=== PATIENT | male | born 1955 | race Caucasian/White ===

== ENCOUNTER 2017-07-26 03:33 | Observation (INO) ==
[2017-07-26] MEDS ORDERED: Aspirin 81 MG TAB.CHEW PO ONE (03:43)
--- NOTE | 2017-07-26 03:49 | Emergency Department Note ---
Disposition Clinical Impression: Chest pain Qualifiers: Chest pain type: unspecified Qualified Code(s): R07.9 - Chest pain, unspecified Disposition: Home, Self-Care Condition: Good Referrals: Nataliia Mathias CNP [Primary Care Provider] - Forms: ED Satisfaction Letter Time of Disposition: 06:53 Chest Pain HPI - General Chief Complaint: ED Chest Pain Stated Complaint: Chest Pain Time Seen by Provider: 07/26/17 03:43 Source: patient, EMS Limitations: no limitations Vital Signs Reviewed: Yes Nursing Notes Reviewed: Yes - History of Present Illness Pt complaint: chest pain Onset (ago): hour(s) (1) Onset: during rest Pain Location: substernal, right chest Severity scale (1-10): 7 Quality: sharp Pain Radiation: none Improves with: nothing Worsens with: supine Associated symptoms: Reports: nausea (has resolved). Denies: diaphoresis, dyspnea, sense of impending doom, palpitations, fever, cough Treatments prior to arrival chest pain: other (EMS) - Related Data Home Medications Medication Instructions Recorded Confirmed Aspirin 81 mg PO DAILY 05/16/17 07/26/17 Carvedilol [Carvedilol] 12.5 mg PO BID 05/16/17 07/26/17 Cyclobenzaprine [Flexeril] 10 mg PO TID PRN 05/16/17 07/26/17 Eplerenone [Inspra] 25 mg PO DAILY 05/16/17 07/26/17 Ezetimibe [Ezetimibe] 10 mg PO DAILY 05/16/17 07/26/17 Febuxostat [Uloric] 40 mg PO DAILY 05/16/17 07/26/17 Furosemide [Lasix] 40 mg PO DAILY 05/16/17 07/26/17 Gabapentin [Neurontin] 100 mg PO TID 05/16/17 07/26/17 Glimepiride [Amaryl] 2 mg PO DAILY 05/16/17 07/26/17 Insulin Glargine,Hum.rec.anlog 80 unit IJ QPM 05/16/17 07/26/17 [Lantus Solostar] Omeprazole [PriLOSEC] 20 mg PO DAILY 05/16/17 07/26/17 Simvastatin [Zocor] 40 mg PO DAILY 05/16/17 07/26/17 Warfarin [Coumadin] 5 mg PO DAILY 05/16/17 07/26/17 Meclizine [Antivert] 2 tab PO TID PRN 07/26/17 07/26/17 Pioglitazone [Actos] 45 mg PO DAILY 07/26/17 07/26/17 Spironolactone [Aldactone] 25 mg PO DAILY 07/26/17 07/26/17 Allergies Allergy/AdvReac Type Severity Reaction Status Date / Time acetaminophen [From Percocet] AdvReac Itching Verified 07/26/17 07:11 Amoxicillin [From Augmentin] AdvReac Diarrhea Verified 07/26/17 07:11 clavulanic acid AdvReac Diarrhea Verified 07/26/17 07:11 [From Augmentin] Oxycodone [From Percocet] AdvReac Itching Verified 07/26/17 07:11 All systems ED: reviewed and negative except as stated. Constitutional: Denies: fever, chills Eyes: Denies: vision change ENT ED: Denies: throat pain Cardiovascular: Denies: palpitations Respiratory: Denies: dyspnea Gastrointestinal: Denies: abdominal pain, nausea, vomiting Genitourinary: Denies: dysuria Musculoskeletal: Denies: back pain Integumentary: Denies: rash Neurological: Denies: headache, weakness, numbness Endocrine: Denies: fatigue Hematological/Lymphatic: Denies: easy bleeding Allergic/Immunologic: Denies: facial swelling Chest Pain PMH - Past Medical History Medical history: Reports: atrial fibrillation, CHF, diabetes, GERD, other Surgical history: Reports: pacemaker/AICD Psychiatric history: Reports: no psych history - Social History Smoking Status: Unknown if ever smoked Alcohol use: Reports: none Drug use: Reports: none Physical Exam - General Limitations: no limitations General appearance: alert, in no apparent distress - Head Head exam: normocephalic - Eye Eye exam: Present: EOMI. Absent: conjunctival injection - ENT ENT exam: normal oropharynx, mucous membranes moist - Chest Chest inspection: Present: normal inspection, symmetric chest wall rise - Respiratory Respiratory exam: Present: normal lung sounds bilaterally. Absent: respiratory distress - Cardiovascular Cardiovascular exam: Present: regular rate, normal rhythm - Abdominal Exam Abdominal exam: Present: soft, Non-Tender - Extremities Exam Extremities exam: Present: normal inspection, full ROM, normal capillary refill - Back Exam Back exam: Present: full ROM - Neurological Exam Neurological exam: Present: alert, oriented X3 - Psychiatric Psychiatric exam: Present: normal affect, normal mood - Skin Skin exam: Present: warm, dry, intact, normal color. Absent: rash Course Course Narrative: . He states he was sitting down watching TV when the chest pain started. He attempted to go to bed, however the pain worsened when he laid down flat. He describes it as sharp over substernal and right chest. He states the pain does not radiate to his neck back or extremities. He states his pain did not worsen when he walked to the bedroom. He had an episode of nausea which has since resolved, otherwise denies any shortness of breath, diaphoresis. Does mention a history of pacemaker and defibrillator, atrial fibrillation, diabetes. He does take Coumadin and daily aspirin. He does mention he sees a snuff drier, but denies any recent stress test. At this time patient denies anything for his pain. On exam, alert and oriented. He appears in no acute distress. Does not look toxic. No cyanosis, no diaphoresis. Heart regular rate and rhythm. Lungs clear to auscultation. No abdominal tenderness. Patient able to ambulate without difficulty. Workup initiated. - Reevaluation(s) Reevaluation #1: Patient was discussed with attending Dr. Milligan who agreed for likely admit for cardiac rule out. He had also advised for CTA, CT chest due to patient's recent EGD, and radiating chest pain. Patient did have improvement with nitroglycerin. We will plan for admission for ACS rule out. Time: 04:45 Reevaluation #2: At this time is the end of my shift. Dr. Milligan Will discuss patient with hospitalist, and I anticipate patient will be accepted for cardiac rule out. Please see his further documentation for details. Patient resting comfortably and denies chest pain. Time: 06:53 Vital Signs Temperature 97.6 F 07/26/17 03:33 Pulse Rate 80 07/26/17 03:33 Respiratory Rate 18 07/26/17 03:33 Blood Pressure 106/76 07/26/17 03:33 O2 Sat by Pulse Oximetry 98 07/26/17 03:33 Temperature 97.6 F 07/26/17 03:33 Pulse Rate 84 07/26/17 07:19 Respiratory Rate 18 07/26/17 07:19 Blood Pressure 114/84 07/26/17 07:19 O2 Sat by Pulse Oximetry 99 07/26/17 07:19 Oxygen Delivery Oxygen Delivery Nasal Cannula Chest Pain - MDM Narrative Medical decision making narrative: Abdomen/Pelvis CTA 07/26/17 04:14 IMPRESSION: 1. No aortic aneurysm or dissection. 2. Coronary artery disease. 3. Diverticulosis without scan evidence for diverticulitis. D/ / Ambrocio Coats MD / Ambrocio Coats MD Interpreting Provider: Ambrocio Coats MD Chest CTA 07/26/17 04:14 IMPRESSION: 1. No aortic aneurysm or dissection. 2. Coronary artery disease. 3. Diverticulosis without scan evidence for diverticulitis. D/ / Ambrocio Coats MD / Ambrocio Coats MD Interpreting Provider: Ambrocio Coats MD Laboratory Tests 07/26/17 07/26/17 07/26/17 03:59 03:59 03:59 WBC 6.8 RBC 4.79 Hgb 14.2 Hct 44.6 MCV 93.1 MCH 29.6 MCHC 31.8 RDW 14.9 H Plt Count 138 L MPV 10.6 Immature Gran % 0.6 Seg Neutrophils % 65.8 Lymphocytes % 19.7 Monocytes % 8.1 Eosinophils % 5.4 Basophils % 0.4 Neutrophils # 4.5 Lymphocytes # 1.3 Monocytes # 0.6 Eosinophils # 0.4 Basophils # 0.0 PT 25.0 H INR 2.3 APTT 37.4 H Sodium 139 Potassium 4.0 Chloride 106 Carbon Dioxide 29 BUN 20 Creatinine 1.36 H Est GFR ( Amer) > 60 Est GFR (Non-Af Amer) 53 L BUN/Creatinine Ratio 15 Glucose 219 H Calculated Osmolality 297 Calcium 8.8 Total Bilirubin 0.6 Direct Bilirubin 0.1 Indirect Bilirubin 0.5 AST 21 ALT 23 Alkaline Phosphatase 83 Troponin I Serum Total Protein 6.9 Albumin 3.7 Globulin 3.2 Albumin/Globulin Ratio 1.2 Lipase 39 07/26/17 03:59 WBC RBC Hgb Hct MCV MCH MCHC RDW Plt Count MPV Immature Gran % Seg Neutrophils % Lymphocytes % Monocytes % Eosinophils % Basophils % Neutrophils # Lymphocytes # Monocytes # Eosinophils # Basophils # PT INR APTT Sodium Potassium Chloride Carbon Dioxide BUN Creatinine Est GFR ( Amer) Est GFR (Non-Af Amer) BUN/Creatinine Ratio Glucose Calculated Osmolality Calcium Total Bilirubin Direct Bilirubin Indirect Bilirubin AST ALT Alkaline Phosphatase Troponin I 0.05 H* Serum Total Protein Albumin Globulin Albumin/Globulin Ratio Lipase - Lab Data Lab results reviewed: Yes I reviewed the patient's lab results. Result diagrams: 07/26/17 03:59 07/26/17 03:59 Lab Results 07/26/17 07/26/17 07/26/17 Range/Units 03:59 03:59 03:59 WBC 6.8 (4.3-11.1) K/mcL RBC 4.79 (4.19-5.50) M/mcL Hgb 14.2 (12.9-16.9) g/dL Hct 44.6 (37.5-50.1) % MCV 93.1 (83.0-100.0) fL MCH 29.6 (28.0-33.3) pg MCHC 31.8 (31.6-35.5) g/dL RDW 14.9 H (11.5-14.5) % Plt Count 138 L (140-400) K/mcL MPV 10.6 (9.4-12.4) fL Immature Gran % 0.6 (0-4) % Seg Neutrophils % 65.8 % Lymphocytes % 19.7 % Monocytes % 8.1 % Eosinophils % 5.4 % Basophils % 0.4 % Neutrophils # 4.5 (1.6-8.9) K/mcL Lymphocytes # 1.3 (0.6-4.6) K/mcL Monocytes # 0.6 (0.0-1.3) K/mcL Eosinophils # 0.4 (0.0-0.6) K/mcL Basophils # 0.0 (0.0-0.2) K/mcL PT 25.0 H (9.4-12.1) Seconds INR 2.3 APTT 37.4 H (26.0-36.0) Seconds Sodium 139 (136-145) mEq/L Potassium 4.0 (3.5-5.1) mEq/L Chloride 106 (98-107) mEq/L Carbon Dioxide 29 (23-29) mEq/L BUN 20 (8-23) mg/dL Creatinine 1.36 H (0.70-1.30) mg/dL Est GFR ( Amer) > 60 (> 60) Est GFR (Non-Af Amer) 53 L (> 60) BUN/Creatinine Ratio 15 (6-26) Glucose 219 H (70-105) mg/dL Calculated Osmolality 297 (280-300) Calcium 8.8 (8.6-10.3) mg/dL Total Bilirubin 0.6 (0.3-1.0) mg/dL Direct Bilirubin 0.1 (0.0-0.2) mg/dL Indirect Bilirubin 0.5 (0.0-1.2) mg/dL AST 21 (13-39) Units/L ALT 23 (7-52) Units/L Alkaline Phosphatase 83 (34-104) Units/L Troponin I (< 0.04) ng/mL Serum Total Protein 6.9 (6.4-8.9) g/dL Albumin 3.7 (3.5-5.7) g/dL Globulin 3.2 (2.4-3.5) g/dL Albumin/Globulin Ratio 1.2 (1.1-2.2) Lipase 39 (11-82) Units/L 07/26/17 Range/Units 03:59 WBC (4.3-11.1) K/mcL RBC (4.19-5.50) M/mcL Hgb (12.9-16.9) g/dL Hct (37.5-50.1) % MCV (83.0-100.0) fL MCH (28.0-33.3) pg MCHC (31.6-35.5) g/dL RDW (11.5-14.5) % Plt Count (140-400) K/mcL MPV (9.4-12.4) fL Immature Gran % (0-4) % Seg Neutrophils % % Lymphocytes % % Monocytes % % Eosinophils % % Basophils % % Neutrophils # (1.6-8.9) K/mcL Lymphocytes # (0.6-4.6) K/mcL Monocytes # (0.0-1.3) K/mcL Eosinophils # (0.0-0.6) K/mcL Basophils # (0.0-0.2) K/mcL PT (9.4-12.1) Seconds INR APTT (26.0-36.0) Seconds Sodium (136-145) mEq/L Potassium (3.5-5.1) mEq/L Chloride (98-107) mEq/L Carbon Dioxide (23-29) mEq/L BUN (8-23) mg/dL Creatinine (0.70-1.30) mg/dL Est GFR ( Amer) (> 60) Est GFR (Non-Af Amer) (> 60) BUN/Creatinine Ratio (6-26) Glucose (70-105) mg/dL Calculated Osmolality (280-300) Calcium (8.6-10.3) mg/dL Total Bilirubin (0.3-1.0) mg/dL Direct Bilirubin (0.0-0.2) mg/dL Indirect Bilirubin (0.0-1.2) mg/dL AST (13-39) Units/L ALT (7-52) Units/L Alkaline Phosphatase (34-104) Units/L Troponin I 0.05 H* (< 0.04) ng/mL Serum Total Protein (6.4-8.9) g/dL Albumin (3.5-5.7) g/dL Globulin (2.4-3.5) g/dL Albumin/Globulin Ratio (1.1-2.2) Lipase (11-82) Units/L - Radiology Data Radiology results reviewed: Yes I reviewed the patient's radiology results. - EKG Data EKG attestation: Yes I reviewed and interpreted this EKG. EKG results narrative: Ventricular rate 81, ventricular paced, QRS duration 190, QT/QTc 470/508 EKG shows normal: sinus rhythm Heart Score - Score History: Moderately Suspicious EKG: Normal Age: 45-65 Risk Factors: Equal/Greater than 3 risk factor or history of atherosclerotic disease Troponin: 1-3x normal limit HEART Score Total: 5 Attestation Statement - Attestation Attestation: Gabriel Gottlieb DO have provided [id number] time during the care of this patient. Detailed review the presentation, symptoms, medical history were discussed and reviewed with the mid-level provider Chidi Batista PA-C/BALER OPERATOR. Medical intervention labs and imaging studies were reviewed in detail. See full documentation of physical exam and course of care in the mid-level provider 's note. I agree with the determined course of care, medical intervention and disposition put forth by the mid-level provider. See below documentation for changes or alterations in documentation. 61-year-old male presents to emergency room with midepigastric chest discomfort that radiates up into his anterior chest wall. Patient has history of hyperlipidemia hyperglycemia. Denies any hypertension. He is morbidly obese. His risk factor for cardiac disease is elevated at this time. Patient does have substernal chest pain that came on acutely without any exacerbating issue. Patient denies any change in the symptoms with exertion or movement. Lungs are clear heart is regular patient has had a pacemaker in place with no other complication noted. Patient will be evaluated with EKG chest x-ray CT angios chest abdomen ruling out aneurysm and dissection Nitroglycerin trial provided here as well as aspirin and begin. Symptoms will be controlled otherwise. Expect patient will need admission for further evaluation treatment course. Patient did have recent EGD. Patient will have the CT imaging to address any signs of perforation or inflammation of the distal esophagus as well. Patient understands a productive treatment course. He is in no acute distress resting in the bed at this time feeling like the symptoms are getting better. Will discuss admission process or cardiac evaluation and ACS rule out once the workup imaging modalities are resulted. See detailed documentation of the physical exam, medical intervention, medical decision-making and disposition and the mid-level provider's note. No critical care applied to the patient's treatment course of this time 0600 Patient has had almost complete resolution the chest pressure. CT angiography reviewed in detail. No other concerning findings noted this time. Admission process will be completed for anginal control and with chest pain discomfort. Patient understands this is covered with the plan. Aspirin given here. Nitroglycerin will be added onto the patient's symptoms return. Patient is therapeutic with an INR of 2.3. No anticoagulation needed at this time. Patient will be admitted for an STEMI and ACS rule out with his ventricularly paced rhythm. 0715 Patient has had complete resolution of the chest pain at this time. CT angiography is negative. Admission process completed with detailed conversation with the hospitalist Dr. rodriguez. No other concerns or issues this time. Patient will be admitted for cardiac evaluation out of the emergency room at this point.
[2017-07-26] MEDS ORDERED: Nitroglycerin 0.4 MG TAB.SUBL SL PRN (04:13)
[2017-07-26 04:17] LABS: Basophils % 0.4 %; Eosinophils # 0.4 K/mcL (0.0-0.6); Eosinophils % 5.4 %; Hematocrit 44.6 % (37.5-50.1); Hemoglobin 14.2 g/dL (12.9-16.9); INR 2.3; Immature Granulocytes % 0.6 % (0-4); Lymphocytes # 1.3 K/mcL (0.6-4.6); Lymphocytes % 19.7 %; Mean Corpuscular HGB Conc 31.8 g/dL (31.6-35.5); Mean Corpuscular Hemoglobin 29.6 pg (28.0-33.3); Mean Corpuscular Volume 93.1 fL (83.0-100.0); Mean Platelet Volume 10.6 fL (9.4-12.4); Monocytes # 0.6 K/mcL (0.0-1.3); Monocytes % 8.1 %; Neutrophils # 4.5 K/mcL (1.6-8.9); Platelet Count 138 K/mcL (140-400); Red Blood Count 4.79 M/mcL (4.19-5.50); Red Cell Distribution Width 14.9 % (11.5-14.5); Segmented Neutrophils % 65.8 %
[2017-07-26 04:20] LABS: Activated Partial Thrombo Time 37.4 Seconds (26.0-36.0)
[2017-07-26 04:29] LABS: BUN/Creatinine Ratio 15 (6-26); Blood Urea Nitrogen 20 mg/dL (8-23); Calcium 8.8 mg/dL (8.6-10.3); Carbon Dioxide 29 mEq/L (23-29); Chloride 106 mEq/L (98-107); Glucose 219 mg/dL (70-105); Osmolality,Calculated 297 (280-300); Sodium 139 mEq/L (136-145); eGFR For African Americans > 60 (> 60); eGFR For Non-African Americans 53 (> 60)
[2017-07-26 04:50] LABS: Alanine Aminotransferase 23 Units/L (7-52); Albumin 3.7 g/dL (3.5-5.7); Albumin/Globulin Ratio 1.2 (1.1-2.2); Alkaline Phosphatase 83 Units/L (34-104); Aspartate Amino Transferase 21 Units/L (13-39); Bilirubin,Direct 0.1 mg/dL (0.0-0.2); Bilirubin,Indirect 0.5 mg/dL (0.0-1.2); Bilirubin,Total 0.6 mg/dL (0.3-1.0); Globulin 3.2 g/dL (2.4-3.5); Lipase 39 Units/L (11-82); Total Protein 6.9 g/dL (6.4-8.9)
[2017-07-26] MEDS ORDERED: Naloxone 0.4 MG/ML INJ IVP PRN (09:21)
[2017-07-26] MEDS ORDERED: Ondansetron ODT 4 MG TAB.RAPDIS SL PRN (09:21)
[2017-07-26] MEDS ORDERED: *HR* Morphine 2 MG/ML SYRINGE IVP PRN (09:21)
[2017-07-26] MEDS ORDERED: *HR* Dextrose 50 % in Water (Syg) 50 ML SYRINGE IVP PRN (09:31)
[2017-07-26] MEDS ORDERED: Dextrose Gel 15 GM/37.5 ML TUBE PO PRN ×2 (09:31)
[2017-07-26] MEDS ORDERED: D5% in Water 1,000 ML IVC PRN (09:31)
--- NOTE | 2017-07-26 09:37 | Internal Med History&Physical ---
Date of Encounter: 07/26/17 Time of Encounter: 09:31 Assessment and Plan (1) Chest pain Current visit: Yes Status: Acute 61/male Multiple comorbid issues. Admitted with worsening chest pain. History of previous cardiac catheterization. Plan: Admit as observation. Aspirin/Coreg/simvastatin Resume home medication. Psychological troponin. Diet for now but nothing by mouth from midnight. Echocardiogram. If the troponins are normal/echocardiogram normal: Please Schedule for stress test. If stress test abnormal then consider cardiology evaluation. If the troponin/echocardiogram abnormal then please call cardiology. Qualifiers: Chest pain type: unspecified Qualified Code(s): R07.9 - Chest pain, unspecified (2) Diabetes mellitus Current visit: Yes Status: Acute We will follow the information and recommendations from the subcutaneous insulin order set. Qualifiers: Diabetes mellitus type: type 2 Diabetes mellitus complication status: with unspecified complications Diabetes mellitus group home insulin use: with group home use Qualified Code(s): E11.8 - Type 2 diabetes mellitus with unspecified complications; Z79.4 - half-way (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 of insulin; Z79.4 - half-way ( 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 of insulin; Z79.4 - intermediate teacher (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 of insulin; Z79.4 - intermediate teacher (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 of insulin (3) Hypertension Current visit: Yes Status: Acute We will continue home medications. Qualifiers: Hypertension type: essential hypertension Qualified Code(s): I10 - Essential (primary) hypertension (4) Dyslipidemia Current visit: Yes Status: Acute Continue simvastatin Lipid panel tomorrow morning (5) Morbid obesity Current visit: Yes Status: Acute Patient will get benefit from outpatient evaluation from the bariatric surgery. (6) DVT prophylaxis Current visit: Yes Status: Acute scd Medical decision making: This patient is a moderate to severe risk of worsening in spite of being on appropriate medication due to the underlying chronic comorbid conditions. Internal Medicine - H&P: HPI Chief complaint: chest pain Admitted From: Emergency Dept Plans for Post Hospital Care: Home History of present illness: PCP: Ms Nataliia Mathias. Brief PMH: DM, HTN, CAD, Morbid Obesity, Dyslipidemia. Previous Cardiac catheterization once in 2000 and second time patient does not remember. HPI: Patient was complaining of ongoing dull aching chest discomfort for more than 2 weeks. Since last night 1:30 AM, patient is complaining of severe retrosternal chest pain which is nonradiating, localized, associated with the movement and relieved by rest. Patient complains that he had a similar type of pain previously and the consequences of back pain he was in the hospital and underwent cardiac catheterization. Patient and his that are very scared of this new onset of pain and that was reason they called squad. Patient denies shortness of breath, nausea, vomiting, dizziness and diarrhea. Workup in the emergency room: Patient was evaluated in the emergency room. Basic labs were drawn. The chest pain subsided with the nitroglycerin. Reason for admission: THIERNO score 3. Chest pain to rule out acute coronary syndrome. Family history: Noncontributory Past Med Surg Social Fam HX - Past Medical History Medical history: atrial fibrillation, CHF, diabetes, GERD, other Psychiatric history: no psych history - Past Surgical History Surgical History: pacemaker/AICD - Social History Smoking Status: Unknown if ever smoked Smokeless Tobacco Status: No Alcohol use: none Drug use: none Internal Medicine - H&P: Meds Aspirin 81 mg PO DAILY 05/16/17 [History] Carvedilol [Carvedilol] 12.5 mg PO BID 05/16/17 [History] Cyclobenzaprine [Flexeril] 10 mg PO TID PRN 05/16/17 [History] Eplerenone [Inspra] 25 mg PO DAILY 05/16/17 [History] Ezetimibe [Ezetimibe] 10 mg PO DAILY 05/16/17 [History] Febuxostat [Uloric] 40 mg PO DAILY 05/16/17 [History] Furosemide [Lasix] 40 mg PO DAILY 05/16/17 [History] Gabapentin [Neurontin] 100 mg PO TID 05/16/17 [History] Glimepiride [Amaryl] 2 mg PO DAILY 05/16/17 [History] Insulin Glargine,Hum.rec.anlog [Lantus Solostar] 80 unit IJ QPM 05/16/17 [ History] Omeprazole [PriLOSEC] 20 mg PO DAILY 05/16/17 [History] Simvastatin [Zocor] 40 mg PO DAILY 05/16/17 [History] Warfarin [Coumadin] 5 mg PO DAILY 05/16/17 [History] Meclizine [Antivert] 2 tab PO TID PRN 07/26/17 [History] Pioglitazone [Actos] 45 mg PO DAILY 07/26/17 [History] Spironolactone [Aldactone] 25 mg PO DAILY 07/26/17 [History] 3 Allergy/AdvReac Type Severity Reaction Status Date / Time acetaminophen [From Percocet] AdvReac Itching Verified 07/26/17 07:11 Amoxicillin [From Augmentin] AdvReac Diarrhea Verified 07/26/17 07:11 clavulanic acid AdvReac Diarrhea Verified 07/26/17 07:11 [From Augmentin] Oxycodone [From Percocet] AdvReac Itching Verified 07/26/17 07:11 All Systems PM: A 10-system review of systems was performed and is negative for pertinent findings except as documented above in the HPI. - Constitutional Constitutional: no chills, no fever(s), no night sweats - EENT Eyes: no change in vision, no discharge, no pain, no photophobia Ears: no ear discharge, no ear pain, no tinnitus Nose, mouth and throat: no dysphagia, no nasal discharge, no neck pain, no sore throat - Cardiovascular Cardiovascular ROS IM: as per HPI, chest pain, diaphoresis, lightheadedness, no dyspnea, no palpitations, no syncope - Respiratory Respiratory: no cough, no dyspnea, no wheezing, no excessive phlegm production - Gastrointestinal Gastrointestinal: no abdominal pain, no diarrhea, no hematemesis, no hematochezia, no melena, no nausea, no vomiting - Musculoskeletal Musculoskeletal ROS IM: no numbness, no tingling - Integumentary Integumentary IM: no rash, no unusual bruising - Neurological Neurological ROS: no confusion, no convulsions, no focal weakness, no numbness, no tingling, no tremor(s) - Hematologic/Lymphatic Hematologic/Lymphatic: no easy bruising - Constitutional Vitals: Temp Pulse Resp BP Pulse Ox 97.6 F 84 18 114/84 99 07/26/17 03:33 07/26/17 07:19 07/26/17 07:19 07/26/17 07:19 07/26/17 07:19 General appearance: Present: A&O X 3, pleasant, no acute distress, answers questions appropriately - Head Head exam: Present: atraumatic, normocephalic - Eye Eye exam: Present: PERRL, conjuntiva pink, sclera anicteric Pupils: Present: PERRL - Neck Neck exam general surgery: Present: supple, trachea midline. Absent: lymphadenopathy - Respiratory Respiratory exam: Present: CTAB. Absent: accessory muscle use, rales, rhonchi, wheezes - Cardiovascular Cardiovascular exam: Present: RRR, +S1, +S2. Absent: diastolic murmur, gallop, rubs, systolic murmur - GI/Abdominal GI/Abdominal exam: Present: normal bowel sounds, soft, no peritoneal signs. Absent: distended, tenderness - Extremities Exam Extremities exam: Present: warm, radial pulses palpable and symmetrical. Absent : calf tenderness, cyanotic, pedal edema - Neurological Exam Neurological exam: Present: CN II-XII intact, oriented X3, no focal deficits. Absent: pronater drift, facial droop, speech deficit - Skin Skin exam: Present: dry, intact Internal Med - H&P Results - Labs CBC & Chem 7: 07/26/17 03:59 07/26/17 03:59
--- NOTE | 2017-07-26 12:19 | Electrocardiograph Report ---
[place] [id number] Test Date: 2017-07-26 Pat Name: Alejandro Pace Department: 102 Room: [facility] Gender: M Hat Mender: Miguel Angel : 1955 Requested By: Cruz Klein Order Number: [id number] Reading MD: Scottie Amaral DO Measurements Intervals [place] Rate: 81 P: [place]: 0 QRS: 176 QRSD: 190 T: 3 QT: 470 QTc: 508 Interpretive Statements ELECTRONIC VENTRICULAR PACEMAKER PVC Electronically Signed On 07-26-2017 12:18:14 EST by Scottie Amaral DO
[2017-07-26] MEDS ORDERED: Perflutren Lipid Microsphere 1.3 ML in 0.9 % Sodium Chloride 8.7 ML IVP ONE (12:37)
[2017-07-26] MEDS: Insulin LISPRO 300 UNITS/3 ML VIAL SQ SCH ×2 (13:39→18:26)
[2017-07-26] MEDS ORDERED: *HR* Warfarin 2.5 MG TABLET PO SCH (18:00)
[2017-07-26] MEDS ORDERED: Insulin DETEMIR 100 UNIT/ML X5UNITS SQ SCH (18:00)
[2017-07-26] MEDS: Gabapentin 100 MG CAPSULE PO SCH ×2 (18:19→19:37)
[2017-07-27 04:16] LABS: Basophils # 0.1 K/mcL (0.0-0.2); Basophils % 0.7 %; Eosinophils # 0.4 K/mcL (0.0-0.6); Eosinophils % 5.1 %; Hematocrit 42.7 % (37.5-50.1); Hemoglobin 13.8 g/dL (12.9-16.9); Immature Granulocytes % 0.3 % (0-4); Lymphocytes # 1.5 K/mcL (0.6-4.6); Lymphocytes % 21.3 %; Mean Corpuscular HGB Conc 32.3 g/dL (31.6-35.5); Mean Corpuscular Hemoglobin 30.1 pg (28.0-33.3); Mean Corpuscular Volume 93.2 fL (83.0-100.0); Monocytes # 0.6 K/mcL (0.0-1.3); Monocytes % 8.5 %; Neutrophils # 4.4 K/mcL (1.6-8.9); Platelet Count 129 K/mcL (140-400); Red Blood Count 4.58 M/mcL (4.19-5.50); Red Cell Distribution Width 15.2 % (11.5-14.5); Segmented Neutrophils % 64.1 %
[2017-07-27 04:20] LABS: INR 2.2; Prothrombin Time 23.7 Seconds (9.4-12.1)
[2017-07-27 04:23] LABS: Activated Partial Thrombo Time 35.1 Seconds (26.0-36.0)
[2017-07-27 04:33] LABS: Alanine Aminotransferase 20 Units/L (7-52); Albumin 3.5 g/dL (3.5-5.7); Albumin/Globulin Ratio 1.3 (1.1-2.2); Alkaline Phosphatase 73 Units/L (34-104); Aspartate Amino Transferase 18 Units/L (13-39); BUN/Creatinine Ratio 16 (6-26); Bilirubin,Total 0.6 mg/dL (0.3-1.0); Blood Urea Nitrogen 18 mg/dL (8-23); Calcium 8.9 mg/dL (8.6-10.3); Carbon Dioxide 28 mEq/L (23-29); Chloride 110 mEq/L (98-107); Chol/HDL Ratio 4.5 (0-4.9); Cholesterol 126 mg/dL (< 200); Globulin 2.8 g/dL (2.4-3.5); Glucose 90 mg/dL (70-105); HDL Cholesterol 28 mg/dL (40-59); LDL Cholesterol,Calculated 71 mg/dL (0-99); Magnesium 2.1 mg/dL (1.6-2.6); Osmolality,Calculated 295 (280-300); Phosphorous 3.2 mg/dL (2.7-4.5); Potassium 3.9 mEq/L (3.5-5.1); Sodium 142 mEq/L (136-145); Total Protein 6.3 g/dL (6.4-8.9); Triglycerides 136 mg/dL (< 150); eGFR For African Americans > 60 (> 60); eGFR For Non-African Americans > 60 (> 60)
[2017-07-27] MEDS: Gabapentin 100 MG CAPSULE PO SCH (08:57)
[2017-07-27] MEDS: Insulin LISPRO 300 UNITS/3 ML VIAL SQ SCH ×2 (08:57→11:57)
[2017-07-27] MEDS ORDERED: *HR* Glimepiride 2 MG TABLET PO SCH (09:00)
[2017-07-27] MEDS ORDERED: (Ezetimibe [Ezetimibe] 10 MG) PO SCH (09:00)
[2017-07-27] MEDS ORDERED: (Eplerenone [Inspra] 25 MG) PO SCH (09:00)
[2017-07-27] MEDS ORDERED: *HR* Warfarin 5 MG TABLET PO SCH ×2 (09:00→18:00)
[2017-07-27] MEDS ORDERED: Spironolactone 25 MG TABLET PO SCH (09:00)
[2017-07-27] MEDS ORDERED: Furosemide 40 MG TABLET PO SCH (09:00)
[2017-07-27] MEDS ORDERED: (Febuxostat [Uloric] 40 MG) PO SCH (09:00)
[2017-07-27] MEDS ORDERED: Aspirin 81 MG TAB.CHEW PO SCH (09:00)
--- NOTE | 2017-07-27 10:04 | Cardiology Consult Note ---
<Bashir Wong - Last Filed: 07/27/17 12:16> Date of Encounter: 07/27/17 Time of Encounter: 10:00 Assessment and Plan (1) Elevated troponin Status: Acute Per Cardiology: Mild trops 0.05 x 4, flat and adynamic. Atypical CP-- epigastric pain. Has hx of GERD and had recent GI eval. No cardiac rehab c/s warranted. I had lengthy discussion with patient and regarding potential further ischemic evaluation of stress test or left heart catheterization, however patient prefers to monitor and observe and follow-up with his primary enlisted advisor Dr. Cueto. Discussed and reviewed with Dr. Sevilla. Cardiology will sign off, reconsult as needed, follow-up already arranged. (2) Cardiomyopathy Status: Chronic Per Cardiology: Known history of nonischemic cardiopathy and has by the ICD. Denies any ICD shocks. Euvolemic on exam. BNP 72. Chest x-ray stable. On Lasix and beta shirley. Qualifiers: Cardiomyopathy type: unspecified Qualified Code(s): I42.9 - Cardiomyopathy , unspecified (3) Chronic a-fib Status: Chronic Per Cardiology: Known chronic atrial fibrillation. Rate controlled. On beta shirley. On long-term anticoagulation of Coumadin, current INR 2.2. Discussion w patient/family: The assessment and plan as outlined above was discussed with the patient and/or family members who expressed understanding and agreement. All questions were answered. Thank you for involving us in the care of your patient. Please call with any questions. History of Present Illness Consult date: 07/27/17 Requesting physician: Teresa Pop Consult reason: Elevated Trop Chief complaint: Epigastric Pain History of present illness: Mr. Pace is a 61 year old male DM2, HTN, GERD, Obesity, HLD, chronic afib, NICMP with BiVICD. Cardiology C/S for mild troponins. Patient seen with at bedside. Reports yesterday evening he laid down after dinner and developed around 130am mid epigastric burning/pain. He reports episodes intermittently over past few weeks. Reports recent GI eval with biopsies pending. On PPI at home. He denies any CP and reports symptoms last night were epigastric. Denies any increase in fatigue, palps, LUONG. Denies any edema or ICD shocks. Past Med Surg Social Fam HX - Past Medical History Attestation: Yes The following information was validated with the patient. Source: patient, old records reviewed, obtained from family Medical history: atrial fibrillation, CHF, diabetes, GERD, other Psychiatric history: no psych history - Past Surgical History Surgical History: pacemaker/AICD - Social History Smoking Status: Unknown if ever smoked Smokeless Tobacco Status: No Alcohol use: none Drug use: none Medications and Allergies Aspirin 81 mg PO DAILY 05/16/17 [History] Carvedilol 12.5 mg PO BID 05/16/17 [History] Cyclobenzaprine [Flexeril] 10 mg PO TID PRN 05/16/17 [History] Eplerenone [Inspra] 25 mg PO DAILY 05/16/17 [History] Ezetimibe 10 mg PO DAILY 05/16/17 [History] Febuxostat [Uloric] 40 mg PO DAILY 05/16/17 [History] Furosemide [Lasix] 40 mg PO DAILY 05/16/17 [History] Gabapentin [Neurontin] 100 mg PO TID 05/16/17 [History] Glimepiride [Amaryl] 2 mg PO DAILY 05/16/17 [History] Insulin Glargine,Hum.rec.anlog [Lantus Solostar] 94 unit SQ QPM 05/16/17 [ History] Omeprazole [PriLOSEC] 20 mg PO DAILY 05/16/17 [History] Simvastatin [Zocor] 40 mg PO DAILY 05/16/17 [History] Warfarin [Coumadin] 5 mg PO TUTHSA 05/16/17 [History] Meclizine [Antivert] 2 tab PO TID PRN 07/26/17 [History] Pioglitazone [Actos] 45 mg PO DAILY 07/26/17 [History] Warfarin [Coumadin] 2.5 mg PO QMWFSU 07/26/17 [History] 3 Allergy/AdvReac Type Severity Reaction Status Date / Time acetaminophen [From Percocet] AdvReac Itching Verified 07/26/17 07:11 Amoxicillin [From Augmentin] AdvReac Diarrhea Verified 07/26/17 07:11 clavulanic acid AdvReac Diarrhea Verified 07/26/17 07:11 [From Augmentin] Oxycodone [From Percocet] AdvReac Itching Verified 07/26/17 07:11 All Systems Review: A 10-system review of systems was performed and is negative for pertinent findings except as documented above in the HPI. - Cardiovascular Cardiovascular: as per HPI - Gastrointestinal Gastrointestinal: abdominal pain Physical Examination Vital Signs, Last 4 Hours Temp Pulse Resp BP Pulse Ox 07/27/17 06:40 97.7 F 80 16 101/69 93 General: Conversant, No Apparent Distress HEENT: Atraumatic, Normocephaly, Mucus Membranes Moist Neck: No JVD, Normal carotid pulses Cardiac: Normal S1 and S2, No Murmur, Other (irregularly irregular) Lungs: Normal Breath Sounds, No Wheeze, Rales, Rhonchi Neuro: Alert and responsive, No focal deficits noted Abdomen: Soft, Non-Tender, Other (obese) Skin: No rashes noted on visualized skin Musculoskeletal: No Chest Wall Tenderness Extremities: No Clubbing, No Cyanosis, No Edema, Normal Pulses Results 07/27/17 02:59 07/27/17 02:59 Lab Results Laboratory Tests 06/24/17 07/26/17 07/27/17 08:34 03:59 02:59 INR 2.2 Creatinine 1.42 H 1.36 H AST ALT 07/27/17 02:59 INR Creatinine 1.15 AST 18 ALT 20 ITS Impressions Abdomen/Pelvis CTA 07/26/17 04:14 IMPRESSION: 1. No aortic aneurysm or dissection. 2. Coronary artery disease. 3. Diverticulosis without scan evidence for diverticulitis. D/ / Ambrocio Coats MD / Ambrocio Coats MD Interpreting Provider: Ambrocio Coats MD Chest CTA 07/26/17 04:14 IMPRESSION: 1. No aortic aneurysm or dissection. 2. Coronary artery disease. 3. Diverticulosis without scan evidence for diverticulitis. D/ / Ambrocio Coats MD / Ambrocio Coats MD Interpreting Provider: Ambrocio Coats MD Echocardiogram 07/26/17 09:28 Impressions: Technically sub-optimal due to body habitus. LVEF 30%. Mildly dilated left ventricle. Mild concentric left ventricular hypertrophy. Severe global left ventricular systolic dysfunction. Indeterminate diastolic function. Atypical septal motion consistent with paced rhythm. Right ventricle was not well visualized. Grossly, it demonstrates reduced function. No evidence of pulmonary hypertension identified. RVSP not well obtained due to poor TR jet. A device lead was visualized in the right atrium and right ventricle. No obvious significant valvular dysfunction. Left Ventricular Wall Motion: Rest Echo Findings The apex, apical inferior, mid inferior, basal inferior, apical anterior, mid anterior, basal anterior, apical septal, mid inferior septal, basal inferior septal, apical lateral, mid anterior lateral, basal anterior lateral, mid anterior septal, mid inferior lateral, basal anterior septal and basal inferior lateral shaikh were hypokinetic. Findings: Study Quality * Technically sub-optimal due to body habitus. ECG Findings * Paced rhythm. Left Ventricle * LVEF 30%. * Mildly dilated left ventricle. * Mild concentric left ventricular hypertrophy. * Severe global left ventricular systolic dysfunction. * Indeterminate diastolic function. * Atypical septal motion consistent with paced rhythm. Right Ventricle * Right ventricle was not well visualized. Grossly, it demonstrates reduced function. Left Atrium * Moderately dilated left atrium. Right Atrium * Moderately dilated right atrium. Interatrial Septum * Interatrial septum not well evaluated. Aortic Valve * Aortic valve not well visualized. * No aortic regurgitation. * No aortic stenosis. Mitral Valve * Normal mitral valve structure and function. * No mitral stenosis. * Trace mitral regurgitation. Tricuspid Valve * Normal tricuspid valve structure and function. * Trace tricuspid regurgitation. * No evidence of pulmonary hypertension identified. RVSP not well obtained due to poor TR jet. Pulmonic Valve * Pulmonic valve not well visualized. * No pulmonic regurgitation. Aorta * Normally sized aortic root. Pericardium * The pericardium appears normal. IVC * The IVC is not well evaluated. Device lead * A device lead was visualized in the right atrium and right ventricle. Pulmonary Artery * Pulmonary artery not well visualized. Active Medications Aspirin (Aspirin) 81 mg PO DAILY [facility] Stop: 01/26/18 09:01 Last Admin: 07/27/17 08:57 Dose: 81 mg Carvedilol (Coreg) 12.5 mg PO BIDWM [facility] Stop: 01/25/18 21:01 Last Admin: 07/27/17 08:58 Dose: 12.5 mg Dextrose/Water (Dextrose 50% (Syg)) 25 ml IVP AD PRN PRN Reason: Hypoglycemia Stop: 01/25/18 09:32 Docusate Sodium (Colace) 100 mg PO BID PRN PRN Reason: Constipation Stop: 01/25/18 09:22 Furosemide (Lasix) 40 mg PO DAILY [facility] Stop: 01/26/18 09:01 Last Admin: 07/27/17 08:57 Dose: 40 mg Gabapentin (Neurontin) 100 mg PO TID [facility] Stop: 01/25/18 15:01 Last Admin: 07/27/17 08:57 Dose: 100 mg Glimepiride (Amaryl) 2 mg PO DAILY [facility] Stop: 01/26/18 09:01 Last Admin: 07/27/17 08:57 Dose: 2 mg Glucagon (Glucagen) 1 mg IM ONCE PRN PRN Reason: Hypoglycemia Stop: 01/25/18 09:32 Glucose (Gluctose) 15 gm PO ONCE PRN PRN Reason: Hypoglycemia Stop: 01/25/18 09:32 Glucose (Gluctose) 30 gm PO ONCE PRN PRN Reason: Hypoglycemia Stop: 01/25/18 09:32 Dextrose (Dextrose 5%) 1,000 mls @ 100 mls/hr IVC .Q10H PRN PRN Reason: HYPOGLYCEMIA Stop: 01/25/18 09:32 Insulin Detemir (Levemir) 80 unit SQ QPM [facility] Stop: 01/25/18 18:01 Last Admin: 07/26/17 18:29 Dose: 80 unit Insulin Human Lispro (Humalog) 0 units SQ TIDAC [facility] PRN Reason: Protocol Stop: 01/25/18 11:31 Last Admin: 07/27/17 08:57 Dose: Not Given Meclizine HCl (Antivert) 25 mg PO TID PRN PRN Reason: DIZZINESS Stop: 01/25/18 09:25 Morphine Sulfate (Morphine Sulfate) 2 mg IVP Q4HR PRN PRN Reason: Severe Pain (7-10) Stop: 01/25/18 09:22 Naloxone HCl (Narcan) 0.4 mg IVP Q2MIN PRN PRN Reason: Opioid Reversal Stop: 01/25/18 09:22 Nitroglycerin (Nitroglycerin) 0.4 mg SL Q5MIN PRN PRN Reason: Chest Pain Stop: 01/25/18 04:14 Last Admin: 07/26/17 04:51 Dose: 0.4 mg Omeprazole (Prilosec) 20 mg PO DAILY [facility] PRN Reason: Protocol Stop: 01/26/18 09:01 Last Admin: 07/27/17 08:57 Dose: 20 mg Ondansetron HCl (Zofran Odt) 4 mg SL Q8HR PRN PRN Reason: Nausea And Vomiting Stop: 01/25/18 09:22 Pharmacy Profile Note (Patient Taking Own Medication) 0 each PO DAILY [facility] Stop: 01/26/18 09:01 Last Admin: 07/27/17 08:58 Dose: Not Given Pharmacy Profile Note (Patient Taking Own Medication) 0 each PO DAILY [facility] Stop: 01/26/18 09:01 Last Admin: 07/27/17 08:58 Dose: Not Given Pharmacy Profile Note (Patient Taking Own Medication) 0 each PO DAILY [facility] Stop: 01/26/18 09:01 Last Admin: 07/27/17 08:58 Dose: Not Given Simvastatin (Zocor) 40 mg PO DAILY [facility] PRN Reason: Protocol Stop: 01/26/18 09:01 Last Admin: 07/27/17 08:57 Dose: 40 mg Warfarin Sodium (Coumadin) 2.5 mg PO SUMOWEFR@1800 [facility] Stop: 01/25/18 18:01 Last Admin: 07/26/17 18:29 Dose: 2.5 mg Warfarin Sodium (Coumadin) 5 mg PO TUTHSA@1800 [facility] Stop: 01/26/18 18:01 Warfarin Sodium (Coumadin Perpt) 1 each PO DAILY@1800 PRN PRN Reason: SEE COMMENTS Stop: 01/26/18 18:01 - Imaging and Cardiology Echo: report reviewed - EKG Interpretation EKG results cardiology: personally reviewed, ventricular paced rhythm Consult Discharge Plan - Plan Instructions: Angina (DC), Coronary Artery Disease (DC), Chest Pain (DC) Referrals: Nataliia Mathias CNP [Primary Care Provider] - 08/07/17 9:30 am <Cara Sevilla - Last Filed: 07/27/17 13:45> Date of Encounter: 07/27/17 - Attending Attestation I have personally performed a face to face evaluation on this patient. I have reviewed and agree with the care plan. History and Exam by me shows: 61 YOM presents with epigastric pain NICM s/p ICD Afib on coumadin and rate controlled Last heart cath 10 years ago Atypical chest pain Adynamic troponins with paced EKG Plan Patient refuses any ischemic work up Will follow with Dr. Cueto as an OP Assessment and Plan Discussion w patient/family: The assessment and plan as outlined above was discussed with the patient and/or family members who expressed understanding and agreement. All questions were answered. Thank you for involving us in the care of your patient. Please call with any questions. History of Present Illness History of present illness: Mr. Pace is a 61 year old male All Systems Review: A 10-system review of systems was performed and is negative for pertinent findings except as documented above in the HPI. Physical Examination Vital Signs, Last 4 Hours Temp Pulse Resp BP Pulse Ox 07/27/17 10:51 97.5 F L 80 18 108/74 97 Results 07/27/17 02:59 07/27/17 02:59 Lab Results 07/26/17 07/26/17 07/27/17 15:52 21:19 02:59 WBC 6.8 Hgb 13.8 Hct 42.7 Plt Count 129 L INR APTT Sodium Potassium Chloride Carbon Dioxide BUN Creatinine Glucose Calcium Magnesium Total Bilirubin AST ALT Alkaline Phosphatase Troponin I 0.05 H* 0.05 H* B-Natriuretic Peptide 07/27/17 07/27/17 07/27/17 02:59 02:59 02:59 WBC Hgb Hct Plt Count INR 2.2 APTT 35.1 Sodium 142 Potassium 3.9 Chloride 110 H Carbon Dioxide 28 BUN 18 Creatinine 1.15 Glucose 90 Calcium 8.9 Magnesium 2.1 Total Bilirubin 0.6 AST 18 ALT 20 Alkaline Phosphatase 73 Troponin I B-Natriuretic Peptide 72
[2017-07-27 10:52] VITALS: BP 108/74
--- NOTE | 2017-07-27 12:43 | Discharge Summary ---
Date of Encounter: 07/27/17 Time of Encounter: 08:00 - Discharge Diagnosis (1) Elevated troponin Priority: Primary Status: Resolved Comments: presented with isolated episode of chest pain that resolved with ASA prior to arrival. Serial troponin 0.05. Evaluated by Cardiology felt elevated troponins were flat and adynamic; suspected atypical CP. Sx's appear consistent with GERD as pain described as epigastric pain. Has hx of GERD and had recent GI eval. Cardiology offered further ischemic evaluation with stress test or left heart catheterization, however patient declined and opted to follow-up with his primary plastic technician Dr. Cueto. Cont ASA, couamdin, statin, BB (2) Cardiomyopathy Priority: Secondary Status: Chronic Comments: Known history of nonischemic cardiopathy and has BiV ICD. Appears eulvolemic. BNP 72. Chest x-ray stable. Cont home Lasix and beta shirley. Qualifiers: Cardiomyopathy type: unspecified Qualified Code(s): I42.9 - Cardiomyopathy , unspecified (3) Chronic a-fib Priority: Secondary Status: Chronic Comments: per hx. Rate controlled. Con home BB, coumadin. Resume INR checks per anticoagulation clinic. (4) Diabetes mellitus Priority: Secondary Status: Chronic Comments: per hx. 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 of insulin; Z79.4 - intermediate ( 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 of insulin; Z79.4 - intermediate (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 of insulin; Z79.4 - intermediate (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 of insulin (5) Hypertension Priority: Secondary Status: Chronic Qualifiers: Hypertension type: essential hypertension Qualified Code(s): I10 - Essential (primary) hypertension - Discharge Medications Home Medications: Aspirin 81 mg PO DAILY 05/16/17 [History] Carvedilol 12.5 mg PO BID 05/16/17 [History] Cyclobenzaprine [Flexeril] 10 mg PO TID PRN 05/16/17 [History] Eplerenone [Inspra] 25 mg PO DAILY 05/16/17 [History] Ezetimibe 10 mg PO DAILY 05/16/17 [History] Febuxostat [Uloric] 40 mg PO DAILY 05/16/17 [History] Furosemide [Lasix] 40 mg PO DAILY 05/16/17 [History] Gabapentin [Neurontin] 100 mg PO TID 05/16/17 [History] Glimepiride [Amaryl] 2 mg PO DAILY 05/16/17 [History] Insulin Glargine,Hum.rec.anlog [Lantus Solostar] 94 unit SQ QPM 05/16/17 [ History] Omeprazole [PriLOSEC] 20 mg PO DAILY 05/16/17 [History] Simvastatin [Zocor] 40 mg PO DAILY 05/16/17 [History] Warfarin [Coumadin] 5 mg PO TUTHSA 05/16/17 [History] Meclizine [Antivert] 2 tab PO TID PRN 07/26/17 [History] Pioglitazone [Actos] 45 mg PO DAILY 07/26/17 [History] Warfarin [Coumadin] 2.5 mg PO QMWFSU 07/26/17 [History] Allergies/Adverse Reactions: 3 Allergy/AdvReac Type Severity Reaction Status Date / Time acetaminophen [From Percocet] AdvReac Itching Verified 07/26/17 07:11 Amoxicillin [From Augmentin] AdvReac Diarrhea Verified 07/26/17 07:11 clavulanic acid AdvReac Diarrhea Verified 07/26/17 07:11 [From Augmentin] Oxycodone [From Percocet] AdvReac Itching Verified 07/26/17 07:11 Procedures/tests Complete & Pending: Procedures Performed prior 72 hours Category Date Time Status ECG 12 lead ECG [ECG] Routine Y 07/26/17 03:40 Completed EV echocardiogram w enhance Routine Y 07/26/17 09:28 Completed Date of admission: 07/26/17 09:27 Primary care physician: Nataliia Mathias, Consults: 07/27/17 09:15 Consult to Cardiology [CONS] Routine Comment: Consulting Provider: Cardiology Ragini Reason for Consult: Chest pain, elevated troponin Call Completed: Yes Discharging clinician: Teresa Pop Anticipated date of discharge: 07/27/17 - Patient Status Disposition: Home, Self-Care Condition: Good Functional capacity at discharge: independent ambulation Overall status at discharge: patient is back to baseline - Discharge Instructions Instructions: Coronary Artery Disease (DC), Chest Pain (DC), Angina (DC) Follow Up With: Nataliia Mathias, CONTROLLER REPAIRER AND [employer]STER [Primary Care Provider] - - Diet and Activity Activity: increase activity as tolerated Diet: diabetic diet, low fat, low cholesterol Interval History: Seen and examined at bedside, patient is new to me. Information obtained from chart review and patient report. Patient says he feels back to baseline, denies chest pain. No shortness of breath. He actually describes epigastric pain that radiated towards chest. Symptoms resolved prior to arrival. He follows with Dr. Cueto outpatient and is declining further workup/treatment at this time. He prefers to follow up with Dr. Cueto and will have stress test/left heart catheter if Dr. Adan recommends. Chest pain or shortness of breath and having discharge. Hospital course: See assessment and plan for hospital course - Time Spent with Patient Total time spent providing and/or coordinating discharge services: - Constitutional Vitals: Temp Pulse Resp BP Pulse Ox 97.5 F L 80 18 108/74 97 07/27/17 10:51 07/27/17 10:51 07/27/17 10:51 07/27/17 10:51 07/27/17 10:51 General appearance: Present: A&O X 3, pleasant, no acute distress, answers questions appropriately - Head Head exam: Present: atraumatic, normocephalic - Eye Eye exam: Present: PERRL, conjuntiva pink, sclera anicteric Pupils: Present: PERRL - Neck Neck exam general surgery: Present: supple, trachea midline. Absent: lymphadenopathy - Respiratory Respiratory exam: Present: CTAB. Absent: accessory muscle use, rales, rhonchi, wheezes - Cardiovascular Cardiovascular exam: Present: RRR, +S1, +S2. Absent: diastolic murmur, gallop, rubs, systolic murmur - GI/Abdominal GI/Abdominal exam: Present: normal bowel sounds, soft, no peritoneal signs. Absent: distended, tenderness - Extremities Exam Extremities exam: Present: warm, radial pulses palpable and symmetrical. Absent : calf tenderness, cyanotic, pedal edema - Neurological Exam Neurological exam: Present: CN II-XII intact, oriented X3, no focal deficits. Absent: pronater drift, facial droop, speech deficit - Skin Skin exam: Present: dry, intact
[2017-07-27] MEDS ORDERED: Warfarin perPT PO PRN (18:00)
[2017-07-28 06:50] LABS: Hemoglobin A1C 7.8 %
== END 2017-07-27 13:27 | disposition home or self-care (01) ==
LOC: 3BNU 03:33 → EMEROO 03:33 → 3BNU 10:01
PROVIDERS: ADMIT Internal Medicine; ATTEND Internal Medicine

== ENCOUNTER 2018-02-10 18:28 | Observation (INO) ==
[2018-02-10] MEDS ORDERED: Furosemide 40 MG/4 ML VIAL IVP ONE (19:01)
--- NOTE | 2018-02-10 19:24 | Emergency Department Note ---
Disposition Clinical Impression: CHF (congestive heart failure) Qualifiers: Heart failure type: unspecified Heart failure chronicity: chronic Qualified Code(s): I50.9 - Heart failure, unspecified Anemia Qualifiers: Anemia type: unspecified type Qualified Code(s): D64.9 - Anemia, unspecified Noops-yw-obquefj kidney injury Qualifiers: Acute renal failure type: unspecified Chronic kidney disease stage: unspecified stage Qualified Code(s): N17.9 - Acute kidney failure, unspecified Disposition: Admitted As Inpatient Condition: Good Time of Disposition: 20:30 SOB HPI - General Chief Complaint: ED Shortness of Breath/Dyspnea Stated Complaint: SOB/BLE Swelling Time Seen by Provider: 02/10/18 18:36 Source: patient, family () Mode of arrival: ambulatory Limitations: no limitations Nursing Notes Reviewed: Yes Vital Signs Reviewed: Yes - History of Present Illness 62-year-old male history of congestive heart failure with the ejection fraction of roughly 30% with the pacemaker presents emergency department with increased bilateral leg swelling and shortness of breath. The symptoms have been ongoing for the past 3 days, worse today. Patient has a history of noncompliance as he reports orthopnea and not elevating his legs. Last night's dinner comprised of meatloaf, mashed potatoes and gravy. He has gained 10 pounds in the last month. He reports taking Lasix at home. He is denying any chest pain or shortness of breath at this time. However earlier in triage she was short of breath. Denies any fever. Denies history of COPD, tobacco cessation 1990s. History of atrial fibrillation on Coumadin. Denies history of blood clots. Pt Subjective Complaint: shortness of breath - Related Data Home Medications Medication Instructions Recorded Confirmed Aspirin 81 mg PO DAILY 05/16/17 12/31/17 Carvedilol 12.5 mg PO BID 05/16/17 12/31/17 Cyclobenzaprine [Flexeril] 10 mg PO TID PRN 05/16/17 12/31/17 Eplerenone [Inspra] 25 mg PO DAILY 05/16/17 12/31/17 Ezetimibe 10 mg PO DAILY 05/16/17 12/31/17 Febuxostat [Uloric] 40 mg PO DAILY 05/16/17 12/31/17 Furosemide [Lasix] 40 mg PO DAILY 05/16/17 12/31/17 Gabapentin [Neurontin] 100 mg PO TID 05/16/17 12/31/17 Glimepiride [Amaryl] 2 mg PO DAILY 05/16/17 12/31/17 Insulin Glargine,Hum.rec.anlog 114 unit SQ QPM 05/16/17 12/31/17 [Lantus Solostar] Omeprazole [PriLOSEC] 20 mg PO DAILY 05/16/17 12/31/17 Warfarin [Coumadin] 5 mg PO TUTHSA 05/16/17 12/31/17 Meclizine [Antivert] 2 tab PO TID PRN 07/26/17 12/31/17 Warfarin [Coumadin] 2.5 mg PO QMWFSU 07/26/17 12/31/17 Albuterol Sulfate [Proair Hfa] 2 puff IH Q6HR PRN 12/31/17 12/31/17 Previous Rx's Medication Instructions Recorded Benzonatate [Tessalon] 200 mg PO TID #20 capsule 12/31/17 Allergies Allergy/AdvReac Type Severity Reaction Status Date / Time acetaminophen [From Percocet] AdvReac Itching Verified 07/26/17 07:11 Amoxicillin [From Augmentin] AdvReac Diarrhea Verified 07/26/17 07:11 clavulanic acid AdvReac Diarrhea Verified 07/26/17 07:11 [From Augmentin] Oxycodone [From Percocet] AdvReac Itching Verified 07/26/17 07:11 All systems ED: reviewed and negative except as stated. Review of Systems: As Per HPI Constitutional: Denies: fever, chills ENT ED: Denies: congestion Cardiovascular: Denies: chest pain Respiratory: Reports: dyspnea. Denies: cough Gastrointestinal: Denies: abdominal pain, nausea, vomiting Genitourinary: Denies: urgency, dysuria, hematuria Musculoskeletal: Denies: back pain Integumentary: Denies: rash, abrasion Neurological: Denies: headache Past Medical History - Past Medical History Attestation: Yes The following information was validated with the patient. Source: patient Medical history: Reports: atrial fibrillation, CHF, diabetes, GERD, other Surgical history: Reports: pacemaker/AICD Psychiatric history: Reports: no psych history - Social History Smoking Status: Never smoker Smokeless Tobacco Status: No Alcohol use: Reports: none Drug use: Reports: none Physical Exam - General Limitations: no limitations General appearance: alert, in no apparent distress, obese - Head Head exam: atraumatic, normocephalic, normal inspection - Eye Eye exam: Present: normal appearance, PERRL, EOMI - ENT ENT exam: normal exam, normal oropharynx, mucous membranes moist - Neck Neck exam: Present: normal inspection, full ROM, trachea midline - Chest Chest inspection: Present: normal inspection, symmetric chest wall rise, other ( pacemaker in left chest wall) - Respiratory Respiratory exam: Present: normal lung sounds bilaterally. Absent: respiratory distress, wheezes - Cardiovascular Cardiovascular exam: Present: regular rate, normal rhythm, normal heart sounds - Abdominal Exam Abdominal exam: Present: soft (Obese), Non-Tender, normal bowel sounds. Absent : tenderness, distention, guarding, rebound, rigidity - Extremities Exam Extremities exam: Present: normal inspection, full ROM, normal capillary refill , pedal edema (+3 symmetrical bilateral up to knee). Absent: tenderness, calf tenderness - Back Exam Back exam: Present: normal inspection, full ROM. Absent: tenderness - Neurological Exam Neurological exam: Present: alert, oriented X3 - Psychiatric Psychiatric exam: Present: normal affect, normal mood - Skin Skin exam: Present: warm, dry, intact, normal color. Absent: rash, erythema Course Course Narrative: Patient resents with history of congestive heart failure. Recently seen by his anesthesiologists' assistant Dr. Cueto and told ultrasound EF 30%. He was admitted at [facility] for congestive heart failure exacerbation. States this feels similar to it. He has been noncompliant with his diet. He was short of breath worse with laying down and exertion. No chest pain. Patient is not tachycardic. Lungs are clear to auscultation bilaterally. He has severe pedal edema bilaterally up to the knees. At this time concerning for exacerbation of his heart failure. Will check basic labs chest x-ray EKG as well as an INR for his Coumadin level. At this time I do not suspect VTE as his legs are bilateral swelling without any calf tenderness or tenderness along his leg. Patient is anticoagulated. - Reevaluation(s) Reevaluation #1: Troponin is elevated 0.06 is appears to be at his baseline from prior. His BNP is slightly elevated to 20 from prior. He continues to be lightly short of breath. His renal function is worse than prior this is the highest it has been 1.82. INR therapeutic 2.5. Patient was offered admission and would like to stay for additional diuresis. His oxygen saturations have remained above 96% on room air here. Patient has given a total of 40 IV Lasix and has been diuresis and well. His anemia that appear stable. - Consultations Consultation #1: Spoke with on-call hospitalist bishnu Arnold to admit for CHF exacerbation and LINO. No further orders at this time Time: 20:39 Vital Signs Temperature 98.2 F 02/10/18 18:29 Pulse Rate 67 02/10/18 18:29 Respiratory Rate 24 02/10/18 18:29 Blood Pressure 114/78 02/10/18 18:29 O2 Sat by Pulse Oximetry 93 02/10/18 18:29 Temperature 98.2 F 02/10/18 18:29 Pulse Rate 73 02/10/18 21:02 Respiratory Rate 16 02/10/18 21:02 Blood Pressure 119/80 02/10/18 21:02 O2 Sat by Pulse Oximetry 95 02/10/18 21:02 Oxygen Delivery Oxygen Delivery Room Air Shortness of Breath/Dyspnea - MDM Narrative Medical decision making narrative: Patient was discussed with my attending physician who agrees with ED management and final disposition. They independently evaluated the patient. Please refer to their attestation to this encounter for additional information. This note was generated by [employer] voice recognition software and as a result grammatical or spelling errors may occur using this program. - Medical Records Medical records reviewed: Yes I reviewed the patient's medical records. - Lab Data Lab results reviewed: Yes I reviewed the patient's lab results. Result diagrams: 02/10/18 19:02/10/18 19:08 Lab Results 02/10/18 02/10/18 02/10/18 Range/Units 19:08 19:08 19:08 WBC 6.5 (4.3-11.1) K/mcL RBC 4.22 (4.19-5.50) M/mcL Hgb 12.1 L (12.9-16.9) g/dL Hct 38.4 (37.5-50.1) % MCV 91.0 (83.0-100.0) fL MCH 28.7 (28.0-33.3) pg MCHC 31.5 L (31.6-35.5) g/dL RDW 15.8 H (11.5-14.5) % Plt Count 154 (140-400) K/mcL MPV 10.9 (9.4-12.4) fL Immature Gran % 0.3 (0-4) % Seg Neutrophils % 68.3 % Lymphocytes % 18.5 % Monocytes % 10.3 % Eosinophils % 2.1 % Basophils % 0.5 % Neutrophils # 4.5 (1.6-8.9) K/mcL Lymphocytes # 1.2 (0.6-4.6) K/mcL Monocytes # 0.7 (0.0-1.3) K/mcL Eosinophils # 0.1 (0.0-0.6) K/mcL Basophils # 0.0 (0.0-0.2) K/mcL PT (9.4-12.1) Seconds INR Sodium 138 (136-145) mEq/L Potassium 3.8 (3.5-5.1) mEq/L Chloride 104 (98-107) mEq/L Carbon Dioxide 27 (23-29) mEq/L BUN 24 H (8-23) mg/dL Creatinine 1.82 H (0.70-1.30) mg/dL Est GFR ( Amer) 46 L (> 60) Est GFR (Non-Af Amer) 38 L (> 60) BUN/Creatinine Ratio 13 (6-26) Glucose 80 (70-105) mg/dL Calculated Osmolality 289 (280-300) Calcium 9.0 (8.6-10.3) mg/dL Troponin I 0.06 H* (< 0.04) ng/mL B-Natriuretic Peptide 220 H (Less than 100) pg/mL 02/10/18 Range/Units 20:26 WBC (4.3-11.1) K/mcL RBC (4.19-5.50) M/mcL Hgb (12.9-16.9) g/dL Hct (37.5-50.1) % MCV (83.0-100.0) fL MCH (28.0-33.3) pg MCHC (31.6-35.5) g/dL RDW (11.5-14.5) % Plt Count (140-400) K/mcL MPV (9.4-12.4) fL Immature Gran % (0-4) % Seg Neutrophils % % Lymphocytes % % Monocytes % % Eosinophils % % Basophils % % Neutrophils # (1.6-8.9) K/mcL Lymphocytes # (0.6-4.6) K/mcL Monocytes # (0.0-1.3) K/mcL Eosinophils # (0.0-0.6) K/mcL Basophils # (0.0-0.2) K/mcL PT 27.7 H (9.4-12.1) Seconds INR 2.5 Sodium (136-145) mEq/L Potassium (3.5-5.1) mEq/L Chloride (98-107) mEq/L Carbon Dioxide (23-29) mEq/L BUN (8-23) mg/dL Creatinine (0.70-1.30) mg/dL Est GFR ( Amer) (> 60) Est GFR (Non-Af Amer) (> 60) BUN/Creatinine Ratio (6-26) Glucose (70-105) mg/dL Calculated Osmolality (280-300) Calcium (8.6-10.3) mg/dL Troponin I (< 0.04) ng/mL B-Natriuretic Peptide (Less than 100) pg/mL - Radiology Data Radiology results reviewed: Yes I reviewed the patient's radiology results. I personally review of his chest x-ray which shows cardiomegaly but otherwise unchanged from prior chest x-ray 12/31/2017. He has a pacemaker with ICD wires that appear unchanged. - EKG Data EKG attestation: Yes I reviewed and interpreted this EKG. EKG results narrative: EKG performed 1845 electronic ventricular paced rhythm 65 beats per minute no significant changes from prior EKG performed 12/31/2017. No acute ischemic changes.
[2018-02-10 19:31] LABS: Basophils % 0.5 %; Eosinophils # 0.1 K/mcL (0.0-0.6); Eosinophils % 2.1 %; Hematocrit 38.4 % (37.5-50.1); Hemoglobin 12.1 g/dL (12.9-16.9); Immature Granulocytes % 0.3 % (0-4); Lymphocytes # 1.2 K/mcL (0.6-4.6); Lymphocytes % 18.5 %; Mean Corpuscular HGB Conc 31.5 g/dL (31.6-35.5); Mean Corpuscular Hemoglobin 28.7 pg (28.0-33.3); Mean Platelet Volume 10.9 fL (9.4-12.4); Monocytes # 0.7 K/mcL (0.0-1.3); Monocytes % 10.3 %; Neutrophils # 4.5 K/mcL (1.6-8.9); Platelet Count 154 K/mcL (140-400); Red Blood Count 4.22 M/mcL (4.19-5.50); Red Cell Distribution Width 15.8 % (11.5-14.5); Segmented Neutrophils % 68.3 %
[2018-02-10 19:59] LABS: Potassium 3.8 mEq/L (3.5-5.1)
[2018-02-10 20:06] LABS: Troponin I 0.06 ng/mL (< 0.04)
--- NOTE | 2018-02-10 20:20 | Emergency Department Note ---
Disposition Clinical Impression: CHF (congestive heart failure) Qualifiers: Heart failure type: unspecified Heart failure chronicity: chronic Qualified Code(s): I50.9 - Heart failure, unspecified Disposition: Admitted As Inpatient Referrals: Khoi Hinkle [Primary Care Provider] - Forms: ED Satisfaction Letter General Adult HPI - General Chief complaint: ED Shortness of Breath/Dyspnea Stated complaint: SOB/BLE Swelling Time Seen by Provider: 02/10/18 18:36 Source: patient, family () Mode of arrival: ambulatory Limitations: no limitations - History of Present Illness Pain Scale: 0 - Related Data Home Medications Medication Instructions Recorded Confirmed Aspirin 81 mg PO DAILY 05/16/17 12/31/17 Carvedilol 12.5 mg PO BID 05/16/17 12/31/17 Cyclobenzaprine [Flexeril] 10 mg PO TID PRN 05/16/17 12/31/17 Eplerenone [Inspra] 25 mg PO DAILY 05/16/17 12/31/17 Ezetimibe 10 mg PO DAILY 05/16/17 12/31/17 Febuxostat [Uloric] 40 mg PO DAILY 05/16/17 12/31/17 Furosemide [Lasix] 40 mg PO DAILY 05/16/17 12/31/17 Gabapentin [Neurontin] 100 mg PO TID 05/16/17 12/31/17 Glimepiride [Amaryl] 2 mg PO DAILY 05/16/17 12/31/17 Insulin Glargine,Hum.rec.anlog 114 unit SQ QPM 05/16/17 12/31/17 [Lantus Solostar] Omeprazole [PriLOSEC] 20 mg PO DAILY 05/16/17 12/31/17 Warfarin [Coumadin] 5 mg PO TUTHSA 05/16/17 12/31/17 Meclizine [Antivert] 2 tab PO TID PRN 07/26/17 12/31/17 Warfarin [Coumadin] 2.5 mg PO QMWFSU 07/26/17 12/31/17 Albuterol Sulfate [Proair Hfa] 2 puff IH Q6HR PRN 12/31/17 12/31/17 hydrALAZINE [HydrALAZINE] 10 mg PO BID 06/17/18 06/17/18 Previous Rx's Medication Instructions Recorded Benzonatate [Tessalon] 200 mg PO TID #20 capsule 12/31/17 Allergies Allergy/AdvReac Type Severity Reaction Status Date / Time acetaminophen [From Percocet] AdvReac Itching Verified 07/26/17 07:11 Amoxicillin [From Augmentin] AdvReac Diarrhea Verified 07/26/17 07:11 clavulanic acid AdvReac Diarrhea Verified 07/26/17 07:11 [From Augmentin] Oxycodone [From Percocet] AdvReac Itching Verified 07/26/17 07:11 Constitutional: Denies: fever, chills ENT ED: Denies: congestion Cardiovascular: Denies: chest pain Respiratory: Reports: dyspnea. Denies: cough Gastrointestinal: Denies: abdominal pain, nausea, vomiting Genitourinary: Denies: urgency, dysuria, hematuria Musculoskeletal: Denies: back pain Integumentary: Denies: rash, abrasion Neurological: Denies: headache Past Medical History - Past Medical History Medical history: Reports: atrial fibrillation, CHF, diabetes, GERD, other Surgical history: Reports: pacemaker/AICD Psychiatric history: Reports: no psych history - Social History Smoking Status: Never smoker Smokeless Tobacco Status: No Alcohol use: Reports: none Drug use: Reports: none Physical Exam - General Limitations: no limitations General appearance: alert, in no apparent distress Course Vital Signs Temperature 98.2 F 02/10/18 18:29 Pulse Rate 67 02/10/18 18:29 Respiratory Rate 24 02/10/18 18:29 Blood Pressure 114/78 02/10/18 18:29 O2 Sat by Pulse Oximetry 93 02/10/18 18:29 Temperature 98.2 F 02/10/18 18:29 Pulse Rate 65 02/10/18 19:24 Respiratory Rate 16 02/10/18 19:24 Blood Pressure 126/80 02/10/18 19:24 O2 Sat by Pulse Oximetry 98 02/10/18 19:24 Oxygen Delivery Oxygen Delivery Room Air Medical Decision Making - Lab Data Result diagrams: 02/10/18 19:08 02/10/18 19:08 Lab Results 02/10/18 02/10/18 02/10/18 Range/Units 19:08 19:08 19:08 WBC 6.5 (4.3-11.1) K/mcL RBC 4.22 (4.19-5.50) M/mcL Hgb 12.1 L (12.9-16.9) g/dL Hct 38.4 (37.5-50.1) % MCV 91.0 (83.0-100.0) fL MCH 28.7 (28.0-33.3) pg MCHC 31.5 L (31.6-35.5) g/dL RDW 15.8 H (11.5-14.5) % Plt Count 154 (140-400) K/mcL MPV 10.9 (9.4-12.4) fL Immature Gran % 0.3 (0-4) % Seg Neutrophils % 68.3 % Lymphocytes % 18.5 % Monocytes % 10.3 % Eosinophils % 2.1 % Basophils % 0.5 % Neutrophils # 4.5 (1.6-8.9) K/mcL Lymphocytes # 1.2 (0.6-4.6) K/mcL Monocytes # 0.7 (0.0-1.3) K/mcL Eosinophils # 0.1 (0.0-0.6) K/mcL Basophils # 0.0 (0.0-0.2) K/mcL Sodium 138 (136-145) mEq/L Potassium 3.8 (3.5-5.1) mEq/L Chloride 104 (98-107) mEq/L Carbon Dioxide 27 (23-29) mEq/L BUN 24 H (8-23) mg/dL Creatinine 1.82 H (0.70-1.30) mg/dL Est GFR ( Amer) 46 L (> 60) Est GFR (Non-Af Amer) 38 L (> 60) BUN/Creatinine Ratio 13 (6-26) Glucose 80 (70-105) mg/dL Calculated Osmolality 289 (280-300) Calcium 9.0 (8.6-10.3) mg/dL Troponin I 0.06 H* (< 0.04) ng/mL B-Natriuretic Peptide 220 H (Less than 100) pg/mL Attestation Statement - Attestation Attestation: I examined this patient and my medical decision-making was reviewed with the Resident Physician. I agree with the documented findings, disposition and treatment plan as described except to the extent set forth below. 62 year old male presents to the ED with complaints of SOB and BLE swelling. He has a history of CHF wiht eF of 35% and states that he was driving back from [place] with mulitple stops to walk around and has not been compliant with his diet and had quite a bit of salt intake and feels like his legs are swellling. BNP is 220. although his crn and gfr are worse and troponing is at baseline. He is not exprenicng chest pain at this time. PAtinet is not hypoxic. We have low suspicion for PE at this time. We will dicuss esutls with jayson and offer admission
[2018-02-10 21:01] LABS: INR 2.5; Prothrombin Time 27.7 Seconds (9.4-12.1)
[2018-02-10] MEDS ORDERED: Dextrose Gel 15 GM/37.5 ML TUBE PO PRN ×2 (23:36)
[2018-02-10] MEDS ORDERED: D5% in Water 1,000 ML IVC PRN (23:36)
[2018-02-10] MEDS ORDERED: Albuterol 2.5 MG/3 ML NEBULIZER IH PRN (23:36)
[2018-02-10] MEDS ORDERED: *HR* Dextrose 50 % in Water (Syg) 50 ML SYRINGE IVP PRN (23:36)
[2018-02-10] MEDS ORDERED: Naloxone 0.4 MG/ML INJ IVP PRN (23:41)
[2018-02-11] MEDS: Furosemide 40 MG/4 ML VIAL IVP SCH ×3 (02:24→16:59)
--- NOTE | 2018-02-11 04:09 | Internal Med History&Physical ---
Date of Encounter: 02/10/18 Time of Encounter: 23:17 Internal Medicine - H&P: HPI Chief complaint: "Worsened leg swelling" Admitted From: Emergency Dept Plans for Post Hospital Care: Home History of present illness: Mr. Pace is a 62 year old male with PMH of systolic CHF and CKD who presented to ED today with increased BLE edema. He had some brief SOB earlier in the day, but none upon arrival to ED. He was recently on vacation and attest to poor diet during this time. ECHO in 07/2017 showed EF = 30% with severe systolic dysfunction. In the ED, pBNP was 220, increased from his last hospitalization at [facility] earlier in the month. Creatinine was elevated to 1.82, up from his baseline of 1.4-1.5. Troponin was elevated at 0.06, but this is a chronic issue for him. EKG showed paced rhythm with ST depression unchanged from previous. He denies chest pain. At the time of my examination, he denies fever, chills, chest pain, SOB, nausea, vomiting, abdominal pain, changes in bladder, or changes in bowels. He looks to be in no distress at this time. He has no other complaints at this time. Past Med Surg Social Fam HX - Past Medical History Attestation: Yes The following information was validated with the patient. Source: patient Medical history: atrial fibrillation, CHF, diabetes, GERD, hyperlipidemia, hypertension, other Additional medical history: heart problem Psychiatric history: no psych history - Past Surgical History Surgical History: pacemaker/AICD Additional surgical history: AICD placement 2000 and 2015, right ankle surgery - Social History Smoking Status: Never smoker Smokeless Tobacco Status: No Alcohol use: none Drug use: none - Additional Family History Additional family history: No significant family history per patient. Internal Medicine - H&P: Meds Aspirin 81 mg PO DAILY 05/16/17 [History] Carvedilol 12.5 mg PO BID 05/16/17 [History] Cyclobenzaprine [Flexeril] 10 mg PO TID PRN 05/16/17 [History] Eplerenone [Inspra] 25 mg PO DAILY 05/16/17 [History] Ezetimibe 10 mg PO DAILY 05/16/17 [History] Febuxostat [Uloric] 40 mg PO DAILY 05/16/17 [History] Furosemide [Lasix] 40 mg PO DAILY 05/16/17 [History] Gabapentin [Neurontin] 100 mg PO TID 05/16/17 [History] Glimepiride [Amaryl] 2 mg PO DAILY 05/16/17 [History] Insulin Glargine,Hum.rec.anlog [Lantus Solostar] 94 unit SQ QPM 05/16/17 [ History] Omeprazole [PriLOSEC] 20 mg PO DAILY 05/16/17 [History] Warfarin [Coumadin] 5 mg PO TUTHSA 05/16/17 [History] Meclizine [Antivert] 2 tab PO TID PRN 07/26/17 [History] Warfarin [Coumadin] 2.5 mg PO QMWFSU 07/26/17 [History] Albuterol Sulfate [Proair Hfa] 2 puff IH Q6HR PRN 12/31/17 [History] Carvedilol 12.5 mg PO 02/11/18 [History] Cyclobenzaprine [Flexeril] 02/11/18 [History] Ezetimibe [Zetia] 10 mg PO 02/11/18 [History] Febuxostat [Uloric] 40 mg PO 02/11/18 [History] Lipitor 02/11/18 [History] Simvastatin [Zocor] 40 mg PO HS 02/11/18 [History] 3 Allergy/AdvReac Type Severity Reaction Status Date / Time acetaminophen [From Percocet] AdvReac Itching Verified 07/26/17 07:11 Amoxicillin [From Augmentin] AdvReac Diarrhea Verified 07/26/17 07:11 clavulanic acid AdvReac Diarrhea Verified 07/26/17 07:11 [From Augmentin] Oxycodone [From Percocet] AdvReac Itching Verified 07/26/17 07:11 All Systems PM: A 10-system review of systems was performed and is negative for pertinent findings except as documented above in the HPI. - Constitutional Vitals: Temp Pulse Resp BP Pulse Ox 97.8 F 73 17 103/65 92 02/11/18 03:31 02/11/18 03:31 02/11/18 03:31 02/11/18 03:31 02/11/18 03:31 General appearance: Present: cooperative, A&O X 3, morbidly obese, pleasant, no acute distress, answers questions appropriately - Head Head exam: Present: atraumatic, normocephalic - Eye Eye exam: Present: EOMI, PERRL. Absent: conjunctival injection, nystagmus, scleral icterus - ENT ENT exam: Present: mucous membranes moist, normal external ear exam, normal oropharynx - Neck Neck exam general surgery: Present: supple, trachea midline. Absent: lymphadenopathy, tenderness, thyromegaly - Respiratory Respiratory exam: Present: CTAB. Absent: accessory muscle use, rales, rhonchi, wheezes Additional comments: Normal WOB - Cardiovascular Cardiovascular exam: Present: RRR, +S1, +S2. Absent: diastolic murmur, gallop, rubs, systolic murmur Additional comments: 2+ pitting BLE edema - GI/Abdominal GI/Abdominal exam: Present: normal bowel sounds, soft. Absent: distended, hepatomegaly, mass, splenomegaly, tenderness - Neurological Exam Neurological exam: Present: alert, CN II-XII intact, oriented X3, no focal deficits, strengths equal and symetr throughout. Absent: motor sensory deficit , facial droop, speech deficit - Psychiatric Psychiatric exam: Present: normal affect, normal mood. Absent: agitated, anxious, depressed - Skin Skin exam: Present: dry, intact, warm. Absent: cyanosis, rash Internal Med - H&P Results - Labs CBC & Chem 7: 02/10/18 19:08 02/10/18 19:08 - Assessment and plan (1) Acute on chronic systolic (congestive) heart failure Current Visit: Yes Status: Acute Assessment and plan: Admit inpatient with telemetry. Continue lasix IV 40 mg BID. Strict I&Os and daily weights. Start cardiac/diabetic/renal diet with 2 gram/day sodium restriction and 2L/day fluid restriction. No respiratory distress at this time. Start albuterol nebs PRN. Obtain repeat ECHO in AM. Continue home medications after verification. (2) Imzym-ix-swutdgt kidney injury Current Visit: Yes Status: Acute Assessment and plan: Will monitor creatinine closely while diuresing. At this time, may have to allow some worsening renal function to stabilize from CHF perspective. Repeat BMP in AM. Qualifiers: Acute renal failure type: unspecified Chronic kidney disease stage: unspecified stage Qualified Code(s): N17.9 - Acute kidney failure, unspecified ; N18.9 - Chronic kidney disease, unspecified (3) Elevated troponin Current Visit: Yes Status: Chronic Assessment and plan: This is a chronic elevation. No chest pain. EKG showed paced rhythm with ST depression unchanged from previous. No further workup indicated at this time. (4) HLD (hyperlipidemia) Current Visit: Yes Status: Chronic Assessment and plan: Continue home medications after verification. Qualifiers: Hyperlipidemia type: mixed hyperlipidemia Qualified Code(s): E78.2 - Mixed hyperlipidemia (5) GERD (gastroesophageal reflux disease) Current Visit: Yes Status: Chronic Assessment and plan: Continue home mediations after verification. Qualifiers: Esophagitis presence: without esophagitis Qualified Code(s): K21.9 - Gastro -esophageal reflux disease without esophagitis (6) Morbid obesity Current Visit: Yes Status: Chronic Assessment and plan: Counselled on lifestyle modifications. (7) Diabetes mellitus Current Visit: Yes Status: Chronic Assessment and plan: Start accuchecks and moderate dose SSI QID AC/HS. Start home long-acting insulin after verification. Qualifiers: Diabetes mellitus type: type 2 Diabetes mellitus residential insulin use: with watermaster use Diabetes mellitus complication status: with kidney complications Diabetes mellitus complication detail: with chronic kidney disease Chronic kidney disease stage: unspecified stage Qualified Code(s): E11.22 - Type 2 diabetes mellitus with diabetic chronic kidney disease; Z79.4 - longterm (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 of insulin (8) Hypertension Current Visit: Yes Status: Chronic Assessment and plan: Continue home mediations after verification. Qualifiers: Hypertension type: essential hypertension Qualified Code(s): I10 - Essential (primary) hypertension (9) DVT prophylaxis Current Visit: Yes Status: Acute Assessment and plan: Start TEDs and SCDs, and continue home warfarin as managed by pharmacy. - Time Spent With Patient Total time spent is greater than 50% in coordination of care (as documented) at patient's floor/unit and/or counseling patient: less than 15 minutes
[2018-02-11] MEDS: Insulin LISPRO 300 UNITS/3 ML VIAL SQ SCH ×4 (04:21→16:17)
[2018-02-11 06:38] LABS: Basophils % 0.7 %; Eosinophils # 0.2 K/mcL (0.0-0.6); Eosinophils % 2.7 %; Hematocrit 37.3 % (37.5-50.1); Hemoglobin 11.7 g/dL (12.9-16.9); Immature Granulocytes % 0.2 % (0-4); Lymphocytes # 1.1 K/mcL (0.6-4.6); Mean Corpuscular HGB Conc 31.4 g/dL (31.6-35.5); Mean Corpuscular Hemoglobin 28.4 pg (28.0-33.3); Mean Corpuscular Volume 90.5 fL (83.0-100.0); Mean Platelet Volume 10.3 fL (9.4-12.4); Monocytes # 0.6 K/mcL (0.0-1.3); Monocytes % 10.8 %; Platelet Count 139 K/mcL (140-400); Red Blood Count 4.12 M/mcL (4.19-5.50); Red Cell Distribution Width 15.8 % (11.5-14.5); Segmented Neutrophils % 67.6 %
[2018-02-11 06:45] LABS: INR 2.4; Prothrombin Time 27.5 Seconds (9.4-12.1)
[2018-02-11] MEDS: Gabapentin 100 MG CAPSULE PO SCH ×4 (06:50→20:47)
[2018-02-11 07:00] LABS: Calcium 8.9 mg/dL (8.6-10.3); Magnesium 2.1 mg/dL (1.6-2.6); Potassium 3.5 mEq/L (3.5-5.1)
[2018-02-11] MEDS ORDERED: (Febuxostat [Uloric] 40 MG) PO SCH (09:00)
[2018-02-11 11:13] LABS: Estimated Average Glucose 177 mg/dl; Hemoglobin A1C 7.8 %
[2018-02-11] MEDS ORDERED: Perflutren Lipid Microsphere 1.3 ML in 0.9 % Sodium Chloride 8.7 ML IVP ONE (13:23)
[2018-02-11] MEDS ORDERED: Perflutren Lipid Microsphere 2 ML VIAL ONE (13:27)
--- NOTE | 2018-02-11 14:29 | Internal Med Progress Note ---
Date of Encounter: 02/11/18 Time of Encounter: 08:10 - Assessment and plan (1) Acute on chronic systolic (congestive) heart failure Current Visit: Yes Status: Acute Assessment and plan: Clinically improving but continues to have bilateral lower extremity swelling. Will continue Lasix for another day intravenously. Monitor urine output. Daily weights. Echocardiogram done earlier this year showed EF of 30% with indeterminate diastolic function. (2) Paiah-xg-ulvtfkg kidney injury Current Visit: Yes Status: Acute Assessment and plan: Improved and renal function is back to baseline. Qualifiers: Acute renal failure type: unspecified Chronic kidney disease stage: stage 3 (moderate) Qualified Code(s): N17.9 - Acute kidney failure, unspecified; N18.3 - Chronic kidney disease, stage 3 (moderate) (3) Diabetes mellitus Current Visit: Yes Status: Chronic Assessment and plan: Controlled. Continue monitoring blood sugars. Sliding scale insulin. Qualifiers: Diabetes mellitus type: type 2 Diabetes mellitus watermaster insulin use: with watermaster use Diabetes mellitus complication status: with kidney complications Diabetes mellitus complication detail: with chronic kidney disease Chronic kidney disease stage: unspecified stage Qualified Code(s): E11.22 - Type 2 diabetes mellitus with diabetic chronic kidney disease; Z79.4 - care home (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 of insulin (4) Hypertension Current Visit: Yes Status: Chronic Assessment and plan: Blood pressure is well controlled. Continue home medications Qualifiers: Hypertension type: essential hypertension Qualified Code(s): I10 - Essential (primary) hypertension (5) Morbid obesity Current Visit: Yes Status: Chronic (6) DVT prophylaxis Current Visit: Yes Status: Acute Assessment and plan: Coumadin. INR is therapeutic (7) Elevated troponin Current Visit: Yes Status: Chronic Assessment and plan: Mild troponin elevation which appears to be chronic for patient. (8) HLD (hyperlipidemia) Current Visit: Yes Status: Chronic Assessment and plan: Continue Zocor Qualifiers: Hyperlipidemia type: mixed hyperlipidemia Qualified Code(s): E78.2 - Mixed hyperlipidemia (9) GERD (gastroesophageal reflux disease) Current Visit: Yes Status: Chronic Assessment and plan: Continue Prilosec Qualifiers: Esophagitis presence: without esophagitis Qualified Code(s): K21.9 - Gastro -esophageal reflux disease without esophagitis - Time Spent With Patient Total time spent is greater than 50% in coordination of care (as documented) at patient's floor/unit and/or counseling patient: - Subjective Interval history: Patient is sitting up in chair. No new complaints at this time. Does continue to have lower extremity swelling with breathing is better. Denies any chest pain or palpitations. - Constitutional Vitals: Temp Pulse Resp BP Pulse Ox 97.8 F 65 17 107/71 97 02/11/18 11:16 02/11/18 11:16 02/11/18 11:16 02/11/18 11:16 02/11/18 11:16 General appearance: Present: cooperative, A&O X 3, morbidly obese, pleasant, no acute distress, answers questions appropriately - Respiratory Respiratory exam: Present: CTAB. Absent: accessory muscle use, rales, rhonchi, wheezes - Cardiovascular Cardiovascular exam: Present: RRR, +S1, +S2. Absent: diastolic murmur, gallop, rubs, systolic murmur - GI/Abdominal GI/Abdominal exam: Present: normal bowel sounds, soft, no peritoneal signs. Absent: distended, tenderness - Extremities Exam Extremities exam: Present: pedal edema (Bilateral pitting pedal edema), warm, radial pulses palpable and symmetrical. Absent: calf tenderness, cyanotic - Neurological Exam Neurological exam: Present: alert, CN II-XII intact, oriented X3, no focal deficits. Absent: facial droop, speech deficit - Skin Skin exam: Present: dry, intact Internal Medicine: Result - Labs CBC & Chem 7: 02/11/18 06:17 02/11/18 06:17 Labs: Short CBC 02/11/18 Range/Units 06:17 WBC 6.0 (4.3-11.1) K/mcL Hgb 11.7 L (12.9-16.9) g/dL Hct 37.3 L (37.5-50.1) % Plt Count 139 L (140-400) K/mcL Neutrophils # 4.0 (1.6-8.9) K/mcL BMP 02/11/18 06:17 Sodium 139 Potassium 3.5 Chloride 104 Carbon Dioxide 31 H BUN 25 H Creatinine 1.57 H Glucose 117 H Calcium 8.9 - ABG Interpretation ABG results: PT/INR, D-dimer PT 27.5 Seconds (9.4-12.1) H 02/11/18 06:17 Consult Discharge Plan - Plan Referrals: Khoi Hinkle [Primary Care Provider] -
[2018-02-11] MEDS ORDERED: Insulin DETEMIR 100 UNIT/ML X5UNITS SQ SCH (18:00)
[2018-02-11] MEDS ORDERED: *HR* Warfarin 2.5 MG TABLET PO SCH (18:00)
[2018-02-11] MEDS ORDERED: Warfarin perPT PO PRN (18:00)
[2018-02-11] MEDS: Budesonide/Formoterol 160/4.5 MDI IH SCH (20:17)
[2018-02-11] MEDS: hydrALAZINE 10 MG TABLET PO SCH (20:47)
[2018-02-11] MEDS: rOPINIRole 0.25 MG TABLET PO SCH (20:47)
[2018-02-12 05:06] LABS: Basophils % 0.5 %; Eosinophils # 0.1 K/mcL (0.0-0.6); Eosinophils % 2.5 %; Hematocrit 38.7 % (37.5-50.1); Immature Granulocytes % 0.2 % (0-4); Lymphocytes % 17.5 %; Mean Corpuscular Hemoglobin 28.5 pg (28.0-33.3); Mean Corpuscular Volume 91.9 fL (83.0-100.0); Monocytes # 0.6 K/mcL (0.0-1.3); Monocytes % 9.8 %; Neutrophils # 3.9 K/mcL (1.6-8.9); Platelet Count 151 K/mcL (140-400); Red Blood Count 4.21 M/mcL (4.19-5.50); Red Cell Distribution Width 15.9 % (11.5-14.5); Segmented Neutrophils % 69.5 %
[2018-02-12 05:14] LABS: INR 2.2; Prothrombin Time 25.2 Seconds (9.4-12.1)
[2018-02-12 05:26] LABS: BUN/Creatinine Ratio 17 (6-26); Blood Urea Nitrogen 25 mg/dL (8-23); Calcium 9.1 mg/dL (8.6-10.3); Carbon Dioxide 30 mEq/L (23-29); Chloride 104 mEq/L (98-107); Glucose 91 mg/dL (70-105); Osmolality,Calculated 296 (280-300); Potassium 3.7 mEq/L (3.5-5.1); Sodium 141 mEq/L (136-145); eGFR For Non-African Americans 50 (> 60)
[2018-02-12] MEDS: Insulin LISPRO 300 UNITS/3 ML VIAL SQ SCH ×5 (06:28→21:05)
[2018-02-12] MEDS: Budesonide/Formoterol 160/4.5 MDI IH SCH ×2 (07:28→19:25)
[2018-02-12] MEDS: hydrALAZINE 10 MG TABLET PO SCH ×2 (07:50→21:13)
[2018-02-12] MEDS: Furosemide 40 MG/4 ML VIAL IVP SCH ×2 (07:55→16:29)
[2018-02-12] MEDS: Aspirin 81 MG TAB.CHEW PO SCH (07:55)
[2018-02-12] MEDS: Gabapentin 100 MG CAPSULE PO SCH ×3 (07:55→21:13)
[2018-02-12] MEDS ORDERED: (Ezetimibe [Ezetimibe] 10 MG) PO SCH (09:00)
--- NOTE | 2018-02-12 12:46 | Internal Med Progress Note ---
Hospitalist Progress Note - Encounter Date of Encounter: 02/12/18 Time of Encounter: 12:44 - Subjective Interval History: Mr. Pace is a 62 year old male with PMH of systolic CHF and CKD-3, who presented to ED with increased BLE edema. He had some brief SOB earlier in the day, but none upon arrival to ED. He was recently on vacation and attest to poor diet during this time. ECHO in 07/2017 showed EF - 30% with severe systolic dysfunction. In the ED, pBNP was 220, increased from his last hospitalization at [facility] earlier in the month. Creatinine was elevated to 1.82, up from his baseline of 1.4-1.5. Troponin was elevated at 0.06, but this is a chronic issue for him. Pt was admitted in the hospital and started him IV Lasix. Pt states he is feeling better today. Still has 2+ Pitting edema. - Exam Vitals: Temp Pulse Resp BP Pulse Ox 97.3 F L 70 17 107/68 95 02/12/18 11:14 02/12/18 11:14 02/12/18 11:14 02/12/18 11:14 02/12/18 11:14 Exam: Gen: A, A, O x 3 Chest: Diminished BS b/l, No wheezing, No rales Heart: S1S2+ RRR NO murmurs Abd: Soft, distended, NT, BS+ Ext: 2+ Pitting edema, No calf tenderness Neuro : A, A, O x 3 - Assessment and Plan (1) Acute on chronic systolic (congestive) heart failure Current Visit: Yes Status: Acute Assessment and Plan: Still has 2+ pitting edema had -1885 net balance y/d cont Lasix 40 IV BID resumed other home meds (2) Mamir-ci-ftwgbha kidney injury Current Visit: Yes Status: Acute Assessment and Plan: Improved and renal function is back to baseline. He does have CKD-3 (3) Elevated troponin Current Visit: Yes Status: Chronic Assessment and Plan: Mild troponin elevation which appears to be chronic for patient No work up needed (4) Diabetes mellitus Current Visit: Yes Status: Chronic Assessment and Plan: ADA + ISS (5) Hypertension Current Visit: Yes Status: Chronic Assessment and Plan: Stable and well controlled with home meds (6) Morbid obesity Current Visit: Yes Status: Chronic Assessment and Plan: Counselled on lifestyle modifications. (7) DVT prophylaxis Current Visit: Yes Status: Acute Assessment and Plan: Coumadin. INR is therapeutic (8) HLD (hyperlipidemia) Current Visit: Yes Status: Chronic Assessment and Plan: Continue Zocor (9) GERD (gastroesophageal reflux disease) Current Visit: Yes Status: Chronic Assessment and Plan: Continue Prilosec - Time Spent with Patient Total time spent is greater than 50% in coordination of care (as documented) at patient's floor/unit and/or counseling patient: Internal Medicine: Result - Labs CBC & Chem 7: 02/12/18 03:52 02/12/18 03:52 Labs: Short CBC 02/12/18 Range/Units 03:52 WBC 5.6 (4.3-11.1) K/mcL Hgb 12.0 L (12.9-16.9) g/dL Hct 38.7 (37.5-50.1) % Plt Count 151 (140-400) K/mcL Neutrophils # 3.9 (1.6-8.9) K/mcL BMP 02/12/18 03:52 Sodium 141 Potassium 3.7 Chloride 104 Carbon Dioxide 30 H BUN 25 H Creatinine 1.44 H Glucose 91 Calcium 9.1 Cardiac Enzymes 02/11/18 Range/Units 14:47 Troponin I 0.04 H* (< 0.04) ng/mL - ABG Interpretation ABG results: PT/INR, D-dimer PT 25.2 Seconds (9.4-12.1) H 02/12/18 03:52 - Impressions Impressions Echocardiogram 02/10/18 23:40 Impressions: Technically challenging due to body habitus. LVEF 30%. Mildly dilated left ventricle. Indeterminate diastolic function. RV is suboptimally evaluated. Mild mitral regurgitation. Moderate tricuspid regurgitation. Mild pulmonic regurgitation. Probably moderate pulmonary hypertension by TR gradient. IVC is not well visualized to estimate RVSP. Left Ventricular Wall Motion: Rest Echo Findings The apex, apical inferior, mid inferior, basal inferior, apical anterior, mid anterior, basal anterior, apical septal, mid inferior septal, basal inferior septal, apical lateral, mid anterior lateral, basal anterior lateral, mid anterior septal, mid inferior lateral, basal anterior septal and basal inferior lateral shaikh were hypokinetic. Findings: Study Quality * Technically challenging due to body habitus. ECG Findings * Paced rhythm. Left Ventricle * LVEF 30%. * Definity contrast was used. No obvious evidence for thrombus. * Mildly dilated left ventricle. * Indeterminate diastolic function. Right Ventricle * RV is suboptimally evaluated. Left Atrium * Moderately dilated left atrium. Right Atrium * Right atrium is not well visualized. Mitral Valve * No mitral stenosis. * Mitral valve not optimally visualized. * Mild mitral regurgitation. Aortic Valve * No aortic regurgitation. * Aortic valve not well visualized. * No aortic stenosis. Tricuspid Valve * Tricuspid valve not well visualized. * Moderate tricuspid regurgitation. Pulmonic Valve * Pulmonic valve is not well visualized. * No pulmonic stenosis. * Mild pulmonic regurgitation. Pulmonary Artery * Pulmonary artery not well visualized. Aorta * Normally sized aortic root. Pericardium * There is no pericardial effusion present. Interatrial Septum * Interatrial septum not well evaluated. IVC * The IVC is not well evaluated. Consult Discharge Plan - Plan Referrals: Khoi Hinkle [Primary Care Provider] - (2) Lvyro-wq-jyllpro kidney injury Qualifiers: Acute renal failure type: unspecified Chronic kidney disease stage: stage 3 ( moderate) Qualified Code(s): N17.9 - Acute kidney failure, unspecified; N18.3 - Chronic kidney disease, stage 3 (moderate) (4) Diabetes mellitus Qualifiers: Diabetes mellitus type: type 2 Diabetes mellitus keno terminal operator insulin use: with fci use Diabetes mellitus complication status: with kidney complications Diabetes mellitus complication detail: with chronic kidney disease Chronic kidney disease stage: unspecified stage Qualified Code(s): E11.22 - Type 2 diabetes mellitus with diabetic chronic kidney disease; Z79.4 - superintendent container terminal ( 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 of insulin (5) Hypertension Qualifiers: Hypertension type: essential hypertension Qualified Code(s): I10 - Essential (primary) hypertension (8) HLD (hyperlipidemia) Qualifiers: Hyperlipidemia type: mixed hyperlipidemia Qualified Code(s): E78.2 - Mixed hyperlipidemia (9) GERD (gastroesophageal reflux disease) Qualifiers: Esophagitis presence: without esophagitis Qualified Code(s): K21.9 - Gastro- esophageal reflux disease without esophagitis
--- NOTE | 2018-02-12 17:38 | Electrocardiograph Report ---
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
[2018-02-12] MEDS ORDERED: Insulin DETEMIR 100 UNIT/ML X5UNITS SQ ONE (17:41)
[2018-02-12] MEDS ORDERED: *HR* Warfarin 5 MG TABLET PO ONE (18:00)
[2018-02-12] MEDS ORDERED: FEBUXOSTAT 40 MG PO SCH (21:00)
[2018-02-12] MEDS: rOPINIRole 0.25 MG TABLET PO SCH (21:14)
[2018-02-13 05:42] LABS: INR 2.3; Prothrombin Time 25.4 Seconds (9.4-12.1)
[2018-02-13] MEDS: Insulin LISPRO 300 UNITS/3 ML VIAL SQ SCH ×2 (07:25→12:09)
[2018-02-13] MEDS: hydrALAZINE 10 MG TABLET PO SCH (07:25)
[2018-02-13] MEDS: Budesonide/Formoterol 160/4.5 MDI IH SCH (07:35)
[2018-02-13] MEDS: Gabapentin 100 MG CAPSULE PO SCH (07:44)
[2018-02-13] MEDS: Aspirin 81 MG TAB.CHEW PO SCH (07:44)
[2018-02-13] MEDS: Furosemide 40 MG/4 ML VIAL IVP SCH (07:44)
[2018-02-13 11:16] VITALS: BP 107/71
--- NOTE | 2018-02-13 11:20 | Discharge Summary ---
- NOTES TO OUTPATIENT PROVIDER Notes to Outpatient Provider: With PCP, recommend to check Chem with next visit Orders not resulted at time of discharge: Pending orders 02/14/18 04:00 PT/INR [Prothrombin Time INR] [COAG] AM 0400 02/15/18 04:00 PT/INR [Prothrombin Time INR] [COAG] AM 0400 02/16/18 04:00 PT/INR [Prothrombin Time INR] [COAG] AM 0400 02/17/18 04:00 PT/INR [Prothrombin Time INR] [COAG] AM 0400 Date of Encounter: 02/13/18 Time of Encounter: 11:19 - Discharge Diagnosis (1) Diabetes mellitus Priority: Secondary Status: Chronic Qualifiers: Diabetes mellitus type: type 2 Diabetes mellitus risk management intern insulin use: with risk management intern use Diabetes mellitus complication status: with kidney complications Diabetes mellitus complication detail: with chronic kidney disease Chronic kidney disease stage: unspecified stage Qualified Code(s): E11.22 - Type 2 diabetes mellitus with diabetic chronic kidney disease; Z79.4 - nursing home (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 of insulin (2) Hypertension Priority: Secondary Status: Chronic Qualifiers: Hypertension type: essential hypertension Qualified Code(s): I10 - Essential (primary) hypertension (3) Morbid obesity Priority: Secondary Status: Chronic (4) DVT prophylaxis Priority: Primary Status: Acute (5) Elevated troponin Priority: Primary Status: Chronic (6) Aqciw-om-fbjmqpx kidney injury Priority: Primary Status: Acute Qualifiers: Acute renal failure type: unspecified Chronic kidney disease stage: stage 3 (moderate) Qualified Code(s): N17.9 - Acute kidney failure, unspecified; N18.3 - Chronic kidney disease, stage 3 (moderate) (7) Acute on chronic systolic (congestive) heart failure Priority: Primary Status: Acute (8) HLD (hyperlipidemia) Priority: Secondary Status: Chronic Qualifiers: Hyperlipidemia type: mixed hyperlipidemia Qualified Code(s): E78.2 - Mixed hyperlipidemia (9) GERD (gastroesophageal reflux disease) Priority: Secondary Status: Chronic Qualifiers: Esophagitis presence: without esophagitis Qualified Code(s): K21.9 - Gastro -esophageal reflux disease without esophagitis (10) Chronic respiratory failure Priority: Secondary Status: Chronic Qualifiers: Respiratory failure complication: hypoxia Qualified Code(s): J96.11 - Chronic respiratory failure with hypoxia Hospital course: Mr. Pace is a 62 year old male with hx of CHFrEF, EF 30%, CKD III, with AICD , On anticoagulation, DM, HLD, HTN, Morbid Obesity He was admitted for CHFE and LINO on CKD due to non-compliance with diet and medications during a vacation. On presentation, pBNP was 220, increased from his last hospitalization at [facility] earlier in the month. Creatinine was elevated to 1.82, up from his baseline of 1.4-1.5. Troponin was elevated at 0.06, but this is a chronic issue for him. EKG showed paced rhythm with ST depression unchanged from previous. He denied chest pain. He was managed with IV lasix BID, strict I/O and fluid restriction His repeat ECHO showed EF 30% with indeterminate diastolic dysfunction as well as multiple wall motion hypokinesis. Troponins remained adynamic at 0.04. His I/O was total -3.5L and he has documented weight loss while inpatient also His renal function has improved, LINO was likely cardio-renal due to his CHFE and fluid overload status He is seen and examined at the bedside this mrn, and is clinically and hemodynamically stable to be discharged home on current dose of lasix. He is educated on compliance with his meds and diet, and to check his weights daily, and adjust lasix prn Follow up with PCP , repeat Chem at time of follow up recommended Other chronic medical conditions remained stable, INR was therapeutic throughout hosp stay Plan of care discussed, verbalized understanding Discharge discussed with: patient, nurse, case management - Time Spent with Patient Total time spent providing and/or coordinating discharge services: Greater than 30 minutes - Discharge Medications Prescriptions: Furosemide [Lasix] 40 mg PO BID #60 tablet Home Medications: Aspirin 81 mg PO DAILY 05/16/17 [History] Carvedilol 12.5 mg PO BID 05/16/17 [History] Cyclobenzaprine [Flexeril] 10 mg PO TID PRN 05/16/17 [History] Eplerenone [Inspra] 25 mg PO DAILY 05/16/17 [History] Ezetimibe 10 mg PO DAILY 05/16/17 [History] Febuxostat [Uloric] 40 mg PO DAILY 05/16/17 [History] Gabapentin [Neurontin] 100 mg PO TID 05/16/17 [History] Glimepiride [Amaryl] 2 mg PO DAILY 05/16/17 [History] Insulin Glargine,Hum.rec.anlog [Lantus Solostar] 94 unit SQ QPM 05/16/17 [ History] Omeprazole [PriLOSEC] 20 mg PO DAILY 05/16/17 [History] Warfarin [Coumadin] 5 mg PO SUTUTHSA 05/16/17 [History] Warfarin [Coumadin] 2.5 mg PO MOWEFR 07/26/17 [History] Albuterol Sulfate [Proair Hfa] 2 puff IH Q6HR PRN 12/31/17 [History] Budesonide/Formoterol 160/4.5 [Symbicort 160/4.5] 2 puff IH BIDR 02/11/18 [ History] Gabapentin [Neurontin] 300 mg PO TID 02/11/18 [History] Simvastatin [Zocor] 40 mg PO HS 02/11/18 [History] hydrALAZINE [HydrALAZINE] 10 mg PO BID 02/11/18 [History] rOPINIRole [Requip] 0.25 mg PO HS 02/11/18 [History] Furosemide [Lasix] 40 mg PO BID #60 tablet 02/13/18 [Rx] Allergies/Adverse Reactions: 3 Allergy/AdvReac Type Severity Reaction Status Date / Time acetaminophen [From Percocet] AdvReac Itching Verified 07/26/17 07:11 Amoxicillin [From Augmentin] AdvReac Diarrhea Verified 07/26/17 07:11 clavulanic acid AdvReac Diarrhea Verified 07/26/17 07:11 [From Augmentin] Oxycodone [From Percocet] AdvReac Itching Verified 07/26/17 07:11 Date of admission: 02/10/18 20:51 Primary care physician: Khoi Hinkle Consults: 02/10/18 23:37 Consult for Pharmacy Education [CONS] Stat Reason for Consult: Please verify home medications. Notify MD when this is complete. Also, please manage coumadin. Thanks. Call Completed: No 02/10/18 23:43 Consult to Biometrician [CONS] Routine Reason for SW Consult: Discharge Planning, Cardiac Rehab Discharging clinician: Lc Tamayo Anticipated date of discharge: 02/13/18 - Constitutional Vitals: Temp Pulse Resp BP Pulse Ox 97.4 F L 75 18 107/71 96 02/13/18 11:00 02/13/18 11:00 02/13/18 11:00 02/13/18 11:00 02/13/18 11:00 General appearance: Present: cooperative, A&O X 3, morbidly obese, pleasant, no acute distress, answers questions appropriately - Head Head exam: Present: atraumatic, normocephalic - Eye Eye exam: Present: PERRL, conjuntiva pink, sclera anicteric Pupils: Present: PERRL - Neck Neck exam general surgery: Present: supple, trachea midline. Absent: lymphadenopathy - Respiratory Respiratory exam: Present: CTAB. Absent: accessory muscle use, rales, rhonchi, wheezes - Cardiovascular Cardiovascular exam: Present: RRR, +S1, +S2. Absent: diastolic murmur, gallop, rubs, systolic murmur - GI/Abdominal GI/Abdominal exam: Present: normal bowel sounds, soft, no peritoneal signs. Absent: distended, tenderness - Extremities Exam Extremities exam: Present: pedal edema, warm, radial pulses palpable and symmetrical. Absent: calf tenderness, cyanotic - Neurological Exam Neurological exam: Present: CN II-XII intact, oriented X3, no focal deficits. Absent: pronater drift, facial droop, speech deficit - Skin Skin exam: Present: dry, intact - Patient Status Disposition: Home, Self-Care Condition: Good Functional capacity at discharge: independent ambulation Overall status at discharge: patient is back to baseline - Discharge Instructions Instructions: Furosemide (By mouth), Heart Failure (DC) Follow Up With: Khoi Hinkle [Primary Care Provider] - 02/23/18 10:00 am (Please follow up as schedule...) - Diet and Activity Activity: resume usual activities as tolerated, wear oxygen at night Diet: diabetic diet, low fat, low cholesterol, low salt diet
[2018-02-13] MEDS ORDERED: FEBUXOSTAT 40 MG PO SCH (18:00)
[2018-02-13] MEDS ORDERED: *HR* Warfarin 5 MG TABLET PO SCH (18:00)
[2018-02-13] MEDS ORDERED: *HR* Warfarin 5 MG TABLET PO ONE (18:00)
== END 2018-02-13 12:57 | disposition home or self-care (01) ==
LOC: 2ANU 18:28 → EMEROO 18:28 → SUATTDRO 20:51 → 2ANU 20:58 → SUATTDRO 23:41
PROVIDERS: ADMIT Family Medicine; ATTEND Internal Medicine

== ENCOUNTER 2018-04-05 10:52 | Observation (INO) ==
--- NOTE | 2018-04-05 11:09 | Emergency Department Note ---
Disposition Clinical Impression: Acute decompensated heart failure CHF (congestive heart failure) Qualifiers: Heart failure type: unspecified Heart failure chronicity: acute on chronic Qualified Code(s): I50.9 - Heart failure, unspecified Disposition: Admitted As Inpatient Condition: Good Time of Disposition: 13:18 General Adult HPI - General Chief complaint: ED Shortness of Breath/Dyspnea Stated complaint: SOB/Fluid build up Time Seen by Provider: 04/05/18 11:03 Nursing Notes Reviewed: Yes Vital Signs Reviewed: Yes - History of Present Illness HPI Narrative: Patient is a 62 year old male with CHF, pacemaker, DM, atrial fibrillation, and HTN presents to the ED via POV for evaluation of his increasing difficulty in breathing and increasing fluid in his abdomen for 2 days. Patient states he uses 2.5L of O2 at night and normally sleeps propped up with 3 pillows. Patient states he has not been able to sleep at all the last few nights. Patient saw his PCP earlier for regular check up but did not feel well enough to return home. Patients states that he takes 40mg Lasix bid and has been compliant with his medication regimen. Patient denies chest pain, abdominal pain, swelling of his extremities, fever, chills or CARY. Pain Scale: 0 - Related Data Home Medications Medication Instructions Recorded Confirmed Aspirin 81 mg PO DAILY 05/16/17 02/11/18 Carvedilol 12.5 mg PO BID 05/16/17 02/11/18 Cyclobenzaprine [Flexeril] 10 mg PO TID PRN 05/16/17 02/11/18 Eplerenone [Inspra] 25 mg PO DAILY 05/16/17 02/11/18 Ezetimibe 10 mg PO DAILY 05/16/17 02/11/18 Febuxostat [Uloric] 40 mg PO DAILY 05/16/17 02/11/18 Gabapentin [Neurontin] 100 mg PO TID 05/16/17 02/11/18 Glimepiride [Amaryl] 2 mg PO DAILY 05/16/17 02/11/18 Insulin Glargine,Hum.rec.anlog 94 unit SQ QPM 05/16/17 02/11/18 [Lantus Solostar] Omeprazole [PriLOSEC] 20 mg PO DAILY 05/16/17 02/11/18 Warfarin [Coumadin] 5 mg PO MOWEFR@1800 10/31/17 09/20/18 Warfarin [Coumadin] 2.5 mg PO SUTUTHSA@1800 07/26/17 04/05/18 Albuterol Sulfate [Proair Hfa] 2 puff IH Q6HR PRN 12/31/17 02/11/18 Budesonide/Formoterol 160/4.5 2 puff IH BIDR 02/11/18 02/11/18 [Symbicort 160/4.5] Gabapentin [Neurontin] 300 mg PO TID 02/11/18 02/11/18 Simvastatin [Zocor] 40 mg PO HS 02/11/18 02/11/18 hydrALAZINE [HydrALAZINE] 10 mg PO BID 02/11/18 02/11/18 rOPINIRole [Requip] 0.25 mg PO HS 02/11/18 02/11/18 Previous Rx's Medication Instructions Recorded Furosemide [Lasix] 40 mg PO BID #60 tablet 02/13/18 Allergies Allergy/AdvReac Type Severity Reaction Status Date / Time Amoxicillin [From Augmentin] AdvReac Diarrhea Verified 07/26/17 07:11 clavulanic acid AdvReac Diarrhea Verified 07/26/17 07:11 [From Augmentin] Oxycodone [From Percocet] AdvReac Itching Verified 07/26/17 07:11 All systems ED: reviewed and negative except as stated. Review of Systems: As Per HPI Constitutional: Denies: fever, chills, weakness Eyes: Reports: as per HPI ENT ED: Reports: as per HPI Cardiovascular: Reports: orthopnea. Denies: chest pain, palpitations Respiratory: Reports: dyspnea. Denies: cough, hemoptysis Gastrointestinal: Denies: abdominal pain, nausea, vomiting, diarrhea Genitourinary: Reports: frequency. Denies: dysuria, hematuria Musculoskeletal: Denies: neck pain, myalgia Integumentary: Denies: rash Neurological: Denies: headache, weakness, numbness Psychiatric: Denies: anxiety, suicidal thoughts, homicidal thoughts Endocrine: Reports: polyuria Past Medical History - Past Medical History Attestation: Yes The following information was validated with the patient. Source: patient Medical history: Reports: atrial fibrillation, CHF, diabetes, GERD, hyperlipidemia, hypertension, other Surgical history: Reports: pacemaker/AICD Psychiatric history: Reports: no psych history - Social History Smoking Status: Never smoker Smokeless Tobacco Status: No Alcohol use: Reports: none Drug use: Reports: none Physical Exam - General Limitations: no limitations General appearance: alert, in no apparent distress, obese - Head Head exam: normocephalic - Eye Eye exam: Present: normal appearance - Neck Neck exam: Present: normal inspection, full ROM. Absent: tenderness, lymphadenopathy - Chest Chest inspection: Present: normal inspection, symmetric chest wall rise. Absent : tenderness - Respiratory Respiratory exam: Present: other (crackles mild in the bases bilaterally) - Cardiovascular Cardiovascular exam: Present: regular rate, normal rhythm, normal heart sounds. Absent: JVD - Abdominal Exam Abdominal exam: Present: soft, Non-Tender, distention, normal bowel sounds. Absent: Amaro's sign, Rovsing's sign - Extremities Exam Extremities exam: Absent: tenderness, pedal edema - Neurological Exam Neurological exam: Present: alert, oriented X3 - Psychiatric Psychiatric exam: Present: normal affect, normal mood - Skin Skin exam: Present: warm, normal color Course Course Narrative: No patient with a history of CHF and ejection fraction of 38% presenting to emergency department with pitting edema to proximal is 3 cm above his umbilicus. States she is currently on Lasix 40 mg twice a day. This was present last time he was admitted as well. He denies any chest pain. He does appear tired on exam. States that he is supposed to be getting a CPAP at home for nighttime use tomorrow. Patient will be admitted to the hospital for CHF exacerbation. He is agreeable to this at this time. Patient does not appear grossly dyspneic while he is resting however he states if he gets up he gets very short of breath. Does use 2 L of oxygen at nighttime. Vital Signs Temperature 97.5 F L 04/05/18 10:56 Pulse Rate 81 04/05/18 10:56 Respiratory Rate 16 04/05/18 10:56 Blood Pressure 116/79 04/05/18 10:56 O2 Sat by Pulse Oximetry 97 04/05/18 10:56 Temperature 97.5 F L 04/05/18 11:16 Pulse Rate 70 04/05/18 13:30 Respiratory Rate 18 04/05/18 13:30 Blood Pressure 117/90 04/05/18 13:30 O2 Sat by Pulse Oximetry 95 04/05/18 13:30 Oxygen Delivery Oxygen Delivery Room Air Medical Decision Making - Medical Records Medical records reviewed: Yes I reviewed the patient's medical records. Chest X-Ray 04/05/18 11:04 IMPRESSION: 1. No acute abnormality. D/ / Major Edwards MD / Major Edwards MD Interpreting Provider: Major Edwards MD - Lab Data Lab results reviewed: Yes I reviewed the patient's lab results. Result diagrams: 04/05/18 11:12 04/05/18 11:12 Lab Results 04/05/18 04/05/18 04/05/18 Range/Units 11:12 11:12 11:12 WBC 6.7 (4.3-11.1) K/mcL RBC 4.59 (4.19-5.50) M/mcL Hgb 12.4 L (12.9-16.9) g/dL Hct 40.3 (37.5-50.1) % MCV 87.8 (83.0-100.0) fL MCH 27.0 L (28.0-33.3) pg MCHC 30.8 L (31.6-35.5) g/dL RDW 17.0 H (11.5-14.5) % Plt Count 173 (140-400) K/mcL MPV 10.8 (9.4-12.4) fL Immature Gran % 0.1 (0-4) % Seg Neutrophils % 72.4 % Lymphocytes % 14.6 % Monocytes % 9.3 % Eosinophils % 3.0 % Basophils % 0.6 % Neutrophils # 4.9 (1.6-8.9) K/mcL Lymphocytes # 1.0 (0.6-4.6) K/mcL Monocytes # 0.6 (0.0-1.3) K/mcL Eosinophils # 0.2 (0.0-0.6) K/mcL Basophils # 0.0 (0.0-0.2) K/mcL Nucleated RBCs/100 WBC 0.3 H (0) /100 WBC PT (9.4-12.1) Seconds INR APTT (26.0-36.0) Seconds Sodium 140 (136-145) mEq/L Potassium 4.1 (3.5-5.1) mEq/L Chloride 104 (98-107) mEq/L Carbon Dioxide 30 H (23-29) mEq/L BUN 28 H (8-23) mg/dL Creatinine 1.51 H (0.70-1.30) mg/dL Est GFR ( Amer) 57 L (> 60) Est GFR (Non-Af Amer) 47 L (> 60) BUN/Creatinine Ratio 19 (6-26) Glucose 133 H (70-105) mg/dL Calculated Osmolality 297 (280-300) Lactic Acid (0.5-2.2) mmol/L Calcium 9.0 (8.6-10.3) mg/dL Total Bilirubin 2.0 H (0.3-1.0) mg/dL Direct Bilirubin 1.0 H (0.0-0.2) mg/dL Indirect Bilirubin 1.0 (0.0-1.2) mg/dL AST 43 H (13-39) Units/L ALT 37 (7-52) Units/L Alkaline Phosphatase 147 H (34-104) Units/L Troponin I 0.04 H* (< 0.04) ng/mL B-Natriuretic Peptide 276 H (Less than 100) pg/mL Serum Total Protein 6.8 (6.4-8.9) g/dL Albumin 3.7 (3.5-5.7) g/dL Globulin 3.1 (2.4-3.5) g/dL Albumin/Globulin Ratio 1.2 (1.1-2.2) 04/05/18 04/05/18 Range/Units 11:12 11:12 WBC (4.3-11.1) K/mcL RBC (4.19-5.50) M/mcL Hgb (12.9-16.9) g/dL Hct (37.5-50.1) % MCV (83.0-100.0) fL MCH (28.0-33.3) pg MCHC (31.6-35.5) g/dL RDW (11.5-14.5) % Plt Count (140-400) K/mcL MPV (9.4-12.4) fL Immature Gran % (0-4) % Seg Neutrophils % % Lymphocytes % % Monocytes % % Eosinophils % % Basophils % % Neutrophils # (1.6-8.9) K/mcL Lymphocytes # (0.6-4.6) K/mcL Monocytes # (0.0-1.3) K/mcL Eosinophils # (0.0-0.6) K/mcL Basophils # (0.0-0.2) K/mcL Nucleated RBCs/100 WBC (0) /100 WBC PT 33.0 H (9.4-12.1) Seconds INR 2.9 APTT 44.4 H (26.0-36.0) Seconds Sodium (136-145) mEq/L Potassium (3.5-5.1) mEq/L Chloride (98-107) mEq/L Carbon Dioxide (23-29) mEq/L BUN (8-23) mg/dL Creatinine (0.70-1.30) mg/dL Est GFR ( Amer) (> 60) Est GFR (Non-Af Amer) (> 60) BUN/Creatinine Ratio (6-26) Glucose (70-105) mg/dL Calculated Osmolality (280-300) Lactic Acid 0.8 (0.5-2.2) mmol/L Calcium (8.6-10.3) mg/dL Total Bilirubin (0.3-1.0) mg/dL Direct Bilirubin (0.0-0.2) mg/dL Indirect Bilirubin (0.0-1.2) mg/dL AST (13-39) Units/L ALT (7-52) Units/L Alkaline Phosphatase (34-104) Units/L Troponin I (< 0.04) ng/mL B-Natriuretic Peptide (Less than 100) pg/mL Serum Total Protein (6.4-8.9) g/dL Albumin (3.5-5.7) g/dL Globulin (2.4-3.5) g/dL Albumin/Globulin Ratio (1.1-2.2) - Radiology Data Radiology results reviewed: Yes I reviewed the patient's radiology results. Chest X-Ray 04/05/18 11:04 IMPRESSION: 1. No acute abnormality. D/ / Major Edwards MD / Major Edwards MD Interpreting Provider: Major Edwards MD - EKG Data EKG #1 EKG attestation: Yes I reviewed and interpreted this EKG. EKG results narrative: Ventricularly paced rhythm at a rate of 70. MT interval is 42. QRS duration is 155. QT is 43. QTC is 522. No signs of acute ischemia. No significant change from previous EKG dated 02/10/2018.
[2018-04-05 11:25] LABS: Basophils % 0.6 %; Eosinophils # 0.2 K/mcL (0.0-0.6); Hematocrit 40.3 % (37.5-50.1); Hemoglobin 12.4 g/dL (12.9-16.9); Immature Granulocytes % 0.1 % (0-4); Lymphocytes % 14.6 %; Mean Corpuscular HGB Conc 30.8 g/dL (31.6-35.5); Mean Corpuscular Volume 87.8 fL (83.0-100.0); Mean Platelet Volume 10.8 fL (9.4-12.4); Monocytes # 0.6 K/mcL (0.0-1.3); Monocytes % 9.3 %; Neutrophils # 4.9 K/mcL (1.6-8.9); Nucleated Red Blood Cells 0.3 /100 WBC (0); Platelet Count 173 K/mcL (140-400); Red Blood Count 4.59 M/mcL (4.19-5.50); Segmented Neutrophils % 72.4 %
[2018-04-05 11:34] LABS: INR 2.9
[2018-04-05 11:36] LABS: Activated Partial Thrombo Time 44.4 Seconds (26.0-36.0)
[2018-04-05 11:47] LABS: Albumin 3.7 g/dL (3.5-5.7); Albumin/Globulin Ratio 1.2 (1.1-2.2); Globulin 3.1 g/dL (2.4-3.5); Potassium 4.1 mEq/L (3.5-5.1); Total Protein 6.8 g/dL (6.4-8.9)
[2018-04-05 11:57] LABS: Troponin I 0.04 ng/mL (< 0.04)
[2018-04-05] MEDS ORDERED: Furosemide 40 MG/4 ML VIAL IVP ONE (12:00)
[2018-04-05] MEDS ORDERED: Aspirin 325 MG TABLET PO ONE (12:57)
--- NOTE | 2018-04-05 12:58 | Emergency Department Note ---
Disposition Clinical Impression: Acute decompensated heart failure CHF (congestive heart failure) Qualifiers: Heart failure type: unspecified Heart failure chronicity: acute on chronic Qualified Code(s): I50.9 - Heart failure, unspecified Disposition: Admitted As Inpatient Referrals: Khoi Hinkle [Primary Care Provider] - Forms: ED Satisfaction Letter Time of Disposition: 12:58 General Adult HPI - General Chief complaint: ED Shortness of Breath/Dyspnea Stated complaint: SOB/Fluid build up Time Seen by Provider: 04/05/18 11:03 Source: patient, family Limitations: no limitations - History of Present Illness Pain Scale: 0 - Related Data Home Medications Medication Instructions Recorded Confirmed Aspirin 81 mg PO DAILY 05/16/17 02/11/18 Carvedilol 12.5 mg PO BID 05/16/17 02/11/18 Cyclobenzaprine [Flexeril] 10 mg PO TID PRN 05/16/17 02/11/18 Eplerenone [Inspra] 25 mg PO DAILY 05/16/17 02/11/18 Ezetimibe 10 mg PO DAILY 05/16/17 02/11/18 Febuxostat [Uloric] 40 mg PO DAILY 05/16/17 02/11/18 Gabapentin [Neurontin] 100 mg PO TID 05/16/17 02/11/18 Glimepiride [Amaryl] 2 mg PO DAILY 05/16/17 02/11/18 Insulin Glargine,Hum.rec.anlog 94 unit SQ QPM 05/16/17 02/11/18 [Lantus Solostar] Omeprazole [PriLOSEC] 20 mg PO DAILY 05/16/17 02/11/18 Warfarin [Coumadin] 5 mg PO SUTUTHSA 05/16/17 02/11/18 Warfarin [Coumadin] 2.5 mg PO MOWEFR 07/26/17 02/11/18 Albuterol Sulfate [Proair Hfa] 2 puff IH Q6HR PRN 12/31/17 02/11/18 Budesonide/Formoterol 160/4.5 2 puff IH BIDR 02/11/18 02/11/18 [Symbicort 160/4.5] Gabapentin [Neurontin] 300 mg PO TID 02/11/18 02/11/18 Simvastatin [Zocor] 40 mg PO HS 02/11/18 02/11/18 hydrALAZINE [HydrALAZINE] 10 mg PO BID 02/11/18 02/11/18 rOPINIRole [Requip] 0.25 mg PO HS 02/11/18 02/11/18 Previous Rx's Medication Instructions Recorded Furosemide [Lasix] 40 mg PO BID #60 tablet 02/13/18 Allergies Allergy/AdvReac Type Severity Reaction Status Date / Time acetaminophen [From Percocet] AdvReac Itching Verified 07/26/17 07:11 Amoxicillin [From Augmentin] AdvReac Diarrhea Verified 07/26/17 07:11 clavulanic acid AdvReac Diarrhea Verified 07/26/17 07:11 [From Augmentin] Oxycodone [From Percocet] AdvReac Itching Verified 07/26/17 07:11 Constitutional: Denies: fever, chills, weakness Eyes: Reports: as per HPI ENT ED: Reports: as per HPI Cardiovascular: Reports: orthopnea. Denies: chest pain, palpitations Respiratory: Reports: dyspnea. Denies: cough, hemoptysis Gastrointestinal: Denies: abdominal pain, nausea, vomiting, diarrhea Genitourinary: Reports: frequency. Denies: dysuria, hematuria Musculoskeletal: Denies: neck pain, myalgia Integumentary: Denies: rash Neurological: Denies: headache, weakness, numbness Psychiatric: Denies: anxiety, suicidal thoughts, homicidal thoughts Endocrine: Reports: polyuria Past Medical History - Past Medical History Medical history: Reports: atrial fibrillation, CHF, diabetes, GERD, hyperlipidemia, hypertension, other Surgical history: Reports: pacemaker/AICD Psychiatric history: Reports: no psych history - Social History Smoking Status: Never smoker Smokeless Tobacco Status: No Alcohol use: Reports: none Drug use: Reports: none Physical Exam - General Limitations: no limitations General appearance: alert, in no apparent distress, obese Course Vital Signs Temperature 97.5 F L 04/05/18 10:56 Pulse Rate 81 04/05/18 10:56 Respiratory Rate 16 04/05/18 10:56 Blood Pressure 116/79 04/05/18 10:56 O2 Sat by Pulse Oximetry 97 04/05/18 10:56 Temperature 97.5 F L 04/05/18 11:16 Pulse Rate 70 04/05/18 12:48 Respiratory Rate 16 04/05/18 12:48 Blood Pressure 106/84 04/05/18 12:48 O2 Sat by Pulse Oximetry 100 04/05/18 12:48 Oxygen Delivery Oxygen Delivery Room Air Medical Decision Making - Lab Data Result diagrams: 04/05/18 11:12 04/05/18 11:12 Lab Results 04/05/18 04/05/18 04/05/18 Range/Units 11:12 11:12 11:12 WBC 6.7 (4.3-11.1) K/mcL RBC 4.59 (4.19-5.50) M/mcL Hgb 12.4 L (12.9-16.9) g/dL Hct 40.3 (37.5-50.1) % MCV 87.8 (83.0-100.0) fL MCH 27.0 L (28.0-33.3) pg MCHC 30.8 L (31.6-35.5) g/dL RDW 17.0 H (11.5-14.5) % Plt Count 173 (140-400) K/mcL MPV 10.8 (9.4-12.4) fL Immature Gran % 0.1 (0-4) % Seg Neutrophils % 72.4 % Lymphocytes % 14.6 % Monocytes % 9.3 % Eosinophils % 3.0 % Basophils % 0.6 % Neutrophils # 4.9 (1.6-8.9) K/mcL Lymphocytes # 1.0 (0.6-4.6) K/mcL Monocytes # 0.6 (0.0-1.3) K/mcL Eosinophils # 0.2 (0.0-0.6) K/mcL Basophils # 0.0 (0.0-0.2) K/mcL Nucleated RBCs/100 WBC 0.3 H (0) /100 WBC PT (9.4-12.1) Seconds INR APTT (26.0-36.0) Seconds Sodium 140 (136-145) mEq/L Potassium 4.1 (3.5-5.1) mEq/L Chloride 104 (98-107) mEq/L Carbon Dioxide 30 H (23-29) mEq/L BUN 28 H (8-23) mg/dL Creatinine 1.51 H (0.70-1.30) mg/dL Est GFR ( Amer) 57 L (> 60) Est GFR (Non-Af Amer) 47 L (> 60) BUN/Creatinine Ratio 19 (6-26) Glucose 133 H (70-105) mg/dL Calculated Osmolality 297 (280-300) Lactic Acid (0.5-2.2) mmol/L Calcium 9.0 (8.6-10.3) mg/dL Total Bilirubin 2.0 H (0.3-1.0) mg/dL Direct Bilirubin 1.0 H (0.0-0.2) mg/dL Indirect Bilirubin 1.0 (0.0-1.2) mg/dL AST 43 H (13-39) Units/L ALT 37 (7-52) Units/L Alkaline Phosphatase 147 H (34-104) Units/L Troponin I 0.04 H* (< 0.04) ng/mL B-Natriuretic Peptide 276 H (Less than 100) pg/mL Serum Total Protein 6.8 (6.4-8.9) g/dL Albumin 3.7 (3.5-5.7) g/dL Globulin 3.1 (2.4-3.5) g/dL Albumin/Globulin Ratio 1.2 (1.1-2.2) 04/05/18 04/05/18 Range/Units 11:12 11:12 WBC (4.3-11.1) K/mcL RBC (4.19-5.50) M/mcL Hgb (12.9-16.9) g/dL Hct (37.5-50.1) % MCV (83.0-100.0) fL MCH (28.0-33.3) pg MCHC (31.6-35.5) g/dL RDW (11.5-14.5) % Plt Count (140-400) K/mcL MPV (9.4-12.4) fL Immature Gran % (0-4) % Seg Neutrophils % % Lymphocytes % % Monocytes % % Eosinophils % % Basophils % % Neutrophils # (1.6-8.9) K/mcL Lymphocytes # (0.6-4.6) K/mcL Monocytes # (0.0-1.3) K/mcL Eosinophils # (0.0-0.6) K/mcL Basophils # (0.0-0.2) K/mcL Nucleated RBCs/100 WBC (0) /100 WBC PT 33.0 H (9.4-12.1) Seconds INR 2.9 APTT 44.4 H (26.0-36.0) Seconds Sodium (136-145) mEq/L Potassium (3.5-5.1) mEq/L Chloride (98-107) mEq/L Carbon Dioxide (23-29) mEq/L BUN (8-23) mg/dL Creatinine (0.70-1.30) mg/dL Est GFR ( Amer) (> 60) Est GFR (Non-Af Amer) (> 60) BUN/Creatinine Ratio (6-26) Glucose (70-105) mg/dL Calculated Osmolality (280-300) Lactic Acid 0.8 (0.5-2.2) mmol/L Calcium (8.6-10.3) mg/dL Total Bilirubin (0.3-1.0) mg/dL Direct Bilirubin (0.0-0.2) mg/dL Indirect Bilirubin (0.0-1.2) mg/dL AST (13-39) Units/L ALT (7-52) Units/L Alkaline Phosphatase (34-104) Units/L Troponin I (< 0.04) ng/mL B-Natriuretic Peptide (Less than 100) pg/mL Serum Total Protein (6.4-8.9) g/dL Albumin (3.5-5.7) g/dL Globulin (2.4-3.5) g/dL Albumin/Globulin Ratio (1.1-2.2) Critical Care Time Critical Care Time: Yes Total Critical Care Time: 35 Attestation: Critical care performed: Time is exclusive of separately billable procedures. Time includes: direct patient care, patient reassessment, coordination of patient care, interpretation of data (laboratory data, radiology data, and respiratory data), review of patient's medical records, medical consultation and documentation of patient care. Procedures included in critical care time: Procedures excluded from critical care time: Attestation Statement - Attestation Attestation: I examined this patient and my medical decision-making was reviewed with the Resident Physician. I agree with the documented findings, disposition and treatment plan as described except to the extent set forth below. Patient to the ED complaining of edema. Increasing edema over the past 2 days. Now up into his abdomen. Patient has history of CHF and states is the first evidence of a going into his abdomen. Dyspnea on exertion. On examination he has pitting edema to his umbilicus. Lung sounds clear. Plan. Cardiac workup. Diuresis and admission. Site elevation in troponin which is baseline for him. CK ED unchanged. IV Lasix. Admit to medicine.
[2018-04-05] MEDS ORDERED: Naloxone 0.4 MG/ML INJ IVP PRN (13:31)
--- NOTE | 2018-04-05 13:38 | Internal Med History&Physical ---
Date of Encounter: 04/05/18 Time of Encounter: 13:35 Internal Medicine - H&P: HPI Chief complaint: Shortness of breath Admitted From: Emergency Dept Plans for Post Hospital Care: Home History of present illness: Mr. Pace is a 62 year old male with a past medical history of heart failure with reduced ejection fraction with last echo showing 38% EF who presents with shortness of breath. The patient has a past medical history of COPD, sleep apnea and is scheduled to start CPAP tomorrow, noncompliance with diet and fluid intake as well as diabetes who presents with progressive shortness of breath going on for the last 2-3 days. The patient states he usually sleeps with 3 pillows and propped upright but his shortness of breath has continued to get worse. He clearly cannot maintain a regular diet 3 adherence and either overdoes his fluid intake or his salt intake consistently. He denies any nausea or vomiting nor fever nor chills. No sick contacts. In the ER the patient was given 1 dose of IV Lasix 40 mg 1 time. He does take 40 mg of Lasix twice a day which was recently increased by his outpatient doctor Past Med Surg Social Fam HX - Past Medical History Medical history: atrial fibrillation, CHF, diabetes, GERD, hyperlipidemia, hypertension, other Additional medical history: Type II Diabetic Psychiatric history: no psych history - Past Surgical History Surgical History: pacemaker/AICD Additional surgical history: PACEMAKER/AICD placement 2000 and 2015. Right ankle surgery - Social History Smoking Status: Never smoker Smokeless Tobacco Status: No Alcohol use: none Drug use: none - Additional Family History Additional family history: Significant family history positive for type 2 diabetes in father Internal Medicine - H&P: Meds Aspirin 81 mg PO DAILY 05/16/17 [History] Carvedilol 12.5 mg PO BID 05/16/17 [History] Cyclobenzaprine [Flexeril] 10 mg PO TID PRN 05/16/17 [History] Eplerenone [Inspra] 25 mg PO DAILY 05/16/17 [History] Ezetimibe 10 mg PO DAILY 05/16/17 [History] Febuxostat [Uloric] 40 mg PO DAILY 05/16/17 [History] Gabapentin [Neurontin] 100 mg PO TID 05/16/17 [History] Glimepiride [Amaryl] 2 mg PO DAILY 05/16/17 [History] Insulin Glargine,Hum.rec.anlog [Lantus Solostar] 94 unit SQ QPM 05/16/17 [ History] Omeprazole [PriLOSEC] 20 mg PO DAILY 05/16/17 [History] Warfarin [Coumadin] 5 mg PO SUTUTHSA 05/16/17 [History] Warfarin [Coumadin] 2.5 mg PO MOWEFR 07/26/17 [History] Albuterol Sulfate [Proair Hfa] 2 puff IH Q6HR PRN 12/31/17 [History] Budesonide/Formoterol 160/4.5 [Symbicort 160/4.5] 2 puff IH BIDR 02/11/18 [ History] Gabapentin [Neurontin] 300 mg PO TID 02/11/18 [History] Simvastatin [Zocor] 40 mg PO HS 02/11/18 [History] hydrALAZINE [HydrALAZINE] 10 mg PO BID 02/11/18 [History] rOPINIRole [Requip] 0.25 mg PO HS 02/11/18 [History] Furosemide [Lasix] 40 mg PO BID #60 tablet 02/13/18 [Rx] 3 Allergy/AdvReac Type Severity Reaction Status Date / Time acetaminophen [From Percocet] AdvReac Itching Verified 07/26/17 07:11 Amoxicillin [From Augmentin] AdvReac Diarrhea Verified 07/26/17 07:11 clavulanic acid AdvReac Diarrhea Verified 07/26/17 07:11 [From Augmentin] Oxycodone [From Percocet] AdvReac Itching Verified 07/26/17 07:11 All Systems PM: A 10-system review of systems was performed and is negative for pertinent findings except as documented above in the HPI. - Constitutional Vitals: Temp Pulse Resp BP Pulse Ox 97.5 F L 70 16 106/84 100 04/05/18 11:16 04/05/18 12:48 04/05/18 12:48 04/05/18 12:48 04/05/18 12:48 Exam: GENERAL: Alert, moderate distress, cooperative EYES: PERRLA, EOMI EARS: External ears normal, canals clear OROPHARYNX: Lips, mucosa, and tongue normal. Teeth and gums normal. Oropharynx normal. NECK: No jugulovenous distention, No carotid bruits, Carotid pulse normal contour, Supple LUNGS: Faint scattered crackles at both lung bases. CARDIAC: Normal S1 and S2; no rubs, murmurs, or gallops ABDOMEN: Abdomen soft, non-tender, BS normal, No masses or organomegaly EXTREMITIES: TRICIA hose in place, could not clearly distinguish edema. NEURO: Gait normal. Reflexes normal and symmetric. Sensation grossly intact, Cranial nerves II-XII intact PULSES: 2+ radial, 2+ carotid Rest of the exam is non contributory Internal Med - H&P Results - Labs CBC & Chem 7: 04/05/18 11:12 04/05/18 11:12 - Diagnostic Studies Chest x-ray Status: image reviewed by me (No focal pneumonia or consolidation) - Assessment and plan (1) Acute on chronic systolic (congestive) heart failure Current Visit: No Status: Acute Assessment and plan: Patient is presenting with acute on chronic systolic congestive heart failure. He will be given an extra dose of Lasix in the ER. I will decide on further additional IV diuresis while he is on the floor. Check daily weights. Patient would benefit from dietary guidance. I will check if nutrition could do this in house otherwise I would defer to the primary care narrative writer to reflect on this as an outpatient. Also the patient presents a very classic history of obstructive sleep apnea and recently got diagnosed. Has upper plate in all the patient's symptoms including heart failure, CHF, atrial fibrillation, hypertension, diabetes. I have counseled him strongly on targeting his sleep apnea. (2) Dyslipidemia Current Visit: No Status: Acute Assessment and plan: Continue statins (3) Diabetes mellitus Current Visit: No Status: Chronic Assessment and plan: Continue sliding scale insulin and Lantus as per home dose Qualifiers: Diabetes mellitus type: type 2 Diabetes mellitus investor relations associate insulin use: with senior living use Diabetes mellitus complication status: with kidney complications Diabetes mellitus complication detail: with chronic kidney disease Chronic kidney disease stage: unspecified stage Qualified Code(s): E11.22 - Type 2 diabetes mellitus with diabetic chronic kidney disease; Z79.4 - developmental therapist (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 of insulin (4) GERD (gastroesophageal reflux disease) Current Visit: No Status: Chronic Assessment and plan: Continue PPI Qualifiers: Esophagitis presence: without esophagitis Qualified Code(s): K21.9 - Gastro -esophageal reflux disease without esophagitis (5) Morbid obesity Current Visit: No Status: Chronic Assessment and plan: Education provided regarding decreasing caloric intake. Patient will benefit from outpatient dietitian or management internship evaluation - Time Spent With Patient Total time spent is greater than 50% in coordination of care (as documented) at patient's floor/unit and/or counseling patient: Greater than 35 minutes - VTE Reasons for not Prescribing Prophylaxis: Not indicated-Anticoagulated or INR therapeutic
[2018-04-05] MEDS ORDERED: D5% in Water 1,000 ML IVC PRN (13:43)
[2018-04-05] MEDS ORDERED: Dextrose Gel 15 GM/37.5 ML TUBE PO PRN ×2 (13:43)
[2018-04-05] MEDS ORDERED: *HR* Dextrose 50 % in Water (Syg) 50 ML SYRINGE IVP PRN (13:43)
[2018-04-05] MEDS: Insulin LISPRO 300 UNITS/3 ML VIAL SQ SCH (16:46)
[2018-04-05] MEDS ORDERED: *HR* Warfarin 2.5 MG TABLET PO ONE (18:00)
[2018-04-05] MEDS ORDERED: Insulin DETEMIR 100 UNIT/ML X5UNITS SQ SCH ×2 (18:00→18:29)
[2018-04-05] MEDS ORDERED: Warfarin perPT PO PRN (18:00)
[2018-04-05] MEDS ORDERED: NON-FORMULARY MEDICATION 1 EACH EACH (Carvedilol [Carvedilol] 12.5 MG) PO SCH (21:00)
[2018-04-05] MEDS: Insulin DETEMIR 100 UNIT/ML X5UNITS SQ SCH (21:20)
[2018-04-06 05:50] LABS: INR 2.9; Prothrombin Time 33.2 Seconds (9.4-12.1)
[2018-04-06] MEDS: Insulin LISPRO 300 UNITS/3 ML VIAL SQ SCH ×3 (07:45→17:04)
[2018-04-06] MEDS: Spironolactone 25 MG TABLET PO SCH (07:45)
[2018-04-06] MEDS ORDERED: Budesonide/Formoterol 160/4.5 1 PUFF INH IH SCH (09:00)
[2018-04-06] MEDS ORDERED: (Eplerenone [Inspra] 25 MG) PO SCH (09:00)
[2018-04-06] MEDS ORDERED: NON-FORMULARY MEDICATION 1 EACH EACH (Febuxostat [Uloric] 40 MG) PO SCH (09:00)
[2018-04-06] MEDS ORDERED: EZETIMIBE 10 MG PO SCH (09:00)
[2018-04-06] MEDS: Multivit/Ca/Min/Fe/FA 1 TAB TABLET PO SCH (10:35)
[2018-04-06] MEDS: Furosemide 40 MG/4 ML VIAL IVP SCH (10:35)
[2018-04-06] MEDS: Gabapentin 300 MG CAPSULE PO SCH ×2 (10:35→22:09)
[2018-04-06] MEDS: hydrALAZINE 10 MG TABLET PO SCH ×2 (10:35→22:08)
[2018-04-06] MEDS: Budesonide/Formoterol 160/4.5 1 PUFF INH IH SCH ×2 (10:44→19:57)
[2018-04-06] MEDS ORDERED: *HR* Warfarin 2.5 MG TABLET PO SCH (13:33)
--- NOTE | 2018-04-06 15:51 | Internal Med Progress Note ---
Hospitalist Progress Note - Encounter Date of Encounter: 04/06/18 Time of Encounter: 10:15 - Subjective Interval History: Patient is feeling better today. Lower extremity swelling has improved but still present. Denies any significant shortness of breath at this time. No palpitations. No chest pain at this time. He did have good response to intravenous Lasix. - Exam Vitals: Temp Pulse Resp BP Pulse Ox 97.8 F 64 19 104/69 92 04/06/18 11:14 04/06/18 11:14 04/06/18 11:14 04/06/18 11:14 04/06/18 11:14 Exam: General: Patient is alert, no acute distress, oriented x 3 Respiratory: Good respiratory effort. Normal breath sounds. No wheezing or crackles. Cardiovascular: Regular rate and rhythm. s1 and s2 normal No clicks, rubs, gallops, or murmurs. Bilateral pitting pedal edema present Abdomen: Abdomen is soft, nontender. Bowel sounds are present Musculoskeletal: Spontaneously moving all extremities Skin: warm, dry, intact. Neuro: Alert oriented x 3 normal cranial nerves, no focal deficits - Assessment and Plan (1) Acute on chronic systolic (congestive) heart failure Current Visit: Yes Status: Acute Assessment and Plan: Patient with acute congestive heart failure and lower extremity edema. Clinically improving. He does continue to have bilateral lower extremity edema. We will continue intravenous diuresis for another day. Transition to oral diuretics tomorrow. Continue to monitor renal function closely. Monitor input and output and daily weights. (2) Diabetes mellitus Current Visit: Yes Status: Chronic Assessment and Plan: Well-controlled. Continue current monitoring and insulin regimen. (3) Dyslipidemia Current Visit: Yes Status: Chronic Assessment and Plan: Continue Zocor (4) Morbid obesity Current Visit: No Status: Chronic (5) GERD (gastroesophageal reflux disease) Current Visit: Yes Status: Chronic Assessment and Plan: Continue prilosec - Time Spent with Patient Total time spent is greater than 50% in coordination of care (as documented) at patient's floor/unit and/or counseling patient: Internal Medicine: Result - Labs CBC & Chem 7: 04/05/18 11:12 04/05/18 11:12 - ABG Interpretation ABG results: PT/INR, D-dimer PT 33.2 Seconds (9.4-12.1) H 04/06/18 05:31 - VTE Reasons for not Prescribing Prophylaxis: Not indicated-Anticoagulated or INR therapeutic Consult Discharge Plan - Plan Referrals: Khoi Hinkle [Primary Care Provider] - (2) Diabetes mellitus Qualifiers: Diabetes mellitus type: type 2 Diabetes mellitus termination clerk insulin use: with termination clerk use Diabetes mellitus complication status: with kidney complications Diabetes mellitus complication detail: with chronic kidney disease Chronic kidney disease stage: unspecified stage Qualified Code(s): E11.22 - Type 2 diabetes mellitus with diabetic chronic kidney disease; Z79.4 - technician terminal and repeater ( 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 of insulin (5) GERD (gastroesophageal reflux disease) Qualifiers: Esophagitis presence: without esophagitis Qualified Code(s): K21.9 - Gastro- esophageal reflux disease without esophagitis
[2018-04-06] MEDS ORDERED: *HR* Warfarin 2.5 MG TABLET PO ONE (18:00)
[2018-04-06] MEDS ORDERED: rOPINIRole 0.25 MG TABLET PO SCH (21:00)
[2018-04-06] MEDS: Insulin DETEMIR 100 UNIT/ML X5UNITS SQ SCH (22:08)
[2018-04-07 04:44] LABS: INR 2.5; Prothrombin Time 28.3 Seconds (9.4-12.1)
[2018-04-07 04:52] LABS: BUN/Creatinine Ratio 24 (6-26); Blood Urea Nitrogen 32 mg/dL (8-23); Calcium 9.3 mg/dL (8.6-10.3); Carbon Dioxide 29 mEq/L (23-29); Chloride 104 mEq/L (98-107); Glucose 142 mg/dL (70-105); Osmolality,Calculated 295 (280-300); Potassium 3.9 mEq/L (3.5-5.1); Sodium 138 mEq/L (136-145); eGFR For Non-African Americans 54 (> 60)
[2018-04-07] MEDS: Insulin LISPRO 300 UNITS/3 ML VIAL SQ SCH (07:16)
[2018-04-07] MEDS: Budesonide/Formoterol 160/4.5 1 PUFF INH IH SCH (09:18)
[2018-04-07] MEDS: Multivit/Ca/Min/Fe/FA 1 TAB TABLET PO SCH (09:19)
[2018-04-07] MEDS: Spironolactone 25 MG TABLET PO SCH (09:19)
[2018-04-07] MEDS: Furosemide 40 MG/4 ML VIAL IVP SCH (09:19)
[2018-04-07] MEDS: hydrALAZINE 10 MG TABLET PO SCH (09:19)
[2018-04-07] MEDS: Gabapentin 300 MG CAPSULE PO SCH (09:20)
--- NOTE | 2018-04-07 10:45 | Discharge Summary ---
- NOTES TO OUTPATIENT PROVIDER Notes to Outpatient Provider: 62-year-old male patient was admitted here for acute congestive heart failure. He has been having trouble following his fluid restriction regimen. He was treated with intravenous Lasix and has had good response to it. He discharged home today. He is strongly advised to stick to his 1.5 L fluid restriction and to follow up with his primary care provider and benefits director for further management of his congestive heart failure. His Lasix dose was also increased. We will check his BMP in 1 week. Date of Encounter: 04/07/18 Time of Encounter: 10:30 - Discharge Diagnosis (1) Acute on chronic systolic (congestive) heart failure Priority: Primary Status: Acute (2) Diabetes mellitus Priority: Secondary Status: Chronic Qualifiers: Diabetes mellitus type: type 2 Diabetes mellitus intermediate school teacher insulin use: with alf use Diabetes mellitus complication status: with kidney complications Diabetes mellitus complication detail: with chronic kidney disease Chronic kidney disease stage: unspecified stage Qualified Code(s): E11.22 - Type 2 diabetes mellitus with diabetic chronic kidney disease; Z79.4 - tank terminal gauger (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 of insulin (3) Dyslipidemia Priority: Secondary Status: Chronic (4) Morbid obesity Priority: Secondary Status: Chronic (5) GERD (gastroesophageal reflux disease) Priority: Secondary Status: Chronic Qualifiers: Esophagitis presence: without esophagitis Qualified Code(s): K21.9 - Gastro -esophageal reflux disease without esophagitis Hospital course: Mr. Pace is a 62 year old male patient with history of diabetes, congestive heart failure admitted here for acute congestive heart failure. He has been having trouble following his fluid restriction regimen. He was treated with intravenous Lasix and has had good response to it. He discharged home today. He is strongly advised to stick to his 1.5 L fluid restriction and to follow up with his primary care provider and benefits director for further management of his congestive heart failure. His Lasix dose was also increased. We will check his BMP in 1 week. Discharge discussed with: patient - Time Spent with Patient Total time spent providing and/or coordinating discharge services: Less than 30 minutes (25 min) - Discharge Medications Prescriptions: Furosemide [Lasix] 40 mg PO TID #90 tablet Home Medications: Aspirin 81 mg PO DAILY 05/16/17 [History] Carvedilol 12.5 mg PO BID 05/16/17 [History] Cyclobenzaprine [Flexeril] 10 mg PO TID PRN 05/16/17 [History] Eplerenone [Inspra] 25 mg PO DAILY 05/16/17 [History] Ezetimibe 10 mg PO DAILY 05/16/17 [History] Febuxostat [Uloric] 40 mg PO DAILY 05/16/17 [History] Gabapentin [Neurontin] 300 mg PO BID 05/16/17 [History] Insulin Glargine,Hum.rec.anlog [Lantus Solostar] 80 unit SQ QPM 05/16/17 [ History] Omeprazole [PriLOSEC] 20 mg PO DAILY 05/16/17 [History] Warfarin [Coumadin] 5 mg PO SUTUTHSA 05/16/17 [History] Warfarin [Coumadin] 2.5 mg PO SUTUTHSA 07/26/17 [History] Albuterol Sulfate [Proair Hfa] 2 puff IH Q6HR PRN 12/31/17 [History] Budesonide/Formoterol 160/4.5 [Symbicort 160/4.5] 2 puff IH BID 02/11/18 [ History] Simvastatin [Zocor] 40 mg PO HS 02/11/18 [History] hydrALAZINE [HydrALAZINE] 10 mg PO BID 02/11/18 [History] rOPINIRole [Requip] 0.5 mg PO HS 02/11/18 [History] Multivitamin [Multivitamins] 2 tab PO DAILY 04/05/18 [History] Potassium Chloride [K-Tab ER] 10 meq PO DAILY 04/05/18 [History] Psyllium Husk [Fiber] 1 tab PO DAILY 04/05/18 [History] Furosemide [Lasix] 40 mg PO TID #90 tablet 04/07/18 [Rx] Allergies/Adverse Reactions: 3 Allergy/AdvReac Type Severity Reaction Status Date / Time Amoxicillin [From Augmentin] AdvReac Diarrhea Verified 04/05/18 15:03 clavulanic acid AdvReac Diarrhea Verified 04/05/18 15:03 [From Augmentin] Oxycodone [From Percocet] AdvReac Itching Verified 04/05/18 15:03 Date of admission: 04/05/18 13:32 Primary care physician: Khoi Hinkle Discharging clinician: Ina Baca Anticipated date of discharge: 04/07/18 - Constitutional Vitals: Temp Pulse Resp BP Pulse Ox 98.1 F 69 19 108/77 96 04/07/18 07:16 04/07/18 07:16 04/07/18 09:19 04/07/18 07:16 04/07/18 09:30 Exam: General: Patient is alert, no acute distress, oriented x 3 Respiratory: Good respiratory effort. Normal breath sounds. No wheezing or crackles. Cardiovascular: Regular rate and rhythm. s1 and s2 normal No clicks, rubs, gallops, or murmurs. Bilateral pedal edema. Improved. Abdomen: Abdomen is soft, nontender. Bowel sounds are present Musculoskeletal: Spontaneously moving all extremities Skin: warm, dry, intact. Neuro: Alert oriented x 3 normal cranial nerves, no focal deficits - Patient Status Disposition: Home, Self-Care Condition: Good Functional capacity at discharge: independent ambulation Overall status at discharge: patient is progressing back to baseline - Discharge Instructions Instructions: Heart Failure (DC), Heart Failure (GEN), Heart Healthy Diet (DC) , Heart Healthy Diet (GEN), Diabetes Mellitus Type 2 in Adults (DC), DASH Eating Plan (DC), DASH Eating Plan (GEN), Heart Healthy Diet, Apartment Coordinator ( GEN) Follow Up With: Khoi Hinkle [Primary Care Provider] - (In 1-2 weeks) Carlton Cueto MD [Partnered Physician] - (in 1 week) Additional Instructions: Follow-up with the benefits director in 1 week - Diet and Activity Activity: increase activity as tolerated Diet: diabetic diet, low fat, low cholesterol, low salt diet, other ( Restriction to 1.5 L per day) - VTE Reasons for not Prescribing Prophylaxis: Not indicated-Anticoagulated or INR therapeutic
[2018-04-07 10:58] VITALS: BP 122/70
[2018-04-07] MEDS ORDERED: *HR* Warfarin 5 MG TABLET PO ONE (18:00)
--- NOTE | 2018-04-08 14:51 | Electrocardiograph Report ---
[place] [facility] Test Date: 2018-04-05 Pat Name: Alejandro Pace Department: EXAM4 Room: 44 Gender: M French Comber: : 1955 Requested By: Elizabeth Terry Order Number: [id number] Reading MD: Loco Harrison Measurements Intervals [place] Rate: 70 P: 0 TN: 42 QRS: 221 QRSD: 155 T: 25 QT: 483 QTc: 522 Interpretive Statements Ventricular-paced rhythm No further analysis attempted due to paced rhythm Electronically Signed On 04-08-2018 14:49:29 EDT by Loco Harrison
== END 2018-04-07 11:58 | disposition home or self-care (01) ==
LOC: EMEROOARM 10:52 → 2ANU 10:52 → SUATTDRO 13:32 → 2ANU 14:10
PROVIDERS: ADMIT Internal Medicine; ATTEND Internal Medicine

== ENCOUNTER 2018-04-24 17:37 | Inpatient (IN) ==
[2018-04-24 18:47] LABS: Basophils % 0.3 %; Eosinophils # 0.1 K/mcL (0.0-0.6); Eosinophils % 1.7 %; Hematocrit 38.1 % (37.5-50.1); Hemoglobin 11.5 g/dL (12.9-16.9); Immature Granulocytes % 0.1 % (0-4); Lymphocytes # 1.1 K/mcL (0.6-4.6); Lymphocytes % 13.6 %; Mean Corpuscular HGB Conc 30.2 g/dL (31.6-35.5); Mean Corpuscular Hemoglobin 25.2 pg (28.0-33.3); Mean Corpuscular Volume 83.6 fL (83.0-100.0); Mean Platelet Volume 10.3 fL (9.4-12.4); Monocytes # 0.9 K/mcL (0.0-1.3); Neutrophils # 5.8 K/mcL (1.6-8.9); Platelet Count 244 K/mcL (140-400); Red Blood Count 4.56 M/mcL (4.19-5.50); Red Cell Distribution Width 17.8 % (11.5-14.5); Segmented Neutrophils % 73.3 %
[2018-04-24 18:53] LABS: INR 3.6; Prothrombin Time 40.4 Seconds (9.4-12.1)
[2018-04-24 19:10] LABS: Calcium 9.4 mg/dL (8.6-10.3); Potassium 4.7 mEq/L (3.5-5.1)
[2018-04-24 19:23] LABS: Troponin I 0.05 ng/mL (< 0.04)
--- NOTE | 2018-04-24 20:14 | Emergency Department Note ---
Disposition Clinical Impression: LINO (acute kidney injury), Elevated troponin I level CHF exacerbation Qualifiers: Heart failure type: unspecified Qualified Code(s): I50.9 - Heart failure, unspecified Disposition: Admitted As Inpatient Condition: Good Referrals: Khoi Hinkle [Primary Care Provider] - Forms: ED Satisfaction Letter SOB HPI - General Chief Complaint: ED Shortness of Breath/Dyspnea Stated Complaint: SOB Time Seen by Provider: 04/24/18 18:09 Source: patient Mode of arrival: ambulatory Limitations: no limitations Nursing Notes Reviewed: Yes Vital Signs Reviewed: Yes - History of Present Illness Patient presents emergency department today for increased swelling legs and associated shortness of breath. Shortness breath is worse with exertion as well as with lying flat. Patient states that he was recently admitted to the hospital for fluid retention. Patient states that he had his Lasix increased to 3 times a day. The patient has been judicious about wearing his compression stockings. He is not good about taking his medications all the time. He did take his medications over the last couple of days. He states that the swelling and shortness of breaths continued to worsen to the point that he is having swelling to the abdomen. Patient does have +2 pitting edema up through the legs into the lower abdomen. He does not have any significant abdominal pain or tenderness at this time. Patient shortness of breath is likely secondary to his CHF and low ejection fraction. Patient denies any previous history of MO. - Related Data Home Medications Medication Instructions Recorded Confirmed Aspirin 81 mg PO DAILY 05/16/17 04/24/18 Carvedilol 12.5 mg PO BID 05/16/17 04/24/18 Cyclobenzaprine [Flexeril] 10 mg PO TID PRN 05/16/17 04/24/18 Eplerenone [Inspra] 25 mg PO DAILY 05/16/17 04/24/18 Ezetimibe 10 mg PO DAILY 05/16/17 04/24/18 Febuxostat [Uloric] 40 mg PO DAILY 05/16/17 04/24/18 Gabapentin [Neurontin] 300 mg PO BID 05/16/17 04/24/18 Insulin Glargine,Hum.rec.anlog 80 unit SQ QPM 05/16/17 04/24/18 [Lantus Solostar] Omeprazole [PriLOSEC] 20 mg PO DAILY 05/16/17 04/24/18 Warfarin [Coumadin] 5 mg PO MOWE 05/16/17 04/24/18 Warfarin [Coumadin] 2.5 mg PO SUTUTHFRSA 07/26/17 04/24/18 Albuterol Sulfate [Proair Hfa] 2 puff IH Q6HR PRN 12/31/17 04/24/18 Budesonide/Formoterol 160/4.5 2 puff IH BID 02/11/18 04/24/18 [Symbicort 160/4.5] Simvastatin [Zocor] 40 mg PO HS 02/11/18 04/24/18 hydrALAZINE [HydrALAZINE] 10 mg PO BID 02/11/18 04/24/18 rOPINIRole [Requip] 0.5 mg PO HS 02/11/18 04/24/18 Multivitamin [Multivitamins] 2 tab PO DAILY 04/05/18 04/24/18 Potassium Chloride [K-Tab ER] 10 meq PO DAILY 04/05/18 04/24/18 Psyllium Husk [Fiber] 1 tab PO DAILY 04/05/18 04/24/18 Previous Rx's Medication Instructions Recorded Furosemide [Lasix] 40 mg PO TID #90 tablet 04/07/18 Allergies Allergy/AdvReac Type Severity Reaction Status Date / Time Amoxicillin [From Augmentin] AdvReac Diarrhea Verified 04/05/18 15:03 clavulanic acid AdvReac Diarrhea Verified 04/05/18 15:03 [From Augmentin] Oxycodone [From Percocet] AdvReac Itching Verified 04/05/18 15:03 Review of Systems: CONSTITUTIONAL: No weight loss, fever, chills, weakness or fatigue. HEENT: Eyes: No visual changes. Ears, Nose, Throat: No hearing loss, difficulty talking or unable to swallow. SKIN: No rash or itching. CARDIOVASCULAR: Swelling of the lower extremities. No chest pain, chest pressure or chest discomfort. RESPIRATORY: Shortness of breath with exertion and associated orthopnea GASTROINTESTINAL: No anorexia, nausea, vomiting or diarrhea. No abdominal pain or blood. GENITOURINARY: No burning on urination or hematuria. NEUROLOGICAL: No headache, dizziness, syncope, paralysis, ataxia, numbness or tingling in the extremities. No change in bowel or bladder control. MUSCULOSKELETAL: No muscle pain, back pain, joint pain or stiffness. Review of Systems: As Per HPI Past Medical History - Past Medical History Medical history: Reports: atrial fibrillation, CHF, diabetes, GERD, hyperlipidemia, hypertension, other Surgical history: Reports: pacemaker/AICD Psychiatric history: Reports: no psych history - Social History Smoking Status: Never smoker Smokeless Tobacco Status: No Alcohol use: Reports: none Drug use: Reports: none Physical Exam General: Well appearing, nontoxic, no acute distress Head: Normocephalic Atraumatic Eyes: PERRL, EOMI ENT: Airway patent, no stridor Neck: supple Chest: Rales bilaterally Cardiac: Irregular rate and rhythm Abdomen: soft, nontender, nondistended; no guarding, rebound, or tenderness to percussion Musculoskeletal: The patient has +2 pitting edema throughout the lower extremities into the lower abdomen. Skin: No rash, normal skin tone Neuro: Alert and Oriented to person, place, and time; No focal deficit - General General appearance: alert, in no apparent distress Course - Reevaluation(s) Reevaluation #1: Patient notified of abnormal test results. Patient be admitted for further management of CHF and acute kidney injury. Elevated troponin. Aspirin given. Patient denies chest pain. Patient was given 40 mg of Lasix in the emergency department. - Consultations Consultation #1: Discussed with hospitalist. Patient accepted for admission. Vital Signs Temperature 97.5 F L 04/24/18 18:11 Pulse Rate 68 04/24/18 18:11 Respiratory Rate 24 04/24/18 18:11 Blood Pressure 114/76 04/24/18 18:11 O2 Sat by Pulse Oximetry 96 04/24/18 18:11 Temperature 97.5 F L 04/24/18 19:49 Pulse Rate 70 04/24/18 19:49 Respiratory Rate 20 04/24/18 19:49 Blood Pressure 105/75 04/24/18 19:49 O2 Sat by Pulse Oximetry 98 04/24/18 19:49 Oxygen Delivery Oxygen Delivery Room Air Shortness of Breath/Dyspnea - Medical Records Medical records reviewed: Yes I reviewed the patient's medical records. - Lab Data Lab results reviewed: Yes I reviewed the patient's lab results. Result diagrams: 04/24/18 18:35 04/24/18 18:35 Lab Results 1004/24/18 04/24/18 Range/Units 18:35 18:35 18:35 WBC 7.9 (4.3-11.1) K/mcL RBC 4.56 (4.19-5.50) M/mcL Hgb 11.5 L (12.9-16.9) g/dL Hct 38.1 (37.5-50.1) % MCV 83.6 (83.0-100.0) fL MCH 25.2 L (28.0-33.3) pg MCHC 30.2 L (31.6-35.5) g/dL RDW 17.8 H (11.5-14.5) % Plt Count 244 (140-400) K/mcL MPV 10.3 (9.4-12.4) fL Immature Gran % 0.1 (0-4) % Seg Neutrophils % 73.3 % Lymphocytes % 13.6 % Monocytes % 11.0 % Eosinophils % 1.7 % Basophils % 0.3 % Neutrophils # 5.8 (1.6-8.9) K/mcL Lymphocytes # 1.1 (0.6-4.6) K/mcL Monocytes # 0.9 (0.0-1.3) K/mcL Eosinophils # 0.1 (0.0-0.6) K/mcL Basophils # 0.0 (0.0-0.2) K/mcL PT 40.4 H (9.4-12.1) Seconds INR 3.6 Sodium (136-145) mEq/L Potassium (3.5-5.1) mEq/L Chloride (98-107) mEq/L Carbon Dioxide (23-29) mEq/L BUN (8-23) mg/dL Creatinine (0.70-1.30) mg/dL Est GFR ( Amer) (> 60) Est GFR (Non-Af Amer) (> 60) BUN/Creatinine Ratio (6-26) Glucose (70-105) mg/dL Calculated Osmolality (280-300) Calcium (8.6-10.3) mg/dL Troponin I (< 0.04) ng/mL B-Natriuretic Peptide 318 H (Less than 100) pg/mL 04/24/18 Range/Units 18:35 WBC (4.3-11.1) K/mcL RBC (4.19-5.50) M/mcL Hgb (12.9-16.9) g/dL Hct (37.5-50.1) % MCV (83.0-100.0) fL MCH (28.0-33.3) pg MCHC (31.6-35.5) g/dL RDW (11.5-14.5) % Plt Count (140-400) K/mcL MPV (9.4-12.4) fL Immature Gran % (0-4) % Seg Neutrophils % % Lymphocytes % % Monocytes % % Eosinophils % % Basophils % % Neutrophils # (1.6-8.9) K/mcL Lymphocytes # (0.6-4.6) K/mcL Monocytes # (0.0-1.3) K/mcL Eosinophils # (0.0-0.6) K/mcL Basophils # (0.0-0.2) K/mcL PT (9.4-12.1) Seconds INR Sodium 137 (136-145) mEq/L Potassium 4.7 (3.5-5.1) mEq/L Chloride 103 (98-107) mEq/L Carbon Dioxide 27 (23-29) mEq/L BUN 40 H (8-23) mg/dL Creatinine 1.96 H (0.70-1.30) mg/dL Est GFR ( Amer) 42 L (> 60) Est GFR (Non-Af Amer) 35 L (> 60) BUN/Creatinine Ratio 20 (6-26) Glucose 104 (70-105) mg/dL Calculated Osmolality 294 (280-300) Calcium 9.4 (8.6-10.3) mg/dL Troponin I 0.05 H* (< 0.04) ng/mL B-Natriuretic Peptide (Less than 100) pg/mL - Radiology Data Radiology results reviewed: Yes I reviewed the patient's radiology results. - EKG Data EKG attestation: Yes I reviewed and interpreted this EKG. EKG results narrative: EKG shows paced rhythm with a heart rate is 78. QRS 156. QTC 622 with no significant elevations or depressions. EKG unchanged from previous of 04/07/18.
[2018-04-24] MEDS ORDERED: Furosemide 40 MG/4 ML VIAL IVP STA (20:17)
[2018-04-24] MEDS ORDERED: Aspirin 325 MG TABLET PO STA (20:17)
[2018-04-24] MEDS ORDERED: Naloxone 0.4 MG/ML INJ IVP PRN (21:04)
[2018-04-24] MEDS ORDERED: D5% in Water 1,000 ML IVC PRN (21:10)
[2018-04-24] MEDS ORDERED: Dextrose Gel 15 GM/37.5 ML TUBE PO PRN ×2 (21:10)
[2018-04-24] MEDS ORDERED: *HR* Dextrose 50 % in Water (Syg) 50 ML SYRINGE IVP PRN (21:10)
[2018-04-24] MEDS: Insulin LISPRO 300 UNITS/3 ML VIAL SQ SCH (22:37)
[2018-04-24] MEDS: Furosemide 40 MG/4 ML VIAL IVP SCH (23:03)
--- NOTE | 2018-04-24 23:22 | Internal Med History&Physical ---
Date of Encounter: 04/24/18 Time of Encounter: 23:22 Internal Medicine - H&P: HPI History of present illness: Mr. Pace is a 62 year old male Past Med Surg Social Fam HX - Past Medical History Medical history: atrial fibrillation, CHF, diabetes, GERD, hyperlipidemia, hypertension, other Additional medical history: Type II Diabetic Psychiatric history: no psych history - Past Surgical History Surgical History: pacemaker/AICD Additional surgical history: PACEMAKER/AICD placement 2000 and 2015. Right ankle surgery - Social History Smoking Status: Former smoker Smokeless Tobacco Status: No Alcohol use: none Drug use: none - Family History Mother Living Status: Age at : 84 Cause of : CHF, spesis Father Name: 85 Living Status: Still Living Hx Family Cardiac Disorders: Yes Sister Age: 66 Hx Family Cardiac Disorders: Yes (breast) Internal Medicine - H&P: Meds Aspirin 81 mg PO DAILY 05/16/17 [History] Carvedilol 12.5 mg PO BID 05/16/17 [History] Cyclobenzaprine [Flexeril] 10 mg PO TID PRN 05/16/17 [History] Eplerenone [Inspra] 25 mg PO DAILY 05/16/17 [History] Ezetimibe 10 mg PO DAILY 05/16/17 [History] Febuxostat [Uloric] 40 mg PO DAILY 05/16/17 [History] Gabapentin [Neurontin] 300 mg PO BID 05/16/17 [History] Insulin Glargine,Hum.rec.anlog [Lantus Solostar] 80 unit SQ QPM 05/16/17 [ History] Omeprazole [PriLOSEC] 20 mg PO DAILY 05/16/17 [History] Warfarin [Coumadin] 5 mg PO MOWE 05/16/17 [History] Warfarin [Coumadin] 2.5 mg PO SUTUTHFRSA 07/26/17 [History] Albuterol Sulfate [Proair Hfa] 2 puff IH Q6HR PRN 12/31/17 [History] Budesonide/Formoterol 160/4.5 [Symbicort 160/4.5] 2 puff IH BID 02/11/18 [ History] Simvastatin [Zocor] 40 mg PO HS 02/11/18 [History] hydrALAZINE [HydrALAZINE] 10 mg PO BID 02/11/18 [History] rOPINIRole [Requip] 0.5 mg PO HS 02/11/18 [History] Multivitamin [Multivitamins] 2 tab PO DAILY 04/05/18 [History] Potassium Chloride [K-Tab ER] 10 meq PO DAILY 04/05/18 [History] Psyllium Husk [Fiber] 1 tab PO DAILY 04/05/18 [History] Furosemide [Lasix] 40 mg PO TID #90 tablet 04/07/18 [Rx] 3 Allergy/AdvReac Type Severity Reaction Status Date / Time Amoxicillin [From Augmentin] AdvReac Diarrhea Verified 04/05/18 15:03 clavulanic acid AdvReac Diarrhea Verified 04/05/18 15:03 [From Augmentin] Oxycodone [From Percocet] AdvReac Itching Verified 04/05/18 15:03 All Systems PM: A 10-system review of systems was performed and is negative for pertinent findings except as documented above in the HPI. - Constitutional Vitals: Temp Pulse Resp BP Pulse Ox 97.5 F L 65 17 112/76 98 04/24/18 22:24 04/24/18 22:24 04/24/18 22:24 04/24/18 22:24 04/24/18 22:38 Internal Med - H&P Results - Labs CBC & Chem 7: 04/24/18 18:35 04/24/18 18:35 - Time Spent With Patient Total time spent is greater than 50% in coordination of care (as documented) at patient's floor/unit and/or counseling patient:
[2018-04-25 01:12] LABS: Basophils % 0.3 %; Eosinophils % 1.9 %; Hematocrit 39.5 % (37.5-50.1); Hemoglobin 11.9 g/dL (12.9-16.9); Immature Granulocytes % 0.4 % (0-4); Lymphocytes % 13.6 %; Mean Corpuscular HGB Conc 30.1 g/dL (31.6-35.5); Mean Corpuscular Hemoglobin 25.4 pg (28.0-33.3); Mean Corpuscular Volume 84.4 fL (83.0-100.0); Mean Platelet Volume 10.1 fL (9.4-12.4); Monocytes % 10.5 %; Platelet Count 255 K/mcL (140-400); Red Blood Count 4.68 M/mcL (4.19-5.50); Red Cell Distribution Width 17.4 % (11.5-14.5); Segmented Neutrophils % 73.3 %
[2018-04-25 01:13] LABS: Eosinophils # 0.2 K/mcL (0.0-0.6); Lymphocytes # 1.1 K/mcL (0.6-4.6); Monocytes # 0.8 K/mcL (0.0-1.3); Neutrophils # 5.8 K/mcL (1.6-8.9); Nucleated Red Blood Cells 0.4 /100 WBC (0)
[2018-04-25 01:37] LABS: Albumin 3.7 g/dL (3.5-5.7); Albumin/Globulin Ratio 1.2 (1.1-2.2); Bilirubin,Total 1.3 mg/dL (0.3-1.0); Calcium 9.4 mg/dL (8.6-10.3); Globulin 3.1 g/dL (2.4-3.5); Potassium 4.2 mEq/L (3.5-5.1); Total Protein 6.8 g/dL (6.4-8.9)
--- NOTE | 2018-04-25 02:20 | Internal Med History&Physical ---
<Jumana Cline - Last Filed: 04/25/18 06:10> Date of Encounter: 04/25/18 Time of Encounter: 02:20 Internal Medicine - H&P: HPI Chief complaint: lower extremity and abdominal swelling Admitted From: Home Plans for Post Hospital Care: Home History of present illness: Mr. Pace is a 62 year old male with PMH of CHF, Afib, DM, HTN, HLD, and pacemaker/AICD who presented to the emergency department with complaints of increased lower extremity swelling 1 day and abdominal swelling 3 days, reports shortness of breath is at his baseline. He was recently admitted for acute congestive heart failure that responded well to IV furosemide; on discharge his PO furosemide dose was increased. Patient reports feeling well on the day he was discharged and for about 1 week afterwards, but then his symptoms began to "catch up" to him over the last few weeks. He admits to difficulty following his medication regimen including the new TID furosemide dosing and has difficulty adhering to his 1.5 L fluid restriction--he has been taking his furosemide at least twice a day and estimates his fluid intake is about 2 L. He admits to orthopnea, chills, and nonproductive cough. Patient denies fever, chest pain, heart palpitations, wheezing, abdominal pain, nausea, vomiting, diarrhea, constipation. In the emergency department, patient was afebrile, hemodynamically stable, and saturating well on room air. Initially tachypnea resolved. CXR showed blunting of right costophrenic angle. Troponins elevated (0.05) and serum Cr 1.96. EKG showed paced rhythm, no acute ischemic changes. He received 40 mg furosemide IV and 325 mg ASA in the emergency department. He was admitted to the hospitalist service for continued care and evaluation of his CHF exacerbation and LINO. Past Med Surg Social Fam HX - Past Medical History Medical history: atrial fibrillation, CHF, diabetes, GERD, hyperlipidemia, hypertension, other Additional medical history: Type II Diabetic Psychiatric history: no psych history - Past Surgical History Surgical History: pacemaker/AICD Additional surgical history: PACEMAKER/AICD placement 2000 and 2015. Right ankle surgery - Social History Smoking Status: Former smoker Smokeless Tobacco Status: No Alcohol use: none Drug use: none - Family History Mother Living Status: Age at : 84 Cause of : CHF, spesis Father Name: 85 Living Status: Still Living Hx Family Cardiac Disorders: Yes Sister Age: 66 Hx Family Cardiac Disorders: Yes (breast) Internal Medicine - H&P: Meds Aspirin 81 mg PO DAILY 05/16/17 [History] Carvedilol 12.5 mg PO BID 05/16/17 [History] Cyclobenzaprine [Flexeril] 10 mg PO TID PRN 05/16/17 [History] Eplerenone [Inspra] 25 mg PO DAILY 05/16/17 [History] Ezetimibe 10 mg PO DAILY 05/16/17 [History] Febuxostat [Uloric] 40 mg PO DAILY 05/16/17 [History] Gabapentin [Neurontin] 300 mg PO BID 05/16/17 [History] Insulin Glargine,Hum.rec.anlog [Lantus Solostar] 80 unit SQ QPM 05/16/17 [ History] Omeprazole [PriLOSEC] 20 mg PO DAILY 05/16/17 [History] Warfarin [Coumadin] 5 mg PO MOWE 05/16/17 [History] Warfarin [Coumadin] 2.5 mg PO SUTUTHFRSA 07/26/17 [History] Albuterol Sulfate [Proair Hfa] 2 puff IH Q6HR PRN 12/31/17 [History] Budesonide/Formoterol 160/4.5 [Symbicort 160/4.5] 2 puff IH BID 02/11/18 [ History] Simvastatin [Zocor] 40 mg PO HS 02/11/18 [History] hydrALAZINE [HydrALAZINE] 10 mg PO BID 02/11/18 [History] rOPINIRole [Requip] 0.5 mg PO HS 02/11/18 [History] Multivitamin [Multivitamins] 2 tab PO DAILY 04/05/18 [History] Potassium Chloride [K-Tab ER] 10 meq PO DAILY 04/05/18 [History] Psyllium Husk [Fiber] 1 tab PO DAILY 04/05/18 [History] Furosemide [Lasix] 40 mg PO TID #90 tablet 04/07/18 [Rx] 3 Allergy/AdvReac Type Severity Reaction Status Date / Time Amoxicillin [From Augmentin] AdvReac Diarrhea Verified 04/05/18 15:03 clavulanic acid AdvReac Diarrhea Verified 04/05/18 15:03 [From Augmentin] Oxycodone [From Percocet] AdvReac Itching Verified 04/05/18 15:03 All Systems PM: A 10-system review of systems was performed and is negative for pertinent findings except as documented above in the HPI. - Constitutional Constitutional: as per HPI, chills, weight gain, no fever(s) - Cardiovascular Cardiovascular ROS IM: as per HPI, orthopnea, no chest pain, no diaphoresis - Respiratory Respiratory: as per HPI, no excessive phlegm production - Gastrointestinal Gastrointestinal: as per HPI, no constipation, no cramping, no diarrhea, no nausea, no vomiting - Constitutional Vitals: Temp Pulse Resp BP Pulse Ox 97.5 F L 65 17 112/76 98 04/24/18 22:24 04/24/18 22:24 04/24/18 22:24 04/24/18 22:24 04/24/18 22:38 General appearance: Present: A&O X 3, no acute distress, answers questions appropriately Exam: . - Head Head exam: Present: atraumatic, normocephalic - Eye Eye exam: Present: EOMI, PERRL, sclera anicteric Pupils: Present: PERRL - Neck Neck exam general surgery: Present: normal inspection, supple - Respiratory Respiratory exam: Present: decreased breath sounds, rales (right base). Absent : respiratory distress, rhonchi, wheezes - Cardiovascular Cardiovascular exam: Present: distant heart sounds, RRR, +S1, +S2 - GI/Abdominal GI/Abdominal exam: Present: normal bowel sounds, soft. Absent: guarding, rebound, rigid, tenderness - Extremities Exam Extremities exam: Present: pedal edema (bilateral 2+ pitting), radial pulses palpable and symmetrical. Absent: cyanotic, tenderness - Neurological Exam Neurological exam: Present: alert, CN II-XII intact, oriented X3, no focal deficits - Psychiatric Psychiatric exam: Present: normal affect, normal mood - Skin Skin exam: Present: dry, intact, normal color, warm. Absent: diaphoretic Internal Med - H&P Results - Labs CBC & Chem 7: 04/25/18 01:03 04/25/18 01:03 Labs: Short CBC 04/25/18 Range/Units 01:03 WBC 7.9 (4.3-11.1) K/mcL Hgb 11.9 L (12.9-16.9) g/dL Hct 39.5 (37.5-50.1) % Plt Count 255 (140-400) K/mcL Neutrophils # 5.8 (1.6-8.9) K/mcL BMP 04/25/18 01:03 Sodium 137 Potassium 4.2 Chloride 101 Carbon Dioxide 29 BUN 40 H Creatinine 1.85 H Glucose 108 H Calcium 9.4 Cardiac Enzymes 04/25/18 Range/Units 01:03 Troponin I 0.05 H* (< 0.04) ng/mL Liver Function 04/25/18 Range/Units 01:03 Total Bilirubin 1.3 H (0.3-1.0) mg/dL AST 24 (13-39) Units/L ALT 17 (7-52) Units/L Alkaline Phosphatase 100 (34-104) Units/L Albumin 3.7 (3.5-5.7) g/dL - Assessment and plan (1) Acute on chronic systolic (congestive) heart failure Current Visit: Yes Status: Acute Assessment and plan: Acute exacerbation of chronic systolic heart failure d/t fluid overload in setting of non-adherence to medication regiment and fluid restriction Echo not necessary as this appears to be due to compliance issues Likely causing increased heart strain leading to troponin leak Right basilar crackles and BLE 2+ pitting edema on exam CXR shows blunted right costophrenic angle, suggestive of pleural effusion - Strict I/O's - Daily weight - Fluid restriction 1.5 liters - Continue furosemide 40mg TID [place]ON (2) Elevated troponin I level Current Visit: Yes Status: Acute Assessment and plan: Elevation most likely d/t heart strain in setting of acute CHF exacerbation Troponin 0.05 --> 0.05 EKG unchanged from previous, paced rhythm, no acute ischemic changes and patient has no complaints of chest pain--ischemic cause is less likely - Trend troponin 1 - Continuous cardiac monitoring (3) LINO (acute kidney injury) Current Visit: Yes Status: Acute Assessment and plan: Acute kidney injury d/t poor renal perfusion in setting of acute systolic CHF exacerbation Improved with lasix given in ED, SCr 1.96 --> 1.85 CKD stage III, baseline SCr 1.5 - Continue home dose lasix - No IV fluids at this time - Continue to monitor kidney function on metabolic panel (4) Chronic a-fib Current Visit: Yes Status: Chronic Assessment and plan: Rate and rhythm control with Pacemaker/AICD Anticoagulation with coumadin, currently supratherapeutic INR 3.6 - Recheck PT/INR - Hold Monday evening dose (5) Diabetes mellitus Current Visit: Yes Status: Chronic Assessment and plan: Low-dose sliding scale insulin Cardiac diet with ADA modifications Accu-Cheks AC HS Qualifiers: Diabetes mellitus type: type 2 Diabetes mellitus prison insulin use: with buttermaker continuous churn use Diabetes mellitus complication status: with kidney complications Diabetes mellitus complication detail: with chronic kidney disease Chronic kidney disease stage: unspecified stage Qualified Code(s): E11.22 - Type 2 diabetes mellitus with diabetic chronic kidney disease; Z79.4 - alf (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 of insulin (6) HLD (hyperlipidemia) Current Visit: Yes Status: Chronic Assessment and plan: Continue simvastatin 40mg PO Qualifiers: Hyperlipidemia type: mixed hyperlipidemia Qualified Code(s): E78.2 - Mixed hyperlipidemia (7) DVT prophylaxis Current Visit: Yes Status: Acute Assessment and plan: Anticoagulated on warfarin for Afib (8) CKD (chronic kidney disease) stage 3, GFR 30-59 ml/min Current Visit: Yes Status: Acute Assessment and plan: SCr 1.5 at baseline - Time Spent With Patient Total time spent is greater than 50% in coordination of care (as documented) at patient's floor/unit and/or counseling patient: <Halima Reinoso - Last Filed: 04/25/18 08:07> Date of Encounter: 04/25/18 Internal Medicine - H&P: HPI History of present illness: Mr. Pace is a 62 year old male All Systems PM: A 10-system review of systems was performed and is negative for pertinent findings except as documented above in the HPI. - Constitutional Vitals: Temp Pulse Resp BP Pulse Ox 97.7 F 70 16 110/74 97 04/25/18 03:11 04/25/18 03:11 04/25/18 04:05 04/25/18 03:11 04/25/18 04:05 Internal Med - H&P Results - Labs CBC & Chem 7: 04/25/18 01:03 04/25/18 01:03 Labs: Short CBC 04/25/18 Range/Units 01:03 WBC 7.9 (4.3-11.1) K/mcL Hgb 11.9 L (12.9-16.9) g/dL Hct 39.5 (37.5-50.1) % Plt Count 255 (140-400) K/mcL Neutrophils # 5.8 (1.6-8.9) K/mcL BMP 04/25/18 01:03 Sodium 137 Potassium 4.2 Chloride 101 Carbon Dioxide 29 BUN 40 H Creatinine 1.85 H Glucose 108 H Calcium 9.4 Cardiac Enzymes 04/25/18 Range/Units 01:03 Troponin I 0.05 H* (< 0.04) ng/mL Liver Function 04/25/18 Range/Units 01:03 Total Bilirubin 1.3 H (0.3-1.0) mg/dL AST 24 (13-39) Units/L ALT 17 (7-52) Units/L Alkaline Phosphatase 100 (34-104) Units/L Albumin 3.7 (3.5-5.7) g/dL - Assessment and plan (1) Diabetes mellitus Current Visit: Yes Status: Chronic Qualifiers: Diabetes mellitus type: type 2 Diabetes mellitus prison insulin use: with prison use Diabetes mellitus complication status: with kidney complications Diabetes mellitus complication detail: with chronic kidney disease Chronic kidney disease stage: unspecified stage Qualified Code(s): E11.22 - Type 2 diabetes mellitus with diabetic chronic kidney disease; Z79.4 - alf (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 of insulin (2) DVT prophylaxis Current Visit: Yes Status: Acute (3) Chronic a-fib Current Visit: Yes Status: Chronic (4) Acute on chronic systolic (congestive) heart failure Current Visit: Yes Status: Acute (5) HLD (hyperlipidemia) Current Visit: Yes Status: Chronic Qualifiers: Hyperlipidemia type: mixed hyperlipidemia Qualified Code(s): E78.2 - Mixed hyperlipidemia (6) LINO (acute kidney injury) Current Visit: Yes Status: Acute (7) Elevated troponin I level Current Visit: Yes Status: Acute (8) CKD (chronic kidney disease) stage 3, GFR 30-59 ml/min Current Visit: Yes Status: Acute - Time Spent With Patient Total time spent is greater than 50% in coordination of care (as documented) at patient's floor/unit and/or counseling patient: - Attending Attestation Patient seen and examined. Chart reviewed including labs. Case discussed with resident. Agree with assessment and plan. We will treat patient for acute CHF exacerbation the setting of heart failure with reduced ejection fraction. Exacerbation likely due to patient reported medication and dietary noncompliance. For this reason we will hold off on obtaining an echocardiogram. We will continue with aggressive diuresis. Strict I's and O's and daily weights.
[2018-04-25] MEDS: Insulin LISPRO 300 UNITS/3 ML VIAL SQ SCH ×3 (08:27→17:26)
--- NOTE | 2018-04-25 09:30 | Internal Med Progress Note ---
Hospitalist Progress Note - Encounter Date of Encounter: 04/25/18 Time of Encounter: 09:28 - Subjective Interval History: Patient seen and evaluated at bedside, reports feeling better that when he presented to the ED. His abdominal distention and lower extremities tightness have are slightly improved. Denies chest pain, nausea or vomiting. Improved shortness of breath. - Exam Vitals: Temp Pulse Resp BP Pulse Ox 97.8 F 60 14 108/68 99 04/25/18 08:10 04/25/18 08:10 04/25/18 08:10 04/25/18 08:10 04/25/18 08:10 Exam: General: Alert and oriented x4. No distress. Skin: Normal color, no rash, no lesions. HEENT: EOM, pupils equal, round and reactive. Cardiovascular: Irregularly irregular, Normal S1 & S2, no rubs, murmurs or gallops. Unable to assess JVD due to short neck. Lungs: Clear to auscultation bilaterally, no wheezes or crackles. Abdomen: Obese, Soft, non-tender, no rigidity. NABS in all 4 quadrants. Extremities: 2+ pitting edema bilaterally in the lower extremity. Neurological: Normal cognition and motor skills. Rest of the physical exam is non contributory - Assessment and Plan (1) Acute on chronic systolic (congestive) heart failure Current Visit: Yes Status: Acute Assessment and Plan: abdominal fullness sensation has improved. 2+ lower extremities edema. Clear lungs. Patient reports that about 1 month ago he was told to increase lasix 40mg /PO TID but he kept taking 40mg/PO daily and skipped some dosage due to his work schedule. Plan Patient needs to remain in the hospital to continue receiving IV diuretics. Total negative balance 500 ml. To continue gentle IV diruresis with furosemide 40mg/IV TID strict intake and output water restriction to 1.5 litters a day. daily weight 2 gram sodium diet No on ACEs due to LINO/CKD Continue low dose beta-shirley (2) Chronic a-fib Current Visit: Yes Status: Chronic Assessment and Plan: Rate controlled. s/p AICD/pacemaker On warfarin due to High CHADSVASC score, to continue as per pharmacy protocol On Cavedilol 12.5mg/PO BID Hold today's dosage of warfarin as INR 3.5 (3) Elevated troponin I level Current Visit: Yes Status: Acute Assessment and Plan: No chest pain on presentation. Possible demand ischemia in the setting of decompensated CHF. No EKG changes when compared with EKG on 04/08/18. Patient had a Cardiac stress test done on 09/11/17 negative for ischemia. Plan Cardiology has been consulted. Will follow recommendations. (4) HLD (hyperlipidemia) Current Visit: Yes Status: Chronic Assessment and Plan: Continue simvastatin 40 mg by mouth at bedtime. (5) CKD (chronic kidney disease) stage 3, GFR 30-59 ml/min Current Visit: Yes Status: Chronic Assessment and Plan: Kidney function slightly improved with diuresis. Continue IV diuresis. IV nephrotoxic medications. Recommended to continue to f/u with nephrology as outpatient. (6) Diabetes mellitus Current Visit: Yes Status: Chronic Assessment and Plan: Blood sugar well controlled. Continue Lispro AC sliding scale. Carb controlled diet. (7) Hypertension Current Visit: No Status: Chronic Assessment and Plan: BP well controlled. Continue Furosemide, carvedilol and Hydralazine. WIll continue to monitor for adjustment if needed. DVT Prophylaxis: anticoagulated on Warfarin due to A.fib. - Summary of Assessment and Plan Summary of Assessment and Plan: Patient to remain in the hospital to receive IV furosemide, total negative balance of 500 ml in the past 24 hours. Patient not compliant with oral medications. Elevated trops. Cardiology consulted. - Time Spent with Patient Total time spent is greater than 50% in coordination of care (as documented) at patient's floor/unit and/or counseling patient: 25 - 35 minutes Plan of Care Discussed with: patient (the nurse.) Internal Medicine: Result - Labs CBC & Chem 7: 04/25/18 01:03 04/25/18 01:03 Labs: Short CBC 04/25/18 Range/Units 01:03 WBC 7.9 (4.3-11.1) K/mcL Hgb 11.9 L (12.9-16.9) g/dL Hct 39.5 (37.5-50.1) % Plt Count 255 (140-400) K/mcL Neutrophils # 5.8 (1.6-8.9) K/mcL BMP 04/25/18 01:03 Sodium 137 Potassium 4.2 Chloride 101 Carbon Dioxide 29 BUN 40 H Creatinine 1.85 H Glucose 108 H Calcium 9.4 Cardiac Enzymes 04/25/18 04/25/18 Range/Units 01:03 07:09 Troponin I 0.05 H* 0.04 H* (< 0.04) ng/mL Liver Function 04/25/18 Range/Units 01:03 Total Bilirubin 1.3 H (0.3-1.0) mg/dL AST 24 (13-39) Units/L ALT 17 (7-52) Units/L Alkaline Phosphatase 100 (34-104) Units/L Albumin 3.7 (3.5-5.7) g/dL - ABG Interpretation ABG results: PT/INR, D-dimer PT 40.4 Seconds (9.4-12.1) H 04/24/18 18:35 Consult Discharge Plan - Plan Referrals: Khoi Hinkle [Primary Care Provider] - (4) HLD (hyperlipidemia) Qualifiers: Hyperlipidemia type: mixed hyperlipidemia Qualified Code(s): E78.2 - Mixed hyperlipidemia (6) Diabetes mellitus Qualifiers: Diabetes mellitus type: type 2 Diabetes mellitus technician terminal and repeater insulin use: with technician terminal and repeater use Diabetes mellitus complication status: with kidney complications Diabetes mellitus complication detail: with chronic kidney disease Chronic kidney disease stage: unspecified stage Qualified Code(s): E11.22 - Type 2 diabetes mellitus with diabetic chronic kidney disease; Z79.4 - intermediate card tender ( 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 of insulin (7) Hypertension Qualifiers: Hypertension type: essential hypertension Qualified Code(s): I10 - Essential (primary) hypertension
--- NOTE | 2018-04-25 09:42 | Electrocardiograph Report ---
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
--- NOTE | 2018-04-25 09:56 | Electrocardiograph Report ---
[place] [id number] Test Date: 2018-04-25 Pat Name: Alejandro Pace Department: 113 Room: 3B44 Gender: M Abstract Maker: : 1955 Requested By: Jax Perez Order Number: [id number] Reading MD: Scottie Amaral Measurements Intervals [place] Rate: 68 P: -17 ME: 62 QRS: 212 QRSD: 143 T: -3 QT: 468 QTc: 485 Interpretive Statements ELECTRONIC VENTRICULAR PACEMAKER ABNORMAL RHYTHM ECG Electronically Signed On 04-25-2018 9:55:05 EDT by Scottie Amaral
[2018-04-25] MEDS: Aspirin 81 MG TAB.CHEW PO SCH (10:24)
[2018-04-25] MEDS: Ezetimibe [Ezetimibe] 10 MG PO SCH (10:24)
[2018-04-25] MEDS: Eplerenone [Inspra] 25 MG PO SCH (10:24)
[2018-04-25] MEDS: Gabapentin 300 MG CAPSULE PO SCH ×2 (10:24→20:35)
[2018-04-25] MEDS: Furosemide 40 MG/4 ML VIAL IVP SCH ×3 (10:24→20:35)
[2018-04-25] MEDS: hydrALAZINE 10 MG TABLET PO SCH ×2 (10:24→20:35)
[2018-04-25] MEDS: Febuxostat [Uloric] 40 MG PO SCH (10:25)
--- NOTE | 2018-04-25 11:50 | Cardiology Consult Note ---
<Tr Cowart Tiffanie - Last Filed: 04/25/18 11:58> Date of Encounter: 04/25/18 Time of Encounter: 11:49 Assessment and Plan (1) Acute on chronic systolic (congestive) heart failure Current Visit: Yes Status: Acute Presents with worsening LE edema and abdominal distention, orthopnea and 10 lb weight gain in the past week. Known EF of 30% with ICD in place. Negative stress test 08/2017. Suspect CHF exacerbation is secondary to medication and dietary noncompliance. Reports not taking Lasix as frequently as instructed and admits to excess fluid intake. CXR mild CHF, BNP 318. Agree with IV diuresis--currently on IV Lasix 40mg TID. Monitor renal function closely given CKD. Recommend strict I/Os, Na and fluid restriction, daily weights. Continue to follow. (2) A-fib Current Visit: Yes Status: Chronic Known A-Fib, currently paced. Continue BB. Anticoagulated on Coumadin, INR supratherapeutic 3.6. Denies active bleeding. Qualifiers: Atrial fibrillation type: unspecified Qualified Code(s): I48.91 - Unspecified atrial fibrillation (3) Elevated troponin Current Visit: Yes Status: Acute Troponins borderline/flat--0.05, 0.05, 0.04 in setting of CKD and acute on chronic CHF exacerbation. Demand ischemia, nondiagnostic for ACS. Pt denies CP. (4) Cardiomyopathy Current Visit: Yes Status: Acute C in remote past with CMP was diagnosed--NICMP. EF 30%, ICD in place. Continue BB. No ACEi/ARB due to CKD. Qualifiers: Cardiomyopathy type: unspecified Qualified Code(s): I42.9 - Cardiomyopathy , unspecified Discussion w patient/family: The assessment and plan as outlined above was discussed with the patient and/or family members who expressed understanding and agreement. All questions were answered. Thank you for involving us in the care of your patient. Please call with any questions. I will discuss all the above with Dr. Ernandez and make changes as necessary. History of Present Illness Consult date: 04/25/18 Requesting physician: Jumana Cline Consult reason: CHF Chief complaint: LE edema, abdominal CP History of present illness: Mr. Pace is a 62 year old male with PMH of systolic CHF EF 30%, Afib on Coumadin, DM, HTN, HLD, NICMP s/p AICD who presented to the ED with complaints of increased lower extremity swelling 1 day and abdominal swelling 3 days, reports shortness of breath is at his baseline. He was recently admitted for acute congestive heart failure that responded well to IV furosemide; on discharge his PO furosemide dose was increased. Patient reports feeling well on the day he was discharged and for about 1 week afterwards, but then his symptoms began to worsen over the last few weeks. He admits to difficulty following his medication regimen including the new TID furosemide dosing and has difficulty adhering to his 1.5 L fluid restriction--he has been taking his furosemide at least twice a day and estimates his fluid intake is about 2 L. He admits to orthopnea, chills, and nonproductive cough. He denies chest pain. Reports 10 lb weight gain in the past week. Cardiology consulted for further recs. CXR mild CHF, BNP 318, troponins 0.05, 0.05, 0.04. Prior CV testing: TTE 02/10/18: LVEF 30%, midly dilated LV, mild MR, moderate TR, mild AR, mod phtn. Nuclear stress test 09/11/17: Gated EF 38%. Small sized, severe intensity fixed basal to mid inferior perfusion defect possibly due to prior infarct. Perfusion imaging negative for ischemia. Past Med Surg Social Fam HX - Past Medical History Medical history: atrial fibrillation, cardiomyopathy, CHF, diabetes, GERD, hyperlipidemia, hypertension, other Additional medical history: Type II Diabetic Psychiatric history: no psych history - Past Surgical History Surgical History: pacemaker/AICD Additional surgical history: PACEMAKER/AICD placement 2000 and 2015. Right ankle surgery - Social History Smoking Status: Former smoker Smokeless Tobacco Status: No Alcohol use: none Drug use: none - Family History Mother Living Status: Age at : 84 Cause of : CHF, spesis Father Name: 85 Living Status: Still Living Hx Family Cardiac Disorders: Yes Sister Age: 66 Hx Family Cardiac Disorders: Yes (breast) Medications and Allergies Aspirin 81 mg PO DAILY 05/16/17 [History] Carvedilol 12.5 mg PO BID 05/16/17 [History] Cyclobenzaprine [Flexeril] 10 mg PO TID PRN 05/16/17 [History] Eplerenone [Inspra] 25 mg PO DAILY 05/16/17 [History] Ezetimibe 10 mg PO DAILY 05/16/17 [History] Febuxostat [Uloric] 40 mg PO DAILY 05/16/17 [History] Gabapentin [Neurontin] 300 mg PO BID 05/16/17 [History] Insulin Glargine,Hum.rec.anlog [Lantus Solostar] 80 unit SQ QPM 05/16/17 [ History] Omeprazole [PriLOSEC] 20 mg PO DAILY 05/16/17 [History] Warfarin [Coumadin] 5 mg PO MOWE 05/16/17 [History] Warfarin [Coumadin] 2.5 mg PO SUTUTHFRSA 07/26/17 [History] Albuterol Sulfate [Proair Hfa] 2 puff IH Q6HR PRN 12/31/17 [History] Budesonide/Formoterol 160/4.5 [Symbicort 160/4.5] 2 puff IH BID 02/11/18 [ History] Simvastatin [Zocor] 40 mg PO HS 02/11/18 [History] hydrALAZINE [HydrALAZINE] 10 mg PO BID 02/11/18 [History] rOPINIRole [Requip] 0.5 mg PO HS 02/11/18 [History] Multivitamin [Multivitamins] 2 tab PO DAILY 04/05/18 [History] Potassium Chloride [K-Tab ER] 10 meq PO DAILY 04/05/18 [History] Psyllium Husk [Fiber] 1 tab PO DAILY 04/05/18 [History] Furosemide [Lasix] 40 mg PO TID #90 tablet 04/07/18 [Rx] 3 Allergy/AdvReac Type Severity Reaction Status Date / Time Amoxicillin [From Augmentin] AdvReac Diarrhea Verified 04/05/18 15:03 clavulanic acid AdvReac Diarrhea Verified 04/05/18 15:03 [From Augmentin] Oxycodone [From Percocet] AdvReac Itching Verified 04/05/18 15:03 All Systems Review: The remainder of the systems were reviewed and are negative - Constitutional Constitutional: weight gain - Cardiovascular Cardiovascular: as per HPI, dyspnea on exertion, leg edema, orthopnea Physical Examination Vital Signs, Last 4 Hours Temp Pulse Resp BP Pulse Ox 04/25/18 11:15 14 99 04/25/18 08:10 97.8 F 60 14 108/68 99 Vital Signs Temp Pulse Resp BP Pulse Ox 04/25/18 11:49 97.5 F L 70 18 110/68 98 04/25/18 11:15 14 99 04/25/18 08:10 97.8 F 60 14 108/68 99 04/25/18 04:05 16 97 04/25/18 03:11 97.7 F 70 16 110/74 95 04/24/18 22:38 98 04/24/18 22:24 97.5 F L 65 17 112/76 97 04/24/18 20:52 69 20 109/86 99 04/24/18 19:49 97.5 F L 70 20 105/75 98 04/24/18 19:48 70 20 105/75 98 04/24/18 18:11 97.5 F L 68 24 114/76 96 Intake and Output 04/24/18 04/25/18 04/25/18 23:59 07:59 15:59 Output Total 500 / 500 Balance -500 / -500 Output: Urine 500 / 500 Other: Weight 150.7 kg 149.8 kg Blood Glucose* 93 119 212 Patient Weight 04/25/18 23:59 Weight 149.8 kg General: Conversant, No Apparent Distress HEENT: Atraumatic, Normocephaly, Mucus Membranes Moist Neck: Normal carotid pulses Cardiac: Reg Rate and Rhythm, Normal S1 and S2, No Murmur Lungs: Other (diminished) Neuro: Alert and responsive, No focal deficits noted Abdomen: Non-Tender, Other (distended) Skin: No rashes noted on visualized skin Musculoskeletal: No Chest Wall Tenderness Extremities: Other (2+ BLE edema) Results 04/25/18 01:03 04/25/18 01:03 Lab Results 04/25/18 04/25/18 04/25/18 01:03 01:03 01:03 WBC 7.9 Hgb 11.9 L Hct 39.5 Plt Count 255 Sodium 137 Potassium 4.2 Chloride 101 Carbon Dioxide 29 BUN 40 H Creatinine 1.85 H Glucose 108 H Calcium 9.4 Total Bilirubin 1.3 H AST 24 ALT 17 Alkaline Phosphatase 100 Troponin I 0.05 H* 04/25/18 07:09 WBC Hgb Hct Plt Count Sodium Potassium Chloride Carbon Dioxide BUN Creatinine Glucose Calcium Total Bilirubin AST ALT Alkaline Phosphatase Troponin I 0.04 H* Short CBC 04/25/18 04/24/18 Range/Units 01:03 18:35 WBC 7.9 7.9 (4.3-11.1) K/mcL Hgb 11.9 L 11.5 L (12.9-16.9) g/dL Hct 39.5 38.1 (37.5-50.1) % Plt Count 255 244 (140-400) K/mcL Neutrophils # 5.8 5.8 (1.6-8.9) K/mcL BMP 04/25/18 04/24/18 Range/Units 01:03 18:35 Sodium 137 137 (136-145) mEq/L Potassium 4.2 4.7 (3.5-5.1) mEq/L Chloride 101 103 (98-107) mEq/L Carbon Dioxide 29 27 (23-29) mEq/L BUN 40 H 40 H (8-23) mg/dL Creatinine 1.85 H 1.96 H (0.70-1.30) mg/dL Glucose 108 H 104 (70-105) mg/dL Calcium 9.4 9.4 (8.6-10.3) mg/dL Cardiac Enzymes 04/25/18 04/25/18 04/24/18 Range/Units 07:09 01:03 18:35 Troponin I 0.04 H* 0.05 H* 0.05 H* (< 0.04) ng/mL Liver Function 04/25/18 Range/Units 01:03 Total Bilirubin 1.3 H (0.3-1.0) mg/dL AST 24 (13-39) Units/L ALT 17 (7-52) Units/L Alkaline Phosphatase 100 (34-104) Units/L Albumin 3.7 (3.5-5.7) g/dL Impressions Chest X-Ray 04/24/18 18:11 IMPRESSION: 1. Findings typical of mild congestive heart failure; correlate with presentation and history. 2. Calcific atherosclerosis aorta. 3. Cardiomegaly. D/ / Adeel Allen / Adeel Allen Interpreting Provider: Adeel Allen Active Medications Albuterol Sulfate (Albuterol Inhaler) 2 puff IH [id number] [place] Stop: 10/24/18 21:08 Last Admin: 04/25/18 11:14 Dose: 2 puff Aspirin (Aspirin) 81 mg PO DAILY [place] Stop: 10/25/18 09:01 Last Admin: 04/25/18 10:24 Dose: 81 mg Budesonide/Formoterol Fumarate (Symbicort) 2 puff IH BIDRESP [place] PRN Reason: Protocol Stop: 10/25/18 22:01 Carvedilol (Coreg) 12.5 mg PO BID [place] Stop: 10/25/18 09:01 Last Admin: 04/25/18 10:24 Dose: 12.5 mg Dextrose/Water (Dextrose 50% (Syg)) 25 ml IVP AD PRN PRN Reason: Hypoglycemia Stop: 10/24/18 21:11 Furosemide (Lasix) 40 mg IVP TID [facility] Stop: 10/24/18 23:01 Last Admin: 04/25/18 10:24 Dose: 40 mg Gabapentin (Neurontin) 300 mg PO BID [facility] Stop: 10/25/18 09:01 Last Admin: 04/25/18 10:24 Dose: 300 mg Glucagon (Glucagen) 1 mg IM ONCE PRN PRN Reason: Hypoglycemia Stop: 10/24/18 21:11 Glucose (Gluctose) 15 gm PO ONCE PRN PRN Reason: Hypoglycemia Stop: 10/24/18 21:11 Glucose (Gluctose) 30 gm PO ONCE PRN PRN Reason: Hypoglycemia Stop: 10/24/18 21:11 Hydralazine HCl (Hydralazine) 10 mg PO BID [facility] Stop: 10/25/18 09:01 Dextrose (Dextrose 5%) 1,000 mls @ 100 mls/hr IVC .Q10H PRN PRN Reason: HYPOGLYCEMIA Stop: 10/24/18 21:11 Insulin Human Lispro (Humalog) 0 units SQ TIDAC [facility] PRN Reason: Protocol Stop: 10/24/18 21:16 Last Admin: 04/25/18 08:27 Dose: Not Given Naloxone HCl (Narcan) 0.4 mg IVP Q2MIN PRN PRN Reason: SEE COMMENTS Stop: 10/24/18 21:05 Pharmacy Profile Note (Patient Taking Own Medication) 1 each PO DAILY [facility] Stop: 10/25/18 09:01 Last Admin: 04/25/18 10:24 Dose: Not Given Pharmacy Profile Note (Patient Taking Own Medication) 10 each PO DAILY [facility] Stop: 10/25/18 09:01 Last Admin: 04/25/18 10:24 Dose: Not Given Pharmacy Profile Note (Patient Taking Own Medication) 1 each PO DAILY [facility] Stop: 10/25/18 09:01 Last Admin: 04/25/18 10:25 Dose: Not Given Potassium Chloride (Potassium Chloride) 10 meq PO DAILY [facility] Stop: 10/25/18 09:01 Last Admin: 04/25/18 10:24 Dose: 10 meq Ropinirole HCl (Requip) 0.5 mg PO HS [facility] Stop: 10/25/18 21:01 Simvastatin (Zocor) 40 mg PO [facility] PRN Reason: Protocol Stop: 10/25/18 21:01 Warfarin Sodium (Coumadin) 2.5 mg PO [id number] [facility] Stop: 10/26/18 18:01 - Imaging and Cardiology Stress Test: report reviewed Echo: report reviewed - EKG Interpretation EKG results cardiology: personally reviewed Consult Discharge Plan - Plan Referrals: Khoi Hinkle [Primary Care Provider] - <Jaren Ernandez - Last Filed: 04/25/18 20:27> Date of Encounter: 04/25/18 Time of Encounter: 18:00 - Attending Attestation I have personally performed a face to face evaluation on this patient. I have reviewed and agree with the care plan. History and Exam by me shows: CC: Shortness of breath, lower extremity edema HPI: PZT presents with increasing shortness of breath and lower extremity swelling over the last week, most pronounced in last three days. He was most recently hospitalized for exacerbation of CHF, responded well to IV diuresis, and was discharged on increased lasix dose. He has been noncompliant with dosing schedule and fluid restriction. He denies chest pain, pressure or shortness of breath. He admits to ten pound weight gain over last two weeks. PMH: reviewed ROS; reviewed PE; pt seen and examined, agree with findings as documented. IMP/Plan: 1. Acute on chronic systolic heart failure due to volume overload due to non- compliance with diuretic tx and fluid restriction. Responding well to IV diuresis, shortness of breath and lower extremity edema continue to improve. 2. Non ischemic cardiomyopathy with most recent EF 30 % with indwelling AICD 3. Chronic A fib with controlled ventricular response, is sytemically anticoagulated with warfarin for primary stroke risk reduction, INR super therapuetic at 3.6, warfain on hold. 4. Elevated troponin: most consistent with demand ischemia, trivial CAD on previous C. Assessment and Plan Discussion w patient/family: The assessment and plan as outlined above was discussed with the patient and/or family members who expressed understanding and agreement. All questions were answered. Thank you for involving us in the care of your patient. Please call with any questions. History of Present Illness History of present illness: Mr. Pace is a 62 year old male All Systems Review: The remainder of the systems were reviewed and are negative Physical Examination Vital Signs, Last 4 Hours Temp Pulse Resp BP Pulse Ox 04/25/18 19:01 97.6 F 65 16 115/75 96 04/25/18 16:30 18 96 04/25/18 16:26 96.6 F L 70 18 113/77 98 Results 04/25/18 01:03 04/25/18 01:03 Lab Results 04/25/18 04/25/18 04/25/18 01:03 01:03 01:03 WBC 7.9 Hgb 11.9 L Hct 39.5 Plt Count 255 Sodium 137 Potassium 4.2 Chloride 101 Carbon Dioxide 29 BUN 40 H Creatinine 1.85 H Glucose 108 H Calcium 9.4 Total Bilirubin 1.3 H AST 24 ALT 17 Alkaline Phosphatase 100 Troponin I 0.05 H* 04/25/18 07:09 WBC Hgb Hct Plt Count Sodium Potassium Chloride Carbon Dioxide BUN Creatinine Glucose Calcium Total Bilirubin AST ALT Alkaline Phosphatase Troponin I 0.04 H*
[2018-04-25] MEDS ORDERED: Warfarin perPT PO PRN (18:00)
[2018-04-25] MEDS ORDERED: *HR* Warfarin 5 MG TABLET PO SCH (18:00)
[2018-04-25] MEDS: rOPINIRole 0.25 MG TABLET PO SCH (20:35)
[2018-04-25] MEDS: Budesonide/Formoterol 160/4.5 1 PUFF INH IH SCH (21:44)
[2018-04-26 01:38] LABS: Basophils % 0.3 %; Eosinophils # 0.2 K/mcL (0.0-0.6); Eosinophils % 3.3 %; Hematocrit 38.1 % (37.5-50.1); Hemoglobin 11.7 g/dL (12.9-16.9); Immature Granulocytes % 0.3 % (0-4); Lymphocytes % 14.2 %; Mean Corpuscular HGB Conc 30.7 g/dL (31.6-35.5); Mean Corpuscular Hemoglobin 25.4 pg (28.0-33.3); Mean Corpuscular Volume 82.6 fL (83.0-100.0); Mean Platelet Volume 9.8 fL (9.4-12.4); Monocytes # 0.8 K/mcL (0.0-1.3); Monocytes % 11.2 %; Neutrophils # 5.1 K/mcL (1.6-8.9); Platelet Count 208 K/mcL (140-400); Red Blood Count 4.61 M/mcL (4.19-5.50); Red Cell Distribution Width 17.7 % (11.5-14.5); Segmented Neutrophils % 70.7 %
[2018-04-26 01:46] LABS: INR 3.1; Prothrombin Time 35.2 Seconds (9.4-12.1)
[2018-04-26 01:57] LABS: Magnesium 2.4 mg/dL (1.6-2.6)
[2018-04-26] MEDS: Insulin LISPRO 300 UNITS/3 ML VIAL SQ SCH ×3 (08:12→17:22)
[2018-04-26] MEDS: Gabapentin 300 MG CAPSULE PO SCH ×2 (08:13→22:15)
[2018-04-26] MEDS: Eplerenone [Inspra] 25 MG PO SCH (08:13)
[2018-04-26] MEDS: Aspirin 81 MG TAB.CHEW PO SCH (08:13)
[2018-04-26] MEDS: hydrALAZINE 10 MG TABLET PO SCH ×2 (08:13→22:16)
[2018-04-26] MEDS: Furosemide 40 MG/4 ML VIAL IVP SCH ×3 (08:14→22:15)
[2018-04-26] MEDS: Febuxostat [Uloric] 40 MG PO SCH (08:32)
[2018-04-26] MEDS: Ezetimibe [Ezetimibe] 10 MG PO SCH (08:32)
[2018-04-26] MEDS: Budesonide/Formoterol 160/4.5 1 PUFF INH IH SCH ×2 (10:46→21:39)
--- NOTE | 2018-04-26 12:44 | Internal Med Progress Note ---
Hospitalist Progress Note - Encounter Date of Encounter: 04/26/18 Time of Encounter: 12:44 - Subjective Interval History: Ptient seen and examined at bedside- States that he feels better and lower extremity swelling improving - Exam Vitals: Temp Pulse Resp BP Pulse Ox 97.9 F 76 17 106/72 96 04/26/18 11:26 04/26/18 11:26 04/26/18 11:26 04/26/18 11:26 04/26/18 11:26 Exam: General: Alert and oriented x4. No distress. Skin: Normal color, no rash, no lesions. HEENT: EOM, pupils equal, round and reactive. Cardiovascular: Irregularly irregular, Normal S1 & S2, no rubs, murmurs or gallops. Unable to assess JVD due to short neck. Lungs: Clear to auscultation bilaterally, no wheezes or crackles. Abdomen: Obese, Soft, non-tender, no rigidity. NABS in all 4 quadrants. Extremities: 2+ pitting edema bilaterally in the lower extremity. Neurological: Normal cognition and motor skills. Rest of the physical exam is non contributory - Assessment and Plan (1) Diabetes mellitus Current Visit: Yes Status: Chronic Assessment and Plan: Blood sugar well controlled. Continue Lispro AC sliding scale. Carb controlled diet. (2) DVT prophylaxis Current Visit: Yes Status: Acute Assessment and Plan: Anticoagulated on warfarin for Afib (3) Chronic a-fib Current Visit: Yes Status: Chronic Assessment and Plan: Rate controlled. s/p AICD/pacemaker On warfarin due to High CHADSVASC score, to continue as per pharmacy protocol On Cavedilol 12.5mg/PO BID (4) Acute on chronic systolic (congestive) heart failure Current Visit: Yes Status: Acute Assessment and Plan: abdominal fullness sensation has improved. 2+ lower extremities edema. Clear lungs. Patient reports that about 1 month ago he was told to increase lasix 40mg /PO TID but he kept taking 40mg/PO daily and skipped some dosage due to his work schedule. Plan Patient needs to remain in the hospital to continue receiving IV diuretics. Total negative balance 500 ml. To continue gentle IV diruresis with furosemide 40mg/IV TID strict intake and output water restriction to 1.5 litters a day. daily weight 2 gram sodium diet No on ACEs due to LINO/CKD Continue low dose beta-shirley 10/11 Cont with diuretics IV until tomorrow- swelling improved weight down- cardiology recommending increasing lasix to 60 mg BID upon discharge cont low Na diet cont as above (5) HLD (hyperlipidemia) Current Visit: Yes Status: Chronic Assessment and Plan: Continue simvastatin 40 mg by mouth at bedtime. (6) LINO (acute kidney injury) Current Visit: Yes Status: Acute Assessment and Plan: Acute kidney injury d/t poor renal perfusion in setting of acute systolic CHF exacerbation Improved with lasix given in ED, SCr 1.96 --> 1.85 CKD stage III, baseline SCr 1.5 - Continue home dose lasix - No IV fluids at this time - Continue to monitor kidney function on metabolic panel 04/26 Cont lasix - creatinine improving cont monitor creatinine (7) Elevated troponin I level Current Visit: Yes Status: Acute Assessment and Plan: No chest pain on presentation. Possible demand ischemia in the setting of decompensated CHF. No EKG changes when compared with EKG on 04/08/18. Patient had a Cardiac stress test done on 09/11/17 negative for ischemia. Plan Cardiology has been consulted. Will follow recommendations. 04/26 Cardiology suspect demand ischemia (8) CKD (chronic kidney disease) stage 3, GFR 30-59 ml/min Current Visit: Yes Status: Chronic Assessment and Plan: Kidney function slightly improved with diuresis. Continue IV diuresis. IV nephrotoxic medications. Recommended to continue to f/u with nephrology as outpatient. 04/26 Improving will cont to monitor closely cont with diuresis DVT Prophylaxis: anticoagulated on Warfarin due to A.fib. - Time Spent with Patient Total time spent is greater than 50% in coordination of care (as documented) at patient's floor/unit and/or counseling patient: Internal Medicine: Result - Labs CBC & Chem 7: 04/26/18 01:15 04/26/18 12:54 Labs: Short CBC 04/26/18 Range/Units 01:15 WBC 7.2 (4.3-11.1) K/mcL Hgb 11.7 L (12.9-16.9) g/dL Hct 38.1 (37.5-50.1) % Plt Count 208 (140-400) K/mcL Neutrophils # 5.1 (1.6-8.9) K/mcL - ABG Interpretation ABG results: PT/INR, D-dimer PT 35.2 Seconds (9.4-12.1) H 04/26/18 01:15 Consult Discharge Plan - Plan Referrals: Khoi Hinkle [Primary Care Provider] - 05/01/18 10:00 am (1) Diabetes mellitus Qualifiers: Diabetes mellitus type: type 2 Diabetes mellitus exterminator helper insulin use: with assisted use Diabetes mellitus complication status: with kidney complications Diabetes mellitus complication detail: with chronic kidney disease Chronic kidney disease stage: unspecified stage Qualified Code(s): E11.22 - Type 2 diabetes mellitus with diabetic chronic kidney disease; Z79.4 - senior living ( 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 of insulin (5) HLD (hyperlipidemia) Qualifiers: Hyperlipidemia type: mixed hyperlipidemia Qualified Code(s): E78.2 - Mixed hyperlipidemia
[2018-04-26 14:36] LABS: BUN/Creatinine Ratio 28 (6-26); Blood Urea Nitrogen 37 mg/dL (8-23); Calcium 9.1 mg/dL (8.6-10.3); Carbon Dioxide 29 mEq/L (23-29); Chloride 102 mEq/L (98-107); Glucose 132 mg/dL (70-105); Osmolality,Calculated 303 (280-300); Potassium 3.5 mEq/L (3.5-5.1); Sodium 141 mEq/L (136-145); eGFR For Non-African Americans 56 (> 60)
--- NOTE | 2018-04-26 14:45 | Cardiology Progress Note ---
Date of Encounter: 04/26/18 Time of Encounter: 14:42 Assessment and Plan (1) CHF exacerbation Current Visit: Yes Status: Acute Presented with worsening LE edema and abdominal distention, orthopnea and 10 lb weight gain in the past week. Known EF of 30% with ICD in place. H/o NICMP. Negative stress test 08/2017. Suspect CHF exacerbation is secondary to medication and dietary noncompliance. Reports not taking Lasix as frequently as instructed and admits to excess fluid intake. Reports difficulty taking lasix three times a day. CXR mild CHF, BNP 318. Net negative 1380 ml. Agree with IV diuresis--currently on IV Lasix 40mg TID. Monitor renal function closely given CKD. Scr improving. Recommend Increased BID dosing at discharge. Recommend strict I/Os, Na and fluid restriction, daily weights. Qualifiers: Heart failure type: systolic Qualified Code(s): I50.23 - Acute on chronic systolic (congestive) heart failure (2) Elevated troponin I level Current Visit: Yes Status: Acute Troponins borderline/flat--0.05, 0.05, 0.04 in setting of CKD and acute on chronic CHF exacerbation. Demand ischemia, nondiagnostic for ACS. Pt denies CP. (3) A-fib Current Visit: Yes Status: Chronic Known A-Fib, currently paced. Continue BB. Anticoagulated on Coumadin, INR supratherapeutic 3.1. Denies active bleeding. Qualifiers: Atrial fibrillation type: unspecified Qualified Code(s): I48.91 - Unspecified atrial fibrillation Discussion w patient/family: The assessment and plan as outlined above was discussed with the patient and/or family members who expressed understanding and agreement. All questions were answered. Thank you for involving us in the care of your patient. Please call with any questions. Subjective Principal diagnosis: CHFrEF Interval history: Mr. Pace has no new complaints. Continues to have BLE edema but improved. Objective Vital Signs, Last 4 Hours Temp Pulse Resp BP Pulse Ox 04/26/18 11:26 97.9 F 76 17 106/72 96 04/26/18 10:46 18 95 General: Conversant, No Apparent Distress HEENT: Atraumatic, Normocephaly, Mucus Membranes Moist Neck: No JVD, Normal carotid pulses Cardiac: Reg Rate and Rhythm, Normal S1 and S2, No Murmur Lungs: Normal Breath Sounds, No Wheeze, Rales, Rhonchi Neuro: Alert and responsive, No focal deficits noted Abdomen: Soft, Non-Tender Skin: No rashes noted on visualized skin Musculoskeletal: No Chest Wall Tenderness Extremities: No Clubbing, No Cyanosis, Normal Pulses, Other (2+ edema BLE up to knees. ) Results 04/26/18 01:15 04/26/18 12:54 Lab Results 04/26/18 04/26/18 04/26/18 01:15 01:15 01:15 WBC 7.2 Hgb 11.7 L Hct 38.1 Plt Count 208 INR 3.1 Sodium Potassium Chloride Carbon Dioxide BUN Creatinine Glucose Calcium Magnesium 2.4 04/26/18 12:54 WBC Hgb Hct Plt Count INR Sodium 141 Potassium 3.5 Chloride 102 Carbon Dioxide 29 BUN 37 H Creatinine 1.31 H Glucose 132 H Calcium 9.1 Magnesium - Imaging and Cardiology Echo: report reviewed - EKG Interpretation EKG results cardiology: personally reviewed Consult Discharge Plan - Plan Referrals: Khoi Hinkle [Primary Care Provider] -
[2018-04-26] MEDS ORDERED: *HR* Warfarin 2.5 MG TABLET PO SCH (18:00)
[2018-04-26] MEDS ORDERED: *HR* Warfarin 2.5 MG TABLET PO ONE (18:00)
[2018-04-26] MEDS: rOPINIRole 0.25 MG TABLET PO SCH (22:15)
[2018-04-27 06:00] LABS: Basophils % 0.4 %; Eosinophils # 0.2 K/mcL (0.0-0.6); Eosinophils % 2.5 %; Hematocrit 37.5 % (37.5-50.1); Hemoglobin 11.4 g/dL (12.9-16.9); INR 2.2; Immature Granulocytes % 0.3 % (0-4); Lymphocytes % 14.1 %; Mean Corpuscular HGB Conc 30.4 g/dL (31.6-35.5); Mean Corpuscular Hemoglobin 25.3 pg (28.0-33.3); Mean Corpuscular Volume 83.1 fL (83.0-100.0); Mean Platelet Volume 10.7 fL (9.4-12.4); Monocytes # 0.7 K/mcL (0.0-1.3); Monocytes % 10.5 %; Neutrophils # 4.9 K/mcL (1.6-8.9); Platelet Count 209 K/mcL (140-400); Prothrombin Time 24.3 Seconds (9.4-12.1); Red Blood Count 4.51 M/mcL (4.19-5.50); Red Cell Distribution Width 17.4 % (11.5-14.5); Segmented Neutrophils % 72.2 %
[2018-04-27 06:08] LABS: BUN/Creatinine Ratio 26 (6-26); Blood Urea Nitrogen 33 mg/dL (8-23); Carbon Dioxide 29 mEq/L (23-29); Chloride 103 mEq/L (98-107); Glucose 165 mg/dL (70-105); Osmolality,Calculated 301 (280-300); Potassium 3.6 mEq/L (3.5-5.1); Sodium 140 mEq/L (136-145); eGFR For Non-African Americans 58 (> 60)
[2018-04-27] MEDS: Insulin LISPRO 300 UNITS/3 ML VIAL SQ SCH ×2 (08:23→12:46)
[2018-04-27] MEDS: Aspirin 81 MG TAB.CHEW PO SCH (08:26)
[2018-04-27] MEDS: Gabapentin 300 MG CAPSULE PO SCH (08:29)
[2018-04-27] MEDS: Eplerenone [Inspra] 25 MG PO SCH (08:29)
[2018-04-27] MEDS: Furosemide 40 MG/4 ML VIAL IVP SCH (08:30)
[2018-04-27] MEDS: hydrALAZINE 10 MG TABLET PO SCH (08:39)
[2018-04-27] MEDS: Ezetimibe [Ezetimibe] 10 MG PO SCH (09:21)
[2018-04-27] MEDS: Febuxostat [Uloric] 40 MG PO SCH (09:21)
[2018-04-27] MEDS: Budesonide/Formoterol 160/4.5 1 PUFF INH IH SCH (10:37)
[2018-04-27 12:47] VITALS: BP 104/68
--- NOTE | 2018-04-27 14:54 | Discharge Summary ---
- NOTES TO OUTPATIENT PROVIDER Notes to Outpatient Provider: Seen by cardiology recommending decreasing Lasix to 60 mg twice a day monitor serum creatinine Date of Encounter: 04/27/18 Time of Encounter: 14:52 - Discharge Diagnosis (1) Diabetes mellitus Priority: Secondary Status: Chronic Qualifiers: Diabetes mellitus type: type 2 Diabetes mellitus assistant terminal manager insulin use: with care home use Diabetes mellitus complication status: with kidney complications Diabetes mellitus complication detail: with chronic kidney disease Chronic kidney disease stage: unspecified stage Qualified Code(s): E11.22 - Type 2 diabetes mellitus with diabetic chronic kidney disease; Z79.4 - senior living (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 of insulin (2) Chronic a-fib Priority: Secondary Status: Chronic (3) Acute on chronic systolic (congestive) heart failure Priority: Primary Status: Acute (4) HLD (hyperlipidemia) Priority: Secondary Status: Chronic Qualifiers: Hyperlipidemia type: mixed hyperlipidemia Qualified Code(s): E78.2 - Mixed hyperlipidemia (5) LINO (acute kidney injury) Priority: Secondary Status: Acute (6) Elevated troponin I level Priority: Secondary Status: Acute (7) CKD (chronic kidney disease) stage 3, GFR 30-59 ml/min Priority: Secondary Status: Chronic Hospital course: Mr. Pace is a 62 year old male past medical history of systolic heart failure EF of 30% A. fib on Coumadin diabetes hypertension hyperlipidemia NICMP status post AICD presented to the emergency department with complaints of increased lower extremity swelling 1 day as well as abdominal swelling 3 days shortness of breath. He was recently admitted on 04/05/18 for acute congestive heart failure as responded well to IV Lasix on discharge his oral Lasix was increased. He was doing well for approximately one week after discharge however patient does admit that he was noncompliant with his medication regime he found it very difficult to follow as while he was having difficulty adhering to his 1.5 L fluid restriction he is noncompliant with low sodium diet as well. He has been experiencing orthopnea as well as a 10 pound weight gain the past week. Chest x-ray did show mild CHF his BNP was 318 his troponin is 0.05 with LINO on presentation. He had a negative stress test 08/2017 he did have a candidate Cardiology was consulted recommending IV diuresis with Lasix. Troponin related to demand ischemia creatinine had improved and was better than his baseline. His breathing had improved patient began ambulating and the room and hallway without difficulty or shortness of breathand swelling greatly improved as well as his abdomen weight is down. Tolerating meals. Patient is requesting to go home if it does feel better. Long discussion concerning compliance with fluid restriction as well as low-sodium diet. Advised patient to monitor fluid intake and daily weights patient's increase his Lasix at home patient verbalized understanding. Advised patient to follow-up with music teacher as well as primary care since these providers know him best and can adjust medications accordingly. Verbalized understanding - Time Spent with Patient Total time spent providing and/or coordinating discharge services: - Discharge Medications Prescriptions: Furosemide [Lasix] 20 mg PO BID #60 tablet Furosemide [Lasix] 40 mg PO BID #60 tablet Home Medications: Aspirin 81 mg PO DAILY 05/16/17 [History] Carvedilol 12.5 mg PO BID 05/16/17 [History] Cyclobenzaprine [Flexeril] 10 mg PO TID PRN 05/16/17 [History] Eplerenone [Inspra] 25 mg PO DAILY 05/16/17 [History] Ezetimibe 10 mg PO DAILY 05/16/17 [History] Febuxostat [Uloric] 40 mg PO DAILY 05/16/17 [History] Gabapentin [Neurontin] 300 mg PO BID 05/16/17 [History] Insulin Glargine,Hum.rec.anlog [Lantus Solostar] 80 unit SQ QPM 05/16/17 [ History] Omeprazole [PriLOSEC] 20 mg PO DAILY 05/16/17 [History] Warfarin [Coumadin] 5 mg PO MOWE 05/16/17 [History] Warfarin [Coumadin] 2.5 mg PO SUTUTHFRSA 07/26/17 [History] Albuterol Sulfate [Proair Hfa] 2 puff IH Q6HR PRN 12/31/17 [History] Budesonide/Formoterol 160/4.5 [Symbicort 160/4.5] 2 puff IH BID 02/11/18 [ History] Simvastatin [Zocor] 40 mg PO HS 02/11/18 [History] hydrALAZINE [HydrALAZINE] 10 mg PO BID 02/11/18 [History] rOPINIRole [Requip] 0.5 mg PO HS 02/11/18 [History] Multivitamin [Multivitamins] 2 tab PO DAILY 04/05/18 [History] Potassium Chloride [K-Tab ER] 10 meq PO DAILY 04/05/18 [History] Psyllium Husk [Fiber] 1 tab PO DAILY 04/05/18 [History] Furosemide [Lasix] 20 mg PO BID #60 tablet 04/27/18 [Rx] Furosemide [Lasix] 40 mg PO BID #60 tablet 04/27/18 [Rx] Allergies/Adverse Reactions: 3 Allergy/AdvReac Type Severity Reaction Status Date / Time Amoxicillin [From Augmentin] AdvReac Diarrhea Verified 04/05/18 15:03 clavulanic acid AdvReac Diarrhea Verified 04/05/18 15:03 [From Augmentin] Oxycodone [From Percocet] AdvReac Itching Verified 04/05/18 15:03 Date of admission: 04/26/18 15:14 Primary care physician: Khoi Hinkle Discharging clinician: Danielle Ware Anticipated date of discharge: 04/27/18 - Constitutional Vitals: Temp Pulse Resp BP Pulse Ox 97.6 F 69 16 104/68 96 04/27/18 12:46 04/27/18 12:46 04/27/18 12:46 04/27/18 12:46 04/27/18 12:46 General appearance: Present: A&O X 3, no acute distress, answers questions appropriately Exam: General: Alert and oriented x4. No distress. Skin: Normal color, no rash, no lesions. HEENT: EOM, pupils equal, round and reactive. Cardiovascular: Irregularly irregular, Normal S1 & S2, no rubs, murmurs or gallops. Unable to assess JVD due to short neck. Lungs: Clear to auscultation bilaterally, no wheezes or crackles. Abdomen: Obese, Soft, non-tender, no rigidity. NABS in all 4 quadrants. Extremities: 2+ pitting edema bilaterally in the lower extremity. Neurological: Normal cognition and motor skills. Rest of the physical exam is non contributory - Head Head exam: Present: atraumatic, normocephalic - Neck Neck exam general surgery: Present: supple, trachea midline. Absent: lymphadenopathy - Respiratory Respiratory exam: Present: CTAB. Absent: accessory muscle use, rales, rhonchi, wheezes - Cardiovascular Cardiovascular exam: Present: RRR, +S1, +S2. Absent: diastolic murmur, gallop, rubs, systolic murmur - GI/Abdominal GI/Abdominal exam: Present: normal bowel sounds, soft, no peritoneal signs. Absent: distended, tenderness - Extremities Exam Extremities exam: Present: warm, radial pulses palpable and symmetrical. Absent : calf tenderness, cyanotic, pedal edema - Neurological Exam Neurological exam: Present: CN II-XII intact, oriented X3, no focal deficits. Absent: pronater drift, facial droop, speech deficit - Skin Skin exam: Present: dry, intact - Patient Status Disposition: Home, Self-Care Condition: Good Functional capacity at discharge: independent ambulation Overall status at discharge: patient is back to baseline - Discharge Instructions Instructions: Heart Failure (DC), Heart Failure (GEN), Low Sodium Diet (DC), Low Sodium Diet (GEN), Fluid Restriction (DC), Fluid Restriction (GEN), Fluid Restriction, Solutions Development Analyst (GEN) Follow Up With: [facility] [Provider Group] (Office will call you with a follow up appointment ) Khoi Hinkle [Primary Care Provider] - 05/01/18 10:00 am - Diet and Activity Activity: increase activity as tolerated Diet: low fat, low cholesterol, low salt diet
[2018-04-27] MEDS ORDERED: *HR* Warfarin 5 MG TABLET PO ONE (18:00)
== END 2018-04-27 15:31 | disposition home or self-care (01) | DRG 291 ==
LOC: EMEROOARM 17:37 → 2ANU 17:37 → SUATTDRO 20:21 → 3BNU 21:18
PROVIDERS: ADMIT Internal Medicine; ATTEND Internal Medicine

== ENCOUNTER 2018-09-17 13:56 | Inpatient (IN) ==
--- NOTE | 2018-09-17 16:58 | Emergency Department Note ---
Disposition Clinical Impression: Elevated troponin Acute congestive heart failure Qualifiers: Heart failure type: unspecified Qualified Code(s): I50.9 - Heart failure, unspecified Disposition: Admitted As Inpatient Condition: Fair Referrals: Khoi Hinkle [Primary Care Provider] - Forms: ED Satisfaction Letter, Work/School Release SOB HPI - General Chief Complaint: ED General Medical Stated Complaint: hypotension,Fluid retentioH Time Seen by Provider: 09/17/18 16:37 Source: patient Mode of arrival: private vehicle Limitations: no limitations Nursing Notes Reviewed: Yes Vital Signs Reviewed: Yes - History of Present Illness 62-year-old male history of congestive heart failure, liver disease, chronic kidney disease who presents to the ER with a complaint of shortness of breath and swelling. Reports he has had swelling for several days. He discussed this with his physician on Monday who increased his torsemide to 60 mg. He believes his gained 10 pounds since then with 5 pounds overnight. He was at cardiac rehabilitation today where his blood pressure Around 80/60. He reports shortness of breath worse with exertion. He has baseline orthopnea at home. Denies any chest pain. No nausea vomiting or diarrhea with the exception of when he takes his lactulose. No history of DVT, PE or CAD. No other complaints. Pt Subjective Complaint: shortness of breath Onset (ago): day(s) Improves with: rest Worsens with: exertion Known history of: congestive heart failure Associated symptoms: Reports: cough. Denies: chest pain, fever, sputum production Treatment prior to arrival: diuretics Cough present: Yes Cough Description: Involuntary Cough Frequency: Intermittent Sputum production: No Sputum Amount: None - Related Data Home oxygen amount: none Home Medications Medication Instructions Recorded Confirmed Aspirin 81 mg PO DAILY 05/16/17 09/11/18 Cyclobenzaprine [Flexeril] 10 mg PO TID PRN 05/16/17 09/11/18 Eplerenone [Inspra] 50 mg PO DAILY 05/16/17 09/11/18 Ezetimibe 10 mg PO DAILY 05/16/17 09/11/18 Febuxostat [Uloric] 40 mg PO DAILY 05/16/17 07/06/18 Gabapentin [Neurontin] 300 mg PO BID 05/16/17 09/11/18 Insulin Glargine,Hum.rec.anlog 80 unit SQ QPM PRN 05/16/17 07/06/18 [Lantus Solostar] Warfarin [Coumadin] 5 mg PO WD 05/16/17 09/11/18 Albuterol Sulfate [Proair Hfa] 2 puff IH Q6HR PRN 12/31/17 07/06/18 Budesonide/Formoterol 160/4.5 2 puff IH BID PRN 02/11/18 07/06/18 [Symbicort 160/4.5] Simvastatin [Zocor] 40 mg PO HS 02/11/18 09/11/18 Multivitamin [Multivitamins] 2 tab PO DAILY 04/05/18 07/06/18 Psyllium Husk [Fiber] 1 tab PO DAILY 04/05/18 07/06/18 Ascorbic Acid [Vitamin C] 500 mg PO DAILY 07/06/18 07/06/18 Carvedilol 3.125 mg PO BID 07/06/18 07/06/18 Docusate Sodium [Dok] 100 mg PO TID 07/06/18 07/06/18 Ferrous Sulfate [Iron] 325 mg PO TID 07/06/18 09/11/18 Lactulose 30 ml PO TID 07/06/18 09/11/18 Meclizine [Antivert] 12.5 mg PO TID PRN 07/06/18 09/11/18 Melatonin 10 mg PO HS 07/06/18 09/11/18 Omeprazole [PriLOSEC] 40 mg PO DAILY 07/06/18 07/06/18 Potassium Chloride [K-Tab ER] 20 meq PO BID 07/06/18 09/11/18 Torsemide [Demadex] 20 mg PO BID 07/06/18 09/11/18 Warfarin [Coumadin] 2.5 mg PO SUMOWETHFRSA 07/06/18 09/11/18 Allopurinol 100 mg PO DAILY 09/11/18 09/11/18 Fish Oil 1 tab PO DAILY 09/11/18 09/11/18 Lantus 80 units SQ HS PRN 09/11/18 09/11/18 Levocetirizine Dihydrochloride 5 mg PO HS 09/11/18 09/11/18 Metoprolol 25 mg PO DAILY 09/11/18 09/11/18 Allergies Allergy/AdvReac Type Severity Reaction Status Date / Time Amoxicillin [From Augmentin] AdvReac Diarrhea Verified 06/30/18 18:08 clavulanic acid AdvReac Diarrhea Verified 06/30/18 18:08 [From Augmentin] oxycodone [From Percocet] AdvReac Itching Verified 06/30/18 18:08 All systems ED: reviewed and negative except as stated. Constitutional: Denies: fever Cardiovascular: Reports: dyspnea on exertion. Denies: chest pain Respiratory: Reports: cough, dyspnea. Denies: sputum production Gastrointestinal: Reports: diarrhea. Denies: abdominal pain, nausea, vomiting Past Medical History - Past Medical History Attestation: Yes The following information was validated with the patient. Source: patient Medical history: Reports: arthritis, atrial fibrillation, cardiomyopathy, cirrhosis, CHF, diabetes, GERD, hyperlipidemia, kidney stones, liver disease, renal disease Surgical history: Reports: pacemaker/AICD Psychiatric history: Reports: no psych history - Social History Smoking Status: Former smoker Smokeless Tobacco Status: No Alcohol use: Reports: none Drug use: Reports: none Physical Exam - General Limitations: no limitations General appearance: alert, in no apparent distress - Head Head exam: atraumatic, normocephalic, normal inspection - Eye Eye exam: Present: normal appearance - ENT ENT exam: normal exam - Neck Neck exam: Present: normal inspection - Chest Chest inspection: Present: normal inspection, symmetric chest wall rise - Respiratory Respiratory exam: Present: other (Crackles bilaterally) - Cardiovascular Cardiovascular exam: Present: regular rate, normal rhythm, normal heart sounds - Abdominal Exam Abdominal exam: Present: soft, Non-Tender. Absent: tenderness, distention, gu arding, rigidity - Extremities Exam Extremities exam: Present: normal inspection, full ROM - Expanded Upper Extremity Exam Shoulder exam: Present: normal inspection, full ROM Arm exam: Present: normal inspection, full ROM Elbow exam: Present: normal inspection, full ROM Forearm/Wrist exam: Present: normal inspection, full ROM Hand exam: Present: normal inspection, full ROM - Expanded Lower Extremity Exam Hip/Pelvis exam: Present: normal inspection, full ROM Upper leg exam: Present: normal inspection, full ROM Knee exam: Present: normal inspection, full ROM Lower leg exam: Present: normal inspection, full ROM, swelling (3+ bilateral lower extremity pitting edema) Ankle exam: Present: normal inspection, full ROM Foot/toe exam: Present: normal inspection, full ROM - Skin Skin exam: Present: warm, dry Course Course Narrative: Patient seen and examined. Vital signs reviewed. He does have a significant amount of peripheral edema. Plan for an EKG, chest x-ray, labs including troponin and BNP. - Reevaluation(s) Reevaluation #1: Imaging and labs reviewed. Plan to begin diuresis. Discussed with the patient. Elevated troponin 0.05. Chest pain-free. Admit to the hospitalist. Vital Signs Temperature 97.8 F 09/17/18 14:16 Pulse Rate 98 09/17/18 14:16 Respiratory Rate 18 09/17/18 14:16 Blood Pressure 103/69 09/17/18 14:16 O2 Sat by Pulse Oximetry 97 09/17/18 14:16 Temperature 97.8 F 09/17/18 17:02 Pulse Rate 70 09/17/18 17:04 Respiratory Rate 18 09/17/18 17:04 Blood Pressure 113/71 09/17/18 17:04 O2 Sat by Pulse Oximetry 96 09/17/18 17:04 Oxygen Delivery Oxygen Delivery Room Air Shortness of Breath/Dyspnea - MDM Narrative Medical decision making narrative: 62-year-old male presenting with worsening dyspnea on exertion as well as volume overload. His chest x-ray demonstrates volume overload with congestive heart failure. He has significant peripheral edema as well. Labs reviewed. EKG is paced. Troponin 0.05 in the setting of chronic kidney disease. Patient given aspirin. Patient started with IV diuresis. Admitted to the hospitalist service. - Lab Data Lab results reviewed: Yes I reviewed the patient's lab results. Result diagrams: 09/17/18 17:02 09/17/18 17:02 Lab Results 09/17/18 09/17/18 09/17/18 Range/Units 17:02 17:02 17:02 WBC 5.8 (4.3-11.1) K/mcL RBC 4.32 (4.19-5.50) M/mcL Hgb 12.7 L (12.9-16.9) g/dL Hct 40.8 (37.5-50.1) % MCV 94.4 (83.0-100.0) fL MCH 29.4 (28.0-33.3) pg MCHC 31.1 L (31.6-35.5) g/dL RDW 18.7 H (11.5-14.5) % Plt Count 163 (140-400) K/mcL MPV 10.1 (9.4-12.4) fL Immature Gran % 0.3 (0-4) % Seg Neutrophils % 68.6 % Lymphocytes % 14.9 % Monocytes % 11.7 % Eosinophils % 3.6 % Basophils % 0.9 % Neutrophils # 4.0 (1.6-8.9) K/mcL Lymphocytes # 0.9 (0.6-4.6) K/mcL Monocytes # 0.7 (0.0-1.3) K/mcL Eosinophils # 0.2 (0.0-0.6) K/mcL Basophils # 0.1 (0.0-0.2) K/mcL PT 26.2 H (9.4-12.1) Seconds INR 2.3 Sodium 136 (136-145) mEq/L Potassium 4.1 (3.5-5.1) mEq/L Chloride 104 (98-107) mEq/L Carbon Dioxide 31 H (23-29) mEq/L BUN 25 H (8-23) mg/dL Creatinine 1.58 H (0.70-1.30) mg/dL Est GFR ( Amer) 54 L (> 60) Est GFR (Non-Af Amer) 45 L (> 60) BUN/Creatinine Ratio 16 (6-26) Glucose 134 H (70-105) mg/dL Calculated Osmolality 288 (280-300) Calcium 8.8 (8.6-10.3) mg/dL Troponin I 0.05 H* (< 0.04) ng/mL B-Natriuretic Peptide (Less than 100) pg/mL 09/17/18 Range/Units 17:02 WBC (4.3-11.1) K/mcL RBC (4.19-5.50) M/mcL Hgb (12.9-16.9) g/dL Hct (37.5-50.1) % MCV (83.0-100.0) fL MCH (28.0-33.3) pg MCHC (31.6-35.5) g/dL RDW (11.5-14.5) % Plt Count (140-400) K/mcL MPV (9.4-12.4) fL Immature Gran % (0-4) % Seg Neutrophils % % Lymphocytes % % Monocytes % % Eosinophils % % Basophils % % Neutrophils # (1.6-8.9) K/mcL Lymphocytes # (0.6-4.6) K/mcL Monocytes # (0.0-1.3) K/mcL Eosinophils # (0.0-0.6) K/mcL Basophils # (0.0-0.2) K/mcL PT (9.4-12.1) Seconds INR Sodium (136-145) mEq/L Potassium (3.5-5.1) mEq/L Chloride (98-107) mEq/L Carbon Dioxide (23-29) mEq/L BUN (8-23) mg/dL Creatinine (0.70-1.30) mg/dL Est GFR ( Amer) (> 60) Est GFR (Non-Af Amer) (> 60) BUN/Creatinine Ratio (6-26) Glucose (70-105) mg/dL Calculated Osmolality (280-300) Calcium (8.6-10.3) mg/dL Troponin I (< 0.04) ng/mL B-Natriuretic Peptide 281 H (Less than 100) pg/mL - Radiology Data Radiology results reviewed: Yes I reviewed the patient's radiology results. Chest X-Ray 09/17/18 16:38 IMPRESSION: Congestive heart failure D/ / Ed Orellana MD / Ed Orellana MD Interpreting Provider: Ed Orellana MD - EKG Data EKG attestation: Yes I reviewed and interpreted this EKG. EKG results narrative: EKG demonstrates a ventricularly paced rhythm with rate of 71 beats or minute. No gross ST elevations or depressions. S.B.A.R. - S.B.A.R. Situation: Demographics, MOA Background: Presenting Complaint, Relevant PMH, Meds, & Allergies Assessment: Vital Signs, Course and respsone to treatment, Exam Concerns, Patient/Family Expectation, Pertinant Lab Results Recommendation: Barrier(s) to disposition, Recommendation based on pending studies, treatments, or consults S.B.A.RClemencia Report Given to: Dr. Ena Hernández Repor Time: 18:18 Attestation Statement - Attestation Attestation: Resident Attestation: I examined this patient and my medical decision making was reviewed with the Resident Physician. I agree with the documented findings, disposition and treatment plan as described except to the extent set forth below. We independently had [id number] contact with the patient. Patient with history of congestive heart failure presenting to the emergency department for increased swelling of his lower extremities progressing up into his abdomen. Patient states his abdomen feels "tight". Patient states that he is been increasing his at-home diuretic without any significant relief. Overall the patient admits to worsening shortness of breath but denies chest pain. Patient's chest x-ray concerning for congestive heart failure. Patient with overall mild Rales at the bases. Patient is not in acute respiratory distress. He is resting comfortably in the bed. Undergoing further evaluation for congestive heart failure. Failed outpatient management.
[2018-09-17 17:48] LABS: Basophils # 0.1 K/mcL (0.0-0.2); Basophils % 0.9 %; Eosinophils # 0.2 K/mcL (0.0-0.6); Eosinophils % 3.6 %; Hematocrit 40.8 % (37.5-50.1); Hemoglobin 12.7 g/dL (12.9-16.9); Immature Granulocytes % 0.3 % (0-4); Lymphocytes # 0.9 K/mcL (0.6-4.6); Lymphocytes % 14.9 %; Mean Corpuscular HGB Conc 31.1 g/dL (31.6-35.5); Mean Corpuscular Hemoglobin 29.4 pg (28.0-33.3); Mean Corpuscular Volume 94.4 fL (83.0-100.0); Mean Platelet Volume 10.1 fL (9.4-12.4); Monocytes # 0.7 K/mcL (0.0-1.3); Monocytes % 11.7 %; Platelet Count 163 K/mcL (140-400); Red Blood Count 4.32 M/mcL (4.19-5.50); Red Cell Distribution Width 18.7 % (11.5-14.5); Segmented Neutrophils % 68.6 %
[2018-09-17 17:50] LABS: INR 2.3; Prothrombin Time 26.2 Seconds (9.4-12.1)
[2018-09-17 18:01] LABS: Calcium 8.8 mg/dL (8.6-10.3); Potassium 4.1 mEq/L (3.5-5.1)
[2018-09-17] MEDS ORDERED: Furosemide 40 MG/4 ML VIAL IVP ONE (18:02)
[2018-09-17 18:05] LABS: Troponin I 0.05 ng/mL (< 0.04)
[2018-09-17] MEDS ORDERED: Aspirin 325 MG TABLET PO ONE (18:05)
[2018-09-17] MEDS ORDERED: Naloxone 0.4 MG/ML INJ IVP PRN (22:55)
[2018-09-17] MEDS ORDERED: Ondansetron ODT 4 MG TAB.RAPDIS SL PRN (22:55)
[2018-09-17] MEDS ORDERED: Dextrose Gel 15 GM/37.5 ML TUBE PO PRN ×2 (23:00)
[2018-09-17] MEDS ORDERED: *HR* Dextrose 50 % in Water (Syg) 50 ML SYRINGE IVP PRN (23:00)
[2018-09-17] MEDS ORDERED: Dextrose 4 GM Chewable Tablets PO PRN (23:00)
--- NOTE | 2018-09-17 23:02 | Internal Med History&Physical ---
<PumaTete N - Last Filed: 09/18/18 03:46> Date of Encounter: 09/18/18 Time of Encounter: 22:00 Internal Medicine - H&P: HPI Chief complaint: Low blood pressure, shortness of breath, increased swelling History of present illness: Mr. Pace is a 62 year old male with a past medical history of congestive heart failure, liver disease, and chronic kidney disease who presented to the emergency department for a chief complaint of shortness of breath and increased lower extremity swelling. States that his symptoms began last week and progressively worsened. Last Monday patient called his doctor's office describing his worsening shortness of breath and increasing lower extremity edema and his torsemide dose was increased to 60 mg. Patient states that this did not work and he gained approximately 10 pounds over the weekend. He was at cardiac rehabilitation earlier today where a blood pressure was obtained and found to be low at 80/60. This prompted the patient to be evaluated in the emergency department for further care. Patient denies any chest pain, but does report a mild cough. He states that he has had similar episodes in the past for which he required hospitalization and IV diuretics. In the emergency department patient's lab workup was remarkable for a troponin of 0.05 which is at patient's baseline. Patient denies any chest pain at this time. Lab work also revealed chronic kidney disease with a creatinine of 1.58, patient had normal creatinine readings in June 2018 after he was treated for his congestive heart failure at that time. BNP is only mildly elevated at 281. Patient's EKG was unchanged from previous, chest x-ray did reveal evidence for congestive heart failure. Patient received loading dose aspirin and one 40 mg IV push dose of Lasix in the emergency department. His pressures improved after receiving IV Lasix. Patient was admitted for further diuretic therapy. Past Med Surg Social Fam HX - Past Medical History Medical history: arthritis, atrial fibrillation, cardiomyopathy, cirrhosis, CHF, diabetes, GERD, hyperlipidemia, kidney stones, liver disease, renal disease Additional medical history: Type II Diabetic Psychiatric history: no psych history - Past Surgical History Surgical History: pacemaker/AICD Additional surgical history: PACEMAKER/AICD placement 2000 and 2015. Right ankle surgery - Social History Smoking Status: Former smoker Smokeless Tobacco Status: No Alcohol use: none Drug use: none - Family History Father Living Status: Hx Family Cardiac Disorders: Yes Hx Family Respiratory Disorders: No Hx Family Cancer: No Hx Family GI Disorders: No Hx Family Endocrine Disorder: No Hx Family Neuromuscular Disorders: No Hx Family Neurologic Disorders: No Hx Family HEENT Disorders: No Hx Family Autoimmune Disorders: No Mother Living Status: Still Living Hx Family Cardiac Disorders: Yes (Pacemaker) Hx Family Respiratory Disorders: No Hx Family Cancer: Yes (sister-breast cancer) Hx Family GI Disorders: Yes (mother colonresection with colostomy bag) Hx Family Endocrine Disorder: Yes (Brother DM-diet controlled) Hx Family Neuromuscular Disorders: No Hx Family Neurologic Disorders: No Hx Family HEENT Disorders: No Hx Family Autoimmune Disorders: No Sister Hx Family Cardiac Disorders: Yes (breast) Internal Medicine - H&P: Meds RX: Aspirin 81 mg PO DAILY 05/16/17 [History] RX: Cyclobenzaprine [Flexeril] 10 mg PO TID PRN 05/16/17 [History] RX: Eplerenone [Inspra] 50 mg PO DAILY 05/16/17 [History] RX: Ezetimibe 10 mg PO DAILY 05/16/17 [History] RX: Gabapentin [Neurontin] 300 mg PO BID 05/16/17 [History] RX: Insulin Glargine,Hum.rec.anlog [Lantus Solostar] 80 unit SQ QPM PRN 05/16/17 [History] RX: Warfarin [Coumadin] 5 mg PO TUTHSA 05/16/17 [History] RX: Simvastatin [Zocor] 40 mg PO HS 02/11/18 [History] RX: Ferrous Sulfate [Iron] 325 mg PO TID 07/06/18 [History] RX: Lactulose 30 ml PO TID 07/06/18 [History] RX: Meclizine [Antivert] 12.5 mg PO TID PRN 07/06/18 [History] RX: Melatonin 10 mg PO HS 07/06/18 [History] RX: Potassium Chloride [K-Tab ER] 20 meq PO BID 07/06/18 [History] RX: Torsemide [Demadex] 40 mg PO TID 07/06/18 [History] RX: Warfarin [Coumadin] 2.5 mg PO SUMOWEFR 07/06/18 [History] Allopurinol 100 mg PO DAILY 09/11/18 [History] Levocetirizine Dihydrochloride 5 mg PO HS 09/11/18 [History] Metoprolol Succinate [Toprol Xl] 25 mg PO DAILY 09/17/18 [History] Allergy/AdvReac Type Severity Reaction Status Date / Time Amoxicillin [From Augmentin] AdvReac Diarrhea Verified 06/30/18 18:08 clavulanic acid AdvReac Diarrhea Verified 06/30/18 18:08 [From Augmentin] oxycodone [From Percocet] AdvReac Itching Verified 06/30/18 18:08 All Systems PM: A 10-system review of systems was performed and is negative for pertinent findings except as documented above in the HPI. - Constitutional Constitutional: chills, fever(s) - EENT Eyes: no change in vision Ears: no decreased hearing - Cardiovascular Cardiovascular ROS IM: dyspnea, edema, orthopnea, no chest pain - Respiratory Respiratory: cough, dyspnea, no wheezing - Gastrointestinal Gastrointestinal: no abdominal pain, no constipation, no diarrhea, no nausea - Genitourinary Genitourinary ROS male: no dysuria, no hematuria - Integumentary Integumentary IM: no rash - Neurological Neurological ROS: no confusion - Hematologic/Lymphatic Hematologic/Lymphatic: easy bruising - Constitutional Vitals: Temp Pulse Resp BP Pulse Ox 97.8 F 71 16 101/69 97 09/17/18 17:02 09/17/18 21:00 09/17/18 21:00 09/17/18 21:00 09/17/18 21:00 Exam: Constitutional: Alert and oriented, no acute distress, sitting upright in bed HEENT: Pupils are equal and round, extraoccular muscles intact, oropharynx is moist, external ears and nares patent. Neck: Unable to assess for JVD secondary to obesity, trachea midline Chest: Symmetrical chest wall rise, no tenderness to palpation, no accessory muscle use Cardiovascular: Regular rate and rhythm, no obvious murmurs Respiratory: Decreased airflow bilaterally, however no crackles noted on exam Abdomen: Obese, soft, nontender. There is pitting edema present in the lower abdomen. Extremity's: 3+ pitting edema extending proximally to the groin and lower abdomen. Neurological: Alert and oriented 3, no obvious focal neurological deficit Psych: Appropriate mood and affect. Internal Med - H&P Results - Labs CBC & Chem 7: 09/17/18 17:02 09/17/18 17:02 Labs: Short CBC 09/17/18 Range/Units 17:02 WBC 5.8 (4.3-11.1) K/mcL Hgb 12.7 L (12.9-16.9) g/dL Hct 40.8 (37.5-50.1) % Plt Count 163 (140-400) K/mcL Neutrophils # 4.0 (1.6-8.9) K/mcL BMP 09/17/18 17:02 Sodium 136 Potassium 4.1 Chloride 104 Carbon Dioxide 31 H BUN 25 H Creatinine 1.58 H Glucose 134 H Calcium 8.8 Cardiac Enzymes 09/17/18 Range/Units 17:02 Troponin I 0.05 H* (< 0.04) ng/mL - Impressions ITS Impressions Chest X-Ray 09/17/18 16:38 IMPRESSION: Congestive heart failure D/ / Ed Orellana MD / Ed Orellana MD Interpreting Provider: Ed Orellana MD - Assessment and Plan (1) Acute on chronic systolic (congestive) heart failure Current Visit: Yes Status: Chronic Assessment and plan: 1 week history of increasing lower external swelling associated with worsening orthopnea and exertional dyspnea Patient is on torsemide and eplerenone at home Recently admitted in June 2018 for CHF exacerbation Echo from January 2018 reveals LVEF 30% with indeterminate diastolic function. Suspect patient's symptoms are secondary to acute on chronic congestive heart failure exacerbation Will obtain repeat echo We will start patient on 40 mg Lasix twice a day Daily weights and strict I&O's Fluid resection 2 L daily Cardiac monitoring (2) Elevated troponin Current Visit: Yes Status: Chronic Assessment and plan: Chronic elevation troponin, patient's baseline is 0.05 EKG numerous parent denies any acute ST-T wave changes Patient has pacemaker in place with AICD We will trend troponin (3) [id number] kidney injury Current Visit: Yes Status: Chronic Assessment and plan: History of chronic kidney disease, however creatinine was normal after CHF drew atment in June We will diurese and continue to monitor Qualifiers: Acute renal failure type: unspecified Chronic kidney disease stage: stage 3 (moderate) Qualified Code(s): N17.9 - Acute kidney failure, unspecified; N18.3 - Chronic kidney disease, stage 3 (moderate) (4) A-fib Current Visit: No Status: Chronic Assessment and plan: On Coumadin and metoprolol, INR therapeutic not tachycardic Qualifiers: Atrial fibrillation type: unspecified Qualified Code(s): I48.91 - Unspecified atrial fibrillation (5) Liver disease Current Visit: Yes Status: Chronic Assessment and plan: History of liver disease, patient does not know the cause Follows [facility], on lactulose We will continue lactulose (6) Diabetes mellitus Current Visit: Yes Status: Chronic Assessment and plan: Low-dose sliding scale insulin Qualifiers: Diabetes mellitus type: type 2 Diabetes mellitus mcc insulin use: with terminal supervisor use Diabetes mellitus complication status: with kidney complications Diabetes mellitus complication detail: with chronic kidney disease Chronic kidney disease stage: unspecified stage Qualified Code(s): E11.22 - Type 2 diabetes mellitus with diabetic chronic kidney disease; Z79.4 - long-term (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 of insulin (7) Hypertension Current Visit: No Status: Chronic Assessment and plan: Patient presented to the hospital with hypotension, now is normotensive after receiving IV Lasix We will continue to monitor and hold home antihypertensives if hypotensive Qualifiers: Hypertension type: essential hypertension Qualified Code(s): I10 - Essential (primary) hypertension (8) HLD (hyperlipidemia) Current Visit: No Status: Chronic Assessment and plan: LFTs within range in May 2018 Continue home statin Qualifiers: Hyperlipidemia type: mixed hyperlipidemia Qualified Code(s): E78.2 - Mixed hyperlipidemia (9) DVT prophylaxis Current Visit: No Status: Chronic Assessment and plan: Continue Coumadin, INR therapeutic pharmacy to dose - Time Spent With Patient Total time spent is greater than 50% in coordination of care (as documented) at patient's floor/unit and/or counseling patient: <Madyson Rodriguez - Last Filed: 09/18/18 03:48> Date of Encounter: 09/17/18 Internal Medicine - H&P: HPI History of present illness: Mr. Pace is a 62 year old male All Systems PM: A 10-system review of systems was performed and is negative for pertinent findings except as documented above in the HPI. - Constitutional Vitals: Temp Pulse Resp BP Pulse Ox 98.2 F 70 16 97/62 94 09/18/18 03:09 09/18/18 03:09 09/18/18 03:09 09/18/18 03:09 09/18/18 03:09 Internal Med - H&P Results - Labs CBC & Chem 7: 09/17/18 17:02 09/17/18 17:02 Labs: Short CBC 09/17/18 Range/Units 17:02 WBC 5.8 (4.3-11.1) K/mcL Hgb 12.7 L (12.9-16.9) g/dL Hct 40.8 (37.5-50.1) % Plt Count 163 (140-400) K/mcL Neutrophils # 4.0 (1.6-8.9) K/mcL BMP 09/17/18 17:02 Sodium 136 Potassium 4.1 Chloride 104 Carbon Dioxide 31 H BUN 25 H Creatinine 1.58 H Glucose 134 H Calcium 8.8 Cardiac Enzymes 09/17/18 09/17/18 Range/Units 17:02 23:01 Troponin I 0.05 H* 0.05 H* (< 0.04) ng/mL - Impressions ITS Impressions Chest X-Ray 09/17/18 16:38 IMPRESSION: Congestive heart failure D/ / Ed Orellana MD / Ed Orellana MD Interpreting Provider: Ed Orellana MD - Time Spent With Patient Total time spent is greater than 50% in coordination of care (as documented) at patient's floor/unit and/or counseling patient: - Attending Attestation I performed a history and physical exam of the patient on 09/17/18and discussed management with the resident. I reviewed the resident's note and agree with the documented findings and plan of care. Alejandro Pace is a 62 year old man with heart failure with reduced ejection fraction status post AICD, atrial fibrillation on warfarin, diabetes, chronic kidney disease, hypertension and hyperlipidemia who was admitted here about 3 months ago for CHF exacerbation presenting with complaints of increasing shortness of breath and generalized swelling over the past few days. This has not responded to the increase in his oral diuretics done by his primary care physician 4 days ago. He started cardiac rehabilitation today where he was notably hypotensive at 80/60 with shortness of breath. He was given fluids before he went home. He continued to feel unwell and decided to come in. Physical exam remarkable for an obese male sitting up in bed in no acute distress. 2+ pitting edema in his lower legs and also abdominal wall. X-ray is reviewed by me shows bilateral pleural effusions and significant pulmonary vascular congestion. Lab work reveals a BNP of 281 and troponin of 0.05 which is at steady state. We will admit for acute on chronic systolic heart failure decompensation; start intravenous diuretics while monitoring blood pressure. Strict Is and Os. Monitor electrolytes and creatinine. Warfarin adjustments per pharmacy. SANCHEZ BATRES.
[2018-09-18] MEDS ORDERED: D5% in Water 1,000 ML IVC PRN (01:56)
[2018-09-18] MEDS ORDERED: Dextrose 4 GM Chewable Tablets PO PRN (01:57)
[2018-09-18] MEDS: Insulin LISPRO 300 UNITS/3 ML VIAL SQ SCH ×4 (02:18→17:33)
[2018-09-18] MEDS ORDERED: traMADol 50 MG TABLET PO ONE (03:19)
[2018-09-18 05:22] LABS: Basophils # 0.1 K/mcL (0.0-0.2); Basophils % 0.9 %; Eosinophils # 0.2 K/mcL (0.0-0.6); Eosinophils % 3.7 %; Hematocrit 39.1 % (37.5-50.1); Hemoglobin 12.2 g/dL (12.9-16.9); Immature Granulocytes % 0.2 % (0-4); Lymphocytes # 0.8 K/mcL (0.6-4.6); Lymphocytes % 14.1 %; Mean Corpuscular HGB Conc 31.2 g/dL (31.6-35.5); Mean Corpuscular Hemoglobin 29.3 pg (28.0-33.3); Mean Corpuscular Volume 93.8 fL (83.0-100.0); Mean Platelet Volume 9.6 fL (9.4-12.4); Monocytes # 0.6 K/mcL (0.0-1.3); Monocytes % 10.7 %; Neutrophils # 4.1 K/mcL (1.6-8.9); Platelet Count 152 K/mcL (140-400); Red Blood Count 4.17 M/mcL (4.19-5.50); Red Cell Distribution Width 19.1 % (11.5-14.5); Segmented Neutrophils % 70.4 %
[2018-09-18 05:29] LABS: INR 2.1; Prothrombin Time 23.6 Seconds (9.4-12.1)
[2018-09-18 05:47] LABS: BUN/Creatinine Ratio 19 (6-26); Blood Urea Nitrogen 26 mg/dL (8-23); Calcium 8.9 mg/dL (8.6-10.3); Carbon Dioxide 31 mEq/L (23-29); Chloride 102 mEq/L (98-107); Glucose 114 mg/dL (70-105); Osmolality,Calculated 296 (280-300); Potassium 3.8 mEq/L (3.5-5.1); Sodium 140 mEq/L (136-145); eGFR For Non-African Americans 54 (> 60)
[2018-09-18 06:42] LABS: Estimated Average Glucose 140 mg/dl; Hemoglobin A1C 6.5 %
[2018-09-18] MEDS ORDERED: Lactulose 200 GM/300 ML (for enema) RC SCH (09:00)
[2018-09-18] MEDS ORDERED: Lactulose 200 GM, Sodium Chloride IRRigation 700 ML RC SCH (09:00)
[2018-09-18] MEDS: (Ezetimibe [Ezetimibe] 10 MG) PO SCH (09:24)
[2018-09-18] MEDS: Furosemide 40 MG/4 ML VIAL IVP SCH ×2 (09:24→20:54)
[2018-09-18] MEDS: EPLERENONE 50 MG PO SCH (09:24)
[2018-09-18] MEDS: Gabapentin 300 MG CAPSULE PO SCH ×2 (09:24→20:53)
[2018-09-18] MEDS: Metoprolol XL (24 HR) Succ 25 MG TAB.ER.24H PO SCH (09:24)
[2018-09-18] MEDS: Aspirin 81 MG TAB.CHEW PO SCH (09:24)
[2018-09-18 10:11] LABS: Alanine Aminotransferase 18 Units/L (7-52); Albumin/Globulin Ratio 1.2 (1.1-2.2); Alkaline Phosphatase 88 Units/L (34-104); Aspartate Amino Transferase 30 Units/L (13-39); Bilirubin,Direct 0.2 mg/dL (0.0-0.2); Bilirubin,Indirect 0.4 mg/dL (0.0-1.2); Bilirubin,Total 0.6 mg/dL (0.3-1.0); Globulin 2.5 g/dL (2.4-3.5); Total Protein 5.5 g/dL (6.4-8.9)
[2018-09-18] MEDS ORDERED: Perflutren Lipid Microsphere 1.3 ML in 0.9 % Sodium Chloride 8.7 ML IVP ONE (10:15)
[2018-09-18] MEDS: Lactulose Oral Soln 20 GM/30 ML UDC PO SCH ×3 (11:13→20:53)
--- NOTE | 2018-09-18 12:07 | Internal Med Progress Note ---
Hospitalist Progress Note - Encounter Date of Encounter: 09/18/18 Time of Encounter: 12:06 - Subjective Interval History: Patient was seen and examined in chair awaiting morning meal. Patient continues to complain about lower extremity edema. Patient states that he has noticed an improvement, in the edema and SOB with the medications that he has received. - Exam Vitals: Temp Pulse Resp BP Pulse Ox 97.4 F L 75 16 95/61 97 09/18/18 11:40 09/18/18 11:40 09/18/18 11:40 09/18/18 11:40 09/18/18 11:40 Exam: Constitutional: Alert and oriented, no acute distress, sitting upright in bed HEENT: Pupils are equal and round, extraoccular muscles intact, oropharynx is moist, external ears and nares patent. Neck: Unable to assess for JVD secondary to obesity, trachea midline Chest: Symmetrical chest wall rise, no tenderness to palpation, no accessory muscle use Cardiovascular: Regular rate and rhythm, no obvious murmurs Respiratory: Decreased airflow bilaterally, however no crackles noted on exam Abdomen: Obese, soft, nontender. There is pitting edema present in the lower abdomen. Extremity's: 2+ pitting edema extending proximally to the groin and lower abdo men. 2 +pitting in bilateral ankles Neurological: Alert and oriented 3, no obvious focal neurological deficit Psych: Appropriate mood and affect. - Assessment and Plan (1) Acute on chronic systolic (congestive) heart failure Current Visit: Yes Status: Chronic Assessment and Plan: Will obtain repeat echo We will start patient on 40 mg Lasix twice a day Daily weights and strict I&O's Fluid resection 2 L daily Cardiac monitoring (2) Diabetes mellitus Current Visit: Yes Status: Chronic Assessment and Plan: Accu-Cheks before meals at bedtime we will sign scale insulin (3) Elevated troponin Current Visit: Yes Status: Chronic Assessment and Plan: Troponin was elevated however this appears chronic most likely secondary to CKD/ CHF-continue to monitor currently no chest pain consult cardiology as needed (4) Liver disease Current Visit: Yes Status: Chronic Assessment and Plan: History of liver disease we will continue with lactulose monitor hepatic panel (5) CKD (chronic kidney disease) stage 3, GFR 30-59 ml/min Current Visit: No Status: Chronic Assessment and Plan: Story of chronic kidney disease-it appears that he was 1.19- 1.30 in June. Currently 1.35 we will continue with diuretics and monitor creatinine closely Monitor intake output daily weights Avoid nephrotoxins DVT Prophylaxis: Continue Coumadin, INR therapeutic pharmacy to dose - Time Spent with Patient Total time spent is greater than 50% in coordination of care (as documented) at patient's floor/unit and/or counseling patient: Internal Medicine: Result - Labs CBC & Chem 7: 09/18/18 04:48 09/18/18 04:48 Labs: Short CBC 09/17/18 09/18/18 Range/Units 17:02 04:48 WBC 5.8 5.9 (4.3-11.1) K/mcL Hgb 12.7 L 12.2 L (12.9-16.9) g/dL Hct 40.8 39.1 (37.5-50.1) % Plt Count 163 152 (140-400) K/mcL Neutrophils # 4.0 4.1 (1.6-8.9) K/mcL BMP 09/17/18 09/18/18 17:02 04:48 Sodium 136 140 Potassium 4.1 3.8 Chloride 104 102 Carbon Dioxide 31 H 31 H BUN 25 H 26 H Creatinine 1.58 H 1.35 H Glucose 134 H 114 H Calcium 8.8 8.9 Cardiac Enzymes 09/17/18 09/17/18 09/18/18 Range/Units 17:02 23:01 04:48 Troponin I 0.05 H* 0.05 H* Cancelled (< 0.04) ng/mL Liver Function 09/18/18 Range/Units 04:48 Total Bilirubin 0.6 (0.3-1.0) mg/dL Direct Bilirubin 0.2 (0.0-0.2) mg/dL AST 30 (13-39) Units/L ALT 18 (7-52) Units/L Alkaline Phosphatase 88 (34-104) Units/L Albumin 3.0 L (3.5-5.7) g/dL - ABG Interpretation ABG results: PT/INR, D-dimer PT 23.6 Seconds (9.4-12.1) H 09/18/18 04:48 - Impressions Impressions Chest X-Ray 09/17/18 16:38 IMPRESSION: Congestive heart failure D/ / Ed Orellana MD / Ed Orellana MD Interpreting Provider: Ed Orellana MD Consult Discharge Plan - Plan Referrals: Choco Ford MD [Partnered Physician] - 09/27/18 11:00 am Khoi Hinkle [Primary Care Provider] - 09/27/18 3:30 pm (2) Diabetes mellitus Qualifiers: Diabetes mellitus type: type 2 Diabetes mellitus manager intermediate insulin use: with manager intermediate use Diabetes mellitus complication status: with kidney complications Diabetes mellitus complication detail: with chronic kidney disease Chronic kidney disease stage: unspecified stage Qualified Code(s): E11.22 - Type 2 diabetes mellitus with diabetic chronic kidney disease; Z79.4 - half-way (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 of insulin
[2018-09-18] MEDS ORDERED: *HR* Warfarin 5 MG TABLET PO ONE (18:00)
[2018-09-18] MEDS ORDERED: Warfarin perPT PO PRN (18:00)
[2018-09-18] MEDS: Melatonin 3 MG TABLET PO SCH (20:53)
[2018-09-18] MEDS ORDERED: (Levocetirizine Dihydrochloride 5 MG) PO SCH (21:00)
--- NOTE | 2018-09-18 21:25 | Electrocardiograph Report ---
[place] [id number] Test Date: 2018-09-17 Pat Name: Alejandro Pace Department: EXAM1 Room: 3B44 Gender: M Chemistry Faculty Member: : [id number] Requested By: Mikhail Ponce Order Number: [id number] Reading MD: Minoo Zavala Measurements Intervals [place] Rate: 71 P: 0 ID: [id number] QRS: 232 QRSD: 162 T: 45 QT: 497 QTc: 541 Interpretive Statements Ventricular-paced rhythm No further analysis attempted due to paced rhythm Electronically Signed On 09-18-2018 21:24:06 EST by Minoo Zavala
[2018-09-19 01:55] LABS: INR 2.2; Prothrombin Time 24.3 Seconds (9.4-12.1)
[2018-09-19] MEDS: Insulin LISPRO 300 UNITS/3 ML VIAL SQ SCH ×3 (08:32→17:43)
[2018-09-19] MEDS: Gabapentin 300 MG CAPSULE PO SCH ×2 (08:45→20:29)
[2018-09-19] MEDS: Lactulose Oral Soln 20 GM/30 ML UDC PO SCH ×3 (08:45→20:30)
[2018-09-19] MEDS: Metoprolol XL (24 HR) Succ 25 MG TAB.ER.24H PO SCH (08:45)
[2018-09-19] MEDS: Aspirin 81 MG TAB.CHEW PO SCH (08:45)
[2018-09-19] MEDS: EPLERENONE 50 MG PO SCH (08:47)
[2018-09-19] MEDS: (Ezetimibe [Ezetimibe] 10 MG) PO SCH (08:47)
[2018-09-19] MEDS: Furosemide 40 MG/4 ML VIAL IVP SCH ×2 (08:47→20:29)
--- NOTE | 2018-09-19 10:06 | Internal Med Progress Note ---
Hospitalist Progress Note - Encounter Date of Encounter: 09/19/18 Time of Encounter: 10:04 - Subjective Interval History: Pt reported sob and leg swelling have improved. Has been ambulating in the hallway. - Exam Vitals: Temp Pulse Resp BP Pulse Ox 97.6 F 76 16 100/63 96 09/19/18 07:25 09/19/18 07:25 09/19/18 07:25 09/19/18 07:25 09/19/18 07:25 Exam: Constitutional: Alert and oriented, no acute distress, sitting upright in bed HEENT: Pupils are equal and round, extraoccular muscles intact, oropharynx is moist, external ears and nares patent. Neck: Unable to assess for JVD secondary to obesity, trachea midline Chest: Symmetrical chest wall rise, no tenderness to palpation, no accessory muscle use Cardiovascular: Regular rate and rhythm, no obvious murmurs Respiratory: Decreased airflow bilaterally, however no crackles noted on exam Abdomen: Obese, soft, nontender. There is pitting edema present in the lower abdomen. Extremity's: 2+ pitting edema extending proximally to the groin and lower abdomen. 2 +pitting in bilateral ankles Neurological: Alert and oriented 3, no obvious focal neurological deficit Psych: Appropriate mood and affect. - Assessment and Plan (1) Diabetes mellitus Current Visit: No Status: Chronic Assessment and Plan: Accu-Cheks before meals at bedtime (2) Elevated troponin Current Visit: Yes Status: Chronic Assessment and Plan: Troponin was elevated however this appears chronic most likely secondary to CKD/ CHF-continue to monitor currently no chest pain. (3) Acute on chronic systolic (congestive) heart failure Current Visit: Yes Status: Chronic Assessment and Plan: 08/21 Will obtain repeat echo We will start patient on 40 mg Lasix twice a day Daily weights and strict I&O's Fluid resection 2 L daily Cardiac monitoring. 08/22 Is/Os -1650/24 hours. Improved sob and leg swelling. Continue current treatment. (4) CKD (chronic kidney disease) stage 3, GFR 30-59 ml/min Current Visit: No Status: Chronic Assessment and Plan: Story of chronic kidney disease-it appears that he was 1.19- 1.30 in June. Currently 1.35 we will continue with diuretics and monitor creatinine closely Monitor intake output daily weights Avoid nephrotoxins (5) Liver disease Current Visit: Yes Status: Chronic Assessment and Plan: History of liver disease we will continue with lactulose monitor hepatic panel DVT Prophylaxis: Continue Coumadin, INR therapeutic pharmacy to dose - Time Spent with Patient Total time spent is greater than 50% in coordination of care (as documented) at patient's floor/unit and/or counseling patient: Greater than 35 minutes Internal Medicine: Result - Labs CBC & Chem 7: 09/18/18 04:48 09/18/18 04:48 Labs: Liver Function 09/18/18 Range/Units 04:48 Total Bilirubin 0.6 (0.3-1.0) mg/dL Direct Bilirubin 0.2 (0.0-0.2) mg/dL AST 30 (13-39) Units/L ALT 18 (7-52) Units/L Alkaline Phosphatase 88 (34-104) Units/L Albumin 3.0 L (3.5-5.7) g/dL - ABG Interpretation ABG results: PT/INR, D-dimer PT 24.3 Seconds (9.4-12.1) H 09/19/18 00:40 - Impressions Impressions Echocardiogram 09/18/18 00:45 Impressions: Technically challenging due to body habitus. LVEF 35-40%. Indeterminate diastolic function. Mildly dilated left ventricle. There is no LV thrombus. Definity echo contrast was used. Grossly normal RV size with mild reduction in function. Mild mitral regurgitation. Moderate tricuspid regurgitation. No pulmonary hypertension by TR signal obtained. A device lead was visualized in the right atrium and right ventricle. Left Ventricular Wall Motion: Rest Echo Findings The apex, apical inferior, mid inferior, basal inferior, apical anterior, mid anterior, basal anterior, apical septal, mid inferior septal, basal inferior septal, apical lateral, mid anterior lateral, basal anterior lateral, mid anterior septal, mid inferior lateral, basal anterior septal and basal inferior lateral shaikh were hypokinetic. Findings: Study Quality * Technically challenging due to body habitus. ECG Findings * Paced rhythm. Left Ventricle * LVEF 35-40%. * Indeterminate diastolic function. * Mildly dilated left ventricle. * There is no LV thrombus. * Definity echo contrast was used. Right Ventricle * Grossly normal RV size with mild reduction in function. Left Atrium * Moderately dilated left atrium. Right Atrium * Right atrium is not well visualized. Aortic Valve * No aortic regurgitation. * Trileaflet aortic valve. * No aortic stenosis. Mitral Valve * Normal mitral valve structure. * No mitral stenosis. * Mild mitral regurgitation. Tricuspid Valve * Tricuspid valve not well visualized. * Moderate tricuspid regurgitation. * Estimated RA pressure is 8 mmHg. * Estimated RVSP is 30 mmHg. * No pulmonary hypertension. Pulmonic Valve * Pulmonic valve is not well visualized. * No pulmonic stenosis. * No pulmonic regurgitation. Pulmonary Artery * Pulmonary artery not well visualized. Aorta * Normally sized aortic root. Pericardium * There is no pericardial effusion present. Device lead * A device lead was visualized in the right atrium and right ventricle. Interatrial Septum * Interatrial septum not well evaluated. IVC * The IVC is not dilated. * < 50% respiratory change. Consult Discharge Plan - Plan Referrals: Choco Ford MD [Partnered Physician] - 09/27/18 11:00 am Khoi Hinkle [Primary Care Provider] - 09/27/18 3:30 pm (1) Diabetes mellitus Qualifiers: Diabetes mellitus type: type 2 Diabetes mellitus dedicated intermodal truck driver insulin use: with mcfp use Diabetes mellitus complication status: with kidney complications Diabetes mellitus complication detail: with chronic kidney disease Chronic kidney disease stage: unspecified stage Qualified Code(s): E11.22 - Type 2 diabetes mellitus with diabetic chronic kidney disease; Z79.4 - terminal makeup operator (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 of insulin
[2018-09-19] MEDS ORDERED: *HR* Warfarin 2.5 MG TABLET PO ONE (18:00)
[2018-09-19] MEDS: (Levocetirizine Dihydrochloride 5 MG) PO SCH (20:29)
[2018-09-19] MEDS: Melatonin 3 MG TABLET PO SCH (20:30)
[2018-09-20 05:08] LABS: Basophils % 0.8 %; Eosinophils # 0.2 K/mcL (0.0-0.6); Eosinophils % 3.7 %; Hematocrit 40.3 % (37.5-50.1); Hemoglobin 12.5 g/dL (12.9-16.9); Immature Granulocytes % 0.2 % (0-4); Lymphocytes # 0.7 K/mcL (0.6-4.6); Lymphocytes % 13.2 %; Mean Corpuscular Hemoglobin 29.6 pg (28.0-33.3); Mean Corpuscular Volume 95.3 fL (83.0-100.0); Mean Platelet Volume 10.4 fL (9.4-12.4); Monocytes # 0.6 K/mcL (0.0-1.3); Monocytes % 10.7 %; Neutrophils # 3.7 K/mcL (1.6-8.9); Platelet Count 169 K/mcL (140-400); Red Blood Count 4.23 M/mcL (4.19-5.50); Red Cell Distribution Width 19.2 % (11.5-14.5); Segmented Neutrophils % 71.4 %
[2018-09-20 05:16] LABS: INR 2.5; Prothrombin Time 28.6 Seconds (9.4-12.1)
[2018-09-20 05:28] LABS: BUN/Creatinine Ratio 20 (6-26); Blood Urea Nitrogen 22 mg/dL (8-23); Calcium 9.1 mg/dL (8.6-10.3); Carbon Dioxide 29 mEq/L (23-29); Chloride 103 mEq/L (98-107); Glucose 139 mg/dL (70-105); Osmolality,Calculated 302 (280-300); Potassium 3.9 mEq/L (3.5-5.1); Sodium 143 mEq/L (136-145); eGFR For Non-African Americans > 60 (> 60)
[2018-09-20] MEDS: Aspirin 81 MG TAB.CHEW PO SCH (08:41)
[2018-09-20] MEDS: Metoprolol XL (24 HR) Succ 25 MG TAB.ER.24H PO SCH (08:41)
[2018-09-20] MEDS: Gabapentin 300 MG CAPSULE PO SCH ×2 (08:41→21:14)
[2018-09-20] MEDS: Lactulose Oral Soln 20 GM/30 ML UDC PO SCH ×3 (08:41→21:13)
[2018-09-20] MEDS: Furosemide 40 MG/4 ML VIAL IVP SCH ×2 (08:42→21:13)
[2018-09-20] MEDS: Insulin LISPRO 300 UNITS/3 ML VIAL SQ SCH ×3 (09:05→17:28)
[2018-09-20] MEDS: (Ezetimibe [Ezetimibe] 10 MG) PO SCH (09:08)
[2018-09-20] MEDS: EPLERENONE 50 MG PO SCH (09:08)
[2018-09-20] MEDS ORDERED: metOLazone 5 MG TABLET PO ONE (10:00)
--- NOTE | 2018-09-20 13:31 | Internal Med Progress Note ---
Hospitalist Progress Note - Encounter Date of Encounter: 09/20/18 Time of Encounter: 13:29 - Subjective Interval History: Pt resting and reported improved sob and leg swelling. - Exam Vitals: Temp Pulse Resp BP Pulse Ox 97.8 F 77 18 92/57 95 09/20/18 11:05 09/20/18 11:05 09/20/18 11:05 09/20/18 11:05 09/20/18 11:05 Exam: Constitutional: Alert and oriented, no acute distress, sitting upright in bed HEENT: Pupils are equal and round, extraoccular muscles intact, oropharynx is moist, external ears and nares patent. Neck: Unable to assess for JVD secondary to obesity, trachea midline Chest: Symmetrical chest wall rise, no tenderness to palpation, no accessory muscle use Cardiovascular: Regular rate and rhythm, no obvious murmurs Respiratory: Decreased airflow bilaterally, however no crackles noted on exam Abdomen: Obese, soft, nontender. There is pitting edema present in the lower abdomen. Extremity's: 2+ pitting edema extending proximally to the groin and lower abdomen. 2 +pitting in bilateral ankles Neurological: Alert and oriented 3, no obvious focal neurological deficit Psych: Appropriate mood and affect. - Assessment and Plan (1) Diabetes mellitus Current Visit: No Status: Chronic Assessment and Plan: Accu-Cheks before meals at bedtime (2) Elevated troponin Current Visit: Yes Status: Chronic Assessment and Plan: Troponin was elevated however this appears chronic most likely secondary to CKD/ CHF-continue to monitor currently no chest pain. (3) Acute on chronic systolic (congestive) heart failure Current Visit: Yes Status: Chronic Assessment and Plan: 08/21 Will obtain repeat echo We will start patient on 40 mg Lasix twice a day Daily weights and strict I&O's Fluid resection 2 L daily Cardiac monitoring. 08/22 Is/Os -1650/24 hours. Improved sob and leg swelling. Continue current treatment. 08/23 Is/Os 540 ml/24 hours. Add one time dose of Metolazone. anticipate dc in am. (4) CKD (chronic kidney disease) stage 3, GFR 30-59 ml/min Current Visit: No Status: Chronic Assessment and Plan: Story of chronic kidney disease-it appears that he was 1.19- 1.30 in June. Currently 1.35 we will continue with diuretics and monitor creatinine closely Monitor intake output daily weights Avoid nephrotoxins 09/20 Cr 1.12 today. (5) Liver disease Current Visit: Yes Status: Chronic Assessment and Plan: History of liver disease, continue with lactulose monitor hepatic panel - Time Spent with Patient Total time spent is greater than 50% in coordination of care (as documented) at patient's floor/unit and/or counseling patient: Greater than 35 minutes Plan of Care Discussed with: patient Internal Medicine: Result - Labs CBC & Chem 7: 09/20/18 03:56 09/20/18 03:56 Labs: Short CBC 09/20/18 Range/Units 03:56 WBC 5.2 (4.3-11.1) K/mcL Hgb 12.5 L (12.9-16.9) g/dL Hct 40.3 (37.5-50.1) % Plt Count 169 (140-400) K/mcL Neutrophils # 3.7 (1.6-8.9) K/mcL BMP 09/20/18 03:56 Sodium 143 Potassium 3.9 Chloride 103 Carbon Dioxide 29 BUN 22 Creatinine 1.12 Glucose 139 H Calcium 9.1 - ABG Interpretation ABG results: PT/INR, D-dimer PT 28.6 Seconds (9.4-12.1) H 09/20/18 03:56 Consult Discharge Plan - Plan Referrals: Choco Ford MD [Partnered Physician] - 09/27/18 11:00 am Khoi Hinkle [Primary Care Provider] - 09/27/18 3:30 pm (1) Diabetes mellitus Qualifiers: Diabetes mellitus type: type 2 Diabetes mellitus 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
[2018-09-20] MEDS ORDERED: *HR* Warfarin 2.5 MG TABLET PO ONE ×2 (18:00)
[2018-09-20] MEDS: Melatonin 3 MG TABLET PO SCH (21:13)
[2018-09-20] MEDS: (Levocetirizine Dihydrochloride 5 MG) PO SCH (21:17)
[2018-09-21 04:44] LABS: INR 2.5; Prothrombin Time 28.5 Seconds (9.4-12.1)
[2018-09-21 04:45] LABS: BUN/Creatinine Ratio 17 (6-26); Blood Urea Nitrogen 18 mg/dL (8-23); Calcium 8.9 mg/dL (8.6-10.3); Carbon Dioxide 32 mEq/L (23-29); Chloride 100 mEq/L (98-107); Glucose 121 mg/dL (70-105); Osmolality,Calculated 291 (280-300); Potassium 3.1 mEq/L (3.5-5.1); Sodium 139 mEq/L (136-145); eGFR For Non-African Americans > 60 (> 60)
[2018-09-21] MEDS: Lactulose Oral Soln 20 GM/30 ML UDC PO SCH ×3 (08:48→20:04)
[2018-09-21] MEDS: Gabapentin 300 MG CAPSULE PO SCH ×2 (08:49→20:04)
[2018-09-21] MEDS: Aspirin 81 MG TAB.CHEW PO SCH (08:50)
[2018-09-21] MEDS: Furosemide 40 MG/4 ML VIAL IVP SCH ×2 (08:50→17:25)
[2018-09-21] MEDS: EPLERENONE 50 MG PO SCH (08:50)
[2018-09-21] MEDS: Insulin LISPRO 300 UNITS/3 ML VIAL SQ SCH ×3 (08:50→17:29)
[2018-09-21] MEDS: (Ezetimibe [Ezetimibe] 10 MG) PO SCH (08:50)
[2018-09-21] MEDS: Metoprolol XL (24 HR) Succ 25 MG TAB.ER.24H PO SCH (08:50)
[2018-09-21] MEDS ORDERED: metOLazone 5 MG TABLET PO ONE (10:00)
--- NOTE | 2018-09-21 14:55 | Internal Med Progress Note ---
Hospitalist Progress Note - Encounter Date of Encounter: 09/21/18 Time of Encounter: 14:53 - Subjective Interval History: Pt resting , has no sob or cough. Leg swelling has improved. - Exam Vitals: Temp Pulse Resp BP Pulse Ox 97.4 F L 76 16 97/62 93 09/21/18 11:11 09/21/18 11:11 09/21/18 11:11 09/21/18 11:11 09/21/18 11:11 Exam: Constitutional: Alert and oriented, no acute distress, sitting upright in bed HEENT: Pupils are equal and round, extraoccular muscles intact, oropharynx is moist, external ears and nares patent. Neck: Unable to assess for JVD secondary to obesity, trachea midline Chest: Symmetrical chest wall rise, no tenderness to palpation, no accessory muscle use Cardiovascular: Regular rate and rhythm, no obvious murmurs Respiratory: Decreased airflow bilaterally, however no crackles noted on exam Abdomen: Obese, soft, nontender. There is pitting edema present in the lower abdomen. Extremity's: 2+ pitting edema extending proximally to the groin and lower abdomen. 2 +pitting in bilateral ankles Neurological: Alert and oriented 3, no obvious focal neurological deficit Psych: Appropriate mood and affect. - Assessment and Plan (1) Diabetes mellitus Current Visit: No Status: Chronic Assessment and Plan: Accu-Cheks before meals at bedtime (2) Elevated troponin Current Visit: Yes Status: Chronic Assessment and Plan: Troponin was elevated however this appears chronic most likely secondary to CKD/ CHF-continue to monitor currently no chest pain. (3) Acute on chronic systolic (congestive) heart failure Current Visit: Yes Status: Chronic Assessment and Plan: 08/21 Will obtain repeat echo We will start patient on 40 mg Lasix twice a day Daily weights and strict I&O's Fluid resection 2 L daily Cardiac monitoring. 08/22 Is/Os -1650/24 hours. Improved sob and leg swelling. Continue current treatment. 08/23 Is/Os 540 ml/24 hours. Add one time dose of Metolazone. anticipate dc in am. 08/24 Is/Os -1570/24h. Pulse dose of Metolazone n addition to IV Lasix. Possible dc in am. (4) CKD (chronic kidney disease) stage 3, GFR 30-59 ml/min Current Visit: No Status: Chronic Assessment and Plan: Story of chronic kidney disease-it appears that he was 1.19- 1.30 in June. Currently 1.35 we will continue with diuretics and monitor creatinine closely Monitor intake output daily weights Avoid nephrotoxins 09/20 Cr 1.12 today. (5) Liver disease Current Visit: Yes Status: Chronic Assessment and Plan: History of liver disease, continue with lactulose monitor hepatic panel - Time Spent with Patient Total time spent is greater than 50% in coordination of care (as documented) at patient's floor/unit and/or counseling patient: Greater than 35 minutes Plan of Care Discussed with: patient Internal Medicine: Result - Labs CBC & Chem 7: 09/20/18 03:56 09/21/18 03:28 Labs: BMP 09/21/18 03:28 Sodium 139 Potassium 3.1 L Chloride 100 Carbon Dioxide 32 H BUN 18 Creatinine 1.04 Glucose 121 H Calcium 8.9 - ABG Interpretation ABG results: PT/INR, D-dimer PT 28.5 Seconds (9.4-12.1) H 09/21/18 03:28 Consult Discharge Plan - Plan Referrals: Choco Ford MD [Partnered Physician] - 09/27/18 11:00 am Khoi Hinkle [Primary Care Provider] - 09/27/18 3:30 pm (1) Diabetes mellitus Qualifiers: Diabetes mellitus type: type 2 Diabetes mellitus penitentiary insulin use: with penitentiary use Diabetes mellitus complication status: with kidney complications Diabetes mellitus complication detail: with chronic kidney disease Chronic kidney disease stage: unspecified stage Qualified Code(s): E11.22 - Type 2 diabetes mellitus with diabetic chronic kidney disease; Z79.4 - residential (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 of insulin
[2018-09-21] MEDS ORDERED: *HR* Warfarin 2.5 MG TABLET PO ONE (18:00)
[2018-09-21] MEDS: Melatonin 3 MG TABLET PO SCH (20:03)
[2018-09-21] MEDS: (Levocetirizine Dihydrochloride 5 MG) PO SCH (20:04)
[2018-09-22 04:43] LABS: Basophils % 0.5 %; Eosinophils # 0.2 K/mcL (0.0-0.6); Eosinophils % 2.3 %; Hematocrit 39.3 % (37.5-50.1); Hemoglobin 12.5 g/dL (12.9-16.9); Immature Granulocytes % 0.3 % (0-4); Lymphocytes % 14.8 %; Mean Corpuscular HGB Conc 31.8 g/dL (31.6-35.5); Mean Corpuscular Hemoglobin 29.4 pg (28.0-33.3); Mean Corpuscular Volume 92.5 fL (83.0-100.0); Mean Platelet Volume 10.1 fL (9.4-12.4); Monocytes # 0.7 K/mcL (0.0-1.3); Monocytes % 11.2 %; Neutrophils # 4.7 K/mcL (1.6-8.9); Platelet Count 156 K/mcL (140-400); Red Blood Count 4.25 M/mcL (4.19-5.50); Red Cell Distribution Width 18.3 % (11.5-14.5); Segmented Neutrophils % 70.9 %
[2018-09-22 04:49] LABS: INR 2.6; Prothrombin Time 29.5 Seconds (9.4-12.1)
[2018-09-22 05:04] LABS: BUN/Creatinine Ratio 16 (6-26); Blood Urea Nitrogen 20 mg/dL (8-23); Carbon Dioxide 34 mEq/L (23-29); Chloride 96 mEq/L (98-107); Glucose 138 mg/dL (70-105); Osmolality,Calculated 291 (280-300); Potassium 2.8 mEq/L (3.5-5.1); Sodium 138 mEq/L (136-145); eGFR For Non-African Americans 58 (> 60)
[2018-09-22] MEDS: Insulin LISPRO 300 UNITS/3 ML VIAL SQ SCH (07:38)
[2018-09-22] MEDS: Furosemide 40 MG/4 ML VIAL IVP SCH (07:54)
[2018-09-22] MEDS: Gabapentin 300 MG CAPSULE PO SCH (07:58)
[2018-09-22] MEDS: Lactulose Oral Soln 20 GM/30 ML UDC PO SCH (07:58)
[2018-09-22] MEDS: Aspirin 81 MG TAB.CHEW PO SCH (07:58)
[2018-09-22] MEDS: Metoprolol XL (24 HR) Succ 25 MG TAB.ER.24H PO SCH (07:59)
[2018-09-22] MEDS: (Ezetimibe [Ezetimibe] 10 MG) PO SCH (08:00)
[2018-09-22] MEDS: EPLERENONE 50 MG PO SCH (08:00)
--- NOTE | 2018-09-22 11:07 | Discharge Summary ---
- NOTES TO OUTPATIENT PROVIDER Notes to Outpatient Provider: f/u with PCP within 1 week. 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 Diabetes mellitus complication status: with kidney complications Diabetes mellitus complication detail: with chronic kidney d isease Chronic kidney disease stage: unspecified stage Qualified Code(s): E11.22 - Type 2 diabetes mellitus with diabetic chronic kidney disease; Z79.4 - senior living (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 of insulin (2) Elevated troponin Priority: Secondary Status: Chronic (3) Acute on chronic systolic (congestive) heart failure Priority: Primary Status: Chronic (4) CKD (chronic kidney disease) stage 3, GFR 30-59 ml/min Priority: Secondary Status: Chronic (5) Liver disease Priority: Secondary Status: Chronic Hospital course: Mr. Pace is a 62 year old male with a past medical history of congestive heart failure, liver disease, and chronic kidney disease who presented to the emergency department for a chief complaint of shortness of breath and increased lower extremity swelling. States that his symptoms began last week and progressively worsened. Last Monday patient called his doctor's office describing his worsening shortness of breath and increasing lower extremity edema and his torsemide dose was increased to 60 mg. Patient states that this did not work and he gained approximately 10 pounds over the weekend. He was at cardiac rehabilitation earlier today where a blood pressure was obtained and found to be low at 80/60. This prompted the patient to be evaluated in the emergency department for further care. Patient denies any chest pain, but does report a mild cough. He states that he has had similar episodes in the past for which he required hospitalization and IV diuretics. In the emergency department patient's lab workup was remarkable for a troponin of 0.05 which is at patient's baseline. Patient denies any chest pain at this time. Lab work also revealed chronic kidney disease with a creatinine of 1.58, patient had normal creatinine readings in June 2018 after he was treated for his congestive heart failure at that time. BNP is only mildly elevated at 281. Patient's EKG was unchanged from previous, chest x-ray did reveal evidence for congestive heart failure. Patient received loading dose aspirin and one 40 mg IV push dose of Lasix in the emergency department. His pressures improved after receiving IV Lasix. Patient was admitted for further diuretic therapy. ECHO: LVEF 35-40%. Indeterminate diastolic function. Mildly dilated left ventricle. There is no LV thrombus. Definity echo contrast was used. Grossly normal RV size with mild reduction in function. Mild mitral regurgitation. Moderate tricuspid regurgitation. No pulmonary hypertension by TR signal obtained. A device lead was visualized in the right atrium and right ventricle. Pt was started on IV lasix 40 mg BID with pulse po metolazone, He gradually lost weight and achieved euvolmia. After 5 day of treatment, he is back to his baseline. He is discharged home today, f/u with PCP within a week. Discharge discussed with: patient Time spent discussing smoking cessation with patient: more than 10 minutes - Time Spent with Patient Total time spent providing and/or coordinating discharge services: 45 mins. Time spent: Greater than 30 minutes - Discharge Medications Prescriptions: New Bumetanide [Bumex] 2 mg PO BID #60 tablet Continue Aspirin 81 mg PO DAILY Cyclobenzaprine [Flexeril] 10 mg PO TID PRN PRN Reason: Muscle Spasm Eplerenone [Inspra] 50 mg PO DAILY Ezetimibe 10 mg PO DAILY Gabapentin [Neurontin] 300 mg PO BID Insulin Glargine,Hum.rec.anlog [Lantus Solostar] 80 unit SQ QPM PRN PRN Reason: ONLY IF SUGAR IS OVER 150 Warfarin [Coumadin] 5 mg PO TUTHSA Simvastatin [Zocor] 40 mg PO HS Warfarin [Coumadin] 2.5 mg PO SUMOWEFR Potassium Chloride [K-Tab ER] 20 meq PO BID Lactulose 30 ml PO TID Ferrous Sulfate [Iron] 325 mg PO TID Meclizine [Antivert] 12.5 mg PO TID PRN PRN Reason: Vertigo Melatonin 10 mg PO HS Levocetirizine Dihydrochloride 5 mg PO HS Allopurinol 100 mg PO DAILY Metoprolol Succinate [Toprol Xl] 25 mg PO DAILY Discontinued Torsemide [Demadex] 40 mg PO TID Home Medications: Aspirin 81 mg PO DAILY 05/16/17 [History] Cyclobenzaprine [Flexeril] 10 mg PO TID PRN 05/16/17 [History] Eplerenone [Inspra] 50 mg PO DAILY 05/16/17 [History] Ezetimibe 10 mg PO DAILY 05/16/17 [History] Gabapentin [Neurontin] 300 mg PO BID 05/16/17 [History] Insulin Glargine,Hum.rec.anlog [Lantus Solostar] 80 unit SQ QPM PRN 05/16/17 [History] Warfarin [Coumadin] 5 mg PO TUTHSA 05/16/17 [History] Simvastatin [Zocor] 40 mg PO HS 02/11/18 [History] Ferrous Sulfate [Iron] 325 mg PO TID 07/06/18 [History] Lactulose 30 ml PO TID 07/06/18 [History] Meclizine [Antivert] 12.5 mg PO TID PRN 07/06/18 [History] Melatonin 10 mg PO HS 07/06/18 [History] Potassium Chloride [K-Tab ER] 20 meq PO BID 07/06/18 [History] Warfarin [Coumadin] 2.5 mg PO SUMOWEFR 07/06/18 [History] Allopurinol 100 mg PO DAILY 09/11/18 [History] Levocetirizine Dihydrochloride 5 mg PO HS 09/11/18 [History] Metoprolol Succinate [Toprol Xl] 25 mg PO DAILY 09/17/18 [History] Bumetanide [Bumex] 2 mg PO BID #60 tablet 09/22/18 [Rx] Allergies/Adverse Reactions: Allergy/AdvReac Type Severity Reaction Status Date / Time Amoxicillin [From Augmentin] AdvReac Diarrhea Verified 06/30/18 18:08 clavulanic acid AdvReac Diarrhea Verified 06/30/18 18:08 [From Augmentin] oxycodone [From Percocet] AdvReac Itching Verified 06/30/18 18:08 Date of admission: 09/20/18 17:11 Primary care physician: Khoi Hinkle Consults: 09/18/18 09:33 Consult to Nurse Navigator [CONS] Routine Comment: CHF Anticipated date of discharge: 09/22/18 - Constitutional Vitals: Temp Pulse Resp BP Pulse Ox 97.9 F 78 15 100/61 94 09/22/18 07:03 09/22/18 07:03 09/22/18 07:03 09/22/18 07:03 09/22/18 07:03 General appearance: Present: A&O X 3 Exam: Constitutional: Alert and oriented, no acute distress, sitting upright in bed HEENT: Pupils are equal and round, extraoccular muscles intact, oropharynx is moist, external ears and nares patent. Neck: Unable to assess for JVD secondary to obesity, trachea midline Chest: Symmetrical chest wall rise, no tenderness to palpation, no accessory muscle use Cardiovascular: Regular rate and rhythm, no obvious murmurs Respiratory: Decreased airflow bilaterally, however no crackles noted on exam Abdomen: Obese, soft, nontender. There is pitting edema present in the lower abdomen. Extremity's: no edema. Neurological: Alert and oriented 3, no obvious focal neurological deficit Psych: Appropriate mood and affect. - Patient Status Disposition: Home, Self-Care Condition: Fair Functional capacity at discharge: independent ambulation Overall status at discharge: patient is progressing back to baseline - Discharge Instructions Follow Up With: Choco Ford MD [Partnered Physician] - 09/27/18 11:00 am Khoi Hinkle [Primary Care Provider] - 09/27/18 3:30 pm - Diet and Activity Activity: increase activity as tolerated Diet: diabetic diet, low fat, low cholesterol, low salt diet
[2018-09-22 11:16] VITALS: BP 91/57
[2018-09-22] MEDS ORDERED: EPLERENONE 50 MG PO SCH (21:00)
== END 2018-09-22 11:54 | disposition home or self-care (01) | DRG 291 ==
LOC: 3BNU 13:56 → EMEROOARM 13:56 → 3BNU 22:30
PROVIDERS: ADMIT Internal Medicine; ATTEND Internal Medicine

== ENCOUNTER 2018-11-12 07:23 | Inpatient (IN) ==
--- NOTE | 2018-11-12 07:31 | Emergency Department Note ---
Disposition Clinical Impression: Elevated troponin, Chronic a-fib [id number] kidney injury Qualifiers: Acute renal failure type: unspecified Chronic kidney disease stage: unspecified stage Qualified Code(s): N17.9 - Acute kidney failure, unspecified Disposition: Admitted As Inpatient Condition: Fair Referrals: Khoi Hinkle [Primary Care Provider] - Forms: ED Satisfaction Letter General Adult HPI - General Chief complaint: ED Shortness of Breath/Dyspnea Stated complaint: LORRAINE/Swelling Time Seen by Provider: 11/12/18 07:25 Nursing Notes Reviewed: Yes Vital Signs Reviewed: Yes - History of Present Illness HPI Narrative: This documentation is done with the assistance of Dragon dictation. Despite efforts made to ensure accuracy, there may be inaccuracies in chinchilla machine operator or spelling and typographical errors. Chief complaint is fluid gain. History this is a 63-year-old gentleman brought in by EMS due to proximal a 20 pound fluid gain in his abdomen. He said makes it difficult for him to bend forward. He states he is somewhat dyspneic on exertion he denies any chest pain. He does have a compression hose on his ankles but does have some edema in his ankles. Says he was admitted earlier this year for are the same type of thing. Sounds like he has a history of CHF with an ejection fraction 30s according to him. He is on a diuretic that starts at the be that he takes twice a day which I am presuming his pupils. She has been using not not on oxygen at home. Medics did place him on oxygen he is resting comfort and appears in no acute distress. Medical surgery nurse's notes reviewed allergies reviewed past medical history reviewed. - Related Data Home Medications Medication Instructions Recorded Confirmed Aspirin 81 mg PO DAILY 05/16/17 11/12/18 Cyclobenzaprine [Flexeril] 10 mg PO TID PRN 05/16/17 11/12/18 Eplerenone [Inspra] 50 mg PO DAILY 05/16/17 11/12/18 Ezetimibe 10 mg PO DAILY 05/16/17 11/12/18 Gabapentin [Neurontin] 300 mg PO BID 05/16/17 11/12/18 Insulin Glargine,Hum.rec.anlog 80 unit SQ QPM PRN 05/16/17 11/12/18 [Lantus Solostar] Warfarin [Coumadin] 5 mg PO TUTHSA 10/31/17 04/29/19 Simvastatin [Zocor] 40 mg PO HS 02/11/18 11/12/18 Lactulose 30 ml PO TID 07/06/18 11/12/18 Meclizine [Antivert] 12.5 mg PO TID PRN 07/06/18 11/12/18 Melatonin 10 mg PO HS 07/06/18 11/12/18 Potassium Chloride [K-Tab ER] 20 meq PO TID 07/06/18 11/12/18 Warfarin [Coumadin] 2.5 mg PO SUMOWEFR 07/06/18 11/12/18 Allopurinol 100 mg PO DAILY 09/11/18 11/12/18 Metoprolol Succinate [Toprol Xl] 25 mg PO DAILY 09/17/18 11/12/18 Bumetanide [Bumex] 2 mg PO PRN PRN 11/12/18 11/12/18 Ergocalciferol (VITAMIN D2) 2,000 unit PO 11/12/18 [Vitamin D2] Gladstone-3/Dha/Epa/Fish Oil [Gladstone 3 1 each PO 11/12/18 500 Softgel] Omeprazole [PriLOSEC] 20 mg PO DAILY 11/12/18 11/12/18 Torsemide [Demadex] 20 mg PO BID 11/12/18 11/12/18 Allergies Allergy/AdvReac Type Severity Reaction Status Date / Time Amoxicillin [From Augmentin] AdvReac Diarrhea Verified 11/12/18 07:34 clavulanic acid AdvReac Diarrhea Verified 11/12/18 07:34 [From Augmentin] oxycodone [From Percocet] AdvReac Itching Verified 11/12/18 07:34 Review of Systems: Positive for 20 pound weight gain and dyspnea with exertion. All systems ED: reviewed and negative except as stated. Past Medical History - Past Medical History Medical history: Reports: arthritis, atrial fibrillation, cardiomyopathy, cirrhosis, CHF, diabetes, GERD, hyperlipidemia, kidney stones, liver disease, renal disease Surgical history: Reports: pacemaker/AICD Psychiatric history: Reports: no psych history - Social History Smoking Status: Former smoker Smokeless Tobacco Status: No Alcohol use: Reports: none Drug use: Reports: none Physical Exam Vital signs per nurse's notes. Gen. alert cooperative no acute distress. HEENT is normal cephalic airways midline he has no scleral icterus. Cardiovascular is regular rate and rhythm without rubs. His lungs are clear to auscultation bilaterally his some faint crackles in the bases bilaterally but no wheeze. Abdomen is soft distended he does have fluid. Good bowel sounds no masses no pain. Extremities are present 4 with good distal pulses Refill is that brisk; he does not have scattered about 1+ edema but does have TRICIA hose going to mid calf. No calf tenderness. Dermatologic skin is warm and dry no signs of acute rash petechia or jaundice. Neurologic he is alert person place and time GCS is 15. He ambulated from the cart to the bed. Course Vital Signs Temperature 97.5 F L 11/12/18 07:24 Pulse Rate 77 11/12/18 07:24 Respiratory Rate 18 11/12/18 07:24 Blood Pressure 108/77 11/12/18 07:24 O2 Sat by Pulse Oximetry 96 11/12/18 07:24 Temperature 97.5 F L 11/12/18 07:24 Pulse Rate 70 11/12/18 08:46 Respiratory Rate 20 11/12/18 08:46 Blood Pressure 105/70 11/12/18 08:46 O2 Sat by Pulse Oximetry 97 11/12/18 08:46 Oxygen Delivery Oxygen Delivery Nasal Cannula Medical Decision Making - [facility] Narrative Medical decision making narrative: We will get a cardiac workup on him EKG chest x-ray BNP and then reassess. He did take his medications this morning including aspirin. Once we see his chest x-ray and BNP will determine if he needs another dose of Lasix and whether he needs admission. 0729 hrs.: Patient in EKG performed showed a ventricular paced rhythm with a ra te of 70, and his QRS is 174 QTC is 517 no signs of ischemia had an EKG compare to in September she had that similar paced rhythm with a similar rate. Chest X-Ray 11/12/18 07:26 IMPRESSION: Findings consistent with CHF, with a small right pleural effusion. D/ / Darrell Lo MD / Darrell Lo MD Interpreting Provider: Darrell Lo MD 0853 hrs.: Patient does have CHF on his chest x-ray compared with his previous. His troponin is elevated looks like it is always elevated but this is higher since been also he has increasing renal insufficiency which I am guessing is secondary to the use of the Bumex also. I will speak to hospitalist bring him into the hospital. We can also do a cardiology consult if needed. Patient is he follows with cardiology in [place] has not seen cardiology here in a while. He said his outpatient doctor one to get a scan of his abdomen the see how much fluid this was from ascites I told him I will go ahead and order that scan here and will update the hospitalist with that. Patient's agreement this plan. Impression is dyspneic exertion, elevated troponin, increased renal insufficiency that is chronic and CHF. 0905 hrs.: Agents accepted by hospitalist. We will add on CT of the abdomen and give him a dose of Lasix here. Patient's in agreement with this plan. - Lab Data Result diagrams: 11/12/18 07:29 11/12/18 07:29 Lab Results 11/12/18 11/12/18 11/12/18 Range/Units 07:29 07:29 07:29 WBC 8.1 (4.3-11.1) K/mcL RBC 4.48 (4.19-5.50) M/mcL Hgb 13.1 (12.9-16.9) g/dL Hct 42.3 (37.5-50.1) % MCV 94.4 (83.0-100.0) fL MCH 29.2 (28.0-33.3) pg MCHC 31.0 L (31.6-35.5) g/dL RDW 15.5 H (11.5-14.5) % Plt Count 191 (140-400) K/mcL MPV 10.0 (9.4-12.4) fL Immature Gran % 0.4 (0-4) % Seg Neutrophils % 73.7 % Lymphocytes % 10.3 % Monocytes % 12.8 % Eosinophils % 2.4 % Basophils % 0.4 % Neutrophils # 6.0 (1.6-8.9) K/mcL Lymphocytes # 0.8 (0.6-4.6) K/mcL Monocytes # 1.0 (0.0-1.3) K/mcL Eosinophils # 0.2 (0.0-0.6) K/mcL Basophils # 0.0 (0.0-0.2) K/mcL Sodium 140 (136-145) mEq/L Potassium 3.7 (3.5-5.1) mEq/L Chloride 102 (98-107) mEq/L Carbon Dioxide 32 H (23-29) mEq/L BUN 35 H (8-23) mg/dL Creatinine 1.72 H (0.70-1.30) mg/dL Est GFR ( Amer) 49 L (> 60) Est GFR (Non-Af Amer) 40 L (> 60) BUN/Creatinine Ratio 20 (6-26) Glucose 168 H (70-105) mg/dL Calculated Osmolality 302 H (280-300) Calcium 8.5 L (8.6-10.3) mg/dL Total Bilirubin 0.7 (0.3-1.0) mg/dL Direct Bilirubin 0.2 (0.0-0.2) mg/dL Indirect Bilirubin 0.5 (0.0-1.2) mg/dL AST 75 H (13-39) Units/L ALT 47 (7-52) Units/L Alkaline Phosphatase 105 H (34-104) Units/L Troponin I 0.08 H* (< 0.04) ng/mL B-Natriuretic Peptide 230 H (Less than 100) pg/mL Serum Total Protein 5.3 L (6.4-8.9) g/dL Albumin 2.9 L (3.5-5.7) g/dL Globulin 2.4 (2.4-3.5) g/dL Albumin/Globulin Ratio 1.2 (1.1-2.2)
[2018-11-12 07:56] LABS: Basophils % 0.4 %; Eosinophils # 0.2 K/mcL (0.0-0.6); Eosinophils % 2.4 %; Hematocrit 42.3 % (37.5-50.1); Hemoglobin 13.1 g/dL (12.9-16.9); Immature Granulocytes % 0.4 % (0-4); Lymphocytes # 0.8 K/mcL (0.6-4.6); Lymphocytes % 10.3 %; Mean Corpuscular Hemoglobin 29.2 pg (28.0-33.3); Mean Corpuscular Volume 94.4 fL (83.0-100.0); Monocytes % 12.8 %; Platelet Count 191 K/mcL (140-400); Red Blood Count 4.48 M/mcL (4.19-5.50); Red Cell Distribution Width 15.5 % (11.5-14.5); Segmented Neutrophils % 73.7 %
[2018-11-12 08:06] LABS: Calcium 8.5 mg/dL (8.6-10.3); Potassium 3.7 mEq/L (3.5-5.1); Troponin I 0.08 ng/mL (< 0.04)
[2018-11-12 08:31] LABS: Albumin 2.9 g/dL (3.5-5.7); Albumin/Globulin Ratio 1.2 (1.1-2.2); Bilirubin,Direct 0.2 mg/dL (0.0-0.2); Bilirubin,Indirect 0.5 mg/dL (0.0-1.2); Bilirubin,Total 0.7 mg/dL (0.3-1.0); Globulin 2.4 g/dL (2.4-3.5); Total Protein 5.3 g/dL (6.4-8.9)
[2018-11-12] MEDS ORDERED: Furosemide 40 MG/4 ML VIAL IVP ONE (09:03)
[2018-11-12] MEDS ORDERED: Naloxone 0.4 MG/ML INJ IVP PRN (09:08)
[2018-11-12] MEDS ORDERED: D5% in Water 1,000 ML IVC PRN (09:23)
[2018-11-12] MEDS ORDERED: Dextrose Gel 15 GM/37.5 ML TUBE PO PRN ×2 (09:23)
[2018-11-12] MEDS ORDERED: *HR* Dextrose 50 % in Water (Syg) 50 ML SYRINGE IVP PRN (09:23)
[2018-11-12 09:37] LABS: Prothrombin Time 22.6 Seconds (9.4-12.1)
--- NOTE | 2018-11-12 10:11 | Internal Med History&Physical ---
Date of Encounter: 11/12/18 Time of Encounter: 10:00 Internal Medicine - H&P: HPI Chief complaint: Shortness of breath for a couple of weeks History of present illness: Mr. Pace is a 63 year old male with pmh of systolic CHF with EF of 35%, afb, pacemaker placement, diabetes presenting with complaints of worsening swelling and shortness of breath of about a week's duration. Patient was recently discharged from the hospital last month for similar symptoms. He takes torsemide at home but says it hasn't been helping. For the last one month, he says he has been having progressive difficulty ambulating and gets more easily short of breath and has been unable to lie flat. He has also noticed progressive swelling in his lower exremities up to his abdomen in this period. Admits to occasional cough, denies any nausea, vomiting or chest pain. In the ER, a cxr showed findings consistent with CHF. He was administered one dose of lasix and he is being admitted for further management Past Med Surg Social Fam HX - Past Medical History Medical history: arthritis, atrial fibrillation, cardiomyopathy, cirrhosis, CHF, diabetes, GERD, hyperlipidemia, liver disease, renal disease Additional medical history: Type II Diabetic Psychiatric history: no psych history - Past Surgical History Surgical History: pacemaker/AICD Additional surgical history: PACEMAKER/AICD placement 2000 and 2015. Right ankle surgery - Social History Smoking Status: Former smoker Smokeless Tobacco Status: No Alcohol use: none Drug use: none - Family History Mother Living Status: Still Living Hx Family Cardiac Disorders: Yes (Pacemaker) Hx Family Respiratory Disorders: No Hx Family Cancer: Yes (sister-breast cancer) Hx Family GI Disorders: Yes (mother colonresection with colostomy bag) Hx Family Endocrine Disorder: Yes (Brother DM-diet controlled) Hx Family Neuromuscular Disorders: No Hx Family Neurologic Disorders: No Hx Family HEENT Disorders: No Hx Family Autoimmune Disorders: No Father Living Status: Hx Family Cardiac Disorders: Yes Hx Family Respiratory Disorders: No Hx Family Cancer: No Hx Family GI Disorders: No Hx Family Endocrine Disorder: No Hx Family Neuromuscular Disorders: No Hx Family Neurologic Disorders: No Hx Family HEENT Disorders: No Hx Family Autoimmune Disorders: No Sister Hx Family Cardiac Disorders: Yes (breast) Internal Medicine - H&P: Meds Aspirin 81 mg PO DAILY 05/16/17 [History] Cyclobenzaprine [Flexeril] 10 mg PO TID PRN 05/16/17 [History] Eplerenone [Inspra] 50 mg PO DAILY 05/16/17 [History] Ezetimibe 10 mg PO DAILY 05/16/17 [History] Gabapentin [Neurontin] 300 mg PO BID 05/16/17 [History] Insulin Glargine,Hum.rec.anlog [Lantus Solostar] 80 unit SQ QPM PRN 05/16/17 [History] Warfarin [Coumadin] 5 mg PO TUTHSA 05/16/17 [History] Simvastatin [Zocor] 40 mg PO HS 02/11/18 [History] Lactulose 30 ml PO TID 07/06/18 [History] Meclizine [Antivert] 12.5 mg PO TID PRN 07/06/18 [History] Melatonin 10 mg PO HS 07/06/18 [History] Potassium Chloride [K-Tab ER] 20 meq PO TID 07/06/18 [History] Warfarin [Coumadin] 2.5 mg PO SUMOWEFR 07/06/18 [History] Allopurinol 100 mg PO DAILY 09/11/18 [History] Metoprolol Succinate [Toprol Xl] 25 mg PO DAILY 09/17/18 [History] Bumetanide [Bumex] 2 mg PO PRN PRN 11/12/18 [History] Ergocalciferol (VITAMIN D2) [Vitamin D2] 2,000 unit PO 11/12/18 [History] [place]-3/Dha/Epa/Fish Oil [[place] 3 500 Softgel] 1 each PO 11/12/18 [History] Omeprazole [PriLOSEC] 20 mg PO DAILY 11/12/18 [History] Torsemide [Demadex] 20 mg PO BID 11/12/18 [History] Allergy/AdvReac Type Severity Reaction Status Date / Time Amoxicillin [From Augmentin] AdvReac Diarrhea Verified 11/12/18 07:34 clavulanic acid AdvReac Diarrhea Verified 11/12/18 07:34 [From Augmentin] oxycodone [From Percocet] AdvReac Itching Verified 11/12/18 07:34 All Systems PM: A 10-system review of systems was performed and is negative for pertinent findings except as documented above in the HPI. - Constitutional Constitutional: no chills, no fever(s), no night sweats - EENT Eyes: no change in vision, no discharge, no pain, no photophobia Ears: no ear discharge, no ear pain, no tinnitus Nose, mouth and throat: no dysphagia, no nasal discharge, no neck pain, no sore throat - Cardiovascular Cardiovascular ROS IM: dyspnea, no chest pain, no diaphoresis, no lightheadedness, no palpitations, no syncope - Respiratory Respiratory: cough, dyspnea, no wheezing, no excessive phlegm production - Gastrointestinal Gastrointestinal: no abdominal pain, no diarrhea, no hematemesis, no hematochezia, no melena, no nausea, no vomiting - Musculoskeletal Musculoskeletal ROS IM: no numbness, no tingling - Integumentary Integumentary IM: no rash, no unusual bruising - Neurological Neurological ROS: no confusion, no convulsions, no focal weakness, no numbness, no tingling, no tremor(s) - Hematologic/Lymphatic Hematologic/Lymphatic: no easy bruising - Constitutional Vitals: Temp Pulse Resp BP Pulse Ox 97.5 F L 70 20 105/70 97 11/12/18 07:24 11/12/18 08:46 11/12/18 08:46 11/12/18 08:46 11/12/18 08:46 Exam: NAD. Morbidly obese - Head Head exam: Present: atraumatic, normocephalic - Eye Eye exam: Present: PERRL, conjuntiva pink, sclera anicteric Pupils: Present: PERRL - Neck Neck exam general surgery: Present: supple, trachea midline. Absent: lymphadenopathy - Respiratory Respiratory exam: Present: decreased breath sounds. Absent: accessory muscle use, rales, rhonchi, wheezes - Cardiovascular Cardiovascular exam: Present: RRR, +S1, +S2. Absent: diastolic murmur, gallop, rubs, systolic murmur - GI/Abdominal GI/Abdominal exam: Present: normal bowel sounds, soft, no peritoneal signs. Absent: distended, tenderness - Extremities Exam Extremities exam: Present: pedal edema, warm, radial pulses palpable and symmetrical. Absent: calf tenderness, cyanotic - Neurological Exam Neurological exam: Present: CN II-XII intact, oriented X3, no focal deficits. Absent: pronater drift, facial droop, speech deficit - Skin Skin exam: Present: dry, intact Internal Med - H&P Results - Labs CBC & Chem 7: 11/12/18 07:29 11/12/18 07:29 Labs: Short CBC 11/12/18 Range/Units 07:29 WBC 8.1 (4.3-11.1) K/mcL Hgb 13.1 (12.9-16.9) g/dL Hct 42.3 (37.5-50.1) % Plt Count 191 (140-400) K/mcL Neutrophils # 6.0 (1.6-8.9) K/mcL BMP 11/12/18 07:29 Sodium 140 Potassium 3.7 Chloride 102 Carbon Dioxide 32 H BUN 35 H Creatinine 1.72 H Glucose 168 H Calcium 8.5 L Cardiac Enzymes 11/12/18 Range/Units 07:29 Troponin I 0.08 H* (< 0.04) ng/mL Liver Function 11/12/18 Range/Units 07:29 Total Bilirubin 0.7 (0.3-1.0) mg/dL Direct Bilirubin 0.2 (0.0-0.2) mg/dL AST 75 H (13-39) Units/L ALT 47 (7-52) Units/L Alkaline Phosphatase 105 H (34-104) Units/L Albumin 2.9 L (3.5-5.7) g/dL - Impressions ITS Impressions Chest X-Ray 11/12/18 07:26 IMPRESSION: Findings consistent with CHF, with a small right pleural effusion. D/ / Darrell Lo MD / Darrell Lo MD Interpreting Provider: Darrell Lo MD Abdomen/Pelvis CT 11/12/18 09:00 IMPRESSION: 1. Increasing size bilateral pleural effusions with compressive atelectasis both lower lobes. 2. Cervicis with small ascites. 3. Gallbladder stones or sludge. 4. Diverticulosis. D/ / Mayur Chavarria MD / Mayur Chavarria MD Interpreting Provider: Mayur Chavarria MD - Assessment and Plan (1) Acute on chronic systolic (congestive) heart failure Current Visit: Yes Status: Acute Assessment and plan: Pt presents with shortness of breath and lower extremity swelling secondary to acute worsening of chronic systolic CHF Will start on IV lasix and metolazone. Monitor ins and outs . Daily weight. Fluid restriction (2) CKD (chronic kidney disease) stage 3, GFR 30-59 ml/min Current Visit: Yes Status: Chronic Assessment and plan: Pt has LINO on CKD stage 3 possibly secondary to poor kidney perfusion Will diurese and monitor creatinine (3) Chronic respiratory failure Current Visit: Yes Status: Chronic Assessment and plan: Chronic respiratory failure 2/2 to CHF on 2L. At baseline Qualifiers: Respiratory failure complication: hypoxia Qualified Code(s): J96.11 - Chronic respiratory failure with hypoxia (4) Diabetes mellitus Current Visit: Yes Status: Acute Assessment and plan: Continue insulin and monitor fingersticks Qualifiers: Diabetes mellitus type: type 2 Diabetes mellitus retirement insulin use: with equipment operator intermodal yard use Diabetes mellitus complication status: with kidney complications Diabetes mellitus complication detail: with chronic kidney disease Chronic kidney disease stage: unspecified stage Qualified Code(s): E11.22 - Type 2 diabetes mellitus with diabetic chronic kidney disease; Z79.4 - half-way (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 of insulin (5) Dyslipidemia Current Visit: Yes Status: Chronic Assessment and plan: Resume home meds (6) A-fib Current Visit: Yes Status: Acute Assessment and plan: Rate controlled. continue home meds and warfarin for anticoagulation Qualifiers: Atrial fibrillation type: unspecified Qualified Code(s): I48.91 - Unspecified atrial fibrillation (7) Elevated troponin Current Visit: Yes Status: Acute Assessment and plan: Likely demand. trend troponins (8) DVT prophylaxis Current Visit: Yes Status: Acute Assessment and plan: On warfarin - Time Spent With Patient Total time spent is greater than 50% in coordination of care (as documented) at patient's floor/unit and/or counseling patient:
[2018-11-12] MEDS: Insulin LISPRO 300 UNITS/3 ML VIAL SQ SCH ×2 (13:50→16:34)
[2018-11-12] MEDS: Lactulose Oral Soln 20 GM/30 ML UDC PO SCH ×2 (15:51→21:16)
[2018-11-12] MEDS: metOLazone 5 MG TABLET PO SCH (15:52)
[2018-11-12] MEDS ORDERED: *HR* Warfarin 5 MG TABLET PO ONE (18:00)
[2018-11-12] MEDS ORDERED: Warfarin perPT PO PRN (18:00)
[2018-11-12] MEDS: Furosemide 40 MG/4 ML VIAL IVP SCH (21:16)
[2018-11-12] MEDS: Melatonin 3 MG TABLET PO SCH (21:17)
[2018-11-12] MEDS: Gabapentin 300 MG CAPSULE PO SCH (21:17)
[2018-11-12] MEDS: Insulin DETEMIR 100 UNIT/ML X5UNITS SQ SCH (21:17)
[2018-11-13 04:12] LABS: Basophils % 0.3 %; Eosinophils # 0.2 K/mcL (0.0-0.6); Eosinophils % 2.5 %; Hematocrit 41.4 % (37.5-50.1); Hemoglobin 13.1 g/dL (12.9-16.9); Immature Granulocytes % 0.3 % (0-4); Lymphocytes # 0.7 K/mcL (0.6-4.6); Lymphocytes % 10.1 %; Mean Corpuscular HGB Conc 31.6 g/dL (31.6-35.5); Mean Corpuscular Hemoglobin 29.6 pg (28.0-33.3); Mean Corpuscular Volume 93.5 fL (83.0-100.0); Mean Platelet Volume 9.8 fL (9.4-12.4); Monocytes # 0.8 K/mcL (0.0-1.3); Monocytes % 11.6 %; Neutrophils # 5.1 K/mcL (1.6-8.9); Platelet Count 170 K/mcL (140-400); Red Blood Count 4.43 M/mcL (4.19-5.50); Red Cell Distribution Width 15.5 % (11.5-14.5); Segmented Neutrophils % 75.2 %
[2018-11-13 04:21] LABS: INR 2.1; Prothrombin Time 23.6 Seconds (9.4-12.1)
[2018-11-13 04:31] LABS: BUN/Creatinine Ratio 25 (6-26); Blood Urea Nitrogen 33 mg/dL (8-23); Calcium 8.7 mg/dL (8.6-10.3); Carbon Dioxide 34 mEq/L (23-29); Chloride 99 mEq/L (98-107); Glucose 122 mg/dL (70-105); Magnesium 2.2 mg/dL (1.6-2.6); Osmolality,Calculated 301 (280-300); Phosphorous 4.5 mg/dL (2.7-4.5); Potassium 3.5 mEq/L (3.5-5.1); Sodium 141 mEq/L (136-145); eGFR For Non-African Americans 56 (> 60)
[2018-11-13] MEDS: Insulin LISPRO 300 UNITS/3 ML VIAL SQ SCH ×3 (07:39→13:52)
[2018-11-13] MEDS: Lactulose Oral Soln 20 GM/30 ML UDC PO SCH ×3 (08:01→21:33)
[2018-11-13] MEDS: Aspirin 81 MG TAB.CHEW PO SCH (08:02)
[2018-11-13] MEDS: Metoprolol XL (24 HR) Succ 25 MG TAB.ER.24H PO SCH (08:02)
[2018-11-13] MEDS: Furosemide 40 MG/4 ML VIAL IVP SCH ×2 (08:02→21:33)
[2018-11-13] MEDS: metOLazone 5 MG TABLET PO SCH (08:02)
[2018-11-13] MEDS: Gabapentin 300 MG CAPSULE PO SCH ×2 (08:02→21:33)
--- NOTE | 2018-11-13 16:13 | Electrocardiograph Report ---
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
[2018-11-13] MEDS ORDERED: *HR* Warfarin 5 MG TABLET PO ONE (18:00)
--- NOTE | 2018-11-13 19:37 | Internal Med Progress Note ---
Hospitalist Progress Note - Encounter Date of Encounter: 11/13/18 Time of Encounter: 19:35 - Subjective Interval History: Patient was seen and examined earlier today he is sitting up in a chair eating. I discussed treatment plan with the patient which includes fluid restriction and diuretics. Patient and voiced concern about liver and ascites. Review of CT of abdomen does show some very small amount ascites gallbladder does show sludge and possible stones we will obtain a ultrasound of the right upper quadrant - Exam Vitals: Temp Pulse Resp BP Pulse Ox 98.3 F 80 18 103/64 95 11/13/18 18:58 11/13/18 18:58 11/13/18 18:58 11/13/18 18:58 11/13/18 18:58 Exam: Skin: Free of rash and discoloration. Eyes: Sclera is white. There is no discharge from eyes. ENMT: Oral/pharyngeal mucosa is normal in appearance. There is no discharge from nose or ears. Respiratory: Normal breath sounds with no crackles and wheezes bilaterally. CV: Heart is regular with no gallop or murmur. GI: Obese Abdomen is flat and soft with no palpable mass or visceromegaly. : There is no tenderness in patient's flanks bilaterally. Neuro exam: He has good strength in upper and lower extremities. He has normal eye movements. Psychiatric: He has normal affect. His thought process is appropriate to the situation. Lower extremities have 2+ pitting edema up to thighs - Assessment and Plan (1) Diabetes mellitus Current Visit: Yes Status: Acute Assessment and Plan: Continue insulin and monitor fingersticks (2) Dyslipidemia Current Visit: Yes Status: Chronic Assessment and Plan: Resume home meds (3) DVT prophylaxis Current Visit: Yes Status: Acute Assessment and Plan: On warfarin Jamshid hose bilaterally (4) Elevated troponin Current Visit: Yes Status: Acute Assessment and Plan: Likely demand. trend troponins are flat and a dynamic no chest pain (5) Acute on chronic systolic (congestive) heart failure Current Visit: Yes Status: Acute Assessment and Plan: Pt presents with shortness of breath and lower extremity swelling secondary to acute worsening of chronic systolic CHF-today patient shortness of breath has improved however he continues to have 2+ pitting edema up to his thighs bilaterally patient has been noncompliant with fluid restriction patient educated on the importance of low sodium diet as well as fluid restriction Continue IV lasix and metolazone. Strict Monitor ins and outs . Daily weight. 1500 mL Fluid restriction (6) Chronic respiratory failure Current Visit: Yes Status: Chronic Assessment and Plan: Chronic respiratory failure 2/2 to CHF on 2L. At baseline (7) CKD (chronic kidney disease) stage 3, GFR 30-59 ml/min Current Visit: Yes Status: Chronic Assessment and Plan: Pt has LINO on CKD stage 3 possibly secondary to poor kidney perfusion Will diurese and monitor creatinine-90 has improved today down 1.30 (8) A-fib Current Visit: Yes Status: Acute Assessment and Plan: Rate controlled. continue home meds and warfarin for anticoagulation (9) Liver disease Current Visit: No Status: Chronic Assessment and Plan: Patient has a history of liver disease CT of abdomen and pelvis IMPRESSION: 1. Increasing size bilateral pleural effusions with compressive atelectasis both lower lobes. 2. Cirrhosis with small ascites. 3. Gallbladder stones or sludge. 4. Diverticulosis. We will obtain a right upper quadrant ultrasound Monitor hepatic panel (10) Pleural effusion Current Visit: Yes Status: Acute Assessment and Plan: Patient has history of congestive heart failure as well as liver disease expressing increasing shortness of breath as well as large any swelling-CT of abdomen and pelvis does show increasing size bilateral pleural effusions with compressive atelectasis both lower lobes mostly secondary to CHF exacerbation we will continue with diuretics Oxygen as needed - Time Spent with Patient Total time spent is greater than 50% in coordination of care (as documented) at patient's floor/unit and/or counseling patient: Internal Medicine: Result - Labs CBC & Chem 7: 11/13/18 03:47 11/13/18 03:47 Labs: Short CBC 11/13/18 Range/Units 03:47 WBC 6.7 (4.3-11.1) K/mcL Hgb 13.1 (12.9-16.9) g/dL Hct 41.4 (37.5-50.1) % Plt Count 170 (140-400) K/mcL Neutrophils # 5.1 (1.6-8.9) K/mcL BMP 11/13/18 03:47 Sodium 141 Potassium 3.5 Chloride 99 Carbon Dioxide 34 H BUN 33 H Creatinine 1.30 Glucose 122 H Calcium 8.7 Cardiac Enzymes 11/12/18 11/13/18 Range/Units 19:04 03:47 Troponin I 0.08 H* 0.08 H* (< 0.04) ng/mL - ABG Interpretation ABG results: PT/INR, D-dimer PT 23.6 Seconds (9.4-12.1) H 11/13/18 03:47 - Impressions Impressions Abdomen/Pelvis CT 11/12/18 09:00 IMPRESSION: 1. Increasing size bilateral pleural effusions with compressive atelectasis both lower lobes. 2. Cirrhosis with small ascites. 3. Gallbladder stones or sludge. 4. Diverticulosis. D/ / 11/12/2018 10:10:17 Mayur Chavarria MD / caryl Interpreting Provider: Mayur Chavarria MD Consult Discharge Plan - Plan Referrals: Khoi Hinkle [Primary Care Provider] - (1) Diabetes mellitus Qualifiers: Diabetes mellitus type: type 2 Diabetes mellitus mcfp insulin use: with termite treater helper use Diabetes mellitus complication status: with kidney complications Diabetes mellitus complication detail: with chronic kidney disease Chronic kidney disease stage: unspecified stage Qualified Code(s): E11.22 - Type 2 diabetes mellitus with diabetic chronic kidney disease; Z79.4 - termite treater helper (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 of insulin (6) Chronic respiratory failure Qualifiers: Respiratory failure complication: hypoxia Qualified Code(s): J96.11 - Chronic respiratory failure with hypoxia (8) A-fib Qualifiers: Atrial fibrillation type: unspecified Qualified Code(s): I48.91 - Unspecified atrial fibrillation
[2018-11-13] MEDS: Melatonin 3 MG TABLET PO SCH (21:33)
[2018-11-13] MEDS: Insulin DETEMIR 100 UNIT/ML X5UNITS SQ SCH (21:33)
[2018-11-14 05:17] LABS: Basophils % 0.5 %; Eosinophils # 0.1 K/mcL (0.0-0.6); Eosinophils % 1.8 %; Hematocrit 40.1 % (37.5-50.1); Hemoglobin 12.8 g/dL (12.9-16.9); Immature Granulocytes % 0.3 % (0-4); Lymphocytes # 0.8 K/mcL (0.6-4.6); Mean Corpuscular HGB Conc 31.9 g/dL (31.6-35.5); Mean Corpuscular Hemoglobin 29.2 pg (28.0-33.3); Mean Corpuscular Volume 91.3 fL (83.0-100.0); Monocytes # 0.6 K/mcL (0.0-1.3); Monocytes % 9.6 %; Neutrophils # 5.1 K/mcL (1.6-8.9); Platelet Count 172 K/mcL (140-400); Red Blood Count 4.39 M/mcL (4.19-5.50); Red Cell Distribution Width 15.4 % (11.5-14.5); Segmented Neutrophils % 75.8 %
[2018-11-14 05:22] LABS: INR 2.5; Prothrombin Time 27.8 Seconds (9.4-12.1)
[2018-11-14 05:33] LABS: Alanine Aminotransferase 44 Units/L (7-52); Albumin 2.9 g/dL (3.5-5.7); Albumin/Globulin Ratio 1.1 (1.1-2.2); Alkaline Phosphatase 111 Units/L (34-104); Aspartate Amino Transferase 62 Units/L (13-39); BUN/Creatinine Ratio 24 (6-26); Bilirubin,Direct 0.2 mg/dL (0.0-0.2); Bilirubin,Indirect 0.5 mg/dL (0.0-1.2); Bilirubin,Total 0.7 mg/dL (0.3-1.0); Blood Urea Nitrogen 33 mg/dL (8-23); Carbon Dioxide 36 mEq/L (23-29); Chloride 95 mEq/L (98-107); Globulin 2.6 g/dL (2.4-3.5); Glucose 201 mg/dL (70-105); Lipase 77 Units/L (11-82); Osmolality,Calculated 297 (280-300); Potassium 3.1 mEq/L (3.5-5.1); Sodium 137 mEq/L (136-145); Total Protein 5.5 g/dL (6.4-8.9); eGFR For Non-African Americans 53 (> 60)
[2018-11-14] MEDS ORDERED: Acetaminophen 325 MG TABLET PO ONE (05:33)
[2018-11-14] MEDS: Insulin LISPRO 300 UNITS/3 ML VIAL SQ SCH ×3 (07:35→17:13)
[2018-11-14] MEDS: Metoprolol XL (24 HR) Succ 25 MG TAB.ER.24H PO SCH (08:57)
[2018-11-14] MEDS: Aspirin 81 MG TAB.CHEW PO SCH (08:57)
[2018-11-14] MEDS: Gabapentin 300 MG CAPSULE PO SCH ×2 (08:57→21:41)
[2018-11-14] MEDS: Furosemide 40 MG/4 ML VIAL IVP SCH ×2 (08:57→21:40)
[2018-11-14] MEDS: Lactulose Oral Soln 20 GM/30 ML UDC PO SCH ×3 (08:57→21:40)
[2018-11-14] MEDS: metOLazone 5 MG TABLET PO SCH (08:57)
--- NOTE | 2018-11-14 12:19 | Internal Med Progress Note ---
Hospitalist Progress Note - Encounter Date of Encounter: 11/14/18 Time of Encounter: 12:16 - Subjective Interval History: Pt seen and examined in the room. Reported improved swelling of BLE. Abd girth swelling is improving. Denies Hx of heavy etoh abuse but admits family Hx of liver cirrhosis. Recently visited cardiology and was recommended paracentesis for ascites. No chest pain, sob, or palpitation. - Exam Vitals: Temp Pulse Resp BP Pulse Ox 97.8 F 79 16 102/63 92 11/14/18 11:40 11/14/18 11:40 11/14/18 11:40 11/14/18 11:40 11/14/18 11:40 Exam: Skin: Free of rash and discoloration. Eyes: Sclera is white. There is no discharge from eyes. ENMT: Oral/pharyngeal mucosa is normal in appearance. There is no discharge from nose or ears. Respiratory: Normal breath sounds with no crackles and wheezes bilaterally. CV: Heart is regular with no gallop or murmur. GI: Obese Abdomen is flat and soft with no palpable mass or visceromegaly. : There is no tenderness in patient's flanks bilaterally. Neuro exam: He has good strength in upper and lower extremities. He has normal eye movements. Psychiatric: He has normal affect. His thought process is appropriate to the situation. Lower extremities have 2+ pitting edema up to thighs - Assessment and Plan (1) Acute on chronic systolic (congestive) heart failure Current Visit: Yes Status: Acute Assessment and Plan: 11/13 Pt presents with shortness of breath and lower extremity swelling secondary to acute worsening of chronic systolic CHF-today patient shortness of breath has improved however he continues to have 2+ pitting edema up to his thighs bilaterally patient has been noncompliant with fluid restriction patient educated on the importance of low sodium diet as well as fluid restriction Continue IV lasix and metolazone. Strict Monitor ins and outs . Daily weight. 1500 mL Fluid restriction. 11/14 -1000 cc /24h. leg swelling improving, continue IV lasix and metolazone. (2) Diabetes mellitus Current Visit: No Status: Chronic Assessment and Plan: Continue insulin and monitor fingersticks (3) Dyslipidemia Current Visit: No Status: Chronic Assessment and Plan: Resume home meds (4) Elevated troponin Current Visit: Yes Status: Acute Assessment and Plan: chronic trop elevation. no chest pain. (5) Chronic respiratory failure Current Visit: No Status: Chronic Assessment and Plan: Chronic respiratory failure 2/2 to CHF on 2L. At baseline (6) CKD (chronic kidney disease) stage 3, GFR 30-59 ml/min Current Visit: No Status: Chronic Assessment and Plan: Pt has LINO on CKD stage 3 possibly secondary to poor kidney perfusion Cr 1.37 today, monitoring. (7) A-fib Current Visit: No Status: Chronic Assessment and Plan: Rate controlled. continue home meds and warfarin for anticoagulation (8) Liver disease Current Visit: No Status: Chronic Assessment and Plan: Patient has a history of liver disease CT of abdomen and pelvis IMPRESSION: 1. Increasing size bilateral pleural effusions with compressive atelectasis both lower lobes. 2. Cirrhosis with small ascites. 3. Gallbladder stones or sludge. 4. Diverticulosis. RUQ US showed cholilithiasis without cholecystiis. (9) Pleural effusion Current Visit: Yes Status: Acute Assessment and Plan: Patient has history of congestive heart failure as well as liver disease expressing increasing shortness of breath as well as large any swelling-CT of abdomen and pelvis does show increasing size bilateral pleural effusions with compressive atelectasis both lower lobes mostly secondary to CHF exacerbation we will continue with diuretics Oxygen as needed (10) DVT prophylaxis Current Visit: Yes Status: Acute Assessment and Plan: On warfarin Jamshid nogueira bilaterally - Time Spent with Patient Total time spent is greater than 50% in coordination of care (as documented) at patient's floor/unit and/or counseling patient: Greater than 35 minutes Plan of Care Discussed with: patient Internal Medicine: Result - Labs CBC & Chem 7: 11/14/18 04:35 11/14/18 04:35 Labs: Short CBC 11/14/18 Range/Units 04:35 WBC 6.7 (4.3-11.1) K/mcL Hgb 12.8 L (12.9-16.9) g/dL Hct 40.1 (37.5-50.1) % Plt Count 172 (140-400) K/mcL Neutrophils # 5.1 (1.6-8.9) K/mcL BMP 11/14/18 04:35 Sodium 137 Potassium 3.1 L Chloride 95 L Carbon Dioxide 36 H BUN 33 H Creatinine 1.37 H Glucose 201 H Calcium 9.0 Liver Function 11/14/18 Range/Units 04:35 Total Bilirubin 0.7 (0.3-1.0) mg/dL Direct Bilirubin 0.2 (0.0-0.2) mg/dL AST 62 H (13-39) Units/L ALT 44 (7-52) Units/L Alkaline Phosphatase 111 H (34-104) Units/L Albumin 2.9 L (3.5-5.7) g/dL - ABG Interpretation ABG results: PT/INR, D-dimer PT 27.8 Seconds (9.4-12.1) H 11/14/18 04:35 - Impressions Impressions Gallbladder Ultrasound 11/13/18 20:00 IMPRESSION: Cholelithiasis without evidence of cholecystitis. D/ / Major Ferguson MD / Major Ferguson MD Interpreting Provider: Major Ferguson MD Consult Discharge Plan - Plan Referrals: Khoi Hinkle [Primary Care Provider] - 11/21/18 10:00 am (2) Diabetes mellitus Qualifiers: Diabetes mellitus type: type 2 Diabetes mellitus terminal make up operator insulin use: with usp use Diabetes mellitus complication status: with kidney complications Diabetes mellitus complication detail: with chronic kidney disease Chronic kidney disease stage: unspecified stage Qualified Code(s): E11.22 - Type 2 diabetes mellitus with diabetic chronic kidney disease; Z79.4 - technician terminal and repeater (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 of insulin (5) Chronic respiratory failure Qualifiers: Respiratory failure complication: hypoxia Qualified Code(s): J96.11 - Chronic respiratory failure with hypoxia (7) A-fib Qualifiers: Atrial fibrillation type: unspecified Qualified Code(s): I48.91 - Unspecified atrial fibrillation
[2018-11-14] MEDS ORDERED: *HR* Warfarin 2.5 MG TABLET PO ONE (18:00)
[2018-11-14] MEDS: Insulin DETEMIR 100 UNIT/ML X5UNITS SQ SCH (21:41)
[2018-11-14] MEDS: Melatonin 3 MG TABLET PO SCH (21:41)
[2018-11-15 02:33] LABS: INR 2.5; Prothrombin Time 27.8 Seconds (9.4-12.1)
[2018-11-15 02:53] LABS: BUN/Creatinine Ratio 25 (6-26); Blood Urea Nitrogen 31 mg/dL (8-23); Calcium 9.2 mg/dL (8.6-10.3); Carbon Dioxide 40 mEq/L (23-29); Chloride 93 mEq/L (98-107); Glucose 143 mg/dL (70-105); Osmolality,Calculated 295 (280-300); Sodium 138 mEq/L (136-145); eGFR For Non-African Americans 59 (> 60)
[2018-11-15] MEDS: Insulin LISPRO 300 UNITS/3 ML VIAL SQ SCH ×3 (07:47→16:22)
[2018-11-15] MEDS: Gabapentin 300 MG CAPSULE PO SCH ×2 (08:01→22:04)
[2018-11-15] MEDS: Aspirin 81 MG TAB.CHEW PO SCH (08:01)
[2018-11-15] MEDS: metOLazone 5 MG TABLET PO SCH (08:01)
[2018-11-15] MEDS: Metoprolol XL (24 HR) Succ 25 MG TAB.ER.24H PO SCH (08:01)
[2018-11-15] MEDS: Lactulose Oral Soln 20 GM/30 ML UDC PO SCH ×3 (08:01→22:04)
[2018-11-15] MEDS: Furosemide 40 MG/4 ML VIAL IVP SCH ×2 (08:02→19:27)
--- NOTE | 2018-11-15 10:38 | Internal Med Progress Note ---
Hospitalist Progress Note - Encounter Date of Encounter: 11/15/18 Time of Encounter: 10:35 - Subjective Interval History: Pt seen and examined in the room. c/o of being up all night to use bathroom, urinated more than 10 time last night. improved leg swelling, no sob, chest pain, or palpitation. - Exam Vitals: Temp Pulse Resp BP Pulse Ox 97.4 F L 81 14 98/62 92 11/15/18 06:49 11/15/18 06:49 11/15/18 06:49 11/15/18 06:49 11/15/18 06:49 Exam: Skin: Free of rash and discoloration. Eyes: Sclera is white. There is no discharge from eyes. ENMT: Oral/pharyngeal mucosa is normal in appearance. There is no discharge from nose or ears. Respiratory: Normal breath sounds with no crackles and wheezes bilaterally. CV: Heart is regular with no gallop or murmur. GI: Obese Abdomen is flat and soft with no palpable mass or visceromegaly. : There is no tenderness in patient's flanks bilaterally. Neuro exam: He has good strength in upper and lower extremities. He has normal eye movements. Psychiatric: He has normal affect. His thought process is appropriate to the situation. Lower extremities have 2+ pitting edema up to thighs - Assessment and Plan (1) Acute on chronic systolic (congestive) heart failure Current Visit: Yes Status: Acute Assessment and Plan: 11/13 Pt presents with shortness of breath and lower extremity swelling secondary to acute worsening of chronic systolic CHF-today patient shortness of breath has improved however he continues to have 2+ pitting edema up to his thighs bilaterally patient has been noncompliant with fluid restriction patient educated on the importance of low sodium diet as well as fluid restriction Continue IV lasix and metolazone. Strict Monitor ins and outs . Daily weight. 1500 mL Fluid restriction. 11/14 -1000 cc /24h. leg swelling improving, continue IV lasix and metolazone. 11/15 -1700 cc/24 hour, leg swelling improved. continue IV lasix, decrease metolazone to 5 mg daily. Hold Metoprolol for now due to bordereline BP. continue to monitoring. (2) Diabetes mellitus Current Visit: No Status: Chronic Assessment and Plan: Continue insulin and monitor fingersticks (3) Dyslipidemia Current Visit: No Status: Chronic Assessment and Plan: Resume home meds (4) Elevated troponin Current Visit: Yes Status: Acute Assessment and Plan: chronic trop elevation. no chest pain. (5) Chronic respiratory failure Current Visit: No Status: Chronic Assessment and Plan: stable, continue home meds. (6) CKD (chronic kidney disease) stage 3, GFR 30-59 ml/min Current Visit: No Status: Chronic Assessment and Plan: Pt has LINO on CKD stage 3 possibly secondary to poor kidney perfusion Cr 1.25 today, monitoring. (7) A-fib Current Visit: No Status: Chronic Assessment and Plan: Rate controlled. continue home meds and warfarin for anticoagulation, INR 2.5 today. (8) Liver disease Current Visit: No Status: Chronic Assessment and Plan: Patient has a history of liver disease CT of abdomen and pelvis IMPRESSION: 1. Increasing size bilateral pleural effusions with compressive atelectasis both lower lobes. 2. Cirrhosis with small ascites. 3. Gallbladder stones or sludge. 4. Diverticulosis. RUQ US showed cholilithiasis without cholecystiis. (9) Pleural effusion Current Visit: Yes Status: Acute Assessment and Plan: Patient has history of congestive heart failure as well as liver disease expressing increasing shortness of breath as well as large any swelling-CT of abdomen and pelvis does show increasing size bilateral pleural effusions with compressive atelectasis both lower lobes mostly secondary to CHF exacerbation we will continue with diuretics Oxygen as needed (10) DVT prophylaxis Current Visit: Yes Status: Acute Assessment and Plan: On warfarin Jamshid hose bilaterally - Time Spent with Patient Total time spent is greater than 50% in coordination of care (as documented) at patient's floor/unit and/or counseling patient: Greater than 35 minutes Plan of Care Discussed with: patient Internal Medicine: Result - Labs CBC & Chem 7: 11/14/18 04:35 11/15/18 01:35 Labs: BMP 11/15/18 01:35 Sodium 138 Potassium 3.0 L Chloride 93 L Carbon Dioxide 40 H* BUN 31 H Creatinine 1.25 Glucose 143 H Calcium 9.2 - ABG Interpretation ABG results: PT/INR, D-dimer PT 27.8 Seconds (9.4-12.1) H 11/15/18 01:35 Consult Discharge Plan - Plan Additional Instructions: Call [facility] [place] when you get home to have new home oxygen equipment and BIPAP delivered. Their number is #[phone]. Referrals: Khoi Hinkle [Primary Care Provider] - 11/21/18 10:00 am (2) Diabetes mellitus Qualifiers: Diabetes mellitus type: type 2 Diabetes mellitus correction insulin use: with correction use Diabetes mellitus complication status: with kidney complications Diabetes mellitus complication detail: with chronic kidney disease Chronic kidney disease stage: unspecified stage Qualified Code(s): E11.22 - Type 2 diabetes mellitus with diabetic chronic kidney disease; Z79.4 - retirement (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 of insulin (5) Chronic respiratory failure Qualifiers: Respiratory failure complication: hypoxia Qualified Code(s): J96.11 - Chronic respiratory failure with hypoxia (7) A-fib Qualifiers: Atrial fibrillation type: unspecified Qualified Code(s): I48.91 - Unspecified atrial fibrillation
[2018-11-15] MEDS ORDERED: *HR* Warfarin 5 MG TABLET PO ONE (18:00)
[2018-11-15] MEDS: Melatonin 3 MG TABLET PO SCH (22:04)
[2018-11-15] MEDS: Insulin DETEMIR 100 UNIT/ML X5UNITS SQ SCH (22:05)
[2018-11-16 05:02] LABS: INR 2.1; Prothrombin Time 23.5 Seconds (9.4-12.1)
[2018-11-16 05:30] LABS: BUN/Creatinine Ratio 26 (6-26); Blood Urea Nitrogen 29 mg/dL (8-23); Calcium 9.5 mg/dL (8.6-10.3); Carbon Dioxide 40 mEq/L (23-29); Chloride 94 mEq/L (98-107); Glucose 80 mg/dL (70-105); Osmolality,Calculated 293 (280-300); Sodium 139 mEq/L (136-145); eGFR For Non-African Americans > 60 (> 60)
[2018-11-16] MEDS: Insulin LISPRO 300 UNITS/3 ML VIAL SQ SCH (08:09)
[2018-11-16] MEDS: Lactulose Oral Soln 20 GM/30 ML UDC PO SCH (08:45)
[2018-11-16] MEDS: Furosemide 40 MG/4 ML VIAL IVP SCH (08:45)
[2018-11-16] MEDS: Gabapentin 300 MG CAPSULE PO SCH (08:45)
[2018-11-16] MEDS: Aspirin 81 MG TAB.CHEW PO SCH (08:46)
[2018-11-16] MEDS ORDERED: metOLazone 5 MG TABLET PO SCH (09:00)
[2018-11-16 11:49] VITALS: BP 97/65
--- NOTE | 2018-11-16 12:08 | Discharge Summary ---
- NOTES TO OUTPATIENT PROVIDER Notes to Outpatient Provider: f/u with PCP within 3 days to repeat BMP and K level. 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 Diabetes mellitus complication status: with kidney complications Diabetes mellitus complication detail: with chronic kidney disease Chronic kidney disease stage: unspecified stage Qualified Code(s): E11.22 - Type 2 diabetes mellitus with diabetic chronic kidney disease; 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.4 - recruitment director (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 of insulin (3) Dyslipidemia Priority: Secondary Status: Chronic (4) Elevated troponin Priority: Primary Status: Acute (5) Chronic respiratory failure Priority: Secondary Status: Chronic Qualifiers: Respiratory failure complication: hypoxia Qualified Code(s): J96.11 - Chronic respiratory failure with hypoxia (6) CKD (chronic kidney disease) stage 3, GFR 30-59 ml/min Priority: Secondary Status: Chronic (7) A-fib Priority: Secondary Status: Chronic Qualifiers: Atrial fibrillation type: unspecified Qualified Code(s): I48.91 - Unspecified atrial fibrillation (8) Liver disease Priority: Secondary Status: Chronic (9) Pleural effusion Priority: Primary Status: Acute (10) DVT prophylaxis Priority: Primary Status: Acute Hospital course: Mr. Pace is a 63 year old male with pmh of systolic CHF with EF of 35%, afb, pacemaker placement, diabetes presenting with complaints of worsening swelling and shortness of breath of about a week's duration. Patient was recently discharged from the hospital last month for similar symptoms. He takes torsemide at home but says it hasn't been helping. For the last one month, he says he has been having progressive difficulty ambulating and gets more easily short of breath and has been unable to lie flat. He has also noticed progressive swelling in his lower exremities up to his abdomen in this period. Admits to occasional cough, denies any nausea, vomiting or chest pain. In the ER, a cxr showed findings consistent with CHF. He was administered one dose of lasix and he is being admitted for further management. Patient was placed on low sodium diet with 1500 mL fluid restriction. His home diuretics have been changed to IV Lasix at 40 mg twice a day in addition to a 10 mg metolazone daily. His volume status significantly improved with the treatment. On the discharge day, patient weight was close to his baseline. Vital signs were stable, labs are unremarkable except for low potassium, which has been replaced. Patient is discharged home today, diuretics have adjusted to oral Lasix on a scheduled basis in addition to metolazone, which patient was instructed to take on an as-needed basis. Patient about CHF was reiterated with patient and family. Patient will see PCP within 3 days to repeat BMP. Discharge discussed with: patient, family Time spent discussing smoking cessation with patient: more than 10 minutes - Time Spent with Patient Total time spent providing and/or coordinating discharge services: Time spent: Greater than 30 minutes - Discharge Medications Prescriptions: New Furosemide [Lasix] 40 mg PO BID #60 tab Continued Aspirin 81 mg PO DAILY Cyclobenzaprine [Flexeril] 10 mg PO TID PRN PRN Reason: Muscle Spasm Eplerenone [Inspra] 50 mg PO DAILY Ezetimibe 10 mg PO QAM Gabapentin [Neurontin] 300 mg PO BID Insulin Glargine,Hum.rec.anlog [Lantus Solostar] 80 unit SQ QPM PRN PRN Reason: ONLY IF SUGAR IS OVER 150 Warfarin [Coumadin] 5 mg PO SUTH Simvastatin [Zocor] 40 mg PO 1800 Warfarin [Coumadin] 2.5 mg PO MOTUWEFRSA Potassium Chloride [K-Tab ER] 20 meq PO TID Lactulose 30 ml PO TID Meclizine [Antivert] 12.5 mg PO TID PRN PRN Reason: Vertigo Melatonin 10 mg PO HS Allopurinol [Zyloprim 100 MG] 100 mg PO QAM #0 Metoprolol Succinate [Toprol Xl] 25 mg PO 1800 Omeprazole [PriLOSEC] 20 mg PO QAM [place]-3/Dha/Epa/Fish Oil [[place] 3 500 Softgel] 1 each PO QAM Ergocalciferol (VITAMIN D2) [Vitamin D2] 2,000 unit PO DAILY Discontinued Torsemide [Demadex] 20 mg PO BID Bumetanide [Bumex] 2 mg PO AD Home Medications: Aspirin 81 mg PO DAILY 05/16/17 [History] Cyclobenzaprine [Flexeril] 10 mg PO TID PRN 05/16/17 [History] Eplerenone [Inspra] 50 mg PO DAILY 05/16/17 [History] Ezetimibe 10 mg PO QAM 05/16/17 [History] Gabapentin [Neurontin] 300 mg PO BID 05/16/17 [History] Insulin Glargine,Hum.rec.anlog [Lantus Solostar] 80 unit SQ QPM PRN 05/16/17 [History] Warfarin [Coumadin] 5 mg PO SUTH 05/16/17 [History] Simvastatin [Zocor] 40 mg PO 1800 02/11/18 [History] Lactulose 30 ml PO TID 07/06/18 [History] Meclizine [Antivert] 12.5 mg PO TID PRN 07/06/18 [History] Melatonin 10 mg PO HS 07/06/18 [History] Potassium Chloride [K-Tab ER] 20 meq PO TID 07/06/18 [History] Warfarin [Coumadin] 2.5 mg PO MOTUWEFRSA 07/06/18 [History] Allopurinol [Zyloprim 100 MG] 100 mg PO QAM #0 09/11/18 [History] Metoprolol Succinate [Toprol Xl] 25 mg PO 1800 09/17/18 [History] Ergocalciferol (VITAMIN D2) [Vitamin D2] 2,000 unit PO DAILY 11/12/18 [History] [place]-3/Dha/Epa/Fish Oil [[place] 3 500 Softgel] 1 each PO QAM 11/12/18 [History] Omeprazole [PriLOSEC] 20 mg PO QAM 11/12/18 [History] Furosemide [Lasix] 40 mg PO BID #60 tab 11/16/18 [Rx] metOLazone [Zaroxolyn] 2.5 mg PO DAILY PRN #10 tablet 11/16/18 [Rx] Allergies/Adverse Reactions: Allergy/AdvReac Type Severity Reaction Status Date / Time Amoxicillin [From Augmentin] AdvReac Diarrhea Verified 11/12/18 07:34 clavulanic acid AdvReac Diarrhea Verified 11/12/18 07:34 [From Augmentin] oxycodone [From Percocet] AdvReac Itching Verified 11/12/18 07:34 Date of admission: 11/14/18 15:07 Primary care physician: Khoi Hinkle Consults: 11/13/18 15:26 Consult to Nurse Navigator [CONS] Routine Comment: CHF Anticipated date of discharge: 11/16/18 - Constitutional Vitals: Temp Pulse Resp BP Pulse Ox 97.4 F L 79 16 97/65 97 11/16/18 11:43 11/16/18 11:43 11/16/18 11:43 11/16/18 11:43 11/16/18 11:43 General appearance: Present: A&O X 3 Exam: Skin: Free of rash and discoloration. Eyes: Sclera is white. There is no discharge from eyes. ENMT: Oral/pharyngeal mucosa is normal in appearance. There is no discharge from nose or ears. Respiratory: Normal breath sounds with no crackles and wheezes bilaterally. CV: Heart is regular with no gallop or murmur. GI: Obese Abdomen is flat and soft with no palpable mass or visceromegaly. : There is no tenderness in patient's flanks bilaterally. Neuro exam: He has good strength in upper and lower extremities. He has normal eye movements. Psychiatric: He has normal affect. His thought process is appropriate to the situation. Lower extremities have 2+ pitting edema up to thighs - Patient Status Disposition: Home, Self-Care Condition: Fair Functional capacity at discharge: independent ambulation Overall status at discharge: patient is progressing back to baseline - Discharge Instructions Follow Up With: Khoi Hinkle [Primary Care Provider] - 11/21/18 10:00 am Additional Instructions: Call [facility] when you get home to have new home oxygen equipment and BIPAP delivered. Their number is #[phone]. - Diet and Activity Activity: increase activity as tolerated Diet: diabetic diet, low fat, low cholesterol, low salt diet
[2018-11-16] MEDS ORDERED: *HR* Warfarin 2.5 MG TABLET PO ONE (18:00)
== END 2018-11-16 12:37 | disposition home or self-care (01) | DRG 292 ==
LOC: 3BNU 07:23 → EMEROOARM 07:23 → 3BNU 11:00
PROVIDERS: ADMIT Student in an Organized Health Care Education/Training Program; ATTEND Student in an Organized Health Care Education/Training Program

== ENCOUNTER 2019-03-06 08:39 | Inpatient (IN) ==
[2019-03-06 09:14] LABS: Basophils % 0.4 %; Eosinophils # 0.1 K/mcL (0.0-0.6); Hematocrit 29.3 % (37.5-50.1); Hemoglobin 8.3 g/dL (12.9-16.9); Immature Granulocytes % 0.3 % (0-4); Lymphocytes # 0.4 K/mcL (0.6-4.6); Lymphocytes % 5.8 %; Mean Corpuscular HGB Conc 28.3 g/dL (31.6-35.5); Mean Corpuscular Hemoglobin 24.6 pg (28.0-33.3); Mean Corpuscular Volume 86.7 fL (83.0-100.0); Mean Platelet Volume 10.5 fL (9.4-12.4); Monocytes # 0.7 K/mcL (0.0-1.3); Monocytes % 10.2 %; Neutrophils # 5.6 K/mcL (1.6-8.9); Nucleated Red Blood Cells 0.6 /100 WBC (0); Platelet Count 247 K/mcL (140-400); Red Blood Count 3.38 M/mcL (4.19-5.50); Red Cell Distribution Width 18.3 % (11.5-14.5); Segmented Neutrophils % 81.3 %; White Blood Count 6.9 K/mcL (4.3-11.1)
[2019-03-06 09:23] LABS: INR 2.1; Prothrombin Time 23.7 Seconds (9.4-12.1)
[2019-03-06 09:33] LABS: Calcium 8.2 mg/dL (8.6-10.3); Potassium 3.4 mEq/L (3.5-5.1)
[2019-03-06 09:42] LABS: Troponin I 0.07 ng/mL (< 0.04)
[2019-03-06] MEDS ORDERED: Furosemide 20 MG/2 ML VIAL IVP ONE (10:15)
[2019-03-06 10:16] LABS: Anisocytosis 1+ (Not Present); Hypochromasia Present (Not Present); Platelet Estimate Normal (Normal)
[2019-03-06] MEDS ORDERED: Naloxone 0.4 MG/ML INJ IVP PRN (11:52)
[2019-03-06] MEDS ORDERED: D5% in Water 1,000 ML IVC PRN (14:24)
[2019-03-06] MEDS ORDERED: *HR* Dextrose 50 % in Water (Syg) 50 ML SYRINGE IVP PRN (14:24)
[2019-03-06] MEDS ORDERED: Dextrose Gel 15 GM/37.5 ML TUBE PO PRN ×2 (14:24)
[2019-03-06 14:55] LABS: Hematocrit 29.1 % (37.5-50.1); Hemoglobin 8.3 g/dL (12.9-16.9)
[2019-03-06] MEDS: Lactulose Oral Soln 20 GM/30 ML UDC PO SCH ×2 (16:13→20:33)
[2019-03-06] MEDS: metOLazone 2.5 MG TABLET PO SCH (16:13)
[2019-03-06 16:23] LABS: Estimated Average Glucose 148 mg/dl
[2019-03-06] MEDS: Insulin LISPRO 300 UNITS/3 ML VIAL SQ SCH ×2 (16:39→20:43)
[2019-03-06] MEDS: Furosemide 40 MG/4 ML VIAL IVP SCH (16:40)
[2019-03-06] MEDS ORDERED: *HR* Warfarin 2.5 MG TABLET PO ONE (18:00)
[2019-03-06] MEDS ORDERED: Warfarin perPT PO PRN (18:00)
[2019-03-06] MEDS: Acetaminophen 325 MG TABLET PO PRN (18:04)
[2019-03-06] MEDS ORDERED: metOLazone 2.5 MG TABLET PO SCH (18:30)
[2019-03-06] MEDS: Melatonin 3 MG TABLET PO SCH (20:33)
[2019-03-06] MEDS: Insulin DETEMIR 100 UNIT/ML X5UNITS SQ SCH (20:34)
[2019-03-06] MEDS: Gabapentin 300 MG CAPSULE PO SCH (20:34)
[2019-03-06] MEDS ORDERED: Gabapentin 300 MG CAPSULE PO SCH (21:00)
[2019-03-06] MEDS ORDERED: Furosemide 40 MG/4 ML VIAL IVP SCH (21:00)
[2019-03-07 02:08] LABS: Immature Granulocytes % 0.3 % (0-4); Monocytes % 11.3 %; Red Cell Distribution Width 18.2 % (11.5-14.5); Segmented Neutrophils % 76.4 %
[2019-03-07 02:10] LABS: Basophils % 0.7 %; Eosinophils # 0.2 K/mcL (0.0-0.6); Eosinophils % 3.2 %; Hematocrit 26.6 % (37.5-50.1); Hemoglobin 7.6 g/dL (12.9-16.9); Lymphocytes # 0.5 K/mcL (0.6-4.6); Lymphocytes % 8.1 %; Mean Corpuscular HGB Conc 28.6 g/dL (31.6-35.5); Mean Corpuscular Hemoglobin 24.4 pg (28.0-33.3); Mean Corpuscular Volume 85.5 fL (83.0-100.0); Mean Platelet Volume 10.2 fL (9.4-12.4); Monocytes # 0.7 K/mcL (0.0-1.3); Neutrophils # 4.5 K/mcL (1.6-8.9); Platelet Count 209 K/mcL (140-400); Red Blood Count 3.11 M/mcL (4.19-5.50); White Blood Count 5.9 K/mcL (4.3-11.1)
[2019-03-07 02:15] LABS: Prothrombin Time 22.3 Seconds (9.4-12.1)
[2019-03-07 02:29] LABS: % Iron Saturation 4 % (20-55); Calcium 7.9 mg/dL (8.6-10.3); Iron 18 mcg/dL (65-175); Magnesium 1.9 mg/dL (1.6-2.6); Potassium 2.7 mEq/L (3.5-5.1); Transferrin 298 mg/dL (203-362)
[2019-03-07 02:46] LABS: Ferritin 14 ng/mL (20-250)
[2019-03-07 03:06] LABS: Anisocytosis 1+ (Not Present); Hypochromasia Present (Not Present); Platelet Estimate Normal (Normal)
[2019-03-07 03:07] LABS: Polychromasia 1+ (Not Present)
[2019-03-07] MEDS: Furosemide 40 MG/4 ML VIAL IVP SCH ×3 (08:22→18:19)
[2019-03-07] MEDS: Lactulose Oral Soln 20 GM/30 ML UDC PO SCH ×4 (08:22→20:48)
[2019-03-07] MEDS: metOLazone 2.5 MG TABLET PO SCH ×2 (08:23→18:24)
[2019-03-07] MEDS: Aspirin Enteric Coated 81 MG Tablet PO SCH (08:23)
[2019-03-07] MEDS: Insulin LISPRO 300 UNITS/3 ML VIAL SQ SCH ×4 (08:23→20:48)
[2019-03-07] MEDS ORDERED: NON-FORMULARY MEDICATION 1 EACH EACH (Ezetimibe 10 MG) PO SCH (09:00)
[2019-03-07] MEDS ORDERED: Iron Sucrose Complex 200 MG in 0.9 % Sodium Chloride 100 ML IVPB SCH (11:15)
[2019-03-07] MEDS ORDERED: Ondansetron ODT 4 MG TAB.RAPDIS SL PRN (11:22)
[2019-03-07] MEDS: Albumin 25% 25gram/100mL 25 GM/100 ML IV.SOLN IVPB SCH ×2 (11:57→20:48)
[2019-03-07] MEDS ORDERED: LACTULOSE PO SCH (13:00)
[2019-03-07] MEDS: Acetaminophen 325 MG TABLET PO PRN ×2 (13:24→20:42)
[2019-03-07 15:59] LABS: Immature Reticulocyte % 34.8 % (11.0-38.0); Retculocyte # 0.11 M/mcL (0.05-0.10); Reticulocyte % 3.3 % (1.6-2.8)
[2019-03-07 16:18] LABS: Calcium 8.2 mg/dL (8.6-10.3); Potassium 2.9 mEq/L (3.5-5.1)
[2019-03-07] MEDS ORDERED: *HR* Warfarin 2.5 MG TABLET PO ONE (18:00)
[2019-03-07] MEDS: Metoprolol XL (24 HR) Succ 25 MG TAB.ER.24H PO SCH (18:24)
[2019-03-07] MEDS ORDERED: Perflutren Lipid Microsphere 1.3 ML in 0.9 % Sodium Chloride 8.7 ML IVP ONE (18:46)
[2019-03-07] MEDS: Iron Sucrose Complex 200 MG in 0.9 % Sodium Chloride 100 ML IVPB SCH (20:23)
[2019-03-07] MEDS: Insulin DETEMIR 100 UNIT/ML X5UNITS SQ SCH (20:48)
[2019-03-07] MEDS: Gabapentin 300 MG CAPSULE PO SCH (20:49)
[2019-03-07] MEDS: Melatonin 3 MG TABLET PO SCH (20:49)
[2019-03-08] MEDS: Albumin 25% 25gram/100mL 25 GM/100 ML IV.SOLN IVPB SCH ×2 (03:31→13:27)
[2019-03-08 04:11] LABS: Immature Granulocytes % 0.3 % (0-4); Mean Platelet Volume 10.5 fL (9.4-12.4)
[2019-03-08 04:13] LABS: Basophils # 0.1 K/mcL (0.0-0.2); Basophils % 0.8 %; Eosinophils # 0.2 K/mcL (0.0-0.6); Eosinophils % 3.7 %; Hematocrit 27.9 % (37.5-50.1); Hemoglobin 7.8 g/dL (12.9-16.9); Lymphocytes # 0.5 K/mcL (0.6-4.6); Lymphocytes % 8.7 %; Mean Corpuscular Hemoglobin 23.6 pg (28.0-33.3); Mean Corpuscular Volume 84.3 fL (83.0-100.0); Monocytes # 0.6 K/mcL (0.0-1.3); Monocytes % 9.8 %; Neutrophils # 4.6 K/mcL (1.6-8.9); Platelet Count 221 K/mcL (140-400); Red Blood Count 3.31 M/mcL (4.19-5.50); Red Cell Distribution Width 18.1 % (11.5-14.5); Segmented Neutrophils % 76.7 %
[2019-03-08 04:19] LABS: Prothrombin Time 22.6 Seconds (9.4-12.1)
[2019-03-08 04:57] LABS: Calcium 8.7 mg/dL (8.6-10.3); Potassium 3.9 mEq/L (3.5-5.1)
[2019-03-08 05:21] LABS: Hypochromasia Present (Not Present); Platelet Estimate Normal (Normal)
[2019-03-08 05:22] LABS: Anisocytosis 2+ (Not Present)
[2019-03-08] MEDS: Insulin LISPRO 300 UNITS/3 ML VIAL SQ SCH ×4 (09:15→21:43)
[2019-03-08] MEDS: Lactulose Oral Soln 20 GM/30 ML UDC PO SCH ×4 (09:41→21:43)
[2019-03-08] MEDS: metOLazone 2.5 MG TABLET PO SCH ×2 (09:41→17:59)
[2019-03-08] MEDS: Aspirin Enteric Coated 81 MG Tablet PO SCH (09:41)
[2019-03-08] MEDS: Iron Sucrose Complex 200 MG in 0.9 % Sodium Chloride 100 ML IVPB SCH (09:42)
[2019-03-08] MEDS: Furosemide 40 MG/4 ML VIAL IVP SCH (13:18)
[2019-03-08] MEDS: Metoprolol XL (24 HR) Succ 25 MG TAB.ER.24H PO SCH (17:59)
[2019-03-08] MEDS: Torsemide 20 MG TABLET PO SCH (17:59)
[2019-03-08] MEDS: Melatonin 3 MG TABLET PO SCH (21:54)
[2019-03-08] MEDS: Gabapentin 300 MG CAPSULE PO SCH (21:54)
[2019-03-08] MEDS: Insulin DETEMIR 100 UNIT/ML X5UNITS SQ SCH (21:55)
[2019-03-09 07:14] LABS: Eosinophils % 3.6 %; Nucleated Red Blood Cells 0.9 /100 WBC (0)
[2019-03-09 07:15] LABS: Basophils % 0.4 %; Eosinophils # 0.2 K/mcL (0.0-0.6); Hematocrit 28.4 % (37.5-50.1); Hemoglobin 7.9 g/dL (12.9-16.9); Immature Granulocytes % 0.5 % (0-4); Lymphocytes # 0.4 K/mcL (0.6-4.6); Lymphocytes % 7.4 %; Mean Corpuscular HGB Conc 27.8 g/dL (31.6-35.5); Mean Corpuscular Hemoglobin 24.1 pg (28.0-33.3); Mean Corpuscular Volume 86.6 fL (83.0-100.0); Mean Platelet Volume 10.5 fL (9.4-12.4); Monocytes # 0.5 K/mcL (0.0-1.3); Monocytes % 9.7 %; Neutrophils # 4.4 K/mcL (1.6-8.9); Platelet Count 214 K/mcL (140-400); Red Blood Count 3.28 M/mcL (4.19-5.50); Red Cell Distribution Width 18.5 % (11.5-14.5); Segmented Neutrophils % 78.4 %; White Blood Count 5.6 K/mcL (4.3-11.1)
[2019-03-09 07:24] LABS: Hypochromasia Present (Not Present); Platelet Estimate Normal (Normal)
[2019-03-09 07:33] LABS: INR 1.8; Prothrombin Time 20.4 Seconds (9.4-12.1)
[2019-03-09] MEDS: Insulin LISPRO 300 UNITS/3 ML VIAL SQ SCH ×4 (07:42→22:17)
[2019-03-09] MEDS: Torsemide 20 MG TABLET PO SCH ×2 (07:46→17:29)
[2019-03-09] MEDS: Aspirin Enteric Coated 81 MG Tablet PO SCH (07:46)
[2019-03-09] MEDS: metOLazone 2.5 MG TABLET PO SCH ×2 (07:46→14:54)
[2019-03-09] MEDS: Lactulose Oral Soln 20 GM/30 ML UDC PO SCH ×4 (07:47→22:18)
[2019-03-09 07:49] LABS: Calcium 8.6 mg/dL (8.6-10.3); Potassium 5.5 mEq/L (3.5-5.1)
[2019-03-09] MEDS ORDERED: Lidocaine -MPF 2% 2 ML VIAL ONE (10:33)
[2019-03-09] MEDS ORDERED: Propofol 500 MG/50 ML INFUS..BTL ONE (10:33)
[2019-03-09] MEDS ORDERED: *HR* Propofol 200 MG/20 ML VIAL IVP ONE (10:33)
[2019-03-09] MEDS ORDERED: *HR* PHENYLEPHRINE 1,000 MCG/10 ML SYRINGE IVP ONE ×2 (10:38→10:58)
[2019-03-09] MEDS ORDERED: Metoclopramide 10 MG/2 ML VIAL IVP PRN (11:30)
[2019-03-09 13:52] LABS: Bilirubin,Urine Negative (Negative); Blood,Urine Negative (Negative); Clarity,Urine Clear (Clear); Color,Urine Yellow (Yellow); Glucose,Urine (UA) Normal (Normal); Ketones,Urine Negative (Negative); Leukocyte Esterase,Urine Negative (Negative); Nitrite,Urine Negative (Negative); PH,Urine 5.5 pH Units (5.0-8.0); Protein,Urine Negative (Neg-Trace); Specific Gravity,Urine 1.015 (1.010-1.025); Urobilinogen,Urine Normal (Normal)
[2019-03-09] MEDS: Iron Sucrose Complex 200 MG in 0.9 % Sodium Chloride 100 ML IVPB SCH (13:52)
[2019-03-09 14:09] LABS: Creatinine,Urine 108 mg/dL; Microalbumin,Urine < 7 mg/L; Protein/Creatinine Ratio,Urine 0.18 mg/mg (0.00-0.20)
[2019-03-09] MEDS: Pantoprazole 40 MG VIAL IVP SCH (17:29)
[2019-03-09] MEDS: Insulin DETEMIR 100 UNIT/ML X5UNITS SQ SCH (22:18)
[2019-03-09] MEDS: Gabapentin 300 MG CAPSULE PO SCH (22:18)
[2019-03-09] MEDS: Melatonin 3 MG TABLET PO SCH (22:19)
[2019-03-10 05:10] LABS: INR 1.7; Prothrombin Time 18.8 Seconds (9.4-12.1)
[2019-03-10 05:28] LABS: Calcium 8.6 mg/dL (8.6-10.3); Potassium 3.6 mEq/L (3.5-5.1)
[2019-03-10] MEDS: Pantoprazole 40 MG VIAL IVP SCH ×2 (05:59→17:53)
[2019-03-10] MEDS ORDERED: Propofol 500 MG/50 ML INFUS..BTL ONE (07:18)
[2019-03-10] MEDS ORDERED: Lidocaine -MPF 2% 2 ML VIAL ONE (07:18)
[2019-03-10] MEDS: Insulin LISPRO 300 UNITS/3 ML VIAL SQ SCH ×4 (07:50→21:08)
[2019-03-10] MEDS ORDERED: *HR* PHENYLEPHRINE 1,000 MCG/10 ML SYRINGE IVP ONE ×3 (08:13→08:34)
[2019-03-10] MEDS: metOLazone 2.5 MG TABLET PO SCH (09:43)
[2019-03-10] MEDS: Lactulose Oral Soln 20 GM/30 ML UDC PO SCH ×4 (10:08→21:09)
[2019-03-10] MEDS: Aspirin Enteric Coated 81 MG Tablet PO SCH (10:08)
[2019-03-10] MEDS: Torsemide 20 MG TABLET PO SCH ×2 (10:08→17:53)
[2019-03-10] MEDS: Iron Sucrose Complex 200 MG in 0.9 % Sodium Chloride 100 ML IVPB SCH (10:36)
[2019-03-10 12:28] LABS: Hematocrit 28.2 % (37.5-50.1); Hemoglobin 8.1 g/dL (12.9-16.9)
[2019-03-10] MEDS ORDERED: *HR* LORazepam 0.5 MG TABLET PO ONE (19:05)
[2019-03-10] MEDS: Melatonin 3 MG TABLET PO SCH (21:14)
[2019-03-10] MEDS: Gabapentin 300 MG CAPSULE PO SCH (21:14)
[2019-03-10] MEDS: Insulin DETEMIR 100 UNIT/ML X5UNITS SQ SCH (21:16)
[2019-03-11 04:55] LABS: Hematocrit 27.4 % (37.5-50.1); Hemoglobin 7.9 g/dL (12.9-16.9)
[2019-03-11 05:13] LABS: Calcium 8.5 mg/dL (8.6-10.3)
[2019-03-11] MEDS: Pantoprazole 40 MG VIAL IVP SCH (05:20)
[2019-03-11] MEDS: Aspirin Enteric Coated 81 MG Tablet PO SCH (09:10)
[2019-03-11] MEDS: metOLazone 2.5 MG TABLET PO SCH (09:10)
[2019-03-11] MEDS: Iron Sucrose Complex 200 MG in 0.9 % Sodium Chloride 100 ML IVPB SCH (09:10)
[2019-03-11] MEDS: Lactulose Oral Soln 20 GM/30 ML UDC PO SCH ×4 (09:11→20:45)
[2019-03-11] MEDS: Insulin LISPRO 300 UNITS/3 ML VIAL SQ SCH ×4 (09:15→20:42)
[2019-03-11] MEDS: Torsemide 20 MG TABLET PO SCH ×2 (09:27→16:55)
[2019-03-11] MEDS: Albumin 25% 25gram/100mL 25 GM/100 ML IV.SOLN IVPB SCH (16:55)
[2019-03-11] MEDS ORDERED: Warfarin perPT PO PRN (18:00)
[2019-03-11] MEDS ORDERED: *HR* Warfarin 2.5 MG TABLET PO ONE (18:00)
[2019-03-11] MEDS: Melatonin 3 MG TABLET PO SCH (20:38)
[2019-03-11] MEDS: Gabapentin 300 MG CAPSULE PO SCH (20:38)
[2019-03-11] MEDS: Insulin DETEMIR 100 UNIT/ML X5UNITS SQ SCH (20:42)
[2019-03-12 06:37] LABS: Hematocrit 27.8 % (37.5-50.1); Hemoglobin 7.9 g/dL (12.9-16.9)
[2019-03-12 06:48] LABS: INR 1.5; Prothrombin Time 16.5 Seconds (9.4-12.1)
[2019-03-12 07:05] LABS: Calcium 8.6 mg/dL (8.6-10.3); Potassium 2.5 mEq/L (3.5-5.1)
[2019-03-12] MEDS: Insulin LISPRO 300 UNITS/3 ML VIAL SQ SCH ×4 (08:14→20:56)
[2019-03-12] MEDS: Aspirin Enteric Coated 81 MG Tablet PO SCH (08:26)
[2019-03-12] MEDS: Lactulose Oral Soln 20 GM/30 ML UDC PO SCH ×4 (08:26→21:02)
[2019-03-12] MEDS: metOLazone 2.5 MG TABLET PO SCH (08:27)
[2019-03-12] MEDS: Albumin 25% 25gram/100mL 25 GM/100 ML IV.SOLN IVPB SCH ×2 (09:48→16:19)
[2019-03-12] MEDS: Torsemide 20 MG TABLET PO SCH ×2 (12:14→18:26)
[2019-03-12] MEDS ORDERED: *HR* Warfarin 2.5 MG TABLET PO ONE (18:00)
[2019-03-12] MEDS: Gabapentin 300 MG CAPSULE PO SCH (21:05)
[2019-03-12] MEDS: Melatonin 3 MG TABLET PO SCH (21:05)
[2019-03-12] MEDS: Insulin DETEMIR 100 UNIT/ML X5UNITS SQ SCH (21:06)
[2019-03-13 00:57] LABS: Hemoglobin 8.2 g/dL (12.9-16.9)
[2019-03-13 00:58] LABS: Hematocrit 28.6 % (37.5-50.1); Mean Corpuscular HGB Conc 28.7 g/dL (31.6-35.5); Mean Corpuscular Hemoglobin 25.5 pg (28.0-33.3); Mean Corpuscular Volume 88.8 fL (83.0-100.0); Platelet Count 226 K/mcL (140-400); Red Blood Count 3.22 M/mcL (4.19-5.50); Red Cell Distribution Width 21.2 % (11.5-14.5); White Blood Count 8.9 K/mcL (4.3-11.1)
[2019-03-13 01:20] LABS: Calcium 8.9 mg/dL (8.6-10.3); Potassium 3.2 mEq/L (3.5-5.1)
[2019-03-13] MEDS ORDERED: Potassium Chloride 20 MEQ, Lidocaine 1% 2 ML in 0.9 % Sodium Chloride 250 ML IVPB ONE (01:37)
[2019-03-13 01:57] LABS: INR 1.4; Prothrombin Time 16.4 Seconds (9.4-12.1)
[2019-03-13] MEDS ORDERED: Potassium Chloride Elixir 20 MEQ/15 ML UDC PO ONE (02:28)
[2019-03-13] MEDS: Lactulose Oral Soln 20 GM/30 ML UDC PO SCH ×4 (08:04→20:00)
[2019-03-13] MEDS: Albumin 25% 25gram/100mL 25 GM/100 ML IV.SOLN IVPB SCH ×2 (08:04→16:09)
[2019-03-13] MEDS: Aspirin Enteric Coated 81 MG Tablet PO SCH (08:09)
[2019-03-13] MEDS: Insulin LISPRO 300 UNITS/3 ML VIAL SQ SCH ×4 (08:10→20:39)
[2019-03-13] MEDS: metOLazone 2.5 MG TABLET PO SCH (09:39)
[2019-03-13] MEDS: Torsemide 20 MG TABLET PO SCH ×2 (10:15→18:28)
[2019-03-13] MEDS ORDERED: *HR* Warfarin 5 MG TABLET PO ONE (18:00)
[2019-03-13] MEDS: Gabapentin 300 MG CAPSULE PO SCH (20:00)
[2019-03-13] MEDS: Melatonin 3 MG TABLET PO SCH (20:00)
[2019-03-13] MEDS: Insulin DETEMIR 100 UNIT/ML X5UNITS SQ SCH (21:22)
[2019-03-14 05:16] LABS: Immature Granulocytes % 0.3 % (0-4); Platelet Count 198 K/mcL (140-400)
[2019-03-14 05:17] LABS: Hematocrit 27.3 % (37.5-50.1); Hemoglobin 7.6 g/dL (12.9-16.9); Mean Corpuscular HGB Conc 27.8 g/dL (31.6-35.5); Mean Corpuscular Hemoglobin 25.3 pg (28.0-33.3); White Blood Count 6.1 K/mcL (4.3-11.1)
[2019-03-14 05:18] LABS: Basophils % 0.7 %; Eosinophils # 0.2 K/mcL (0.0-0.6); Eosinophils % 3.3 %; Lymphocytes # 0.5 K/mcL (0.6-4.6); Lymphocytes % 8.5 %; Mean Platelet Volume 9.7 fL (9.4-12.4); Monocytes # 0.6 K/mcL (0.0-1.3); Monocytes % 10.3 %; Neutrophils # 4.7 K/mcL (1.6-8.9); Nucleated Red Blood Cells 0.3 /100 WBC (0); Red Cell Distribution Width 22.5 % (11.5-14.5); Segmented Neutrophils % 76.9 %
[2019-03-14 05:26] LABS: INR 1.6; Prothrombin Time 18.4 Seconds (9.4-12.1)
[2019-03-14 05:34] LABS: Potassium 3.2 mEq/L (3.5-5.1)
[2019-03-14 05:57] LABS: Polychromasia 1+ (Not Present)
[2019-03-14 05:58] LABS: Anisocytosis 2+ (Not Present); Hypochromasia Present (Not Present); Macrocytosis Present (Not Present)
[2019-03-14 05:59] LABS: Platelet Estimate Normal (Normal)
[2019-03-14] MEDS: Lactulose Oral Soln 20 GM/30 ML UDC PO SCH (08:49)
[2019-03-14] MEDS: metOLazone 2.5 MG TABLET PO SCH (08:49)
[2019-03-14] MEDS: Torsemide 20 MG TABLET PO SCH (08:49)
[2019-03-14] MEDS: Aspirin Enteric Coated 81 MG Tablet PO SCH (08:49)
[2019-03-14] MEDS: Albumin 25% 25gram/100mL 25 GM/100 ML IV.SOLN IVPB SCH (08:54)
[2019-03-14] MEDS: Insulin LISPRO 300 UNITS/3 ML VIAL SQ SCH ×2 (08:55→14:25)
[2019-03-14 12:52] VITALS: BP 115/50
[2019-03-14] MEDS ORDERED: *HR* Warfarin 2.5 MG TABLET PO ONE (18:00)
== END 2019-03-14 14:34 | disposition home or self-care (01) | DRG 291 ==
LOC: 2ANU 08:39 → EMEROOARM 08:39 → SUATTDRO 11:04 → 2ANU 11:47 → 2NENU 03-07 13:16 → SUATTDRO 03-08 18:34
PROVIDERS: ADMIT Internal Medicine Nephrology; ATTEND Family Medicine
PROC: ENDOEBX (2019-03-09 09:00)

== ENCOUNTER 2019-03-19 16:25 | Inpatient (IN) ==
--- NOTE | 2019-03-19 16:36 | Emergency Department Note ---
Disposition Clinical Impression: Hepatic encephalopathy Disposition: Admitted As Inpatient Condition: Fair Time of Disposition: 00:37 General Adult HPI - General Chief complaint: ED Altered Mental Status Stated complaint: AMS Time Seen by Provider: 03/19/19 16:26 - Related Data Home Medications Medication Instructions Recorded Confirmed Ezetimibe 10 mg PO QAM 05/16/17 03/19/19 Insulin Glargine,Hum.rec.anlog 70 unit SQ HS PRN 05/16/17 03/19/19 [Lantus Solostar] Simvastatin [Zocor] 40 mg PO QPM 02/11/18 03/19/19 Melatonin 10 mg PO HS 07/06/18 03/19/19 Warfarin [Coumadin] 2.5 mg PO SUMOTUWETHSA 07/06/18 03/19/19 Allopurinol [Zyloprim 100 MG] 100 mg PO DAILY #0 09/11/18 03/19/19 Omeprazole [PriLOSEC] 20 mg PO DAILY@0730 11/12/18 03/19/19 Gabapentin [Neurontin] 300 mg PO HS 12/18/18 03/19/19 Aspirin [Adult Aspirin Regimen] 81 mg PO QAM 01/03/19 03/19/19 [place]-3/Dha/Epa/Fish Oil [Fish Oil 1 cap PO QAM 01/03/19 03/19/19 1,000 mg Softgel] Cyclobenzaprine [Flexeril] 10 mg PO TID PRN 03/06/19 03/19/19 Lactulose [Enulose] 50 ml PO QID 03/06/19 03/19/19 Meclizine [Antivert] 12.5 mg PO TID PRN 03/06/19 03/19/19 Ondansetron [Zofran ODT] 8 mg SL Q8H PRN 03/06/19 03/19/19 Torsemide [Demadex] 40 mg PO 0800,1200,1800 03/06/19 03/19/19 Warfarin [Coumadin] 5 mg PO FR 03/19/19 03/19/19 metOLazone [Zaroxolyn] 2.5 mg PO DAILY@0730 03/19/19 03/19/19 Previous Rx's Medication Instructions Recorded Midodrine [ProAmatine] 5 mg PO 0800,1200,1700 7 Days #21 03/14/19 tablet Potassium Chloride 40 meq PO TID 10 Days #30 03/14/19 tab.er.prt Allergies Allergy/AdvReac Type Severity Reaction Status Date / Time Amoxicillin [From Augmentin] AdvReac Diarrhea Verified 01/03/19 16:40 clavulanic acid AdvReac Diarrhea Verified 01/03/19 16:40 [From Augmentin] oxycodone [From Percocet] AdvReac Itching Verified 01/03/19 16:40 Past Medical History - Past Medical History Medical history: Reports: arthritis, atrial fibrillation, cardiomyopathy, cirrhosis, CHF, diabetes, GERD, hyperlipidemia, liver disease, renal disease Surgical history: Reports: pacemaker/AICD Psychiatric history: Reports: no psych history - Social History Smoking Status: Former smoker Smokeless Tobacco Status: No Alcohol use: Reports: none Drug use: Reports: none Course Vital Signs Temperature 97.8 F 03/19/19 16:31 Pulse Rate 73 03/19/19 16:31 Respiratory Rate 18 03/19/19 16:31 Blood Pressure 93/57 03/19/19 16:31 O2 Sat by Pulse Oximetry 95 03/19/19 16:31 Temperature 97.4 F L 03/19/19 20:22 Pulse Rate 74 03/19/19 20:22 Respiratory Rate 15 03/19/19 20:22 Blood Pressure 99/61 03/19/19 20:22 O2 Sat by Pulse Oximetry 95 03/19/19 20:22 Oxygen Delivery Oxygen Delivery Room Air Medical Decision Making - Lab Data Result diagrams: 03/19/19 20:51 03/19/19 16:55 Lab Results 03/19/19 03/19/19 03/19/19 Range/Units 16:55 16:55 16:55 WBC 6.3 (4.3-11.1) K/mcL RBC 3.29 L (4.19-5.50) M/mcL Hgb 8.3 L (12.9-16.9) g/dL Hct 28.5 L (37.5-50.1) % MCV 86.6 (83.0-100.0) fL MCH 25.2 L (28.0-33.3) pg MCHC 29.1 L (31.6-35.5) g/dL RDW 22.5 H (11.5-14.5) % Plt Count 207 (140-400) K/mcL MPV 10.0 (9.4-12.4) fL Immature Gran % 0.3 (0-4) % Seg Neutrophils % 79.0 % Lymphocytes % 6.7 % Monocytes % 11.7 % Eosinophils % 1.7 % Basophils % 0.6 % Neutrophils # 5.0 (1.6-8.9) K/mcL Lymphocytes # 0.4 L (0.6-4.6) K/mcL Monocytes # 0.7 (0.0-1.3) K/mcL Eosinophils # 0.1 (0.0-0.6) K/mcL Basophils # 0.0 (0.0-0.2) K/mcL PT 31.0 H D (9.4-12.1) Seconds INR 2.7 D APTT 33.8 (26.0-36.0) Seconds Sodium (136-145) mEq/L Potassium (3.5-5.1) mEq/L Chloride (98-107) mEq/L Carbon Dioxide (23-29) mEq/L BUN (8-23) mg/dL Creatinine (0.70-1.30) mg/dL Est GFR ( Amer) (> 60) Est GFR (Non-Af Amer) (> 60) BUN/Creatinine Ratio (6-26) Glucose (70-105) mg/dL Calculated Osmolality (280-300) Calcium (8.6-10.3) mg/dL Total Bilirubin (0.3-1.0) mg/dL Direct Bilirubin (0.0-0.2) mg/dL Indirect Bilirubin (0.0-1.2) mg/dL AST (13-39) Units/L ALT (7-52) Units/L Alkaline Phosphatase (34-104) Units/L Ammonia 101 H (16-53) mcmol/L Troponin I (< 0.04) ng/mL Serum Total Protein (6.4-8.9) g/dL Albumin (3.5-5.7) g/dL Globulin (2.4-3.5) g/dL Albumin/Globulin Ratio (1.1-2.2) Urine Color (Yellow) Urine Clarity (Clear) Urine pH (5.0-8.0) pH Units Ur Specific [place] (1.010-1.025) Urine Protein (Neg-Trace) mg/dL Urine Glucose (UA) (Normal) mg/dL Urine Ketones (Negative) mg/dL Urine Blood (Negative) Urine Nitrite (Negative) Urine Bilirubin (Negative) Urine Urobilinogen (Normal) mg/dL Ur Leukocyte Esterase (Negative) Ur Culture Indicated? (NO) Urine Opiates Screen (Ppjcux=788) ng/mL Ur Buprenorphine Scrn (Cutoff=5) ng/mL Ur Barbiturates Screen (Gilvlp=182) ng/mL Ur Phencyclidine Scrn (Cutoff=25) ng/mL Ur Amphetamines Screen (Eauide=2330) ng/mL U Benzodiazepines Scrn (Mcgsqx=116) ng/mL Urine Cocaine Screen (Cutoff= 300) ng/mL U Marijuana (THC) Screen (Cutoff = 50) ng/mL Ur Drug Screen Interp Ethyl Alcohol (Less than 10) mg/dL 03/19/19 03/19/19 03/19/19 Range/Units 16:55 17:39 17:41 WBC (4.3-11.1) K/mcL RBC (4.19-5.50) M/mcL Hgb (12.9-16.9) g/dL Hct (37.5-50.1) % MCV (83.0-100.0) fL MCH (28.0-33.3) pg MCHC (31.6-35.5) g/dL RDW (11.5-14.5) % Plt Count (140-400) K/mcL MPV (9.4-12.4) fL Immature Gran % (0-4) % Seg Neutrophils % % Lymphocytes % % Monocytes % % Eosinophils % % Basophils % % Neutrophils # (1.6-8.9) K/mcL Lymphocytes # (0.6-4.6) K/mcL Monocytes # (0.0-1.3) K/mcL Eosinophils # (0.0-0.6) K/mcL Basophils # (0.0-0.2) K/mcL PT (9.4-12.1) Seconds INR APTT (26.0-36.0) Seconds Sodium 139 (136-145) mEq/L Potassium 2.9 L (3.5-5.1) mEq/L Chloride 96 L (98-107) mEq/L Carbon Dioxide 33 H (23-29) mEq/L BUN 68 H (8-23) mg/dL Creatinine 2.56 H (0.70-1.30) mg/dL Est GFR ( Amer) 31 L (> 60) Est GFR (Non-Af Amer) 26 L (> 60) BUN/Creatinine Ratio 27 H (6-26) Glucose 122 H (70-105) mg/dL Calculated Osmolality 309 H (280-300) Calcium 8.9 (8.6-10.3) mg/dL Total Bilirubin 1.1 H (0.3-1.0) mg/dL Direct Bilirubin 0.5 H (0.0-0.2) mg/dL Indirect Bilirubin 0.6 (0.0-1.2) mg/dL AST 27 (13-39) Units/L ALT 15 (7-52) Units/L Alkaline Phosphatase 62 (34-104) Units/L Ammonia (16-53) mcmol/L Troponin I 0.08 H* (< 0.04) ng/mL Serum Total Protein 5.1 L (6.4-8.9) g/dL Albumin 3.1 L (3.5-5.7) g/dL Globulin 2.0 L (2.4-3.5) g/dL Albumin/Globulin Ratio 1.6 (1.1-2.2) Urine Color Yellow (Yellow) Urine Clarity Clear (Clear) Urine pH 5.5 (5.0-8.0) pH Units Ur Specific [place] 1.012 (1.010-1.025) Urine Protein Negative (Neg-Trace) mg/dL Urine Glucose (UA) Normal (Normal) mg/dL Urine Ketones Negative (Negative) mg/dL Urine Blood Negative (Negative) Urine Nitrite Negative (Negative) Urine Bilirubin Negative (Negative) Urine Urobilinogen Normal (Normal) mg/dL Ur Leukocyte Esterase Negative (Negative) Ur Culture Indicated? NO (NO) Urine Opiates Screen Negative (Ytvold=387) ng/mL Ur Buprenorphine Scrn Negative (Cutoff=5) ng/mL Ur Barbiturates Screen Negative (Jgmjqx=721) ng/mL Ur Phencyclidine Scrn Negative (Cutoff=25) ng/mL Ur Amphetamines Screen Negative (Kqhtnh=2026) ng/mL U Benzodiazepines Scrn Negative (Pyddwx=762) ng/mL Urine Cocaine Screen Negative (Cutoff= 300) ng/mL U Marijuana (THC) Screen Negative (Cutoff = 50) ng/mL Ur Drug Screen Interp See Below Ethyl Alcohol < 10 (Less than 10) mg/dL Critical Care Time Critical Care Time: Yes Total Critical Care Time: 30 Attestation: The high probability of a clinically significant, sudden or life threatening deterioration of the [] system(s) required my full and direct attention, intervention and personal management. The aggregate critical care time was [] minutes. This time is in addition to time spent performing reported procedures but includes the following: [] Data Review and interpretation [] Patient assessment and monitoring of vital signs [] Documentation [] Medication orders and management Attestation Statement - Attestation Attestation: I reviewed the residents documentation and agree with the residents assessment and plan of care. I have personally had face to face time with the patient. (Brief History, Brief Exam, and MDM) I personally supervised and was present for the arevalo/critical portions of the following procedures completed by the resident: (add procedures performed here). [id number] time provided Patient arrives by EMS. It was reported that he has not been taking his medications as prescribed. He had a recent admission for a CHF exacerbation. Recent discharge summary reviewed by me. I attest to supervising the resident physician's interpretation of ECG 18:00: The patient is confused. He is unable to repeat back to me why described concern, has plan of medical care, and his alternatives. He seems e ncephalopathic. His spouse Viola is upset that she cannot care for him at home. I do not feel the patient can fully understand the nature of his decisions. He will be placed on a medical hold and admitted for further treatment and evaluation
--- NOTE | 2019-03-19 16:48 | Emergency Department Note ---
Disposition Clinical Impression: Hepatic encephalopathy Disposition: Admitted As Inpatient Condition: Fair Time of Disposition: 18:30 Altered Mental Status HPI - General Chief Complaint: ED Altered Mental Status Stated Complaint: AMS Time Seen by Provider: 03/19/19 16:26 Source: patient, EMS Mode of arrival: EMS Limitations: altered mental status Nursing Notes Reviewed: Yes Vital Signs Reviewed: Yes - History of Present Illness HPI Narrative: Patient is 63 yo man released from hospital on who was brought to ED 03/19/19 at request of his who noted AMS that started this morning. She said he is exhibiting the usual signs of confusion, aggression and belligerence associated with hyperammonemia that results when he stops taking lactulose, which he has not taken since Monday apart from 1 dose today. She said he is also on warfarin and has a pacemaker for afib. - Related Data Home Medications Medication Instructions Recorded Confirmed Ezetimibe 10 mg PO QAM 05/16/17 03/06/19 Insulin Glargine,Hum.rec.anlog 70 unit SQ HS PRN 05/16/17 03/07/19 [Lantus Solostar] Simvastatin [Zocor] 40 mg PO QPM 02/11/18 03/06/19 Melatonin 10 mg PO HS 07/06/18 03/06/19 Warfarin [Coumadin] 2.5 mg PO DAILY@1800 07/06/18 03/06/19 Allopurinol [Zyloprim 100 MG] 100 mg PO DAILY #0 09/11/18 03/06/19 Omeprazole [PriLOSEC] 20 mg PO DAILY@0730 11/12/18 03/06/19 Gabapentin [Neurontin] 300 mg PO HS 12/18/18 03/06/19 Aspirin [Adult Aspirin Regimen] 81 mg PO QAM 01/03/19 03/07/19 [place]-3/Dha/Epa/Fish Oil [Fish Oil 1 cap PO QAM 01/03/19 03/06/19 1,000 mg Softgel] Cyclobenzaprine [Flexeril] 10 mg PO TID PRN 03/06/19 03/06/19 Lactulose [Enulose] 50 ml PO QID 03/06/19 03/06/19 Meclizine [Antivert] 12.5 mg PO TID PRN 03/06/19 03/06/19 Ondansetron [Zofran ODT] 8 mg SL Q8H PRN 03/06/19 03/06/19 Torsemide [Demadex] 40 mg PO 0800,1200,1800 03/06/19 03/06/19 metOLazone [Zaroxolyn] 2.5 mg PO DAILY PRN 03/06/19 03/06/19 Previous Rx's Medication Instructions Recorded Midodrine [ProAmatine] 5 mg PO 0800,1200,1700 7 Days #21 03/14/19 tablet Potassium Chloride 40 meq PO TID 10 Days #30 03/14/19 tab.er.prt metOLazone [Zaroxolyn] 2.5 mg PO DAILY 14 Days #14 tablet 03/14/19 Allergies Allergy/AdvReac Type Severity Reaction Status Date / Time Amoxicillin [From Augmentin] AdvReac Diarrhea Verified 01/03/19 16:40 clavulanic acid AdvReac Diarrhea Verified 01/03/19 16:40 [From Augmentin] oxycodone [From Percocet] AdvReac Itching Verified 01/03/19 16:40 Past Medical History - Past Medical History Medical history: Reports: arthritis, atrial fibrillation, cardiomyopathy, cirrhosis, CHF, diabetes, GERD, hyperlipidemia, liver disease, renal disease Surgical history: Reports: pacemaker/AICD Psychiatric history: Reports: no psych history - Social History Smoking Status: Former smoker Smokeless Tobacco Status: No Alcohol use: Reports: none Drug use: Reports: none Physical Exam PE Gen: AOx2 (name, location) HEENT: No lymphadenopathy, no erythema, no edema. Pupils equal and reactive. Cardio: Regular rate and rhythm, no murmur, no peripheral edema, goood perfusion to all extremities, no cyanosis Resp: Equal breath sounds bilaterally, no wheeze, no cough GI: Abdomen soft, nondistended, nontender to palpation. No ecchymoses, no rash. : No suprapubic tenderness or distention MSK: Normal ROM, no joint swelling or erythema Neuro: CNI-XII intact, strength and sensation WNL Psych: Belligerent, not able to express understanding of medical condition - General Limitations: altered mental status General appearance: alert Course Vital Signs Temperature 97.8 F 03/19/19 16:31 Pulse Rate 73 03/19/19 16:31 Respiratory Rate 18 03/19/19 16:31 Blood Pressure 93/57 03/19/19 16:31 O2 Sat by Pulse Oximetry 95 03/19/19 16:31 Temperature 97.8 F 03/19/19 16:31 Pulse Rate 87 03/19/19 18:38 Respiratory Rate 16 03/19/19 18:38 Blood Pressure 104/65 03/19/19 18:38 O2 Sat by Pulse Oximetry 95 03/19/19 18:38 Oxygen Delivery Oxygen Delivery Room Air Altered Mental Status - MDM Narrative Medical decision making narrative: Ammonia 101, troponin appears chronically elevated at 0.08 without STEMI on EKG. Patient does not endorse CP or SOB. Patient did not express understanding of medical condition, and continued to be belligerent while stating nothing was wrong with him. Patient sedated with Geodon. Will trial 30gm lactulose PO. Decision made to admit on medical hold. Family agreed with plan; hospitalist Dr. Muller accepted admission. - Medical Records Medical records reviewed: Yes I reviewed the patient's medical records. - Lab Data Lab results reviewed: Yes I reviewed the patient's lab results. Result diagrams: 03/19/19 16:55 03/19/19 16:55 Lab Results 03/19/19 03/19/19 03/19/19 Range/Units 16:55 16:55 16:55 WBC 6.3 (4.3-11.1) K/mcL RBC 3.29 L (4.19-5.50) M/mcL Hgb 8.3 L (12.9-16.9) g/dL Hct 28.5 L (37.5-50.1) % MCV 86.6 (83.0-100.0) fL MCH 25.2 L (28.0-33.3) pg MCHC 29.1 L (31.6-35.5) g/dL RDW 22.5 H (11.5-14.5) % Plt Count 207 (140-400) K/mcL MPV 10.0 (9.4-12.4) fL Immature Gran % 0.3 (0-4) % Seg Neutrophils % 79.0 % Lymphocytes % 6.7 % Monocytes % 11.7 % Eosinophils % 1.7 % Basophils % 0.6 % Neutrophils # 5.0 (1.6-8.9) K/mcL Lymphocytes # 0.4 L (0.6-4.6) K/mcL Monocytes # 0.7 (0.0-1.3) K/mcL Eosinophils # 0.1 (0.0-0.6) K/mcL Basophils # 0.0 (0.0-0.2) K/mcL PT 31.0 H D (9.4-12.1) Seconds INR 2.7 D APTT 33.8 (26.0-36.0) Seconds Sodium (136-145) mEq/L Potassium (3.5-5.1) mEq/L Chloride (98-107) mEq/L Carbon Dioxide (23-29) mEq/L BUN (8-23) mg/dL Creatinine (0.70-1.30) mg/dL Est GFR ( Amer) (> 60) Est GFR (Non-Af Amer) (> 60) BUN/Creatinine Ratio (6-26) Glucose (70-105) mg/dL Calculated Osmolality (280-300) Calcium (8.6-10.3) mg/dL Total Bilirubin (0.3-1.0) mg/dL Direct Bilirubin (0.0-0.2) mg/dL Indirect Bilirubin (0.0-1.2) mg/dL AST (13-39) Units/L ALT (7-52) Units/L Alkaline Phosphatase (34-104) Units/L Ammonia 101 H (16-53) mcmol/L Troponin I (< 0.04) ng/mL Serum Total Protein (6.4-8.9) g/dL Albumin (3.5-5.7) g/dL Globulin (2.4-3.5) g/dL Albumin/Globulin Ratio (1.1-2.2) Urine Color (Yellow) Urine Clarity (Clear) Urine pH (5.0-8.0) pH Units Ur Specific [place] (1.010-1.025) Urine Protein (Neg-Trace) mg/dL Urine Glucose (UA) (Normal) mg/dL Urine Ketones (Negative) mg/dL Urine Blood (Negative) Urine Nitrite (Negative) Urine Bilirubin (Negative) Urine Urobilinogen (Normal) mg/dL Ur Leukocyte Esterase (Negative) Ur Culture Indicated? (NO) Urine Opiates Screen (Hufggs=361) ng/mL Ur Buprenorphine Scrn (Cutoff=5) ng/mL Ur Barbiturates Screen (Swewjn=849) ng/mL Ur Phencyclidine Scrn (Cutoff=25) ng/mL Ur Amphetamines Screen (Mmmopk=6454) ng/mL U Benzodiazepines Scrn (Lnokrg=149) ng/mL Urine Cocaine Screen (Cutoff= 300) ng/mL U Marijuana (THC) Screen (Cutoff = 50) ng/mL Ur Drug Screen Interp Ethyl Alcohol (Less than 10) mg/dL 03/19/19 03/19/19 03/19/19 Range/Units 16:55 17:39 17:41 WBC (4.3-11.1) K/mcL RBC (4.19-5.50) M/mcL Hgb (12.9-16.9) g/dL Hct (37.5-50.1) % MCV (83.0-100.0) fL MCH (28.0-33.3) pg MCHC (31.6-35.5) g/dL RDW (11.5-14.5) % Plt Count (140-400) K/mcL MPV (9.4-12.4) fL Immature Gran % (0-4) % Seg Neutrophils % % Lymphocytes % % Monocytes % % Eosinophils % % Basophils % % Neutrophils # (1.6-8.9) K/mcL Lymphocytes # (0.6-4.6) K/mcL Monocytes # (0.0-1.3) K/mcL Eosinophils # (0.0-0.6) K/mcL Basophils # (0.0-0.2) K/mcL PT (9.4-12.1) Seconds INR APTT (26.0-36.0) Seconds Sodium 139 (136-145) mEq/L Potassium 2.9 L (3.5-5.1) mEq/L Chloride 96 L (98-107) mEq/L Carbon Dioxide 33 H (23-29) mEq/L BUN 68 H (8-23) mg/dL Creatinine 2.56 H (0.70-1.30) mg/dL Est GFR ( Amer) 31 L (> 60) Est GFR (Non-Af Amer) 26 L (> 60) BUN/Creatinine Ratio 27 H (6-26) Glucose 122 H (70-105) mg/dL Calculated Osmolality 309 H (280-300) Calcium 8.9 (8.6-10.3) mg/dL Total Bilirubin 1.1 H (0.3-1.0) mg/dL Direct Bilirubin 0.5 H (0.0-0.2) mg/dL Indirect Bilirubin 0.6 (0.0-1.2) mg/dL AST 27 (13-39) Units/L ALT 15 (7-52) Units/L Alkaline Phosphatase 62 (34-104) Units/L Ammonia (16-53) mcmol/L Troponin I 0.08 H* (< 0.04) ng/mL Serum Total Protein 5.1 L (6.4-8.9) g/dL Albumin 3.1 L (3.5-5.7) g/dL Globulin 2.0 L (2.4-3.5) g/dL Albumin/Globulin Ratio 1.6 (1.1-2.2) Urine Color Yellow (Yellow) Urine Clarity Clear (Clear) Urine pH 5.5 (5.0-8.0) pH Units Ur Specific [place] 1.012 (1.010-1.025) Urine Protein Negative (Neg-Trace) mg/dL Urine Glucose (UA) Normal (Normal) mg/dL Urine Ketones Negative (Negative) mg/dL Urine Blood Negative (Negative) Urine Nitrite Negative (Negative) Urine Bilirubin Negative (Negative) Urine Urobilinogen Normal (Normal) mg/dL Ur Leukocyte Esterase Negative (Negative) Ur Culture Indicated? NO (NO) Urine Opiates Screen Negative (Qkhdzq=255) ng/mL Ur Buprenorphine Scrn Negative (Cutoff=5) ng/mL Ur Barbiturates Screen Negative (Ebvbyb=474) ng/mL Ur Phencyclidine Scrn Negative (Cutoff=25) ng/mL Ur Amphetamines Screen Negative (Cdcous=4002) ng/mL U Benzodiazepines Scrn Negative (Brpqow=786) ng/mL Urine Cocaine Screen Negative (Cutoff= 300) ng/mL U Marijuana (THC) Screen Negative (Cutoff = 50) ng/mL Ur Drug Screen Interp See Below Ethyl Alcohol < 10 (Less than 10) mg/dL - EKG Data EKG attestation: Yes I reviewed and interpreted this EKG. Interpretation: no acute changes (No concordance/discordance meeting criteria; paced), nonspecific ST-T wave changes (03/13/19) TPA Checklist - LKW: 3-4.5 hrs Add. Warnings/Precautions Patient/family understanding: The patient/family members have been counseled and understood the risk, benefit, and alternatives of treatment.
[2019-03-19 17:09] LABS: Basophils % 0.6 %; Eosinophils # 0.1 K/mcL (0.0-0.6); Eosinophils % 1.7 %; Hematocrit 28.5 % (37.5-50.1); Hemoglobin 8.3 g/dL (12.9-16.9); Immature Granulocytes % 0.3 % (0-4); Lymphocytes # 0.4 K/mcL (0.6-4.6); Lymphocytes % 6.7 %; Mean Corpuscular HGB Conc 29.1 g/dL (31.6-35.5); Mean Corpuscular Hemoglobin 25.2 pg (28.0-33.3); Mean Corpuscular Volume 86.6 fL (83.0-100.0); Monocytes # 0.7 K/mcL (0.0-1.3); Monocytes % 11.7 %; Platelet Count 207 K/mcL (140-400); Red Blood Count 3.29 M/mcL (4.19-5.50); Red Cell Distribution Width 22.5 % (11.5-14.5); White Blood Count 6.3 K/mcL (4.3-11.1)
[2019-03-19 17:17] LABS: Activated Partial Thrombo Time 33.8 Seconds (26.0-36.0)
[2019-03-19 17:26] LABS: INR 2.7
[2019-03-19 17:30] LABS: Alanine Aminotransferase 15 Units/L (7-52); Albumin 3.1 g/dL (3.5-5.7); Albumin/Globulin Ratio 1.6 (1.1-2.2); Alkaline Phosphatase 62 Units/L (34-104); Aspartate Amino Transferase 27 Units/L (13-39); BUN/Creatinine Ratio 27 (6-26); Bilirubin,Direct 0.5 mg/dL (0.0-0.2); Bilirubin,Indirect 0.6 mg/dL (0.0-1.2); Bilirubin,Total 1.1 mg/dL (0.3-1.0); Blood Urea Nitrogen 68 mg/dL (8-23); Calcium 8.9 mg/dL (8.6-10.3); Carbon Dioxide 33 mEq/L (23-29); Chloride 96 mEq/L (98-107); Ethanol < 10 mg/dL (Less than 10); Glucose 122 mg/dL (70-105); Osmolality,Calculated 309 (280-300); Potassium 2.9 mEq/L (3.5-5.1); Sodium 139 mEq/L (136-145); Total Protein 5.1 g/dL (6.4-8.9); Troponin I 0.08 ng/mL (< 0.04); eGFR For African Americans 31 (> 60); eGFR For Non-African Americans 26 (> 60)
[2019-03-19] MEDS ORDERED: Ziprasidone 20 MG in Water for inj. (sterile) 1 ML IM ONE (17:50)
[2019-03-19] MEDS ORDERED: Water for inj. (sterile) 10 ML ONE (17:51)
[2019-03-19] MEDS ORDERED: Ziprasidone 20 MG/VIAL VIAL IM ONE (17:51)
[2019-03-19 17:55] LABS: Bilirubin,Urine Negative (Negative); Blood,Urine Negative (Negative); Clarity,Urine Clear (Clear); Color,Urine Yellow (Yellow); Glucose,Urine (UA) Normal (Normal); Ketones,Urine Negative (Negative); Leukocyte Esterase,Urine Negative (Negative); Nitrite,Urine Negative (Negative); PH,Urine 5.5 pH Units (5.0-8.0); Protein,Urine Negative (Neg-Trace); Specific Gravity,Urine 1.012 (1.010-1.025); Urobilinogen,Urine Normal (Normal)
[2019-03-19 18:00] LABS: Amphetamine Screen,Urine Negative ng/mL (Cutoff=1000); Barbiturate Screen,Urine Negative ng/mL (Cutoff=200); Benzodiazepines Screen,Urine Negative ng/mL (Cutoff=200); Cannabinoid Screen,Urine Negative ng/mL (Cutoff = 50); Cocaine Screen,Urine Negative ng/mL (Cutoff= 300); Opiate Screen,Urine Negative ng/mL (Cutoff=300); Phencyclidine Screen,Urine Negative ng/mL (Cutoff=25)
[2019-03-19] MEDS ORDERED: 0.9 % Sodium Chloride 1,000 ML IVC ONE (18:06)
[2019-03-19] MEDS ORDERED: *HR* LORazepam 2 MG/ML VIAL IVP ONE (18:13)
[2019-03-19] MEDS ORDERED: *HR* LORazepam 2 MG/ML VIAL ONE (18:14)
[2019-03-19] MEDS ORDERED: Lactulose Oral Soln 20 GM/30 ML UDC PO ONE (18:42)
[2019-03-19] MEDS ORDERED: Naloxone 0.4 MG/ML INJ IVP PRN (19:44)
[2019-03-19] MEDS ORDERED: Ondansetron ODT 4 MG TAB.RAPDIS SL PRN (19:44)
--- NOTE | 2019-03-19 21:07 | Internal Med History&Physical ---
Date of Encounter: 03/19/19 Time of Encounter: 21:04 Internal Medicine - H&P: HPI History of present illness: Mr. Pace is a 63 year old male presented from the ED with encephalopathy. History is unable to be obtained due to patient's current condition. Multiple attempts to contact family via phone with no response. Case discussed with ED provider. Past Med Surg Social Fam HX - Past Medical History Medical history: arthritis, atrial fibrillation, cardiomyopathy, cirrhosis, CHF, diabetes, GERD, hyperlipidemia, liver disease, renal disease Additional medical history: Type II Diabetic Psychiatric history: no psych history - Past Surgical History Surgical History: pacemaker/AICD Additional surgical history: PACEMAKER/AICD placement 2000 and 2015. Right ankle surgery - Social History Smoking Status: Former smoker Smokeless Tobacco Status: No Alcohol use: none Drug use: none - Family History Mother Living Status: Hx Family Cardiac Disorders: Yes Hx Family Respiratory Disorders: No Hx Family Cancer: Yes (sister-breast cancer) Hx Family GI Disorders: Yes (mother colonresection with colostomy bag) Hx Family Endocrine Disorder: Yes (Brother DM-diet controlled) Hx Family Neuromuscular Disorders: No Hx Family Neurologic Disorders: No Hx Family HEENT Disorders: No Hx Family Autoimmune Disorders: No Father Living Status: Hx Family Cardiac Disorders: Yes Hx Family Respiratory Disorders: No Hx Family Cancer: No Hx Family GI Disorders: No Hx Family Endocrine Disorder: No Hx Family Neuromuscular Disorders: No Hx Family Neurologic Disorders: No Hx Family HEENT Disorders: No Hx Family Autoimmune Disorders: No Sister Hx Family Cardiac Disorders: Yes (breast) Internal Medicine - H&P: Meds Ezetimibe 10 mg PO QAM 05/16/17 [History] Insulin Glargine,Hum.rec.anlog [Lantus Solostar] 70 unit SQ HS PRN 05/16/17 [History] Simvastatin [Zocor] 40 mg PO QPM 02/11/18 [History] Melatonin 10 mg PO HS 07/06/18 [History] Warfarin [Coumadin] 2.5 mg PO SUMOTUWETHSA 07/06/18 [History] Allopurinol [Zyloprim 100 MG] 100 mg PO DAILY #0 09/11/18 [History] Omeprazole [PriLOSEC] 20 mg PO DAILY@0730 11/12/18 [History] Gabapentin [Neurontin] 300 mg PO HS 12/18/18 [History] Aspirin [Adult Aspirin Regimen] 81 mg PO QAM 01/03/19 [History] [place]-3/Dha/Epa/Fish Oil [Fish Oil 1,000 mg Softgel] 1 cap PO QAM 01/03/19 [History] Cyclobenzaprine [Flexeril] 10 mg PO TID PRN 03/06/19 [History] Lactulose [Enulose] 50 ml PO QID 03/06/19 [History] Meclizine [Antivert] 12.5 mg PO TID PRN 03/06/19 [History] Ondansetron [Zofran ODT] 8 mg SL Q8H PRN 03/06/19 [History] Torsemide [Demadex] 40 mg PO 0800,1200,1800 03/06/19 [History] Midodrine [ProAmatine] 5 mg PO 0800,1200,1700 7 Days #21 tablet 03/14/19 [Rx] Potassium Chloride 40 meq PO TID 10 Days #30 tab.er.prt 03/14/19 [Rx] Warfarin [Coumadin] 5 mg PO FR 03/19/19 [History] metOLazone [Zaroxolyn] 2.5 mg PO DAILY@0730 03/19/19 [History] Allergy/AdvReac Type Severity Reaction Status Date / Time Amoxicillin [From Augmentin] AdvReac Diarrhea Verified 01/03/19 16:40 clavulanic acid AdvReac Diarrhea Verified 01/03/19 16:40 [From Augmentin] oxycodone [From Percocet] AdvReac Itching Verified 01/03/19 16:40 All Systems PM: A 10-system review of systems was performed and is negative for pertinent findings except as documented above in the HPI. Review of systems: Unable to obtain accurately patient is encephalopathic, unable to take medical decision - Constitutional Vitals: Temp Pulse Resp BP Pulse Ox 97.4 F L 74 15 99/61 95 03/19/19 20:22 03/19/19 20:22 03/19/19 20:22 03/19/19 20:22 03/19/19 20:22 Exam: General Appearance: Appearing as age, minimal acute distress. Head: Atraumatic normocephalic Skin: Normal texture, normal turgor, warm, dry. Eyes: Conjunctivae pale with no erythema, drainage, or ulcers. Anicteric. Neck: No Lymphadenopathy in the anterior/posterior cervical chain. No thyromegaly, masses or ulcers. Trachea midline. Heart: RRR, no murmurs. Capillary refill 4 seconds Lungs: No accessory muscle usage, lungs clear to auscultation bilaterally, no wheezes or crackles. Extremities: 2+ pitting edema BL, No clubbing, cyanosis, or ulcers. Abdomen: distended, normoactive bowel sounds. generalized-tender to palpation with fluid shift, no hepatomegally. No guarding. Neuro: AOx1 with no new focal deficits. MSK: Strength 5/5 Upper extremity equal bilaterally. Strength 5/5 Lower extremity equal bilaterally Internal Med - H&P Results - Labs CBC & Chem 7: 03/19/19 20:51 03/19/19 16:55 Labs: Short CBC 03/19/19 Range/Units 16:55 WBC 6.3 (4.3-11.1) K/mcL Hgb 8.3 L (12.9-16.9) g/dL Hct 28.5 L (37.5-50.1) % Plt Count 207 (140-400) K/mcL Neutrophils # 5.0 (1.6-8.9) K/mcL BMP 03/19/19 16:55 Sodium 139 Potassium 2.9 L Chloride 96 L Carbon Dioxide 33 H BUN 68 H Creatinine 2.56 H Glucose 122 H Calcium 8.9 Cardiac Enzymes 03/19/19 Range/Units 16:55 Troponin I 0.08 H* (< 0.04) ng/mL Liver Function 03/19/19 Range/Units 16:55 Total Bilirubin 1.1 H (0.3-1.0) mg/dL Direct Bilirubin 0.5 H (0.0-0.2) mg/dL AST 27 (13-39) Units/L ALT 15 (7-52) Units/L Alkaline Phosphatase 62 (34-104) Units/L Albumin 3.1 L (3.5-5.7) g/dL Urine 03/19/19 Range/Units 17:39 Urine Color Yellow (Yellow) Urine Clarity Clear (Clear) Urine pH 5.5 (5.0-8.0) pH Units Ur Specific [place] 1.012 (1.010-1.025) Urine Protein Negative (Neg-Trace) mg/dL Urine Glucose (UA) Normal (Normal) mg/dL - Impressions ITS Impressions Chest X-Ray 03/19/19 16:34 IMPRESSION: Cardiomegaly with moderate pulmonary edema and bilateral pleural effusions increased since prior. D/ / Georgi Olvera MD / Georgi Olvera MD Interpreting Provider: Georgi Olvera MD - Summary of Assessment and Plan Summary of Assessment and Plan: 1.Encephalopathy-likely hepatic uncomplained with home meds. Suspected SBP thus consultation for IR for diagnostic paracentesis. CT head, bladder scan 600ml , ABG pending. Ammonia elevated, Lactulose TID ordered. Consider increasing and adding rifaximin if unimproved. UDS negative, medications reviewed(concern for flexeril, and gabapentin in the setting of LINO and cirrhosis). 2.Normocytic anemia: Iron panel orderred. Retic/Peripheral smear. No signs of bleeding. 3.Hypokalemia: replaced. 4.Acute on chronic Kidney injury: Urinalysis showing no blood or protein. bladder scan showing elevated 600 ml. Patient was able to urinate after standing. Held allopurinol, gabapentin. Nephro consultation. suspected hepatorenal syndrome. 5.suspected malnutrition: nutrition consult 6.Elevated troponin: Cardiology consultation due to sgabrossa criteria [address] depression >1mm. Personally reviewed EKG and CXR. ventricular paced rhythm. Cardiology consultation. Continue to trend. Chronic dz: Controlled HFrEF EF 30%: hx limited. Continue home med. Chronic Afib: Coumadin 2.5 mg qd. DVT prophylaxis: No evidence of bleeding. on warfarin. Dispo: likely will need 2+ days of stay. - Time Spent With Patient Total time spent is greater than 37 minutes 50% in coordination of care (as documented) at patient's floor/unit and/or counseling patient: Greater than 35 minutes
[2019-03-19 21:08] LABS: Basophils % 0.5 %; Eosinophils # 0.1 K/mcL (0.0-0.6); Eosinophils % 1.2 %; Hemoglobin 8.7 g/dL (12.9-16.9); Immature Granulocytes % 0.3 % (0-4); Lymphocytes # 0.3 K/mcL (0.6-4.6); Lymphocytes % 5.2 %; Mean Corpuscular Hemoglobin 25.1 pg (28.0-33.3); Mean Corpuscular Volume 86.7 fL (83.0-100.0); Mean Platelet Volume 10.1 fL (9.4-12.4); Monocytes # 0.7 K/mcL (0.0-1.3); Monocytes % 11.4 %; Neutrophils # 4.7 K/mcL (1.6-8.9); Platelet Count 196 K/mcL (140-400); Red Blood Count 3.46 M/mcL (4.19-5.50); Red Cell Distribution Width 22.8 % (11.5-14.5); Segmented Neutrophils % 81.4 %; White Blood Count 5.8 K/mcL (4.3-11.1)
[2019-03-19] MEDS ORDERED: *HR* Dextrose 50 % in Water (Syg) 50 ML SYRINGE IVP PRN (21:33)
[2019-03-19] MEDS ORDERED: Dextrose Gel 15 GM/37.5 ML TUBE PO PRN ×2 (21:33)
[2019-03-19] MEDS ORDERED: D5% in Water 1,000 ML IVC PRN (21:33)
[2019-03-19 21:55] LABS: Estimated Average Glucose 120 mg/dl
[2019-03-19] MEDS: Lactulose Oral Soln 20 GM/30 ML UDC PO SCH ×3 (23:12→23:17)
[2019-03-19] MEDS ORDERED: [UNRECOGNIZED DRUG - MIXTURE] RC ONE ×2 (23:27→23:45)
[2019-03-20] MEDS ORDERED: Haloperidol Lactate 5 MG/ML VIAL IM ONE (00:03)
[2019-03-20] MEDS: Insulin LISPRO 300 UNITS/3 ML VIAL SQ SCH ×4 (04:08→17:12)
[2019-03-20 07:24] LABS: INR 2.5; Prothrombin Time 28.2 Seconds (9.4-12.1)
[2019-03-20 07:35] LABS: Albumin/Globulin Ratio 1.8 (1.1-2.2); Bilirubin,Total 1.2 mg/dL (0.3-1.0); Calcium 8.8 mg/dL (8.6-10.3); Globulin 1.7 g/dL (2.4-3.5); Magnesium 1.7 mg/dL (1.6-2.6); Phosphorous 3.5 mg/dL (2.7-4.5); Potassium 2.5 mEq/L (3.5-5.1); Total Protein 4.7 g/dL (6.4-8.9)
[2019-03-20] MEDS ORDERED: NON-FORMULARY MEDICATION 1 EACH EACH (Ondansetron [Zofran Odt] 8 MG) SL PRN (07:56)
[2019-03-20] MEDS ORDERED: NON-FORMULARY MEDICATION 1 EACH EACH (Ezetimibe 10 MG) PO SCH (09:00)
[2019-03-20] MEDS ORDERED: NON-FORMULARY MEDICATION 1 EACH EACH (Omega-3/Dha/Epa/Fish Oil [Fish Oil 1,000 Mg Softgel] PO SCH (09:00)
[2019-03-20] MEDS ORDERED: LACTULOSE PO SCH (09:00)
[2019-03-20] MEDS ORDERED: Torsemide 20 MG TABLET PO SCH (09:00)
--- NOTE | 2019-03-20 09:22 | Nephrology Consult Note ---
Date of Encounter: 03/20/19 Time of Encounter: 09:00 (Time estimated) Assessment and Plan (1) CKD (chronic kidney disease), stage III Current Visit: Yes Status: Acute (2) Encephalopathy Current Visit: Yes Status: Acute (3) Heart failure with reduced ejection fraction Current Visit: Yes Status: Acute Qualifiers: Qualified Code(s): I50.20 - Unspecified systolic (congestive) heart failure (4) Acute kidney injury superimposed on CKD Current Visit: No Status: Acute (5) Hypokalemia Current Visit: No Status: Acute History of Present Illness - History of Present Illness Chart review: Mr. Pace is a 63-year-old male who presented to the ED on 03/19/19 for altered mental status. PMH: Renal disease, CHF, cirrhosis, diabetes, cardiomyopathy, A. fib on warfarin, arthritis, pacemaker/AICD. ED provider exam: A and O to name and location. Belligerent. Cranial nerves intact. Initial vitals significant for: Blood pressure 93/57. Initial labs significant for: Potassium 2.9. Serum carbon dioxide 33. BUN 68 which seems to be within recent range of fluctuation. Creatinine 2.56 from 2.22 on 03/14. Troponin 0.08 from 0.08 on 03/06. Ammonia 101 from 53 on 01/04. UA and urine tox screen unremarkable. Chest x-ray read as: Cardiomegaly with moderate pulmonary edema and bilateral pleural effusions increased since prior. Initial diagnoses included: #Encephalopathy. #Normocytic anemia. #Hypokalemia. #Acute on chronic kidney injury. #Suspected malnutrition. Home medications include: Warfarin. Torsemide 40 mg by mouth 3 times a day. Metolazone 2.5 mg daily. Simvastatin. Potassium chloride 40 mEq 3 times a day. Midodrine. Meclizine. Lactulose 50 mL 4 times daily. Gabapentin. Cyclobenzaprine when necessary. Aspirin. Allopurinol Others: Ondansetron, omeprazole, fish oil caplet, melatonin, insulin, ezetimibe Major Medication changes: Meclizine not active. Gabapentin not active. Cyclobenzaprine not active. ezetamibe not acitve. *family hx, medication list, and allergies auto-populated* Past Med Surg Social Fam HX - Family History Mother Living Status: Hx Family Cardiac Disorders: Yes Hx Family Respiratory Disorders: No Hx Family Cancer: Yes (sister-breast cancer) Hx Family GI Disorders: Yes (mother colonresection with colostomy bag) Hx Family Endocrine Disorder: Yes (Brother DM-diet controlled) Hx Family Neuromuscular Disorders: No Hx Family Neurologic Disorders: No Hx Family HEENT Disorders: No Hx Family Autoimmune Disorders: No Father Living Status: Hx Family Cardiac Disorders: Yes Hx Family Respiratory Disorders: No Hx Family Cancer: No Hx Family GI Disorders: No Hx Family Endocrine Disorder: No Hx Family Neuromuscular Disorders: No Hx Family Neurologic Disorders: No Hx Family HEENT Disorders: No Hx Family Autoimmune Disorders: No Sister Hx Family Cardiac Disorders: Yes (breast) Medications and Allergies Ezetimibe 10 mg PO QAM 05/16/17 [History] Insulin Glargine,Hum.rec.anlog [Lantus Solostar] 70 unit SQ HS PRN 05/16/17 [History] Simvastatin [Zocor] 40 mg PO QPM 02/11/18 [History] Melatonin 10 mg PO HS 07/06/18 [History] Warfarin [Coumadin] 2.5 mg PO SUMOTUWETHSA 07/06/18 [History] Allopurinol [Zyloprim 100 MG] 100 mg PO DAILY #0 09/11/18 [History] Omeprazole [PriLOSEC] 20 mg PO DAILY@0730 11/12/18 [History] Gabapentin [Neurontin] 300 mg PO HS 12/18/18 [History] Aspirin [Adult Aspirin Regimen] 81 mg PO QAM 01/03/19 [History] [place]-3/Dha/Epa/Fish Oil [Fish Oil 1,000 mg Softgel] 1 cap PO QAM 01/03/19 [History] Cyclobenzaprine [Flexeril] 10 mg PO TID PRN 03/06/19 [History] Lactulose [Enulose] 50 ml PO QID 03/06/19 [History] Meclizine [Antivert] 12.5 mg PO TID PRN 03/06/19 [History] Ondansetron [Zofran ODT] 8 mg SL Q8H PRN 03/06/19 [History] Torsemide [Demadex] 40 mg PO 0800,1200,1800 03/06/19 [History] Midodrine [ProAmatine] 5 mg PO 0800,1200,1700 7 Days #21 tablet 03/14/19 [Rx] Potassium Chloride 40 meq PO TID 10 Days #30 tab.er.prt 03/14/19 [Rx] Warfarin [Coumadin] 5 mg PO FR 03/19/19 [History] metOLazone [Zaroxolyn] 2.5 mg PO DAILY@0730 03/19/19 [History] Allergy/AdvReac Type Severity Reaction Status Date / Time Amoxicillin [From Augmentin] AdvReac Diarrhea Verified 01/03/19 16:40 clavulanic acid AdvReac Diarrhea Verified 01/03/19 16:40 [From Augmentin] oxycodone [From Percocet] AdvReac Itching Verified 01/03/19 16:40 Review of Systems ROS unobtainable: due to mental status Exam - Vital Signs Vital signs: Initial Vital Signs Temp Pulse Resp BP Pulse Ox 97.8 F 73 18 93/57 95 03/19/19 16:31 03/19/19 16:31 03/19/19 16:31 03/19/19 16:31 03/19/19 16:31 Vital Signs - Last 8 Hours Temp Pulse Resp BP Pulse Ox 03/20/19 07:25 97.8 F 74 17 92/55 90 Intake and Output 03/19/19 03/20/19 03/20/19 23:59 07:59 15:59 Intake Total 1200 / 1200 Output Total 600 / 600 750 / 750 Balance -600 / -600 450 / 450 Intake: IV Fluids 1200 / 1200 0.9 % Sodium Chloride 1,000 ML 1000 / 1000 @ 999 mls/hr IVC .Q1H1M ONE Rx# :[id number] Potassium Chloride 10 mEq/100mL 200 / 200 10 meq In 100 ml @ 100 mls/hr IVPB Q1H [place] Rx#:[id number] Output: Urine 600 / 600 750 / 750 Other: Stool Size Large Stool Consistency loose liquid Stool Color Black # Bowel Movements 1 Weight 132 kg 132 kg Blood Glucose* 122 Patient Weight 03/20/19 23:59 Weight 132 kg Additional exam: Gen.: Middle-aged male. Resting in bed Respiratory: Bibasilar crackles posteriorly. Neuro: Karlee 3-4. We will answer only certain questions and follow only to certain commands. Mostly indiscernible mumbling responses with a random grunting. *Exam discontinued prematurely after patient expressed not wanting to be examined. A/P #CKD stage III Last seen by Dr. Tay on 03/04/19. Reports 10-15 year history of CKD. Sister with RCC status post nephrectomy. -Avoid nephrotoxins -Strict I's and O's #LINO on CKD Consider prerenal from splanchnic vasodilation in the setting of cirrhosis. Possibly component of heart failure. No BNP seen on labs. Initial creatinine 2.56 from 2.22 on 03/14 -BUN/creatinine ratio elevated -Calculated osmolality of serum elevated -FE urea at 15.1% suggests prerenal disease -FENa at 0.6% correlates this finding despite torsemide therapy today. -Renal ultrasound pending. #Hypokalemia Present at last hospital stay discharged 03/14. Seemed to hover around 3. In the setting of chronic hypokalemia on home potassium chloride. H&P note reports noncompliance per . Consider secondary to renal loss, noncompliance, GI loss in the setting of home lactulose therapy. Patient is on torsemide 40 mg 3 times a day at home. Magnesium WNL 03/20 Initial potassium 2.9 -Potassium Decreased -Consider serum osmolality, urine potassium, and urine osmolality to assess lee s-tubular potassium gradient. -In the setting of hypotension consider ABG -Potassium chloride 40 mEq by mouth 3 times a day -Potassium chloride 40 mEq IV twice daily via 10 mEq per 100 mL solution hourly over 4 hours -repeat AM magnesium #Encephalopathy Consider hepatic Initial ammonia 101. -CT head/brain without contrast pending -Per primary #Heart failure with reduced ejection fraction Last echo limited views 03/07: LVEF 30-35%. Mildly dilated left ventricle. Global LV systolic dysfunction. -Per cardiology Results - Lab Results 03/19/19 20:51 03/20/19 06:22 Most recent lab results 03/19/19 03/20/19 16:55 06:22 Calcium 8.9 8.8 Phosphorus 3.5 Magnesium 1.7 Consult Discharge Plan - Plan Referrals: Khoi Hinkle [Primary Care Provider] - (Appointment has been requested.)
[2019-03-20] MEDS: Aspirin Enteric Coated 81 MG Tablet PO SCH (09:38)
[2019-03-20] MEDS: metOLazone 2.5 MG TABLET PO SCH (09:38)
[2019-03-20] MEDS: Lactulose Oral Soln 20 GM/30 ML UDC PO SCH ×4 (09:38→22:30)
--- NOTE | 2019-03-20 09:50 | Cardiology Consult Note ---
<Shelley Conteh Izzy - Last Filed: 03/20/19 11:25> Date of Encounter: 03/20/19 Time of Encounter: 08:30 Assessment and Plan (1) Elevated troponin Current Visit: Yes Status: Acute Elevated troponin in the setting of acute encephalopathy, electrolyte derrangement (K 2.5), LINO on CKD, and CHF. Non-diagnostic for ACS. No acute ECG changes noted. Pt. with reported hx of NICMP s/p ICD. Recent TTE shows LVEF 30-35%, mildly dilated LV (chronic) Follows with outside Ballistic Technician in [place], [place]. Continue current medical therapy. No indication for further invasive work-up at this time. (2) Hypokalemia Current Visit: No Status: Acute K 2.5--orders placed for IV replacement. Recommend K 4.0. Nephrology following given LINO on CKD (3) Altered mental status Current Visit: Yes Status: Acute Qualifiers: Altered mental status type: unspecified Qualified Code(s): R41.82 - Altered mental status, unspecified (4) CHF (congestive heart failure) Current Visit: Yes Status: Acute Acute on chronic CHF. Hx of HFrEF s/p ICD. Longstanding history of NICMP per reports. Follows with Dr. Cueto in [place], [place]. Known LVEF ~20-30%. Functional status difficult to determine given AMS. Reports of medication, dietary non-compliance. LINO on CKD, Nephrology following for diuresis recommendations. Betablocker d/c'ed recently due to hypotension--recommend restarting in the outpatient setting if able. No ACEi/ARB d/t CKD, hypotension. Strict I&Os, daily weights, Na/fluid restriction diet. Close outpatient follow-up with primary Ballistic Technician within 1 week. Qualifiers: Heart failure type: systolic Heart failure chronicity: acute on chronic Qualified Code(s): I50.23 - Acute on chronic systolic (congestive) heart failure Discussion w patient/family: The assessment and plan as outlined above was discussed with the patient and/or family members who expressed understanding and agreement. All questions were answered. Thank you for involving us in the care of your patient. Please call with any questions. The patient will be discussed and reviewed with Dr. Sevilla; changes to be made accordingly. History of Present Illness Consult date: 03/20/19 Requesting physician: Jun Oconnor Consult reason: Elevated troponin Chief complaint: AMS History of present illness: Mr. Pace is a 63 year old male with PMHx significant of HFrEF, NICMP s/p AICD, CKD, HTN, HLD, and Afib on Coumadin who presented to the ED with AMS. Please note, HPI/PMHx obtained from old records and notes as patient confused and somnolent upon exam. Per HPI patient became altered at home which prompted ED evaluation. He reportedly was refusing medications as well. Patient follows with outside Ballistic Technician in [place], [place]. Upon exam, he is minimally responsive. 1:1 sitter at bedside reports agitation for most of the night time hours. Cardiology consulted for elevated troponin, 0.08. Potassium 2.5 this AM, ammonia 101. Recent CV testing: TTE 03/08/19: LVEF 30-35%, mildly dilated LV Past Med Surg Social Fam HX - Past Medical History Source: old records reviewed, nursing notes reviewed Medical history: arthritis, atrial fibrillation, cardiomyopathy, cirrhosis, CHF, diabetes, GERD, hyperlipidemia, liver disease, renal disease Additional medical history: Type II Diabetic Psychiatric history: no psych history - Past Surgical History Surgical History: pacemaker/AICD Additional surgical history: PACEMAKER/AICD placement 2000 and 2015. Right ankle surgery - Social History Smoking Status: Former smoker Smokeless Tobacco Status: No Alcohol use: none Drug use: none - Family History Mother Living Status: Hx Family Cardiac Disorders: Yes Hx Family Respiratory Disorders: No Hx Family Cancer: Yes (sister-breast cancer) Hx Family GI Disorders: Yes (mother colonresection with colostomy bag) Hx Family Endocrine Disorder: Yes (Brother DM-diet controlled) Hx Family Neuromuscular Disorders: No Hx Family Neurologic Disorders: No Hx Family HEENT Disorders: No Hx Family Autoimmune Disorders: No Father Living Status: Hx Family Cardiac Disorders: Yes Hx Family Respiratory Disorders: No Hx Family Cancer: No Hx Family GI Disorders: No Hx Family Endocrine Disorder: No Hx Family Neuromuscular Disorders: No Hx Family Neurologic Disorders: No Hx Family HEENT Disorders: No Hx Family Autoimmune Disorders: No Sister Hx Family Cardiac Disorders: Yes (breast) Medications and Allergies Ezetimibe 10 mg PO QAM 05/16/17 [History] Insulin Glargine,Hum.rec.anlog [Lantus Solostar] 70 unit SQ HS PRN 05/16/17 [History] Simvastatin [Zocor] 40 mg PO QPM 02/11/18 [History] Melatonin 10 mg PO HS 07/06/18 [History] Warfarin [Coumadin] 2.5 mg PO SUMOTUWETHSA 07/06/18 [History] Allopurinol [Zyloprim 100 MG] 100 mg PO DAILY #0 09/11/18 [History] Omeprazole [PriLOSEC] 20 mg PO DAILY@0730 11/12/18 [History] Gabapentin [Neurontin] 300 mg PO HS 12/18/18 [History] Aspirin [Adult Aspirin Regimen] 81 mg PO QAM 01/03/19 [History] Colver-3/Dha/Epa/Fish Oil [Fish Oil 1,000 mg Softgel] 1 cap PO QAM 01/03/19 [His tory] Cyclobenzaprine [Flexeril] 10 mg PO TID PRN 03/06/19 [History] Lactulose [Enulose] 50 ml PO QID 03/06/19 [History] Meclizine [Antivert] 12.5 mg PO TID PRN 03/06/19 [History] Ondansetron [Zofran ODT] 8 mg SL Q8H PRN 03/06/19 [History] Torsemide [Demadex] 40 mg PO 0800,1200,1800 03/06/19 [History] Midodrine [ProAmatine] 5 mg PO 0800,1200,1700 7 Days #21 tablet 03/14/19 [Rx] Potassium Chloride 40 meq PO TID 10 Days #30 tab.er.prt 03/14/19 [Rx] Warfarin [Coumadin] 5 mg PO FR 03/19/19 [History] metOLazone [Zaroxolyn] 2.5 mg PO DAILY@0730 03/19/19 [History] Allergy/AdvReac Type Severity Reaction Status Date / Time Amoxicillin [From Augmentin] AdvReac Diarrhea Verified 01/03/19 16:40 clavulanic acid AdvReac Diarrhea Verified 01/03/19 16:40 [From Augmentin] oxycodone [From Percocet] AdvReac Itching Verified 01/03/19 16:40 ROS unobtainable: due to mental status All Systems Review: The remainder of the systems were reviewed and are negative Physical Examination Vital Signs, Last 4 Hours Temp Pulse Resp BP Pulse Ox 03/20/19 07:25 97.8 F 74 17 92/55 90 General: Other (somnolent) HEENT: Atraumatic, Normocephaly Cardiac: Reg Rate and Rhythm, Normal S1 and S2 Lungs: Other (rales throughout) Neuro: Other (somnolent) Abdomen: Soft Skin: No rashes noted on visualized skin Musculoskeletal: No Chest Wall Tenderness Extremities: Normal Pulses, Other (+1-2 BLE edema) Results 03/19/19 20:51 03/20/19 06:22 Lab Results 03/19/19 03/19/19 03/19/19 16:55 16:55 16:55 WBC 6.3 Hgb 8.3 L Hct 28.5 L Plt Count 207 INR 2.7 D APTT 33.8 Sodium 139 Potassium 2.9 L Chloride 96 L Carbon Dioxide 33 H BUN 68 H Creatinine 2.56 H Glucose 122 H Calcium 8.9 Magnesium Total Bilirubin 1.1 H AST 27 ALT 15 Alkaline Phosphatase 62 Troponin I 0.08 H* 03/19/19 03/20/19 03/20/19 20:51 06:22 06:22 WBC 5.8 Hgb 8.7 L Hct 30.0 L Plt Count 196 INR 2.5 APTT Sodium 142 Potassium 2.5 L* Chloride 96 L Carbon Dioxide 35 H BUN 68 H Creatinine 2.38 H Glucose 106 H Calcium 8.8 Magnesium 1.7 Total Bilirubin 1.2 H AST 28 ALT 14 Alkaline Phosphatase 65 Troponin I Active Medications Allopurinol (Zyloprim) 100 mg PO DAILY REPLACED BY [facility] Stop: 09/19/19 09:01 Last Admin: 03/20/19 09:38 Dose: 100 mg Documented by: Aspirin (Aspirin Ec) 81 mg PO QAM [facility] Stop: 09/19/19 09:01 Last Admin: 03/20/19 09:38 Dose: 81 mg Documented by: Dextrose/Water (Dextrose 50% (Syg)) 25 ml IVP AD PRN PRN Reason: Hypoglycemia Stop: 09/18/19 21:34 Glucagon (Glucagen) 1 mg IM ONCE PRN PRN Reason: Hypoglycemia Stop: 09/18/19 21:34 Glucose (Gluctose) 15 gm PO ONCE PRN PRN Reason: Hypoglycemia Stop: 09/18/19 21:34 Glucose (Gluctose) 30 gm PO ONCE PRN PRN Reason: Hypoglycemia Stop: 09/18/19 21:34 Dextrose (Dextrose 5%) 1,000 mls @ 100 mls/hr IVC .Q10H PRN PRN Reason: HYPOGLYCEMIA Stop: 09/18/19 21:34 Potassium Chloride (Potassium Chloride 10 Meq/100ml) 10 meq in 100 mls @ 100 mls/hr IVPB Q1H REPLACED BY [facility] Stop: 03/20/19 11:44 Last Admin: 03/20/19 09:39 Dose: 100 mls/hr Documented by: Insulin Human Lispro (Humalog) 0 units SQ Q6HR REPLACED BY [facility]; Protocol Stop: 09/19/19 00:01 Last Admin: 03/20/19 06:05 Dose: Not Given Documented by: Lactulose (Lactulose) 30 gm PO QID REPLACED BY [facility] Stop: 09/18/19 21:46 Last Admin: 03/20/19 09:38 Dose: 30 gm Documented by: Melatonin (Melatonin) 9 mg PO [facility] Stop: 09/19/19 21:01 Metolazone (Zaroxolyn) 2.5 mg PO DAILY@0730 REPLACED BY [facility] Stop: 09/19/19 09:02 Last Admin: 03/20/19 09:38 Dose: 2.5 mg Documented by: Midodrine (Proamatine) 5 mg PO 0800,1200,1700 REPLACED BY [facility] Stop: 09/19/19 08:01 Last Admin: 03/20/19 09:38 Dose: 5 mg Documented by: Naloxone HCl (Narcan) 0.4 mg IVP Q2MPRN PRN PRN Reason: SEE COMMENTS Stop: 09/18/19 19:45 Omeprazole (Prilosec) 20 mg PO DAILY@0730 REPLACED BY [facility]; Protocol Stop: 09/20/19 07:31 Ondansetron HCl (Zofran Odt) 4 mg SL Q8HR PRN PRN Reason: Nausea And Vomiting Stop: 09/18/19 19:45 Potassium Chloride (Potassium Chloride) 40 meq PO TIDWM REPLACED BY [facility] Stop: 09/19/19 09:01 Last Admin: 03/20/19 09:38 Dose: 40 meq Documented by: Simvastatin (Zocor) 40 mg PO [facility]; Protocol Stop: 09/20/19 21:01 Torsemide (Demadex) 40 mg PO 0800,1200,1800 [facility] Stop: 09/19/19 08:01 Last Admin: 03/20/19 09:58 Dose: 40 mg Documented by: Warfarin Sodium (Coumadin Perpt) 1 each PO DAILY@1800 PRN; Protocol PRN Reason: SEE COMMENTS Stop: 09/19/19 18:01 - Imaging and Cardiology Echo: report reviewed Other Results: Telemetry not applied d/t pulling at wires - EKG Interpretation EKG results cardiology: personally reviewed Consult Discharge Plan - Plan Referrals: Khoi Hinlke [Primary Care Provider] - (Appointment has been requested.) CHADS2-VASC Score - Score Age: Less than 65 Sex: Male CHF History: Yes Hypertension history: Yes Vascular disease history: No Diabetes history: Yes (On coumadin, INR therapeutic) Score: 3 HAS-BLED Score - Score Medication usage predisposing to bleeding: Antiplatelet agents, NSAIDs, Anticoagulants Score: 1 NYHAC - Classification Classification: Class 3 <Cara Sevilla - Last Filed: 03/20/19 15:01> Date of Encounter: 03/20/19 - Attending Attestation I have personally performed a face to face evaluation on this patient. I have reviewed and agree with the care plan. History and Exam by me shows: 63-year-old male possible hepatic encephalopathy who is a poor historian with flat troponins status post-ICD for known nonischemic cardiomyopathy. Adynamic troponins therefore no further cardiac testing at this time as described above. Echocardiogram shows ejection fraction of 30% unchanged from previous. Patient follows with cardiology through [place], no urgent cardiac procedures or testing at this time. Continue to optimize medical management for congestive heart failure and known nonischemic cardio myopathy Assessment and Plan Discussion w patient/family: The assessment and plan as outlined above was discussed with the patient and/or family members who expressed understanding and agreement. All questions were answered. Thank you for involving us in the care of your patient. Please call with any questions. History of Present Illness History of present illness: Mr. Pace is a 63 year old male All Systems Review: The remainder of the systems were reviewed and are negative Physical Examination Vital Signs, Last 4 Hours Temp Pulse Resp BP Pulse Ox 03/20/19 12:06 97.5 F L 81 18 95/59 91 Results 03/19/19 20:51 03/20/19 06:22 Lab Results 03/19/19 03/19/19 03/19/19 16:55 16:55 16:55 WBC 6.3 Hgb 8.3 L Hct 28.5 L Plt Count 207 INR 2.7 D APTT 33.8 Sodium 139 Potassium 2.9 L Chloride 96 L Carbon Dioxide 33 H BUN 68 H Creatinine 2.56 H Glucose 122 H Calcium 8.9 Magnesium Total Bilirubin 1.1 H AST 27 ALT 15 Alkaline Phosphatase 62 Troponin I 0.08 H* 03/19/19 03/20/19 03/20/19 20:51 06:22 06:22 WBC 5.8 Hgb 8.7 L Hct 30.0 L Plt Count 196 INR 2.5 APTT Sodium 142 Potassium 2.5 L* Chloride 96 L Carbon Dioxide 35 H BUN 68 H Creatinine 2.38 H Glucose 106 H Calcium 8.8 Magnesium 1.7 Total Bilirubin 1.2 H AST 28 ALT 14 Alkaline Phosphatase 65 Troponin I
[2019-03-20] MEDS: Torsemide 20 MG TABLET PO SCH ×3 (09:58→16:05)
--- NOTE | 2019-03-20 10:46 | Internal Med Progress Note ---
Hospitalist Progress Note - Encounter Date of Encounter: 03/20/19 Time of Encounter: 10:41 - Subjective Interval History: This is a 63-year-old male with past medical history of cirrhosis, CHF, chronic kidney disease, atrial fibrillation on Coumadin, and the bilateral pleural effusion presented with acute onset of change of mental status with unsteady ga it. Patient was recently hospitalized because of CHF exacerbation. He was treated and released on 03/14. reported that patient can confused with unsteady gait yesterday and he was brought to the ED. Ammonia level upon admission was 101. He received lactulose per rectum. Chest x-ray showed worsening bilateral pleural effusion. Troponin was slightly elevated, cardiology was consulted. Patient seen and examined in the room. He is still disoriented to time and place. He denies abdominal pain, nausea/vomiting, or diarrhea. He reported absence of fever, chills, or night sweats. - Exam Vitals: Temp Pulse Resp BP Pulse Ox 97.8 F 74 17 92/55 90 03/20/19 07:25 03/20/19 07:25 03/20/19 07:25 03/20/19 07:25 03/20/19 07:25 Exam: General Appearance: Appearing as age, minimal acute distress. Head: Atraumatic normocephalic Skin: Normal texture, normal turgor, warm, dry. Eyes: Conjunctivae pale with no erythema, drainage, or ulcers. Anicteric. Neck: No Lymphadenopathy in the anterior/posterior cervical chain. No thyromegaly, masses or ulcers. Trachea midline. Heart: RRR, no murmurs. Capillary refill 4 seconds Lungs: No accessory muscle usage, lungs clear to auscultation bilaterally, no wh eezes or crackles. Extremities: 2+ pitting edema BL, No clubbing, cyanosis, or ulcers. Abdomen: distended, normoactive bowel sounds. generalized-tender to palpation with fluid shift, no hepatomegally. No guarding. Neuro: AOx1 with no new focal deficits. MSK: Strength 5/5 Upper extremity equal bilaterally. Strength 5/5 Lower extremity equal bilaterally - Assessment and Plan (1) Hepatic encephalopathy Current Visit: Yes Status: Acute Assessment and Plan: Ammonia level at 101 upon admission. Received lactulose per rectum overnight, seems more alert this morning. Will continue lactulose, rifaximin started. We will cycle ammonia in am. Pt seems has chronic anemia due to slow GI blood loss. Underwent GI workup recent, he was planned to have capsule endoscopy as outpatient but this has not been done yet. He is on asa and coumadin at home, INR 2.5 today. No signs of SBP on physical exam. Paracentesis ordered but IR was unbale to perform due to small amount of ascites. (2) CHF (congestive heart failure) Current Visit: Yes Status: Acute Assessment and Plan: Recent echo in February showed ejection fraction 30-35%, global LV systolic dysfunction. Patient is volume overloaded on physical exam, chest x-ray showed increased size of bilateral pleural effusion. We will continue torsemide and metolazone for now given the slightly above normal creatinine level. We will titrate diuretics based on the volume status. (3) Diabetes mellitus Current Visit: No Status: Chronic Assessment and Plan: Home dose of long-acting insulin decreased to 40 unit, insulin sliding scale started. (4) Hypertension Current Visit: No Status: Chronic Assessment and Plan: BP was borderline low, we will continue home midodrine. Continue monitoring blood pressure. (5) Morbid obesity Current Visit: No Status: Chronic Assessment and Plan: Weight control discussed with patient. (6) Elevated troponin Current Visit: Yes Status: Acute Assessment and Plan: Patient has chronic baseline troponin elevation. He has no chest pain. EKG has no acute ST-T change. (7) Chronic a-fib Current Visit: No Status: Chronic Assessment and Plan: Rate controlled, continue Coumadin, INR this morning 2.5. (8) Anemia Current Visit: No Status: Chronic Assessment and Plan: H/H stable, patient will follow up with GI as outpatient to complete further workup. (9) CKD (chronic kidney disease) stage 3, GFR 30-59 ml/min Current Visit: No Status: Acute Assessment and Plan: Creatinine is slightly above baseline, will continue monitoring, continue diuretics at home dose. (10) Pleural effusion Current Visit: No Status: Acute Assessment and Plan: Continue diuretics. Continue monitoring respiratory status. (11) Hypokalemia Current Visit: Yes Status: Acute Assessment and Plan: We will replace, check BMP in the morning. (12) DVT prophylaxis Current Visit: Yes Status: Acute Assessment and Plan: Patient on Coumadin. - Time Spent with Patient Total time spent is greater than 50% in coordination of care (as documented) at patient's floor/unit and/or counseling patient: Greater than 35 minutes Plan of Care Discussed with: patient Internal Medicine: Result - Labs CBC & Chem 7: 03/19/19 20:51 03/20/19 06:22 Labs: Short CBC 03/19/19 03/19/19 Range/Units 16:55 20:51 WBC 6.3 5.8 (4.3-11.1) K/mcL Hgb 8.3 L 8.7 L (12.9-16.9) g/dL Hct 28.5 L 30.0 L (37.5-50.1) % Plt Count 207 196 (140-400) K/mcL Neutrophils # 5.0 4.7 (1.6-8.9) K/mcL BMP 03/19/19 03/20/19 16:55 06:22 Sodium 139 142 Potassium 2.9 L 2.5 L* Chloride 96 L 96 L Carbon Dioxide 33 H 35 H BUN 68 H 68 H Creatinine 2.56 H 2.38 H Glucose 122 H 106 H Calcium 8.9 8.8 Cardiac Enzymes 03/19/19 Range/Units 16:55 Troponin I 0.08 H* (< 0.04) ng/mL Liver Function 03/19/19 03/20/19 Range/Units 16:55 06:22 Total Bilirubin 1.1 H 1.2 H (0.3-1.0) mg/dL Direct Bilirubin 0.5 H (0.0-0.2) mg/dL AST 27 28 (13-39) Units/L ALT 15 14 (7-52) Units/L Alkaline Phosphatase 62 65 (34-104) Units/L Albumin 3.1 L 3.0 L (3.5-5.7) g/dL Urine 03/19/19 Range/Units 17:39 Urine Color Yellow (Yellow) Urine Clarity Clear (Clear) Urine pH 5.5 (5.0-8.0) pH Units Ur Specific [place] 1.012 (1.010-1.025) Urine Protein Negative (Neg-Trace) mg/dL Urine Glucose (UA) Normal (Normal) mg/dL - ABG Interpretation ABG results: PT/INR, D-dimer PT 28.2 Seconds (9.4-12.1) H 03/20/19 06:22 - Impressions Impressions Chest X-Ray 03/19/19 16:34 IMPRESSION: Cardiomegaly with moderate pulmonary edema and bilateral pleural effusions increased since prior. 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
--- NOTE | 2019-03-20 11:06 | Electrocardiograph Report ---
[place] [id number] Test Date: 2019-03-19 Pat Name: Alejandro Pace Department: [id number] Room: 3B41 Gender: M Manager Health: : 1955 Requested By: Emmanuel Ye Order Number: [id number] Reading MD: Coleman Erazo Measurements Intervals [place] Rate: 85 P: -69 NV: 270 QRS: -57 QRSD: 156 T: 108 QT: 467 QTc: 536 Interpretive Statements Ventricular-paced complexes No further rhythm analysis attempted due to paced rhythm Electronically Signed On 03-20-2019 11:05:01 EDT by Coleman Erazo
[2019-03-20 12:23] LABS: ABG Base Excess 11 mEq/L (-2 to 3); ABG HCO3 35 mEq/L (21-27); ABG Oxygen Saturation 93 % (95-98); ABG PCO2 42 mmHg (35-45); ABG PH 7.53 pH Units (7.32-7.45); ABG PO2 61 mmHg (85-104); ABG TCO2 36 mEq/L (20-26)
[2019-03-20 12:23] LABS: Creatinine,Urine 68 mg/dL; Sodium, Urine 23.3 mEq/L
[2019-03-20] MEDS ORDERED: Haloperidol Lactate 5 MG/ML VIAL IVP PRN (13:33)
[2019-03-20] MEDS ORDERED: 0.9 % Sodium Chloride 1,000 ML ONE (14:47)
[2019-03-20] MEDS ORDERED: Warfarin perPT PO PRN (18:00)
[2019-03-20] MEDS ORDERED: *HR* Warfarin 2.5 MG TABLET PO ONE (18:00)
[2019-03-20] MEDS: Melatonin 3 MG TABLET PO SCH (22:30)
[2019-03-20] MEDS: Insulin DETEMIR 100 UNIT/ML X5UNITS SQ SCH (22:32)
[2019-03-21] MEDS: Insulin LISPRO 300 UNITS/3 ML VIAL SQ SCH ×4 (01:41→17:03)
[2019-03-21 04:23] LABS: Hematocrit 30.4 % (37.5-50.1); Hemoglobin 8.6 g/dL (12.9-16.9); Mean Corpuscular HGB Conc 28.3 g/dL (31.6-35.5); Red Cell Distribution Width 22.8 % (11.5-14.5)
[2019-03-21 04:24] LABS: Basophils # 0.1 K/mcL (0.0-0.2); Basophils % 0.8 %; Eosinophils # 0.2 K/mcL (0.0-0.6); Eosinophils % 2.1 %; Immature Granulocytes % 0.3 % (0-4); Lymphocytes # 0.5 K/mcL (0.6-4.6); Lymphocytes % 6.3 %; Mean Corpuscular Hemoglobin 24.9 pg (28.0-33.3); Mean Corpuscular Volume 87.9 fL (83.0-100.0); Mean Platelet Volume 10.4 fL (9.4-12.4); Monocytes % 13.4 %; Neutrophils # 5.6 K/mcL (1.6-8.9); Nucleated Red Blood Cells 0.3 /100 WBC (0); Platelet Count 226 K/mcL (140-400); Red Blood Count 3.46 M/mcL (4.19-5.50); Segmented Neutrophils % 77.1 %; White Blood Count 7.3 K/mcL (4.3-11.1)
[2019-03-21 04:29] LABS: INR 2.9
[2019-03-21 04:47] LABS: Calcium 8.8 mg/dL (8.6-10.3); Magnesium 1.8 mg/dL (1.6-2.6); Potassium 2.5 mEq/L (3.5-5.1)
[2019-03-21 05:17] LABS: Anisocytosis 2+ (Not Present); Hypochromasia Present (Not Present); Polychromasia 1+ (Not Present)
[2019-03-21 05:18] LABS: Platelet Estimate Normal (Normal)
[2019-03-21] MEDS ORDERED: Magnesium Oxide 400 MG TABLET PO ONE (06:08)
[2019-03-21] MEDS: Lactulose Oral Soln 20 GM/30 ML UDC PO SCH ×3 (07:19→19:59)
[2019-03-21] MEDS: metOLazone 2.5 MG TABLET PO SCH (07:25)
[2019-03-21] MEDS: Aspirin Enteric Coated 81 MG Tablet PO SCH (07:25)
[2019-03-21] MEDS ORDERED: metOLazone 2.5 MG TABLET PO SCH (07:30)
[2019-03-21] MEDS ORDERED: Potassium Chloride 40 MEQ, Lidocaine 1% 2 ML in 0.9 % Sodium Chloride 500 ML IVPB ONE ×2 (08:13→17:10)
[2019-03-21] MEDS ORDERED: Aspirin 81 MG TAB.CHEW PO SCH (09:00)
--- NOTE | 2019-03-21 09:25 | Nephrology Progress Note ---
Date of Encounter: 03/21/19 Time of Encounter: 09:23 - Assessment and Plan (1) LINO (acute kidney injury) Current Visit: No Status: Acute Scr 2.04 GFR 33 Renal function improving but not yet at baseline Good UOP at 1300ml (more than double from yesterday) Avoid nephrotoxins if possible (2) CKD (chronic kidney disease), stage III Current Visit: Yes Status: Acute Review of past labs show patient has CKD stage [address] Tay in the office with his last visit being on 03/04/19 (3) Hypokalemia Current Visit: No Status: Acute K+ remains low at 2.5 Currently on a K+ IV drip (4) Encephalopathy Current Visit: Yes Status: Acute per primary team Subjective Principal diagnosis: LINO on CKD, encephalopathy Interval history: Patient sitting up in chair at bedside; denies any complaints this morning. Objective - Vital Signs Vital signs: Vital Signs Temp Pulse Resp BP Pulse Ox 03/21/19 06:35 97.7 F 74 16 102/62 94 03/20/19 23:59 98.0 F 82 16 94/55 98 03/20/19 18:41 98.1 F 87 15 113/72 96 03/20/19 17:01 97.7 F 74 16 112/76 98 03/20/19 12:06 97.5 F L 81 18 95/59 91 Intake and Output 03/20/19 03/21/19 03/21/19 23:59 07:59 15:59 Intake Total 100 / 1600 840 / 940 100 / 940 Balance 100 / 300 840 / 940 100 / 940 Intake: IV Fluids 100 / 1600 100 / 200 100 / 200 Potassium Chloride 10 mEq/100mL 100 / 400 100 / 200 100 / 200 10 meq In 100 ml @ 100 mls/hr IVPB BID [facility] Rx#:[id number] Oral 740 / 740 Other: Meal water Percent of Meal Consumed 0% # Voids 2 2 # Bowel Movements 1 Blood Glucose* 121 110 - General Appearance General appearance: Present: obese EENT: Present: ATNC, mucous membranes moist, hearing intact, vision intact Neck: Present: supple Respiratory: Present: clear Cardiology: Present: no edema, normal S1, normal S2 Gastrointestinal: Present: no tenderness, no guarding Integumentary: Present: warm and dry Neurologic: Present: alert and oriented x3 Psychiatric: Present: mood/affect appropriate, cooperative - Lab 03/21/19 04:09 03/21/19 04:09 Most recent lab results 03/21/19 04:09 Calcium 8.8 Magnesium 1.8 Consult Discharge Plan - Plan Referrals: Khoi Hinkle [Primary Care Provider] - (Appointment has been requested.)
[2019-03-21] MEDS: Torsemide 20 MG TABLET PO SCH ×3 (09:37→16:47)
--- NOTE | 2019-03-21 09:41 | Internal Med Progress Note ---
Hospitalist Progress Note - Encounter Date of Encounter: 03/21/19 Time of Encounter: 09:37 - Subjective Interval History: This is a 63-year-old male with past medical history of cirrhosis, CHF, chronic kidney disease, atrial fibrillation on Coumadin, and the bilateral pleural effusion presented with acute onset of change of mental status with unsteady ga it. Patient was recently hospitalized because of CHF exacerbation. He was treated and released on 03/14. reported that patient can confused with unsteady gait yesterday and he was brought to the ED. Ammonia level upon admission was 101. He received lactulose per rectum. Chest x-ray showed worsening bilateral pleural effusion. Troponin was slightly elevated, cardiology was consulted. Patient seen and examined in the room. Mental status much improved today. Alert and oriented x3, wanted to go home. He denies abdominal pain, nausea/vomiting, or diarrhea. He reported absence of fever, chills, or night sweats. - Exam Vitals: Temp Pulse Resp BP Pulse Ox 97.7 F 74 16 102/62 94 03/21/19 06:35 03/21/19 06:35 03/21/19 06:35 03/21/19 06:35 03/21/19 06:35 Exam: General Appearance: Appearing as age, minimal acute distress. Head: Atraumatic normocephalic Skin: Normal texture, normal turgor, warm, dry. Eyes: Conjunctivae pale with no erythema, drainage, or ulcers. Anicteric. Neck: No Lymphadenopathy in the anterior/posterior cervical chain. No thyromegaly, masses or ulcers. Trachea midline. Heart: RRR, no murmurs. Capillary refill 4 seconds Lungs: No accessory muscle usage, lungs clear to auscultation bilaterally, no wheezes or crackles. Extremities: 2+ pitting edema BL, No clubbing, cyanosis, or ulcers. Abdomen: distended, normoactive bowel sounds. generalized-tender to palpation wi th fluid shift, no hepatomegally. No guarding. Neuro: AOx1 with no new focal deficits. MSK: Strength 5/5 Upper extremity equal bilaterally. Strength 5/5 Lower extremity equal bilaterally - Assessment and Plan (1) Hepatic encephalopathy Current Visit: Yes Status: Acute Assessment and Plan: 03/20 Ammonia level at 101 upon admission. Received lactulose per rectum overnight, seems more alert this morning. Will continue lactulose, rifaximin started. We will cycle ammonia in am. Pt seems has chronic anemia due to slow GI blood loss. Underwent GI workup recent, he was planned to have capsule endoscopy as outpatient but this has not been done yet. He is on asa and coumadin at home, INR 2.5 today. No signs of SBP on physical exam. Paracentesis ordered but IR was unbale to perform due to small amount of ascites. 03/21 Ammonia level down to 68 this morning, patient mental status significantly improved. Patient does not have any signs/symptoms of SBP. Also he does have a history of GI bleeding, H/H has been stable. Will continue monitoring. Continue current treatment with lactulose and rifaximin. (2) CHF (congestive heart failure) Current Visit: Yes Status: Acute Assessment and Plan: 03/20 Recent echo in February showed ejection fraction 30-35%, global LV systolic dysfunction. Patient is volume overloaded on physical exam, chest x-ray showed increased size of bilateral pleural effusion. We will continue torsemide and metolazone for now given the slightly above normal creatinine level. We will titrate diuretics based on the volume status. 03/21 The patient achieved satisfactory diuresis in the past 24 hours. Creatinine slightly decreased. We will continue current diuretics regimen was torsemide and metolazone. Renal following, appreciate help. (3) Diabetes mellitus Current Visit: No Status: Chronic Assessment and Plan: Home dose of long-acting insulin decreased to 40 unit, insulin sliding scale started. Blood sugar well controlled currently. (4) Hypertension Current Visit: No Status: Chronic Assessment and Plan: BP stable, we will continue home midodrine. Continue monitoring blood pressure. (5) Morbid obesity Current Visit: No Status: Chronic Assessment and Plan: Weight control discussed with patient. (6) Elevated troponin Current Visit: Yes Status: Acute Assessment and Plan: Patient has chronic baseline troponin elevation. He has no chest pain. EKG has no acute ST-T change. (7) Chronic a-fib Current Visit: No Status: Chronic Assessment and Plan: Rate controlled, continue Coumadin, INR this morning 2.9. (8) Anemia Current Visit: No Status: Chronic Assessment and Plan: H/H stable, patient will follow up with GI as outpatient to complete further workup. Per family request we will check iron panel given the history of iron deficiency anemia in the past. (9) CKD (chronic kidney disease) stage 3, GFR 30-59 ml/min Current Visit: No Status: Acute Assessment and Plan: Creatinine is slightly above baseline, will continue monitoring, continue diuretics at home dose. Renal following, appreciate help. (10) Pleural effusion Current Visit: No Status: Acute Assessment and Plan: Continue diuretics. Continue monitoring respiratory status. ABG showed mild metabolic alkalosis, likely secondary to aggressive diuretics. Will continue monitoring. (11) Hypokalemia Current Visit: Yes Status: Acute Assessment and Plan: Potassium this morning 2.5, We will continue replacement, [facility] (12) DVT prophylaxis Current Visit: Yes Status: Acute Assessment and Plan: Patient on Coumadin. - Time Spent with Patient Total time spent is greater than 50% in coordination of care (as documented) at patient's floor/unit and/or counseling patient: Greater than 35 minutes Plan of Care Discussed with: patient Internal Medicine: Result - Labs CBC & Chem 7: 03/21/19 04:09 03/21/19 04:09 Labs: Short CBC 03/21/19 Range/Units 04:09 WBC 7.3 (4.3-11.1) K/mcL Hgb 8.6 L (12.9-16.9) g/dL Hct 30.4 L (37.5-50.1) % Plt Count 226 (140-400) K/mcL Neutrophils # 5.6 (1.6-8.9) K/mcL BMP 03/21/19 04:09 Sodium 143 Potassium 2.5 L* Chloride 98 Carbon Dioxide 34 H BUN 64 H Creatinine 2.04 H Glucose 81 Calcium 8.8 - ABG Interpretation ABG results: ABG ABG pH 7.53 pH Units (7.32-7.45) H 03/20/19 12:20 ABG pCO2 42 mmHg (35-45) 03/20/19 12:20 ABG pO2 61 mmHg (85-104) L 03/20/19 12:20 ABG O2 Saturation 93 % (95-98) L 03/20/19 12:20 PT/INR, D-dimer PT 33.0 Seconds (9.4-12.1) H 03/21/19 04:09 - Impressions Impressions Head CT 03/20/19 06:00 IMPRESSION: No acute intracranial abnormality. D/ / 03/20/2019 12:07:10 Darrell Crook MD / [email or web address] Interpreting Provider: Darrell Crook MD Retroperitoneum Ultrasound 03/20/19 20:45 IMPRESSION: No right hydronephrosis. The left kidney is not visualized. D/ / Abbie Marx Cha, MD / Abbie Marx Cha, MD Interpreting Provider: Abbie Marx Cha, MD Consult Discharge Plan - Plan Referrals: Khoi Hinkle [Primary Care Provider] - (Appointment has been requested.) (2) CHF (congestive heart failure) Qualifiers: Heart failure type: systolic Heart failure chronicity: acute on chronic Qualified Code(s): I50.23 - Acute on chronic systolic (congestive) heart failure (3) Diabetes mellitus Qualifiers: Diabetes mellitus type: type 2 Diabetes mellitus fdc insulin use: with fdc use Diabetes mellitus complication status: with other specified complication Qualified Code(s): E11.69 - Type 2 diabetes mellitus with other specified complication; Z79.4 - longterm (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 of 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
[2019-03-21 14:33] LABS: Immature Reticulocyte % 31.5 % (11.0-38.0); Retculocyte # 0.15 M/mcL (0.05-0.10); Reticulocyte % 4.5 % (1.6-2.8)
[2019-03-21] MEDS ORDERED: *HR* Warfarin 1 MG TABLET PO ONE (18:00)
[2019-03-21] MEDS: Melatonin 3 MG TABLET PO SCH (19:59)
[2019-03-21] MEDS ORDERED: Ibuprofen 400 MG TABLET PO ONE (20:28)
[2019-03-21] MEDS: Insulin DETEMIR 100 UNIT/ML X5UNITS SQ SCH ×2 (20:57→22:41)
[2019-03-22] MEDS: Insulin LISPRO 300 UNITS/3 ML VIAL SQ SCH ×4 (00:31→17:05)
[2019-03-22 06:00] LABS: Basophils % 0.7 %; Immature Granulocytes % 0.3 % (0-4); Red Cell Distribution Width 22.7 % (11.5-14.5)
[2019-03-22 06:02] LABS: Basophils # 0.1 K/mcL (0.0-0.2); Eosinophils # 0.2 K/mcL (0.0-0.6); Eosinophils % 3.2 %; Hematocrit 31.4 % (37.5-50.1); Hemoglobin 8.8 g/dL (12.9-16.9); Lymphocytes # 0.5 K/mcL (0.6-4.6); Lymphocytes % 6.4 %; Mean Corpuscular Hemoglobin 25.1 pg (28.0-33.3); Mean Corpuscular Volume 89.5 fL (83.0-100.0); Mean Platelet Volume 10.3 fL (9.4-12.4); Monocytes % 14.5 %; Neutrophils # 5.4 K/mcL (1.6-8.9); Nucleated Red Blood Cells 0.3 /100 WBC (0); Platelet Count 243 K/mcL (140-400); Red Blood Count 3.51 M/mcL (4.19-5.50); Segmented Neutrophils % 74.9 %; White Blood Count 7.2 K/mcL (4.3-11.1)
[2019-03-22 06:11] LABS: INR 3.3; Prothrombin Time 37.3 Seconds (9.4-12.1)
[2019-03-22 06:18] LABS: Calcium 8.6 mg/dL (8.6-10.3); Potassium 3.2 mEq/L (3.5-5.1)
[2019-03-22 06:39] LABS: Anisocytosis 1+ (Not Present)
[2019-03-22 06:43] LABS: Platelet Estimate Normal (Normal)
[2019-03-22] MEDS: Lactulose Oral Soln 20 GM/30 ML UDC PO SCH ×3 (08:51→22:05)
[2019-03-22] MEDS ORDERED: Potassium Chloride 40 MEQ, Lidocaine 1% 2 ML in 0.9 % Sodium Chloride 500 ML IVPB ONE (09:00)
[2019-03-22] MEDS: Aspirin Enteric Coated 81 MG Tablet PO SCH (09:08)
[2019-03-22] MEDS: Torsemide 20 MG TABLET PO SCH ×3 (09:09→17:09)
[2019-03-22] MEDS: metOLazone 2.5 MG TABLET PO SCH (09:09)
--- NOTE | 2019-03-22 09:53 | Internal Med Progress Note ---
Hospitalist Progress Note - Encounter Date of Encounter: 03/22/19 Time of Encounter: 09:51 - Subjective Interval History: This is a 63-year-old male with past medical history of cirrhosis, CHF, chronic kidney disease, atrial fibrillation on Coumadin, and the bilateral pleural effusion presented with acute onset of change of mental status with unsteady ga it. Patient was recently hospitalized because of CHF exacerbation. He was treated and released on 03/14. reported that patient can confused with unsteady gait yesterday and he was brought to the ED. Ammonia level upon admission was 101. He received lactulose per rectum. Chest x-ray showed worsening bilateral pleural effusion. Troponin was slightly elevated, cardiology was consulted. Patient seen and examined in the room. Mental status much improved today. Alert and oriented x3, wanted to go home. He denies abdominal pain, nausea/vomiting, or diarrhea. He reported absence of fever, chills, or night sweats. - Exam Vitals: Temp Pulse Resp BP Pulse Ox 97.7 F 82 16 110/71 97 03/22/19 06:44 03/22/19 06:44 03/22/19 06:44 03/22/19 06:44 03/22/19 06:44 Exam: General Appearance: Appearing as age, minimal acute distress. Head: Atraumatic normocephalic Skin: Normal texture, normal turgor, warm, dry. Eyes: Conjunctivae pale with no erythema, drainage, or ulcers. Anicteric. Neck: No Lymphadenopathy in the anterior/posterior cervical chain. No thyromegaly, masses or ulcers. Trachea midline. Heart: RRR, no murmurs. Capillary refill 4 seconds Lungs: No accessory muscle usage, lungs clear to auscultation bilaterally, no wheezes or crackles. Extremities: 2+ pitting edema BL, No clubbing, cyanosis, or ulcers. Abdomen: distended, normoactive bowel sounds. generalized-tender to palpation wi th fluid shift, no hepatomegally. No guarding. Neuro: AOx1 with no new focal deficits. MSK: Strength 5/5 Upper extremity equal bilaterally. Strength 5/5 Lower extremity equal bilaterally - Assessment and Plan (1) Hepatic encephalopathy Current Visit: Yes Status: Acute Assessment and Plan: 03/20 Ammonia level at 101 upon admission. Received lactulose per rectum overnight, seems more alert this morning. Will continue lactulose, rifaximin started. We will cycle ammonia in am. Pt seems has chronic anemia due to slow GI blood loss. Underwent GI workup recent, he was planned to have capsule endoscopy as outpatient but this has not been done yet. He is on asa and coumadin at home, INR 2.5 today. No signs of SBP on physical exam. Paracentesis ordered but IR was unbale to perform due to small amount of ascites. 03/21 Ammonia level down to 68 this morning, patient mental status significantly improved. Patient does not have any signs/symptoms of SBP. Also he does have a history of GI bleeding, H/H has been stable. Will continue monitoring. Continue current treatment with lactulose and rifaximin. 03/22 Patient mental status back to the baseline. Continue current dose of lactulose and rifaximin. (2) CHF (congestive heart failure) Current Visit: Yes Status: Acute Assessment and Plan: 03/20 Recent echo in February showed ejection fraction 30-35%, global LV systolic dysfunction. Patient is volume overloaded on physical exam, chest x-ray showed increased size of bilateral pleural effusion. We will continue torsemide and metolazone for now given the slightly above normal creatinine level. We will titrate diuretics based on the volume status. 03/21 The patient achieved satisfactory diuresis in the past 24 hours. Creatinine slightly decreased. We will continue current diuretics regimen was torsemide and metolazone. Renal following, appreciate help. 03/22 Volume status is improving. Creatinine slightly increased to this morning. Renal following, appreciate help. (3) Diabetes mellitus Current Visit: No Status: Chronic Assessment and Plan: Home dose of long-acting insulin decreased to 40 unit, insulin sliding scale started. Blood sugar well controlled currently. (4) Hypertension Current Visit: No Status: Chronic Assessment and Plan: BP stable, we will continue home midodrine. Continue monitoring blood pressure. (5) Morbid obesity Current Visit: No Status: Chronic Assessment and Plan: Weight control discussed with patient. (6) Elevated troponin Current Visit: Yes Status: Acute Assessment and Plan: Patient has chronic baseline troponin elevation. He has no chest pain. EKG has no acute ST-T change. (7) Chronic a-fib Current Visit: No Status: Chronic (8) Anemia Current Visit: No Status: Chronic Assessment and Plan: H/H stable, patient will follow up with GI as outpatient to complete further workup. Iron studies showed low iron level. Was started iron supplementation today. (9) CKD (chronic kidney disease) stage 3, GFR 30-59 ml/min Current Visit: No Status: Acute Assessment and Plan: Creatinine is slightly above baseline, will continue monitoring, continue diuretics at home dose. Renal following, appreciate help. (10) Pleural effusion Current Visit: No Status: Acute Assessment and Plan: Continue diuretics. Continue monitoring respiratory status. ABG showed mild metabolic alkalosis, likely secondary to aggressive diuretics. Will continue monitoring. (11) Hypokalemia Current Visit: Yes Status: Acute Assessment and Plan: Potassium this morning 3.2, We will continue replacement, check BMP in the morning. (12) DVT prophylaxis Current Visit: Yes Status: Acute Assessment and Plan: Patient on Coumadin. - Time Spent with Patient Total time spent is greater than 50% in coordination of care (as documented) at patient's floor/unit and/or counseling patient: Greater than 35 minutes Plan of Care Discussed with: patient Internal Medicine: Result - Labs CBC & Chem 7: 03/22/19 05:37 03/22/19 05:37 Labs: Short CBC 03/21/19 03/22/19 Range/Units 04:09 05:37 WBC 7.3 7.2 (4.3-11.1) K/mcL Hgb 8.6 L 8.8 L (12.9-16.9) g/dL Hct 30.4 L 31.4 L (37.5-50.1) % Plt Count 226 243 (140-400) K/mcL Neutrophils # 5.6 5.4 (1.6-8.9) K/mcL BMP 03/21/19 03/21/19 03/22/19 04:09 18:47 05:37 Sodium 143 141 Potassium 2.5 L* 3.3 L D 3.2 L Chloride 98 98 Carbon Dioxide 34 H 32 H BUN 64 H 65 H Creatinine 2.04 H 2.38 H Glucose 81 133 H Calcium 8.8 8.6 - ABG Interpretation ABG results: ABG ABG pH 7.53 pH Units (7.32-7.45) H 03/20/19 12:20 ABG pCO2 42 mmHg (35-45) 03/20/19 12:20 ABG pO2 61 mmHg (85-104) L 03/20/19 12:20 ABG O2 Saturation 93 % (95-98) L 03/20/19 12:20 PT/INR, D-dimer PT 37.3 Seconds (9.4-12.1) H 03/22/19 05:37 Consult Discharge Plan - Plan Referrals: Khoi Hinkle [Primary Care Provider] - (Appointment has been requested.) (2) CHF (congestive heart failure) Qualifiers: Heart failure type: systolic Heart failure chronicity: acute on chronic Qualified Code(s): I50.23 - Acute on chronic systolic (congestive) heart failure (3) Diabetes mellitus Qualifiers: Diabetes mellitus type: type 2 Diabetes mellitus buttermaker continuous churn insulin use: with buttermaker continuous churn use Diabetes mellitus complication status: with other specified complication Qualified Code(s): E11.69 - Type 2 diabetes mellitus with other specified complication; Z79.4 - MCFP (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 of 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
--- NOTE | 2019-03-22 17:46 | Nephrology Progress Note ---
Date of Encounter: 03/22/19 Time of Encounter: 08:50 (Time estimated) - Assessment and Plan (1) CKD (chronic kidney disease), stage III Current Visit: Yes Status: Acute (2) Acute kidney injury superimposed on CKD Current Visit: No Status: Acute (3) Hypokalemia Current Visit: No Status: Acute (4) Encephalopathy Current Visit: Yes Status: Acute (5) Heart failure with reduced ejection fraction Current Visit: Yes Status: Acute Subjective Principal diagnosis: LINO on CKD, encephalopathy Interval history: Subjective Interview with the patient revealed that he had recently not been taking his lactulose as frequently as he had been. Feels that his encephalopathy has happened because of this similar instance in the past. Believes Dr. Tay is the only kidney doctor he has seen, however believes his kidney disease was diagnosed 3-4 years ago at [facility] and he was told at that time to follow up with a inspector government property. Denies ever having dialysis. Intake: Is on a 1.5 L fluid restriction however estimates he drinks maybe 1.8-2 L per day. He feels thirsty frequently. Output: Difficult for patient to communicate what his usual urine output is Today: He feels around 90% of his baseline Physical exam Gen.: Middle-aged male. No acute distress Skin: Good turgor. Neck: Exam complicated by upright sitting in chair but no carotid bruits heard and no obvious JVD Cardiac: Only tricuspid and pulmonic posts heard. S1, S2. Respiratory: Diminished lung sounds at the bases and worse on the right. Abdomen: Obese. Not diffusely tender. Extremities: Capillary refill less than 2 seconds bilateral upper extremities. Lower extremity bilateral edema seen above stockings. Pitting above stockings that continues to around the mid thigh region. A/P #CKD stage III Last seen by Dr. Tay on 03/04/19. Reports 10-15 year history of CKD per office note. However, also states that he believes he was diagnosed with kidney disease around 3-4 years ago. Sister with RCC status post nephrectomy per office note. -Avoid nephrotoxins -Strict I's and O's -Daily weights -Recommend potential placement of mid-line #LINO on CKD Consider prerenal from splanchnic vasodilation in the setting of cirrhosis. Possibly component of heart failure. No BNP seen on labs. Initial creatinine 2.56 from 2.22 on 03/14 -BUN/creatinine ratio elevated -Calculated osmolality of serum elevated -FE urea at 15.1% suggests prerenal disease -FENa at 0.6% correlates this finding despite torsemide therapy -Renal ultrasound showed left kidney not visualized but no right hydronephrosis. #Hypokalemia Present at last hospital stay discharged 03/14. Seemed to hover around 3. In the setting of chronic hypokalemia on home potassium chloride. H&P note reports noncompliance per . Consider secondary to renal loss, noncompliance, GI loss in the setting of home lactulose therapy. Patient is on torsemide 40 mg 3 times a day at home. Magnesium WNL 03/20 Initial potassium 2.9 -Consider serum osmolality, urine potassium, and urine osmolality to assess trans-tubular potassium gradient. -In the setting of hypotension consider ABG -Potassium chloride 40 mEq by mouth 3 times a day -Magnesium 03/21 WNL #Encephalopathy Consider hepatic Initial ammonia 101. -CT head 03/20 without contrast read as no acute intracranial abnormality -Per primary #Heart failure with reduced ejection fraction Last echo limited views 03/07: LVEF 30-35%. Mildly dilated left ventricle. Global LV systolic dysfunction. -Per cardiology Objective - Vital Signs Vital signs: Vital Signs Temp Pulse Resp BP Pulse Ox 03/22/19 15:20 97.4 F L 79 16 105/66 97 03/22/19 11:35 97.4 F L 83 17 105/68 95 03/22/19 06:44 97.7 F 82 16 110/71 97 03/22/19 02:59 97.6 F 75 16 111/69 97 03/21/19 22:57 98 F 78 16 96/60 95 03/21/19 19:05 97.7 F 80 16 100/64 94 Intake and Output 03/22/19 03/22/19 03/22/19 07:59 15:59 23:59 Intake Total 522 / 522 Balance 522 / 522 Intake: IV Fluids 522 / 522 Potassium Chloride 40 MEQ 522 / 522 Xylocaine 2 ML In 0.9 % Sodium Chloride 500 ML @ 130.5 mls/hr IVPB ONCE ONE Rx#:[id number] Other: Stool Size Moderate Stool Consistency soft Stool Characteristics Normal for Patient Stool Color Brown # Voids 2 Weight 129.898 kg Blood Glucose* 126 181 115 Patient Weight 03/22/19 23:59 Weight 129.898 kg - Lab 03/22/19 05:37 03/22/19 05:37 Most recent lab results 03/22/19 05:37 Calcium 8.6 Consult Discharge Plan - Plan Referrals: Khoi Hinkle [Primary Care Provider] - 03/28/19 10:00 am ()
[2019-03-22] MEDS ORDERED: Albumin 25% 25gram/100mL 25 GM/100 ML IV.SOLN IVPB ONE (18:25)
[2019-03-22] MEDS ORDERED: Furosemide 40 MG/4 ML VIAL IVP ONE (18:25)
[2019-03-22] MEDS: Insulin DETEMIR 100 UNIT/ML X5UNITS SQ SCH (22:03)
[2019-03-22] MEDS: Melatonin 3 MG TABLET PO SCH (22:03)
[2019-03-22] MEDS: Gabapentin 300 MG CAPSULE PO SCH (22:04)
[2019-03-23] MEDS: Insulin LISPRO 300 UNITS/3 ML VIAL SQ SCH ×4 (02:34→17:39)
[2019-03-23 06:12] LABS: Mean Platelet Volume 10.5 fL (9.4-12.4)
[2019-03-23 06:13] LABS: Basophils % 0.5 %; Eosinophils # 0.2 K/mcL (0.0-0.6); Eosinophils % 3.1 %; Hematocrit 28.3 % (37.5-50.1); Immature Granulocytes % 0.2 % (0-4); Lymphocytes # 0.3 K/mcL (0.6-4.6); Lymphocytes % 4.4 %; Mean Corpuscular HGB Conc 28.3 g/dL (31.6-35.5); Mean Corpuscular Hemoglobin 25.2 pg (28.0-33.3); Mean Corpuscular Volume 89.3 fL (83.0-100.0); Monocytes # 0.8 K/mcL (0.0-1.3); Monocytes % 11.6 %; Nucleated Red Blood Cells 0.3 /100 WBC (0); Platelet Count 215 K/mcL (140-400); Red Blood Count 3.17 M/mcL (4.19-5.50); Red Cell Distribution Width 22.7 % (11.5-14.5); Segmented Neutrophils % 80.2 %; White Blood Count 6.5 K/mcL (4.3-11.1)
[2019-03-23 06:14] LABS: Neutrophils # 5.2 K/mcL (1.6-8.9)
[2019-03-23 06:29] LABS: Hypochromasia Present (Not Present); Ovalocytes 2+ (Not Present); Tear Drop Cells 1+ (Not Present)
[2019-03-23 06:30] LABS: Potassium 2.9 mEq/L (3.5-5.1)
[2019-03-23] MEDS ORDERED: Potassium Chloride 40 MEQ, Lidocaine 1% 2 ML in 0.9 % Sodium Chloride 500 ML IVPB ONE (07:54)
[2019-03-23] MEDS: Aspirin Enteric Coated 81 MG Tablet PO SCH (08:48)
[2019-03-23] MEDS: Lactulose Oral Soln 20 GM/30 ML UDC PO SCH ×3 (08:49→21:29)
[2019-03-23] MEDS: Torsemide 20 MG TABLET PO SCH ×4 (09:30→17:37)
--- NOTE | 2019-03-23 09:48 | Internal Med Progress Note ---
Hospitalist Progress Note - Encounter Date of Encounter: 03/23/19 Time of Encounter: 09:46 - Subjective Interval History: This is a 63-year-old male with past medical history of cirrhosis, CHF, chronic kidney disease, atrial fibrillation on Coumadin, and the bilateral pleural effusion presented with acute onset of change of mental status with unsteady ga it. Patient was recently hospitalized because of CHF exacerbation. He was treated and released on 03/14. reported that patient can confused with unsteady gait yesterday and he was brought to the ED. Ammonia level upon admission was 101. He received lactulose per rectum. Chest x-ray showed worsening bilateral pleural effusion. Troponin was slightly elevated, cardiology was consulted. Patient seen and examined in the room. Mental status much improved today. Alert and oriented x3, wanted to go home. He denies abdominal pain, nausea/vomiting, or diarrhea. He reported absence of fever, chills, or night sweats. - Exam Vitals: Temp Pulse Resp BP Pulse Ox 97.4 F L 75 20 91/52 95 03/23/19 07:20 03/23/19 07:20 03/23/19 07:20 03/23/19 07:20 03/23/19 07:20 Exam: General Appearance: Appearing as age, minimal acute distress. Head: Atraumatic normocephalic Skin: Normal texture, normal turgor, warm, dry. Eyes: Conjunctivae pale with no erythema, drainage, or ulcers. Anicteric. Neck: No Lymphadenopathy in the anterior/posterior cervical chain. No thyromegaly, masses or ulcers. Trachea midline. Heart: RRR, no murmurs. Capillary refill 4 seconds Lungs: No accessory muscle usage, lungs clear to auscultation bilaterally, no wheezes or crackles. Extremities: 2+ pitting edema BL, No clubbing, cyanosis, or ulcers. Abdomen: distended, normoactive bowel sounds. generalized-tender to palpation wi th fluid shift, no hepatomegally. No guarding. Neuro: AOx1 with no new focal deficits. MSK: Strength 5/5 Upper extremity equal bilaterally. Strength 5/5 Lower extremity equal bilaterally - Assessment and Plan (1) Hepatic encephalopathy Current Visit: Yes Status: Acute Assessment and Plan: 03/20 Ammonia level at 101 upon admission. Received lactulose per rectum overnight, seems more alert this morning. Will continue lactulose, rifaximin started. We will cycle ammonia in am. Pt seems has chronic anemia due to slow GI blood loss. Underwent GI workup recent, he was planned to have capsule endoscopy as outpatient but this has not been done yet. He is on asa and coumadin at home, INR 2.5 today. No signs of SBP on physical exam. Paracentesis ordered but IR was unbale to perform due to small amount of ascites. 03/21 Ammonia level down to 68 this morning, patient mental status significantly improved. Patient does not have any signs/symptoms of SBP. Also he does have a history of GI bleeding, H/H has been stable. Will continue monitoring. Continue current treatment with lactulose and rifaximin. 03/22-03/23 Patient mental status back to the baseline. Continue current dose of lactulose and rifaximin. (2) CHF (congestive heart failure) Current Visit: Yes Status: Acute Assessment and Plan: 03/20 Recent echo in February showed ejection fraction 30-35%, global LV systolic dysfunction. Patient is volume overloaded on physical exam, chest x-ray showed increased size of bilateral pleural effusion. We will continue torsemide and metolazone for now given the slightly above normal creatinine level. We will titrate diuretics based on the volume status. 03/21 The patient achieved satisfactory diuresis in the past 24 hours. Creatinine slightly decreased. We will continue current diuretics regimen was torsemide and metolazone. Renal following, appreciate help. 03/22-03/23 Volume status is improving. Creatinine slightly increased to this morning. Renal following, appreciate help. (3) Diabetes mellitus Current Visit: No Status: Chronic Assessment and Plan: Home dose of long-acting insulin decreased to 40 unit, insulin sliding scale started. Blood sugar well controlled currently. (4) Hypertension Current Visit: No Status: Chronic Assessment and Plan: BP stable, we will continue home midodrine. Continue monitoring blood pressure. (5) Morbid obesity Current Visit: No Status: Chronic Assessment and Plan: Weight control discussed with patient. (6) Elevated troponin Current Visit: Yes Status: Acute Assessment and Plan: Patient has chronic baseline troponin elevation. He has no chest pain. EKG has no acute ST-T change. (7) Chronic a-fib Current Visit: No Status: Chronic Assessment and Plan: Rate controlled, continue Coumadin. Pharmacy is dosing. (8) Anemia Current Visit: No Status: Chronic Assessment and Plan: H/H stable, patient will follow up with GI as outpatient to complete further workup. Iron studies showed low iron level. started iron supplementation. (9) CKD (chronic kidney disease) stage 3, GFR 30-59 ml/min Current Visit: No Status: Acute Assessment and Plan: Creatinine is slightly above baseline, will continue monitoring, continue diuretics at home dose. Renal following, appreciate help. (10) Pleural effusion Current Visit: No Status: Acute Assessment and Plan: Continue diuretics. Continue monitoring respiratory status. ABG showed mild metabolic alkalosis, likely secondary to aggressive diuretics. Will continue monitoring. (11) Hypokalemia Current Visit: Yes Status: Acute Assessment and Plan: Potassium this morning 2.9, We will continue replacement, check BMP in the morning. (12) DVT prophylaxis Current Visit: Yes Status: Acute Assessment and Plan: Patient on Coumadin. - Time Spent with Patient Total time spent is greater than 50% in coordination of care (as documented) at patient's floor/unit and/or counseling patient: Greater than 35 minutes Plan of Care Discussed with: patient Internal Medicine: Result - Labs CBC & Chem 7: 03/23/19 05:30 03/23/19 05:30 Labs: Short CBC 03/23/19 Range/Units 05:30 WBC 6.5 (4.3-11.1) K/mcL Hgb 8.0 L (12.9-16.9) g/dL Hct 28.3 L (37.5-50.1) % Plt Count 215 (140-400) K/mcL Neutrophils # 5.2 (1.6-8.9) K/mcL BMP 03/23/19 05:30 Sodium 139 Potassium 2.9 L Chloride 99 Carbon Dioxide 31 H BUN 69 H Creatinine 2.40 H Glucose 136 H Calcium 8.0 L - ABG Interpretation ABG results: ABG ABG pH 7.53 pH Units (7.32-7.45) H 03/20/19 12:20 ABG pCO2 42 mmHg (35-45) 03/20/19 12:20 ABG pO2 61 mmHg (85-104) L 03/20/19 12:20 ABG O2 Saturation 93 % (95-98) L 03/20/19 12:20 PT/INR, D-dimer PT 37.3 Seconds (9.4-12.1) H 03/22/19 05:37 Consult Discharge Plan - Plan Referrals: Khoi Hinkle [Primary Care Provider] - 03/28/19 10:00 am () (2) CHF (congestive heart failure) Qualifiers: Heart failure type: systolic Heart failure chronicity: acute on chronic Qualified Code(s): I50.23 - Acute on chronic systolic (congestive) heart failure (3) Diabetes mellitus Qualifiers: Diabetes mellitus type: type 2 Diabetes mellitus shelter insulin use: with shelter use Diabetes mellitus complication status: with other specified complication Qualified Code(s): E11.69 - Type 2 diabetes mellitus with other specified complication; Z79.4 - detention (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 of 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
[2019-03-23 11:47] LABS: INR 2.5; Prothrombin Time 28.5 Seconds (9.4-12.1)
--- NOTE | 2019-03-23 12:23 | Nephrology Progress Note ---
Date of Encounter: 03/23/19 Time of Encounter: 10:10 - Assessment and Plan (1) LINO (acute kidney injury) Current Visit: No Status: Acute LINO on CKD and ongoing peripheral edema with stockings in place: continue current care. He tolerated the lasix IV yesterday with Albumin, that I had ordered as his GFR is stable at 28. I did not see how much UOP he made; and, I recommend ongoing strict I/Os. Refractory hypokalemia with chronic peripheral edema plus hx of liver disease: therefore he is the ideal candidate for spironolactone, which would help with both hypokalemia and diuresis. I recommend starting a low dose spironolactone (to ensure his BPs tolerate) and he will need KCl still as this is a low dose of Spirono. He very likely will have a better serum K+ overtime and perhaps not require as much KCl if he can tolerate the spirono. The pt voiced that he wants to discharge and is feeling depressed: informed the pt's RN. I recommend continuing to follow a renal protective strategy as able. (2) Hypokalemia Current Visit: No Status: Acute See above. This complex pt required a very high degree of E/M and MDM today. (3) CKD (chronic kidney disease), stage III Current Visit: Yes Status: Acute Baseline history of CKD and follows with me in my clinic. (4) Encephalopathy Current Visit: Yes Status: Acute Subjective Principal diagnosis: LINO on CKD, encephalopathy Interval history: The patient was seen and examined earlier in the day. He affirmed feeling swo llen still, but did not report nausea, vomiting, or diarrhea. He said that he hopes to be released home soon. He is still had considerably low potassium. He said that his left upper extremity is not as swollen since the IV was removed. Objective - Vital Signs Vital signs: Vital Signs Temp Pulse Resp BP Pulse Ox 03/23/19 11:13 97.6 F 75 20 110/75 95 03/23/19 07:20 97.4 F L 75 20 91/52 95 03/23/19 03:38 98.7 F 82 14 101/61 95 03/22/19 23:57 98.6 F 78 16 110/69 91 03/22/19 19:28 97.5 F L 74 14 118/79 100 03/22/19 15:20 97.4 F L 79 16 105/66 97 Intake and Output 03/22/19 03/23/19 03/23/19 23:59 07:59 15:59 Intake Total 200 / 695 495 / 695 Output Total 400 / 700 300 / 700 Balance -200 / -5 195 / -5 Intake: Oral 200 / 695 495 / 695 Output: Urine 400 / 700 300 / 700 Other: Meal Dinner Percent of Meal Consumed 90% Weight 129.682 kg Blood Glucose* 139 113 163 Patient Weight 03/23/19 23:59 Weight 129.682 kg - General Appearance General appearance: Present: well-developed, well-nourished, appears started age, obese, chronically ill, fatigue EENT: Present: ATNC, PERRL, mucous membranes moist Neck: Present: no JVD, supple Respiratory: Present: no kyphosis, clear (but diminished in the bases) Cardiology: Present: edema, normal S1, normal S2 Gastrointestinal: Present: normoactive bowel sounds, no guarding, obese Integumentary: Present: warm and dry, ecchymotic Neurologic: Present: no focal deficit, no asterixis, alert and oriented x3 Musculoskeletal: Present: no erythema, no cyanosis, no clubbing Psychiatric: Present: mood/affect appropriate, cooperative - Lab 03/24/19 05:00 03/24/19 05:00 Most recent lab results 03/23/19 05:30 Calcium 8.0 L Consult Discharge Plan - Plan Referrals: Khoi Hinkle [Primary Care Provider] - 03/28/19 10:00 am ()
[2019-03-23] MEDS: Spironolactone 25 MG TABLET PO SCH (13:00)
[2019-03-23] MEDS ORDERED: *HR* Warfarin 2 MG TABLET PO ONE (18:00)
[2019-03-23] MEDS: Melatonin 3 MG TABLET PO SCH (21:28)
[2019-03-23] MEDS: Gabapentin 300 MG CAPSULE PO SCH (21:28)
[2019-03-23] MEDS: Insulin DETEMIR 100 UNIT/ML X5UNITS SQ SCH (21:44)
[2019-03-24 05:13] LABS: Hemoglobin 8.2 g/dL (12.9-16.9)
[2019-03-24 05:15] LABS: Hematocrit 29.2 % (37.5-50.1); Mean Corpuscular HGB Conc 28.1 g/dL (31.6-35.5); Mean Corpuscular Hemoglobin 25.3 pg (28.0-33.3); Mean Corpuscular Volume 90.1 fL (83.0-100.0); Mean Platelet Volume 9.8 fL (9.4-12.4); Platelet Count 216 K/mcL (140-400); Red Blood Count 3.24 M/mcL (4.19-5.50); Red Cell Distribution Width 22.3 % (11.5-14.5); White Blood Count 7.8 K/mcL (4.3-11.1)
[2019-03-24 05:22] LABS: Prothrombin Time 22.8 Seconds (9.4-12.1)
[2019-03-24 05:32] LABS: Potassium 2.9 mEq/L (3.5-5.1)
[2019-03-24] MEDS ORDERED: Potassium Chloride 40 MEQ, Lidocaine 1% 2 ML in 0.9 % Sodium Chloride 500 ML IVPB ONE (07:31)
[2019-03-24] MEDS: Spironolactone 25 MG TABLET PO SCH (07:46)
[2019-03-24] MEDS: Aspirin Enteric Coated 81 MG Tablet PO SCH (07:46)
[2019-03-24] MEDS: Insulin LISPRO 300 UNITS/3 ML VIAL SQ SCH ×3 (07:48→16:25)
[2019-03-24] MEDS: Torsemide 20 MG TABLET PO SCH ×3 (08:36→17:47)
[2019-03-24] MEDS: Lactulose Oral Soln 20 GM/30 ML UDC PO SCH ×3 (08:37→20:14)
--- NOTE | 2019-03-24 10:41 | Nephrology Progress Note ---
Date of Encounter: 03/24/19 Time of Encounter: 10:20 - Assessment and Plan (1) LINO (acute kidney injury) Current Visit: No Status: Acute Nephrology update The patient has stable renal function, which is reassuring. I agree with all the oral potassium chloride and the extra IV potassium chloride as already ordered earlier today. I had already started spironolactone yesterday, and as this medication reaches its pharmacokinetic / therapeutic steady state in the next few doses, then this Rx should also help better maintain the pt's refractory hypokalemia. (2) Hypokalemia Current Visit: No Status: Acute (3) CKD (chronic kidney disease), stage III Current Visit: Yes Status: Acute (4) Encephalopathy Current Visit: Yes Status: Acute Subjective Principal diagnosis: LINO on CKD, encephalopathy Interval history: The patient was seen and examined, and he affirmed still feeling swollen with ongoing nausea, but did not affirm chest pain or cramping. Objective - Vital Signs Vital signs: Vital Signs Temp Pulse Resp BP Pulse Ox 03/24/19 07:43 98.1 F 75 16 101/69 03/24/19 01:17 98 F 75 16 119/80 98 03/23/19 21:23 98.1 F 72 16 117/73 98 03/23/19 16:10 97.6 F 80 17 112/66 03/23/19 13:07 75 16 108/83 03/23/19 11:13 97.6 F 75 20 110/75 95 Intake and Output 03/23/19 03/24/19 03/24/19 23:59 07:59 15:59 Intake Total 600 / 2357 240 / 240 Output Total 600 / 1900 Balance 0 / 457 240 / 240 Intake: Oral 600 / 1835 240 / 240 Output: Urine 600 / 1900 Other: Meal Dinner Breakfast Percent of Meal Consumed 100% 100% Blood Glucose* 155 84 - General Appearance Exam: General appearance: Present: well-developed, well-nourished, appears started age, obese, chronically ill, resting in the bedside chair EENT: Present: ATNC, PERRL, mucous membranes moist Neck: Present: no JVD, supple Respiratory: Present: no kyphosis, clear (but diminished in the bases) Cardiology: Present: edema, normal S1, normal S2 Gastrointestinal: Present: normoactive bowel sounds, no guarding, obese Integumentary: Present: warm and dry, ecchymotic Neurologic: Present: no focal deficit, no asterixis, alert and oriented x3 Musculoskeletal: Present: no erythema, no cyanosis, no clubbing Psychiatric: Present: mood/affect appropriate, cooperative - Lab 03/24/19 05:00 03/24/19 05:00 Most recent lab results 03/24/19 05:00 Calcium 8.0 L Consult Discharge Plan - Plan Referrals: Khoi Hinkle [Primary Care Provider] - 03/28/19 10:00 am ()
--- NOTE | 2019-03-24 11:01 | Internal Med Progress Note ---
Hospitalist Progress Note - Encounter Date of Encounter: 03/24/19 Time of Encounter: 10:59 - Subjective Interval History: This is a 63-year-old male with past medical history of cirrhosis, CHF, chronic kidney disease, atrial fibrillation on Coumadin, and the bilateral pleural effusion presented with acute onset of change of mental status with unsteady ga it. Patient was recently hospitalized because of CHF exacerbation. He was treated and released on 03/14. reported that patient can confused with unsteady gait yesterday and he was brought to the ED. Ammonia level upon admission was 101. He received lactulose per rectum. Chest x-ray showed worsening bilateral pleural effusion. Troponin was slightly elevated, cardiology was consulted. Patient seen and examined in the room. Mental status much improved today. Alert and oriented x3, wanted to go home. He denies abdominal pain, nausea/vomiting, or diarrhea. He reported absence of fever, chills, or night sweats. - Exam Vitals: Temp Pulse Resp BP Pulse Ox 98.1 F 75 16 101/69 98 03/24/19 07:43 03/24/19 07:43 03/24/19 07:43 03/24/19 07:43 03/24/19 01:17 Exam: General Appearance: Appearing as age, minimal acute distress. Head: Atraumatic normocephalic Skin: Normal texture, normal turgor, warm, dry. Eyes: Conjunctivae pale with no erythema, drainage, or ulcers. Anicteric. Neck: No Lymphadenopathy in the anterior/posterior cervical chain. No thyromegaly, masses or ulcers. Trachea midline. Heart: RRR, no murmurs. Capillary refill 4 seconds Lungs: No accessory muscle usage, lungs clear to auscultation bilaterally, no wheezes or crackles. Extremities: 2+ pitting edema BL, No clubbing, cyanosis, or ulcers. Abdomen: distended, normoactive bowel sounds. generalized-tender to palpation wi th fluid shift, no hepatomegally. No guarding. Neuro: AOx1 with no new focal deficits. MSK: Strength 5/5 Upper extremity equal bilaterally. Strength 5/5 Lower extremity equal bilaterally - Assessment and Plan (1) Hepatic encephalopathy Current Visit: Yes Status: Acute Assessment and Plan: 03/20 Ammonia level at 101 upon admission. Received lactulose per rectum overnight, seems more alert this morning. Will continue lactulose, rifaximin started. We will cycle ammonia in am. Pt seems has chronic anemia due to slow GI blood loss. Underwent GI workup recent, he was planned to have capsule endoscopy as outpatient but this has not been done yet. He is on asa and coumadin at home, INR 2.5 today. No signs of SBP on physical exam. Paracentesis ordered but IR was unbale to perform due to small amount of ascites. 03/21 Ammonia level down to 68 this morning, patient mental status significantly improved. Patient does not have any signs/symptoms of SBP. Also he does have a history of GI bleeding, H/H has been stable. Will continue monitoring. Continue current treatment with lactulose and rifaximin. 03/22-03/24 Patient mental status back to the baseline. Continue current dose of lactulose and rifaximin. (2) CHF (congestive heart failure) Current Visit: Yes Status: Acute Assessment and Plan: 03/20 Recent echo in February showed ejection fraction 30-35%, global LV systolic dysfunction. Patient is volume overloaded on physical exam, chest x-ray showed increased size of bilateral pleural effusion. We will continue torsemide and metolazone for now given the slightly above normal creatinine level. We will titrate diuretics based on the volume status. 03/21 The patient achieved satisfactory diuresis in the past 24 hours. Creatinine slightly decreased. We will continue current diuretics regimen was torsemide and metolazone. Renal following, appreciate help. 03/22-03/24 Volume status is improving. Creatinine stable. aldactone started by renal. Renal following, appreciate help. (3) Diabetes mellitus Current Visit: No Status: Chronic Assessment and Plan: Home dose of long-acting insulin decreased to 40 unit, insulin sliding scale started. Blood sugar well controlled currently. (4) Hypertension Current Visit: No Status: Chronic Assessment and Plan: BP stable, continue home midodrine. Continue monitoring blood pressure. (5) Morbid obesity Current Visit: No Status: Chronic Assessment and Plan: Weight control discussed with patient. (6) Elevated troponin Current Visit: Yes Status: Acute Assessment and Plan: Patient has chronic baseline troponin elevation. He has no chest pain. EKG has no acute ST-T change. (7) Chronic a-fib Current Visit: No Status: Chronic Assessment and Plan: Rate controlled, continue Coumadin. Pharmacy is dosing. (8) Anemia Current Visit: No Status: Chronic Assessment and Plan: H/H stable, patient will follow up with GI as outpatient to complete further workup. Iron studies showed low iron level. started iron supplementation. (9) CKD (chronic kidney disease) stage 3, GFR 30-59 ml/min Current Visit: No Status: Acute Assessment and Plan: Creatinine is slightly above baseline but stable, will continue monitoring, continue diuretics at home dose. Stated on aldactone by renal. Renal following, appreciate help. (10) Pleural effusion Current Visit: No Status: Acute Assessment and Plan: Continue diuretics. Continue monitoring respiratory status. ABG showed mild metabolic alkalosis, likely secondary to aggressive diuretics. Will continue monitoring. (11) Hypokalemia Current Visit: Yes Status: Acute Assessment and Plan: Potassium this morning 2.9, We will continue replacement, check BMP in the morning. aldactone started by renal, it could help the K+ loss. (12) DVT prophylaxis Current Visit: Yes Status: Acute Assessment and Plan: Patient on Coumadin. - Time Spent with Patient Total time spent is greater than 50% in coordination of care (as documented) at patient's floor/unit and/or counseling patient: Greater than 35 minutes Plan of Care Discussed with: patient Internal Medicine: Result - Labs CBC & Chem 7: 03/24/19 05:00 03/24/19 05:00 Labs: Short CBC 03/24/19 Range/Units 05:00 WBC 7.8 (4.3-11.1) K/mcL Hgb 8.2 L (12.9-16.9) g/dL Hct 29.2 L (37.5-50.1) % Plt Count 216 (140-400) K/mcL BMP 03/24/19 05:00 Sodium 139 Potassium 2.9 L Chloride 99 Carbon Dioxide 31 H BUN 68 H Creatinine 2.41 H Glucose 111 H Calcium 8.0 L - ABG Interpretation ABG results: ABG ABG pH 7.53 pH Units (7.32-7.45) H 03/20/19 12:20 ABG pCO2 42 mmHg (35-45) 03/20/19 12:20 ABG pO2 61 mmHg (85-104) L 03/20/19 12:20 ABG O2 Saturation 93 % (95-98) L 03/20/19 12:20 PT/INR, D-dimer PT 22.8 Seconds (9.4-12.1) H 03/24/19 05:00 Consult Discharge Plan - Plan Referrals: Khoi Hinkle [Primary Care Provider] - 03/28/19 10:00 am () (2) CHF (congestive heart failure) Qualifiers: Heart failure type: systolic Heart failure chronicity: acute on chronic Qualified Code(s): I50.23 - Acute on chronic systolic (congestive) heart failure (3) Diabetes mellitus Qualifiers: Diabetes mellitus type: type 2 Diabetes mellitus long term care administrator insulin use: with [facility] use Diabetes mellitus complication status: with other specified complication Qualified Code(s): E11.69 - Type 2 diabetes mellitus with other specified complication; Z79.4 - [employer] supervisor (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 of 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
[2019-03-24] MEDS ORDERED: *HR* Warfarin 2.5 MG TABLET PO ONE (18:00)
[2019-03-24] MEDS: Gabapentin 300 MG CAPSULE PO SCH (20:15)
[2019-03-24] MEDS: Melatonin 3 MG TABLET PO SCH (20:15)
[2019-03-24] MEDS: Insulin DETEMIR 100 UNIT/ML X5UNITS SQ SCH (21:31)
[2019-03-25] MEDS ORDERED: Menthol 9.1 MG LOZENGE PO PRN (03:23)
[2019-03-25 06:04] LABS: Hemoglobin 8.8 g/dL (12.9-16.9); Mean Platelet Volume 10.3 fL (9.4-12.4); Red Cell Distribution Width 22.6 % (11.5-14.5)
[2019-03-25 06:05] LABS: Hematocrit 30.9 % (37.5-50.1); Mean Corpuscular HGB Conc 28.5 g/dL (31.6-35.5); Mean Corpuscular Hemoglobin 25.9 pg (28.0-33.3); Mean Corpuscular Volume 90.9 fL (83.0-100.0); Platelet Count 236 K/mcL (140-400); White Blood Count 11.1 K/mcL (4.3-11.1)
[2019-03-25 06:12] LABS: INR 1.9; Prothrombin Time 21.7 Seconds (9.4-12.1)
[2019-03-25 06:24] LABS: Calcium 8.3 mg/dL (8.6-10.3); Potassium 2.8 mEq/L (3.5-5.1)
[2019-03-25] MEDS: Spironolactone 25 MG TABLET PO SCH ×2 (07:44→21:41)
[2019-03-25] MEDS: Aspirin Enteric Coated 81 MG Tablet PO SCH (07:44)
[2019-03-25] MEDS: Insulin LISPRO 300 UNITS/3 ML VIAL SQ SCH ×3 (07:45→16:17)
--- NOTE | 2019-03-25 08:13 | Internal Med Progress Note ---
<Rosa Rader - Last Filed: 03/25/19 14:01> Hospitalist Progress Note - Encounter Date of Encounter: 03/25/19 - Exam Vitals: Temp Pulse Resp BP Pulse Ox 97.6 F 75 18 122/68 94 03/25/19 07:50 03/25/19 07:50 03/25/19 07:50 03/25/19 07:50 03/25/19 07:50 - Assessment and Plan (1) Diabetes mellitus Current Visit: No Status: Chronic (2) Hypertension Current Visit: No Status: Chronic (3) Morbid obesity Current Visit: No Status: Chronic (4) DVT prophylaxis Current Visit: Yes Status: Acute (5) Elevated troponin Current Visit: Yes Status: Acute (6) Chronic a-fib Current Visit: No Status: Chronic (7) CHF (congestive heart failure) Current Visit: Yes Status: Acute (8) Anemia Current Visit: No Status: Chronic (9) CKD (chronic kidney disease) stage 3, GFR 30-59 ml/min Current Visit: No Status: Acute (10) Pleural effusion Current Visit: No Status: Acute (11) Hepatic encephalopathy Current Visit: Yes Status: Acute (12) Hypokalemia Current Visit: Yes Status: Acute - Time Spent with Patient Total time spent is greater than 50% in coordination of care (as documented) at patient's floor/unit and/or counseling patient: Internal Medicine: Result - Labs CBC & Chem 7: 03/25/19 05:51 03/25/19 05:51 Labs: Short CBC 03/25/19 Range/Units 05:51 WBC 11.1 (4.3-11.1) K/mcL Hgb 8.8 L (12.9-16.9) g/dL Hct 30.9 L (37.5-50.1) % Plt Count 236 (140-400) K/mcL BMP 03/25/19 05:51 Sodium 136 Potassium 2.8 L Chloride 100 Carbon Dioxide 30 H BUN 65 H Creatinine 2.33 H Glucose 125 H Calcium 8.3 L - ABG Interpretation ABG results: ABG ABG pH 7.53 pH Units (7.32-7.45) H 03/20/19 12:20 ABG pCO2 42 mmHg (35-45) 03/20/19 12:20 ABG pO2 61 mmHg (85-104) L 03/20/19 12:20 ABG O2 Saturation 93 % (95-98) L 03/20/19 12:20 PT/INR, D-dimer PT 21.7 Seconds (9.4-12.1) H 03/25/19 05:51 Consult Discharge Plan - Plan Referrals: Khoi Hinkle [Primary Care Provider] - 03/28/19 10:00 am () - Attending Attestation I examined this patient and my medical decision-making was reviewed with the Resident Physician Dr Fry. I agree with the documented findings, disposition and treatment plan as described except to the extent set forth below. Mr Pace is admitted with hepatic encephalopathy, LINO on CKD and refractory hypokalemia awake, denies confusion or fatigue, no cp, sob, le edema he says is improved gen- alert, awake,appears stated age cv- reg rate and rhythm, normal s1,s2 lungs- ctabl, no wheezing, rhonchi or crackles abd- soft, non tender, non distended, + bs neuro- AAOx3 Hepatic encephalopathy, resolved- cont rifaximin + lactulose, monitor stool outpt LINO on CKD 3- resolved, stable kidney function as d/w nrphro, avoid nephro toxins to best of ability Refractory Hypokalemia- remains with K level in upper 2s, not absorbing repletion IV or oral, not at level safe enough to discharge, as d/w Dr Tay will crush pills and have pt eat in pudding today to see if improved absorption, cont aldactone, will check evening K level tonight and replete further this evening as needed then re eval level again in AM Acute on Chronic HFrEF appears resovled and he is at his baseline Chronic Peripheral Edema- cont aldactone + torsemide dispo- PT eval pending further dx and plan as noted by resident <Trevor Fry S - Last Filed: 03/25/19 18:29> Hospitalist Progress Note - Encounter Date of Encounter: 03/25/19 Time of Encounter: 08:13 - Subjective Interval History: Patient is a 61-year-old male with past history significant for cirrhosis, CHF, CAD, A. fib on Coumadin, and pleural effusions who was admitted to our hospital on 03/19 with altered mental status. His serum ammonia level on admission was 101, and he was started on lactulose and rifaximin, with eventual resolution of his AMS. He was found to be hypokalemic with a normal Mg, and has not responded well to potassium supplementation. He was sent for diagnostic paracentesis on 03/20, but IR was unable to identify a fluid pocket sufficient to aspirate a sufficient sample. Cardiology was consulted for finding of elevated troponin in the setting of CHF. * no ECG changes were found, and Dr Sevilla of cardio advised that no invasive cardiac interventions were indicated at this time. Nephrology was consulted for findings of LINO and hypokalemia * He was started on rifaximin on 03/20 and spironolactone on 03/23 * he has received IV and oral potassium supplementation * Hypokalemia is ongoing Patient states he is feeling fine, no complaints, no changes overnight. - Exam Vitals: Temp Pulse Resp BP Pulse Ox 97.6 F 75 18 122/68 94 03/25/19 07:50 03/25/19 07:50 03/25/19 07:50 03/25/19 07:50 03/25/19 07:50 Exam: General Appearance: Appearing as age, no acute distress. Head: Atraumatic normocephalic Skin: Normal texture, normal turgor, warm, dry. Eyes: Conjunctivae pale with no erythema, drainage, or ulcers. Anicteric. Neck: Trachea midline. Heart: RRR, no murmurs.Peripheral pulses strong bilaterally UE Lungs: No accessory muscle usage, lungs clear to auscultation bilaterally, no wheezes or crackles. Extremities: 2+ pitting edema BL, No clubbing, cyanosis, or ulcers. Abdomen: Obese, normoactive bowel sounds. No guarding. Neuro: AOx3 with no new focal deficits. answers questions appropriately - Assessment and Plan (1) Hypokalemia Current Visit: Yes Status: Acute Assessment and Plan: 2.8 today 2.9 yesterday Concern his lactulose dose is too high and he is losing K with excessive stools * check K at 20:00, replete with IV if low * Recheck K at 0400 tomorrow * continue lactulose, titrate dose to 2-4 stools/day * nursing order to record all stools and titrate lactulose dose * (2) Hepatic encephalopathy Current Visit: Yes Status: Acute Assessment and Plan: Mental status back to baseline A&O x3 decline in mental status likely garvin to non-compliance with home lactulose and rifaximin * continue lactulose * continue rifaximin * monitor for s/s of HE (3) Diabetes mellitus Current Visit: No Status: Chronic Assessment and Plan: Glucose measured ACHS * Adjust insulin regimen as needed in consultation with pharmacy (4) Hypertension Current Visit: No Status: Chronic Assessment and Plan: Continue current hypertension meds (5) Acute kidney injury superimposed on CKD Current Visit: No Status: Acute Assessment and Plan: LINO on CKD-III on admission, current laboratory results show patient is at his b aseline. (6) Acute on chronic systolic (congestive) heart failure Current Visit: No Status: Suspected Assessment and Plan: Possible acute on chronic CHF on admission, has since resolved. No SOB, Rales, Pulmonary edema, JVD Lower extremity edema is chronic DVT Prophylaxis: pt on warfarin with INR of 1.9, adjust warfarin dose per protocol for target INR of 2-3 - Summary of Assessment and Plan Summary of Assessment and Plan: * Spironolactone and potassium supplementation to bring up hypokalemic potassium level * Titrate lactulose to effect of 2-4 stools per day * Continue to monitor other chronic conditions, continuing current treatments - Time Spent with Patient Total time spent is greater than 50% in coordination of care (as documented) at patient's floor/unit and/or counseling patient: Internal Medicine: Result - Labs CBC & Chem 7: 03/25/19 05:51 03/25/19 05:51 Labs: Short CBC 03/25/19 Range/Units 05:51 WBC 11.1 (4.3-11.1) K/mcL Hgb 8.8 L (12.9-16.9) g/dL Hct 30.9 L (37.5-50.1) % Plt Count 236 (140-400) K/mcL BMP 03/25/19 05:51 Sodium 136 Potassium 2.8 L Chloride 100 Carbon Dioxide 30 H BUN 65 H Creatinine 2.33 H Glucose 125 H Calcium 8.3 L - ABG Interpretation ABG results: ABG ABG pH 7.53 pH Units (7.32-7.45) H 03/20/19 12:20 ABG pCO2 42 mmHg (35-45) 03/20/19 12:20 ABG pO2 61 mmHg (85-104) L 03/20/19 12:20 ABG O2 Saturation 93 % (95-98) L 03/20/19 12:20 PT/INR, D-dimer PT 21.7 Seconds (9.4-12.1) H 03/25/19 05:51 <Trevor Fry S - Last Filed: 03/25/19 18:29> (3) Diabetes mellitus Qualifiers: Diabetes mellitus type: type 2 Diabetes mellitus nursing home insulin use: with intermediate manager use Diabetes mellitus complication status: with other specified com plication Qualified Code(s): E11.69 - Type 2 diabetes mellitus with other specified complication; Z79.4 - halfway (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 of insulin (4) Hypertension Qualifiers: Hypertension type: unspecified Qualified Code(s): I10 - Essential (primary) hypertension
[2019-03-25 08:36] LABS: Magnesium 1.8 mg/dL (1.6-2.6)
[2019-03-25] MEDS: Torsemide 20 MG TABLET PO SCH ×3 (08:51→17:50)
[2019-03-25] MEDS: Lactulose Oral Soln 20 GM/30 ML UDC PO SCH ×3 (08:51→21:40)
--- NOTE | 2019-03-25 14:02 | Nephrology Progress Note ---
Date of Encounter: 03/25/19 Time of Encounter: 09:25 (Time estimated) - Assessment and Plan (1) CKD (chronic kidney disease), stage III Current Visit: Yes Status: Acute (2) Acute kidney injury superimposed on CKD Current Visit: No Status: Acute (3) Hypokalemia Current Visit: No Status: Acute (4) Encephalopathy Current Visit: Yes Status: Acute (5) Heart failure with reduced ejection fraction Current Visit: Yes Status: Acute Qualifiers: Qualified Code(s): I50.20 - Unspecified systolic (congestive) heart failure (6) Anemia Current Visit: No Status: Chronic Qualifiers: Anemia type: unspecified type Qualified Code(s): D64.9 - Anemia, unspecified Subjective Principal diagnosis: LINO on CKD, encephalopathy Interval history: Subjective Patient feels pretty good. Same as yesterday. Mentions his low potassium. Feels he is Making more urine than he usually does at home. Physical exam Gen.: Middle-aged male. No acute distress Eyes: Moist. Anicteric Cardiac: Tricuspid post was the only area heard reliably. S1, S2. Monitor showed around 75 bpm, paced. Respiratory: Decreased lung sounds in the posterior bases. Middle lobar crackles with low grunting expiratory sound bilaterally. Extremities: Radial pulses 2+. Lower extremities with compression stockings. Pitting edema below and above the knee bilaterally Neuro: No obvious tremor. Psych: Answers questions coherently. Somewhat blunted but pleasant affect. A/P #CKD stage III Last seen by Dr. Tay on 03/04/19. Reports 10-15 year history of CKD per office note. However, also states that he believes he was diagnosed with kidney disease around 3-4 years ago. Sister with RCC status post nephrectomy per office note. -Avoid nephrotoxins -Strict I's and O's -Daily weights #LINO on CKD Consider prerenal from splanchnic vasodilation in the setting of cirrhosis. Possibly component of heart failure. No BNP seen on labs. Initial creatinine 2.56 from 2.22 on 03/14 FE urea at 15.1% suggests prerenal disease. FENa at 0.6% correlates this finding despite torsemide therapy -BUN/creatinine ratio elevated -Calculated osmolality of serum elevated and trending down -Renal ultrasound showed left kidney not visualized but no right hydronephrosis. #Hypokalemia Present at last hospital stay discharged 03/14. Seemed to hover around 3. In the setting of chronic hypokalemia on home potassium chloride. H&P note reports noncompliance per . Consider secondary to renal loss, noncompliance, GI loss in the setting of home lactulose therapy. Patient is on torsemide 40 mg 3 times a day at home. Magnesium WNL 03/20 Initial potassium 2.9 -Crush Potassium chloride 40 mEq by mouth 3 times a day for better absorption -Magnesium 03/25 WNL -Spironolactone 25 mg by mouth increased to twice a day #Anemia Likely multifactorial in the setting of CKD with potentially decreased erythropoietin and vitamin D as well as lactulose therapy potentially thwarting iron absorption. Normocytic Reticulocyte index: 0.1. Indicates hypoproliferative bone marrow. Iron studies suggest anemia of hepcidin elevation -EPO, vit D pending #Encephalopathy Consider hepatic Initial ammonia 101. -CT head 03/20 without contrast read as no acute intracranial abnormality -Per primary #Heart failure with reduced ejection fraction Last echo limited views 03/07: LVEF 30-35%. Mildly dilated left ventricle. Global LV systolic dysfunction. -Per cardiology Objective - Vital Signs Vital signs: Vital Signs Temp Pulse Resp BP Pulse Ox 03/25/19 07:50 97.6 F 75 18 122/68 94 03/25/19 03:24 98.6 F 79 18 108/66 03/24/19 21:24 98 F 62 16 91/51 98 03/24/19 16:03 97.5 F L 89 16 104/65 Intake and Output 03/24/19 03/25/19 03/25/19 23:59 07:59 15:59 Intake Total 600 / 1962 0 / 480 480 / 480 Output Total 900 / 1200 850 / 1250 400 / 1250 Balance -300 / 762 -850 / -770 80 / -770 Intake: Oral 600 / 1440 0 / 480 480 / 480 Output: Urine 900 / 1200 850 / 1250 400 / 1250 Other: Meal Dinner Lunch Percent of Meal Consumed 100% 100% Stool Size Moderate Stool Consistency loose Stool Color Brown # Voids 1 # Bowel Movements 1 Weight 130 kg Blood Glucose* 135 102 118 Patient Weight 03/25/19 23:59 Weight 130 kg - Lab 03/25/19 05:51 03/25/19 05:51 Most recent lab results 03/25/19 05:51 Calcium 8.3 L Magnesium 1.8 Consult Discharge Plan - Plan Referrals: Khoi Hinkle [Primary Care Provider] - 03/28/19 10:00 am ()
[2019-03-25] MEDS ORDERED: *HR* Warfarin 2.5 MG TABLET PO ONE (18:00)
[2019-03-25] MEDS: GuaiFENesin Liq 200 MG/10 ML UDC PO PRN (21:40)
[2019-03-25] MEDS: Melatonin 3 MG TABLET PO SCH (21:40)
[2019-03-25] MEDS: Gabapentin 300 MG CAPSULE PO SCH (21:40)
[2019-03-25] MEDS: Insulin DETEMIR 100 UNIT/ML X5UNITS SQ SCH (21:41)
[2019-03-26 05:09] LABS: Hemoglobin 8.7 g/dL (12.9-16.9); Mean Platelet Volume 9.8 fL (9.4-12.4)
[2019-03-26 05:11] LABS: Basophils % 0.4 %; Eosinophils # 0.1 K/mcL (0.0-0.6); Eosinophils % 1.4 %; Hematocrit 30.8 % (37.5-50.1); Immature Granulocytes % 0.3 % (0-4); Lymphocytes # 0.4 K/mcL (0.6-4.6); Lymphocytes % 4.2 %; Mean Corpuscular HGB Conc 28.2 g/dL (31.6-35.5); Mean Corpuscular Hemoglobin 25.4 pg (28.0-33.3); Mean Corpuscular Volume 90.1 fL (83.0-100.0); Monocytes # 0.9 K/mcL (0.0-1.3); Monocytes % 9.5 %; Platelet Count 227 K/mcL (140-400); Red Blood Count 3.42 M/mcL (4.19-5.50); Red Cell Distribution Width 23.1 % (11.5-14.5); Segmented Neutrophils % 84.2 %; White Blood Count 9.2 K/mcL (4.3-11.1)
[2019-03-26 05:20] LABS: Neutrophils # 7.8 K/mcL (1.6-8.9)
[2019-03-26 05:22] LABS: Prothrombin Time 22.2 Seconds (9.4-12.1)
[2019-03-26 05:25] LABS: Calcium 8.3 mg/dL (8.6-10.3); Potassium 2.6 mEq/L (3.5-5.1)
[2019-03-26 05:33] LABS: Anisocytosis 3+ (Not Present); Macrocytosis Present (Not Present); Microcytosis Present (Not Present); Platelet Estimate Normal (Normal); Polychromasia 2+ (Not Present)
[2019-03-26 05:34] LABS: Hypochromasia Present (Not Present)
[2019-03-26] MEDS: Insulin LISPRO 300 UNITS/3 ML VIAL SQ SCH ×3 (07:43→16:23)
[2019-03-26] MEDS ORDERED: Potassium Chloride Elixir 20 MEQ/15 ML UDC PO ONE (07:49)
--- NOTE | 2019-03-26 07:51 | Internal Med Progress Note ---
<Rosa Rader - Last Filed: 03/26/19 12:23> Hospitalist Progress Note - Encounter Date of Encounter: 03/26/19 - Exam Vitals: Temp Pulse Resp BP Pulse Ox 98.3 F 74 14 103/63 94 03/26/19 07:35 03/26/19 07:35 03/26/19 07:35 03/26/19 07:35 03/26/19 07:35 - Assessment and Plan (1) Diabetes mellitus Current Visit: No Status: Chronic (2) Hypertension Current Visit: No Status: Chronic (3) Morbid obesity Current Visit: No Status: Chronic (4) DVT prophylaxis Current Visit: Yes Status: Acute (5) Elevated troponin Current Visit: Yes Status: Acute (6) Chronic a-fib Current Visit: No Status: Chronic (7) CHF (congestive heart failure) Current Visit: Yes Status: Acute (8) Anemia Current Visit: No Status: Chronic (9) CKD (chronic kidney disease) stage 3, GFR 30-59 ml/min Current Visit: No Status: Acute (10) Pleural effusion Current Visit: No Status: Acute (11) Hepatic encephalopathy Current Visit: Yes Status: Acute (12) Hypokalemia Current Visit: Yes Status: Acute - Time Spent with Patient Total time spent is greater than 50% in coordination of care (as documented) at patient's floor/unit and/or counseling patient: Internal Medicine: Result - Labs CBC & Chem 7: 03/26/19 04:46 03/26/19 04:46 Labs: Short CBC 03/26/19 Range/Units 04:46 WBC 9.2 (4.3-11.1) K/mcL Hgb 8.7 L (12.9-16.9) g/dL Hct 30.8 L (37.5-50.1) % Plt Count 227 (140-400) K/mcL Neutrophils # 7.8 (1.6-8.9) K/mcL BMP 03/25/19 03/26/19 21:12 04:46 Sodium 140 Potassium 3.2 L 2.6 L Chloride 99 Carbon Dioxide 32 H BUN 62 H Creatinine 2.12 H Glucose 128 H Calcium 8.3 L - ABG Interpretation ABG results: ABG ABG pH 7.53 pH Units (7.32-7.45) H 03/20/19 12:20 ABG pCO2 42 mmHg (35-45) 03/20/19 12:20 ABG pO2 61 mmHg (85-104) L 03/20/19 12:20 ABG O2 Saturation 93 % (95-98) L 03/20/19 12:20 PT/INR, D-dimer PT 22.2 Seconds (9.4-12.1) H 03/26/19 04:46 Consult Discharge Plan - Plan Referrals: Khoi Hinkle [Primary Care Provider] - 03/28/19 10:00 am () Tracy Kerr MD [Partnered Physician] - - Attending Attestation I examined this patient and my medical decision-making was reviewed with the Resident Physician Dr Rankin. I agree with the documented findings, disposition and treatment plan as described except to the extent set forth below. Mr Pace is admitted with hepatic encephalopathy, LINO on CKD and refractory hypokalemia awake, no family present, aware K remains low and treatment plan discussed. He denies sob, has dry hacking cough present for over a month, unchanged, no sputum, awaiting dispo and stating he will leave AMA tomorrow if potassium hasn't corrected by then gen- alert, awake,appears stated age, obese cv- reg rate and rhythm, normal s1,s2, trace pitting le edema, richard hose in place lungs- ctabl, no wheezing, rhonchi or crackles, normal resp effort on ra neuro- AAOx3 Hepatic encephalopathy, resolved- cont rifaximin + lactulose, requires referral to GI on dc LINO on CKD 3- resolved, stable kidney function as d/w nephro Refractory Hypokalemia- remains with K level in 2s, KCL dosing increased to 4x daily as per nephro, apprecaite Dr Tay input, cont aldactone Acute on Chronic HFrEF appears resolved and he is at his baseline Chronic Peripheral Edema as d/w nephro whom sees him outpt- cont aldactone + torsemide Chronic dry cough, suspect related to fluid overload, CXR on admit with pulm vasc congestion- pt encouraged to fu with pcp post discharge if does not improve with continued fluid removal dispo- will be to home with when potassium improved further dx and plan as noted by resident <Enmanuel Rankin - Last Filed: 03/26/19 15:14> Hospitalist Progress Note - Encounter Date of Encounter: 03/26/19 Time of Encounter: 07:50 - Subjective Interval History: Pt is awake, alert, in chair comfortable. Potassium decreased from 3.2 to 2.6 last night, pt still asymptomatic. He endorses that he is anxious to get home by tomorrow and that if he doesn't that he will "give up" and go to a half-way. We discussed his concerns and he agreed with our plan to monitor potassium today. - Exam Vitals: Temp Pulse Resp BP Pulse Ox 98.3 F 74 14 103/63 94 03/26/19 07:35 03/26/19 07:35 03/26/19 07:35 03/26/19 07:35 03/26/19 07:35 Exam: GA: A&Ox3, no acute distress. Head: Atraumatic normocephalic Skin: Normal texture, normal turgor, warm, dry. Eyes: Conjunctivae pale with no erythema. Anicteric. Neck: Trachea midline, normal inspection. Heart: RRR, S1/S2 WNL, no murmurs, rubs, gallops. Lungs: No accessory muscle usage, lungs clear to auscultation bilaterally, no wheezes or crackles. Extremities: 2+ pitting edema BL, No clubbing, cyanosis, or ulcers. Abdomen: Non-tender, normoactive bowel sounds throughout. No guarding or rigidity. Neuro: No new focal deficits. answers questions appropriately - Assessment and Plan (1) Hypokalemia Current Visit: Yes Status: Acute Assessment and Plan: Pt continues to remain hypokalemic with a normal Mg. Still not responding well to KCl supplementation. Potassium down from 3.2 to 2.6 today. Concern his lactulose dose is too high and he is losing K with excessive stools - Patient given additional 40 meq PO potassium. - Continue 40 meq PO TID, with tablets crushed into food for better absorption per nephrology. - Recheck K at 2000 today and 0400 tomorrow. - Continue lactulose, titrate dose to 2-4 stools/day. - Nursing to record all stools and titrate lactulose dose. - At this time nursing and patient reporting 1-2 BM per day. Will need to confirm this again with patient prior to discharge. (2) Hepatic encephalopathy Current Visit: Yes Status: Acute Assessment and Plan: Mental status remains at baseline. He endorses some frustration and is awaiting discharge. His initial decline in mental status was likely secondary to non- compliance with home lactulose and rifaximin - continue lactulose, rifaximin at this time. - monitor for s/s of HE. (3) Acute kidney injury superimposed on CKD Current Visit: No Status: Acute Assessment and Plan: LINO on CKD-III on admission. Creatinine down from 2.33 to 2.12 today. BUN down from 65 to 62, patient is now at baseline. Nephrology following. - Avoid nephrotoxins. - Strict I's and O's. - Daily weights. (4) Acute on chronic systolic (congestive) heart failure Current Visit: No Status: Suspected Assessment and Plan: Likely moderate acute on chronic CHF on admission, now resolved. Asymptomatic at this time. Lower extremity edema is chronic. - Continue Demadex, Aldactone. - Monitor potassium daily. (5) Diabetes mellitus Current Visit: No Status: Chronic Assessment and Plan: Glucose measured ACHS. Glucose 128 today. Adjust insulin regimen as needed in consultation with pharmacy. - Continue basal-bolus regimen. DVT Prophylaxis: pt on warfarin with INR of 2.0, adjust warfarin dose per protocol for target INR of 2-3 - Time Spent with Patient Total time spent is greater than 50% in coordination of care (as documented) at patient's floor/unit and/or counseling patient: Plan of Care Discussed with: patient Internal Medicine: Result - Labs CBC & Chem 7: 03/26/19 04:46 03/26/19 11:46 Labs: Short CBC 03/26/19 Range/Units 04:46 WBC 9.2 (4.3-11.1) K/mcL Hgb 8.7 L (12.9-16.9) g/dL Hct 30.8 L (37.5-50.1) % Plt Count 227 (140-400) K/mcL Neutrophils # 7.8 (1.6-8.9) K/mcL BMP 03/25/19 03/25/19 03/26/19 05:51 21:12 04:46 Sodium 136 140 Potassium 2.8 L 3.2 L 2.6 L Chloride 100 99 Carbon Dioxide 30 H 32 H BUN 65 H 62 H Creatinine 2.33 H 2.12 H Glucose 125 H 128 H Calcium 8.3 L 8.3 L - ABG Interpretation ABG results: ABG ABG pH 7.53 pH Units (7.32-7.45) H 03/20/19 12:20 ABG pCO2 42 mmHg (35-45) 03/20/19 12:20 ABG pO2 61 mmHg (85-104) L 03/20/19 12:20 ABG O2 Saturation 93 % (95-98) L 03/20/19 12:20 PT/INR, D-dimer PT 22.2 Seconds (9.4-12.1) H 03/26/19 04:46 <Rosa Rader M - Last Filed: 03/26/19 12:23> (1) Diabetes mellitus Qualifiers: Diabetes mellitus type: type 2 Diabetes mellitus intermission coordinator insulin use: with intermission coordinator use Diabetes mellitus complication status: with other specified complication Qualified Code(s): E11.69 - Type 2 diabetes mellitus with other specified complication; Z79.4 - adjunct faculty for medical terminology (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 of insulin (2) Hypertension Qualifiers: Hypertension type: unspecified Qualified Code(s): I10 - Essential (primary) hypertension (7) CHF (congestive heart failure) Qualifiers: Heart failure type: systolic Heart failure chronicity: acute on chronic Qualified Code(s): I50.23 - Acute on chronic systolic (congestive) heart failure (8) Anemia Qualifiers: Anemia type: unspecified type Qualified Code(s): D64.9 - Anemia, unspecified <Enmanuel Rankin M - Last Filed: 03/26/19 15:14> (5) Diabetes mellitus Qualifiers: Qualified Code(s): E11.69 - Type 2 diabetes mellitus with other specified complication; Z79.4 - adjunct faculty for medical terminology (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 of insulin
[2019-03-26] MEDS: Lactulose Oral Soln 20 GM/30 ML UDC PO SCH ×3 (08:05→19:57)
[2019-03-26] MEDS: Spironolactone 25 MG TABLET PO SCH ×2 (08:06→19:57)
[2019-03-26] MEDS: Aspirin Enteric Coated 81 MG Tablet PO SCH (08:06)
[2019-03-26] MEDS: Torsemide 20 MG TABLET PO SCH ×3 (08:57→17:10)
[2019-03-26] MEDS: GuaiFENesin Liq 200 MG/10 ML UDC PO PRN ×2 (09:02→19:57)
[2019-03-26 12:45] LABS: Potassium,Urine 54.5 mEq/L
--- NOTE | 2019-03-26 15:04 | Nephrology Progress Note ---
Date of Encounter: 03/26/19 Time of Encounter: 06:40 (Time estimated) - Assessment and Plan (1) CKD (chronic kidney disease), stage III Current Visit: Yes Status: Acute (2) Acute kidney injury superimposed on CKD Current Visit: No Status: Acute (3) Hypokalemia Current Visit: No Status: Acute (4) Encephalopathy Current Visit: Yes Status: Acute (5) Heart failure with reduced ejection fraction Current Visit: Yes Status: Acute Qualifiers: Qualified Code(s): I50.20 - Unspecified systolic (congestive) heart failure (6) Anemia Current Visit: No Status: Chronic Qualifiers: Anemia type: unspecified type Qualified Code(s): D64.9 - Anemia, unspecified Subjective Principal diagnosis: LINO on CKD, encephalopathy Interval history: Subjective Patient feels pretty good but mentions he has been awakened from sleep. Physical exam Gen.: Middle-aged male. Sleeping Skin: Good turgor Eyes: Moist. Anicteric Cardiac: S1, S2. No murmurs gallops rubs heard. Mitral and tricuspid posts not reliably heard. Rate of 80s on monitor. Respiratory: Decreased lung sounds throughout posterior lemon. Extremities: Capillary refill less than 2 seconds bilateral upper extremities. Pitting edema bilateral lower extremities above the knee somewhat improved. Lower extremities wrapped. Neuro: No obvious tremor noticed Psych: Appropriate mood and behavior. Answers question coherently A/P #CKD stage III Last seen by Dr. Tay on 03/04/19. Reports 10-15 year history of CKD per office note. However, also states that he believes he was diagnosed with kidney disease around 3-4 years ago. Sister with RCC status post nephrectomy per office note. -Avoid nephrotoxins -Strict I's and O's -Daily weights #LINO on CKD Consider prerenal from splanchnic vasodilation in the setting of cirrhosis. Possibly component of heart failure. Initial creatinine 2.56 from 2.22 on 03/14 FE urea at 15.1% suggests prerenal disease. FENa at 0.6% correlates this finding despite torsemide therapy -Renal ultrasound showed left kidney not visualized but no right hydronephrosis. -Continue current therapy of fluid balancing as kidneys have tolerated #Hypokalemia Present at last hospital stay discharged 03/14. Seemed to hover around 3. In the setting of chronic hypokalemia on home potassium chloride. H&P note reports noncompliance per . Consider secondary to renal loss, noncompliance, GI loss in the setting of home lactulose therapy. Patient is on torsemide 40 mg 3 times a day at home. Magnesium WNL 03/26 Initial potassium 2.9 Trans-tubular potassium gradient: 19. Suggest renal losses. In the setting of hypo/Normo tension and alkalosis will order urine chloride. -Crush Potassium chloride 40 mEq by mouth for better absorption. Give 4 times a day. -Spironolactone 25 mg by mouth twice a day -Urine Cl pending #Anemia Likely multifactorial in the setting of CKD with potentially decreased erythropoietin and vitamin D as well as lactulose therapy potentially thwarting iron absorption. Iron studies suggest anemia of hepcidin elevation Normocytic Reticulocyte index: 0.1. Indicates hypoproliferative bone marrow. vit D WNL -EPO pending -Goal 04-26 in the setting of CKD #Encephalopathy Consider hepatic Initial ammonia 101. -CT head 03/20 without contrast read as no acute intracranial abnormality -Per primary #Heart failure with reduced ejection fraction Last echo limited views 03/07: LVEF 30-35%. Mildly dilated left ventricle. Global LV systolic dysfunction. -Per cardiology and primary Objective - Vital Signs Vital signs: Vital Signs Temp Pulse Resp BP Pulse Ox 03/26/19 07:35 98.3 F 74 14 103/63 94 03/26/19 05:09 97.4 F L 74 14 110/66 98 03/26/19 01:12 97.9 F 65 16 99/74 97 03/25/19 21:52 98 03/25/19 21:01 97.9 F 65 16 111/81 92 03/25/19 15:31 97.8 F 93 18 123/79 Intake and Output 03/25/19 03/26/19 03/26/19 23:59 07:59 15:59 Intake Total 360 / 840 240 / 840 600 / 840 Output Total 1000 / 2250 1100 / 1100 Balance -640 / -1410 -860 / -260 600 / -260 Intake: Oral 360 / 840 240 / 840 600 / 840 Output: Urine 1000 / 2250 1100 / 1100 Other: Meal Dinner Lunch Percent of Meal Consumed 50% 100% Stool Size Large Stool Consistency loose Stool Color Brown Weight 132 kg Blood Glucose* 154 114 133 Patient Weight 03/26/19 23:59 Weight 132 kg - Lab 03/26/19 04:46 03/26/19 11:46 Most recent lab results 03/26/19 03/26/19 04:46 04:46 Calcium 8.3 L Magnesium 1.8 Consult Discharge Plan - Plan Referrals: Khoi Hinkle [Primary Care Provider] - 03/28/19 10:00 am () Tracy Kerr MD [Partnered Physician] -
[2019-03-26] MEDS ORDERED: *HR* Warfarin 2.5 MG TABLET PO ONE (18:00)
[2019-03-26] MEDS: Gabapentin 300 MG CAPSULE PO SCH (19:57)
[2019-03-26] MEDS: Melatonin 3 MG TABLET PO SCH (19:57)
[2019-03-26] MEDS: Insulin DETEMIR 100 UNIT/ML X5UNITS SQ SCH (19:58)
[2019-03-27 02:42] LABS: Basophils % 0.5 %; Hematocrit 31.5 % (37.5-50.1); Immature Granulocytes % 0.4 % (0-4); Red Cell Distribution Width 23.5 % (11.5-14.5)
[2019-03-27 02:44] LABS: Basophils # 0.1 K/mcL (0.0-0.2); Eosinophils # 0.3 K/mcL (0.0-0.6); Eosinophils % 3.2 %; Hemoglobin 8.9 g/dL (12.9-16.9); Lymphocytes # 0.7 K/mcL (0.6-4.6); Lymphocytes % 6.6 %; Mean Corpuscular HGB Conc 28.3 g/dL (31.6-35.5); Mean Corpuscular Hemoglobin 25.7 pg (28.0-33.3); Mean Platelet Volume 10.4 fL (9.4-12.4); Monocytes % 9.5 %; Nucleated Red Blood Cells 0.2 /100 WBC (0); Platelet Count 259 K/mcL (140-400); Red Blood Count 3.46 M/mcL (4.19-5.50); Segmented Neutrophils % 79.8 %; White Blood Count 10.1 K/mcL (4.3-11.1)
[2019-03-27 03:00] LABS: Calcium 7.9 mg/dL (8.6-10.3); Potassium 3.6 mEq/L (3.5-5.1); Prothrombin Time 23.2 Seconds (9.4-12.1)
[2019-03-27 03:01] LABS: Neutrophils # 8.1 K/mcL (1.6-8.9)
[2019-03-27 04:08] LABS: Anisocytosis 1+ (Not Present); Hypochromasia Present (Not Present); Platelet Estimate Normal (Normal); Polychromasia 1+ (Not Present)
[2019-03-27] MEDS: GuaiFENesin Liq 200 MG/10 ML UDC PO PRN ×2 (06:43→12:15)
[2019-03-27] MEDS: Insulin LISPRO 300 UNITS/3 ML VIAL SQ SCH ×3 (07:42→16:22)
--- NOTE | 2019-03-27 08:30 | Nephrology Progress Note ---
Date of Encounter: 03/27/19 Time of Encounter: 08:40 (Time estimated) - Assessment and Plan (1) CKD (chronic kidney disease), stage III Current Visit: Yes Status: Acute (2) Acute kidney injury superimposed on CKD Current Visit: No Status: Acute (3) Hypokalemia Current Visit: No Status: Acute (4) Encephalopathy Current Visit: Yes Status: Acute (5) Heart failure with reduced ejection fraction Current Visit: Yes Status: Acute Qualifiers: Qualified Code(s): I50.20 - Unspecified systolic (congestive) heart failure (6) Anemia Current Visit: No Status: Chronic Qualifiers: Anemia type: unspecified type Qualified Code(s): D64.9 - Anemia, unspecified Subjective Principal diagnosis: LINO on CKD, encephalopathy Interval history: Subjective Patient feels about the same as yesterday. No new symptoms to report. Physical exam Gen.: Middle-aged male. No acute distress Skin: Good turgor over forehead. Possible skin return around 2 seconds in the subclavicular areas. Eyes: Moist. Anicteric Cardiac: S1, S2. Occasional S4 heard through the tricuspid and mitral valves. No murmurs gallops rubs heard. Respiratory: Diminished lung sounds in the bases posteriorly. CTA posterior upper lemon Extremities: Bilateral pitting edema to at least the upper thigh. Neuro: No obvious tremor. Psychiatric: Appropriate mood and behavior. Answers question coherently. A/P #CKD stage III Last seen by Dr. Tay on 03/04/19. Reports 10-15 year history of CKD per office note. However, also states that he believes he was diagnosed with kidney disease around 3-4 years ago. Sister with RCC status post nephrectomy per office note. -Avoid nephrotoxins -Strict I's and O's -Daily weights #LINO on CKD Consider prerenal from splanchnic vasodilation in the setting of cirrhosis. Possibly component of heart failure. Initial creatinine 2.56 from 2.22 on 03/14 FE urea at 15.1% suggests prerenal disease. FENa at 0.6% correlates this finding despite torsemide therapy -Renal ultrasound showed left kidney not visualized but no right hydronephrosis. -Continue current therapy of fluid balancing as kidneys have tolerated #Hypokalemia Present at last hospital stay discharged 03/14. Seemed to hover around 3. In the setting of chronic hypokalemia on home potassium chloride. H&P note reports noncompliance per . Consider secondary to renal loss, noncompliance, GI loss in the setting of home lactulose therapy. Patient is on torsemide 40 mg 3 times a day at home. Magnesium WNL 03/26 Initial potassium 2.9 Trans-tubular potassium gradient: 19. Suggest renal losses. In the setting of hypo/Normo tension and alkalosis with urine chloride of 65 this suggests diu retic caused loss of potassium versus Bartter's/Gittelman syndrome -Crush Potassium chloride 40 mEq by mouth for better absorption. Give 6 times a day. -Spironolactone 25 mg by mouth twice a day -Improving #Anemia Likely multifactorial in the setting of CKD with potentially decreased erythropoietin and vitamin D as well as lactulose therapy potentially thwarting iron absorption. Iron studies suggest anemia of hepcidin elevation Normocytic Reticulocyte index: 0.1. Indicates hypoproliferative bone marrow. vit D WNL -EPO pending -Goal 04-26 in the setting of CKD #Wheezing As per my attending's physical exam -Consider breathing treatments. Per primary. #Encephalopathy Consider hepatic Initial ammonia 101. -CT head 03/20 without contrast read as no acute intracranial abnormality -Per primary #Heart failure with reduced ejection fraction Last echo limited views 03/07: LVEF 30-35%. Mildly dilated left ventricle. Global LV systolic dysfunction. -Per cardiology and primary Objective - Vital Signs Vital signs: Vital Signs Temp Pulse Resp BP Pulse Ox 03/27/19 07:34 98.5 F 76 16 96/59 95 03/27/19 04:59 98.5 F 80 14 106/69 94 03/27/19 00:10 99.3 F 71 14 102/56 93 03/26/19 21:00 96 03/26/19 19:38 97.9 F 75 18 106/68 96 03/26/19 17:06 104/63 03/26/19 16:15 98.2 F 69 18 96/57 92 Intake and Output 03/26/19 03/27/19 03/27/19 23:59 07:59 15:59 Intake Total 660 / 1500 120 / 120 Output Total 1200 / 1200 Balance 660 / 400 -1080 / -1080 Intake: Oral 660 / 1500 120 / 120 Output: Urine 1200 / 1200 Other: Meal Dinner Percent of Meal Consumed 50% Weight 130.8 kg Blood Glucose* 157 106 Patient Weight 03/27/19 23:59 Weight 130.8 kg - Lab 03/27/19 01:55 03/27/19 01:55 Most recent lab results 03/27/19 01:55 Calcium 7.9 L Consult Discharge Plan - Plan Referrals: Khoi Hinkle [Primary Care Provider] - 03/28/19 10:00 am () Tracy Kerr MD [Partnered Physician] -
--- NOTE | 2019-03-27 09:07 | Discharge Summary ---
<Nathan Gonsalves - Last Filed: 03/27/19 17:10> Orders not resulted at time of discharge: Pending orders 03/25/19 21:12 Erythropoietin Routine Date of Encounter: 03/27/19 - Discharge Diagnosis (1) Diabetes mellitus Status: Chronic Qualifiers: Diabetes mellitus type: type 2 Diabetes mellitus management internship insulin use: with fdc use Diabetes mellitus complication status: with other specified complication Qualified Code(s): E11.69 - Type 2 diabetes mellitus with other specified complication; Z79.4 - senior living (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 of insulin (2) Hypertension Status: Chronic Qualifiers: Hypertension type: essential hypertension Qualified Code(s): I10 - Ess ential (primary) hypertension (3) Morbid obesity Priority: Secondary Status: Chronic (4) Elevated troponin Priority: Secondary Status: Acute (5) Chronic a-fib Priority: Secondary Status: Chronic (6) CHF (congestive heart failure) Priority: Primary Status: Acute Assessment and Plan: Not on MANAN, ARB or beta shirley due to other medical conditions. Qualifiers: Heart failure type: systolic Heart failure chronicity: acute on chronic Qualified Code(s): I50.23 - Acute on chronic systolic (congestive) heart failure (7) Anemia Priority: Secondary Status: Chronic Qualifiers: Anemia type: unspecified type Qualified Code(s): D64.9 - Anemia, unspecified (8) CKD (chronic kidney disease) stage 3, GFR 30-59 ml/min Priority: Secondary Status: Acute (9) Pleural effusion Priority: Secondary Status: Acute (10) Hepatic encephalopathy Status: Resolved (11) Hypokalemia Status: Resolved Hospital course: Mr. Pace is a 63 year old male - Time Spent with Patient Total time spent providing and/or coordinating discharge services: - Discharge Medications Prescriptions: New Spironolactone [Aldactone] 25 mg PO BID 10 Days #20 tablet Ferrous Sulfate 325 mg PO TIDWM 30 Days #90 tablet Potassium Chloride 40 meq PO Q4HR 10 Days #120 tab.er.prt Rifaximin [Xifaxan] 550 mg PO BID 10 Days #20 tablet Continued Ezetimibe 10 mg PO QAM Insulin Glargine,Hum.rec.anlog [Lantus Solostar] 70 unit SQ HS PRN PRN Reason: BG > 150 Simvastatin [Zocor] 40 mg PO QPM Warfarin [Coumadin] 2.5 mg PO SUMOTUWETHSA Melatonin 10 mg PO HS Allopurinol [Zyloprim 100 MG] 100 mg PO DAILY #0 Omeprazole [PriLOSEC] 20 mg PO DAILY@0730 Gabapentin [Neurontin] 300 mg PO HS Aspirin [Adult Aspirin Regimen] 81 mg PO QAM [place]-3/Dha/Epa/Fish Oil [Fish Oil 1,000 mg Softgel] 1 cap PO QAM Cyclobenzaprine [Flexeril] 10 mg PO TID PRN PRN Reason: Muscle Spasm Meclizine [Antivert] 12.5 mg PO TID PRN PRN Reason: Dizziness Ondansetron [Zofran ODT] 8 mg SL Q8H PRN PRN Reason: Nausea And Vomiting Torsemide [Demadex] 40 mg PO 0800,1200,1800 Midodrine [ProAmatine] 5 mg PO 0800,1200,1700 7 Days #21 tablet metOLazone [Zaroxolyn] 2.5 mg PO DAILY@0730 Warfarin [Coumadin] 5 mg PO FR Lactulose [Enulose] 50 ml PO QID #0 Discontinued Potassium Chloride 40 meq PO TID 10 Days #30 tab.er.prt Home Medications: Ezetimibe 10 mg PO QAM 05/16/17 [History] Insulin Glargine,Hum.rec.anlog [Lantus Solostar] 70 unit SQ HS PRN 05/16/17 [History] Simvastatin [Zocor] 40 mg PO QPM 02/11/18 [History] Melatonin 10 mg PO HS 07/06/18 [History] Warfarin [Coumadin] 2.5 mg PO SUMOTUWETHSA 07/06/18 [History] Allopurinol [Zyloprim 100 MG] 100 mg PO DAILY #0 09/11/18 [History] Omeprazole [PriLOSEC] 20 mg PO DAILY@0730 11/12/18 [History] Gabapentin [Neurontin] 300 mg PO HS 12/18/18 [History] Aspirin [Adult Aspirin Regimen] 81 mg PO QAM 01/03/19 [History] [place]-3/Dha/Epa/Fish Oil [Fish Oil 1,000 mg Softgel] 1 cap PO QAM 01/03/19 [History] Cyclobenzaprine [Flexeril] 10 mg PO TID PRN 03/06/19 [History] Meclizine [Antivert] 12.5 mg PO TID PRN 03/06/19 [History] Ondansetron [Zofran ODT] 8 mg SL Q8H PRN 03/06/19 [History] Torsemide [Demadex] 40 mg PO 0800,1200,1800 03/06/19 [History] Midodrine [ProAmatine] 5 mg PO 0800,1200,1700 7 Days #21 tablet 03/14/19 [Rx] Warfarin [Coumadin] 5 mg PO FR 03/19/19 [History] metOLazone [Zaroxolyn] 2.5 mg PO DAILY@0730 03/19/19 [History] Ferrous Sulfate 325 mg PO TIDWM 30 Days #90 tablet 03/27/19 [Rx] Lactulose [Enulose] 50 ml PO QID #0 03/27/19 [Rx] Potassium Chloride 40 meq PO Q4HR 10 Days #120 tab.er.prt 03/27/19 [Rx] Rifaximin [Xifaxan] 550 mg PO BID 10 Days #20 tablet 03/27/19 [Rx] Spironolactone [Aldactone] 25 mg PO BID 10 Days #20 tablet 03/27/19 [Rx] Allergies/Adverse Reactions: Allergy/AdvReac Type Severity Reaction Status Date / Time Amoxicillin [From Augmentin] AdvReac Diarrhea Verified 01/03/19 16:40 clavulanic acid AdvReac Diarrhea Verified 01/03/19 16:40 [From Augmentin] oxycodone [From Percocet] AdvReac Itching Verified 01/03/19 16:40 Date of admission: 03/21/19 17:15 Primary care physician: Khoi Hinkle Consults: 03/20/19 06:00 Consult to Interventional Radiology [CONS] Routine Consulting Provider: Radiology Interventional Cols Reason for Consult: encephalopathy suspected SBP. Paracentesis diagnostic Call Completed: No Consult to Nutrition [CONS] Routine Comment: Consulting Provider: NUTRITION Reason for Dietary Consult: MST Score 03/20/19 07:00 Consult to Cardiology [CONS] Routine Comment: Consulting Provider: Cardiology [place] Reason for Consult: elevated troponin. Call Completed: No Consult to Nephrology [CONS] Routine Consulting Provider: [facility] [place]/[facility]/TAYLOR/SUE Reason for Consult: suspected hepatorenal syndrome. Call Completed: No 03/21/19 20:26 Consult to Physical Therapy [CONS] Routine Comment: Evaluate, develop and implement POC Reason for Consult: Patient reporting back pain from acute decrease in mobility. Does patient have active BEDREST order?: No Is patient medically & hemodynamically stable?: Yes Patient assessed for mobility or mobilized this visit?: Yes - Constitutional Vitals: Temp Pulse Resp BP Pulse Ox 97.4 F L 84 16 105/74 100 03/27/19 16:15 03/27/19 16:15 03/27/19 16:15 03/27/19 16:15 03/27/19 16:15 - Patient Status Disposition: Transfer Short-Term Hosp Condition: Fair - Discharge Instructions Instructions: Heart Failure (DC) Follow Up With: Khoi Hinkle [Primary Care Provider] - 03/28/19 10:00 am () rTacy Kerr MD [Partnered Physician] - - Attending Attestation I examined this patient and my medical decision-making was reviewed with the Resident Physician on 03/27/19. I agree with the documented findings, disposition and treatment plan as described except to the extent set forth below. Mr Pace has been admitted for fluid overload and encephalopathy. He continues to be edematous. 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 He is accepted there. Exam Alert. Comfortable Edematous Not tachy No wheeze Plan D/C to [facility] when bed available D/C time 25min <Trevor Fry S - Last Filed: 03/27/19 19:16> - NOTES TO OUTPATIENT PROVIDER Notes to Outpatient Provider: Polycythemia appears to be chronic, unable to find history of workup. Further investigation seems warranted. Patient needs to follow up with nephrology and hepatology. Orders not resulted at time of discharge: Pending orders 03/25/19 21:12 Erythropoietin Routine Date of Encounter: 03/27/19 Time of Encounter: 09:06 - Discharge Diagnosis (1) Hepatic encephalopathy Priority: Primary Status: Resolved Assessment and Plan: Hepatic encephalopathy likely due to noncompliance with home medication regimen * Mental status status cleared with rifaximin and lactulose * Elevated serum ammonia decreased concomitantly with clearing of mental status * Patient and spouse requesting decrease in dosing of lactulose due to inconvenience of having watery stools. Likely high risk for further noncompliance. (2) Hypokalemia Priority: Secondary Status: Resolved Assessment and Plan: Hypokalemia was persistent Did not respond to IV and PO simultaneous supplementation of potassium (3) Diabetes mellitus Priority: Secondary Status: Chronic Assessment and Plan: Glucose has been well controlled on sliding scale insulin serum glucose under 200 consistently * continue insulin regimen Qualifiers: Diabetes mellitus type: type 2 Diabetes mellitus management internship insulin use: with management internship use Diabetes mellitus complication status: with other specified complication Qualified Code(s): E11.69 - Type 2 diabetes mellitus with other specified complication; Z79.4 - senior living (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 of insulin (4) Hypertension Priority: Secondary Status: Chronic Assessment and Plan: BP well controlled on torsemide and spironolactone * continue current regimen Qualifiers: Hypertension type: essential hypertension Qualified Code(s): I10 - Essential (primary) hypertension (5) Acute kidney injury superimposed on CKD Priority: Secondary Status: Acute Assessment and Plan: serial BMP reveals steadily decreasing BUN and Creatinine, * Maintaining compliance with medications to prevent hepatic complications will be arevalo in preventing any hepatorenal syndrome or further LINO Hospital course: Mr. Pace is a 63 year old male who presented to Hospital of altered mental status and was admitted for hepatic encephalopathy. His condition improved with rifaximin and lactulose, and he has remained at his baseline for the last several days. During his stay, he was found to be hypokalemic and this did not respond to oral and IV replenishment, nephrology was consulted. They started the patient on spironolactone and continued his oral and IV supplementation, with minimal results. It was found that the patient's lactulose may have been excessive, as he was having far more than 2-4 stools per day. Decreasing lactulose and decreasing volume of stools resulted in improvement of his hypokalemia. Despite medical management, nephrology and cardiology consults, the patient's status remains tenuous. He has a significant history of repeated episodes of hepatic encephalopathy due to noncompliance with home medications. He seems very eager to reduce the dose of his lactulose as soon as he leaves the hospital, as he and his repeatedly request decreases in dosing. Due to our lack of hepatology at this facility, and at the request of the patient and his family, the decision was made to initiate transfer to [facility] for further workup of his underlying cirrhosis by their hepatologists. - Time Spent with Patient Total time spent providing and/or coordinating discharge services: Date of admission: 03/21/19 17:15 Primary care physician: Khoi Hinkle Consults: 03/20/19 06:00 Consult to Interventional Radiology [CONS] Routine Consulting Provider: Radiology Interventional Cols Reason for Consult: encephalopathy suspected SBP. Paracentesis diagnostic Call Completed: No Consult to Nutrition [CONS] Routine Comment: Consulting Provider: NUTRITION Reason for Dietary Consult: MST Score 03/20/19 07:00 Consult to Cardiology [CONS] Routine Comment: Consulting Provider: Cardiology [place] Reason for Consult: elevated troponin. Call Completed: No Consult to Nephrology [CONS] Routine Consulting Provider: Kid[facility] [place]/NIMCO/TAYLOR/SUE Reason for Consult: suspected hepatorenal syndrome. Call Completed: No 03/21/19 20:26 Consult to Physical Therapy [CONS] Routine Comment: Evaluate, develop and implement POC Reason for Consult: Patient reporting back pain from acute decrease in mobility. Does patient have active BEDREST order?: No Is patient medically & hemodynamically stable?: Yes Patient assessed for mobility or mobilized this visit?: Yes 03/26/19 13:35 Consult to Occupational Therapy [CONS] Routine Comment: Evaluate, develop and implement POC Reason for Consult: patient reporting back pain due to acute decrease in mobility, PT co nsult previously put in place. Does patient have active BEDREST order?: No Is patient medically & hemodynamically stable?: Yes Patient assessed for mobility or mobilized this visit?: No Discharging clinician: Trevor Fry Anticipated date of discharge: 03/27/19 - Constitutional Vitals: Temp Pulse Resp BP Pulse Ox 98.5 F 76 16 96/59 95 03/27/19 07:34 03/27/19 07:34 03/27/19 07:34 03/27/19 07:34 03/27/19 07:34 Exam: GA: A&Ox3, no acute distress. Head: Atraumatic normocephalic Skin: Normal texture, normal turgor, warm, dry. Eyes: Conjunctivae pale with no erythema. Anicteric. Neck: Trachea midline, normal inspection. Heart: RRR, S1/S2 WNL, no murmurs, rubs, gallops. Lungs: No accessory muscle usage, lungs clear to auscultation bilaterally, no wheezes or crackles. Extremities: 2+ pitting edema BL LE, No clubbing, cyanosis, or ulcers. Abdomen: Non-tender, normoactive bowel sounds throughout. No guarding or rigidity. Neuro: No new focal deficits. answers questions appropriately - Patient Status Functional capacity at discharge: independent ambulation Overall status at discharge: patient is progressing back to baseline - Diet and Activity Activity: as per physical therapy Diet: other (Low protein, diabetic, low sodium,)
[2019-03-27] MEDS: Lactulose Oral Soln 20 GM/30 ML UDC PO SCH ×3 (09:23→18:45)
[2019-03-27] MEDS: Aspirin Enteric Coated 81 MG Tablet PO SCH (09:25)
[2019-03-27] MEDS: Torsemide 20 MG TABLET PO SCH ×3 (09:26→18:21)
[2019-03-27] MEDS: Spironolactone 25 MG TABLET PO SCH ×2 (09:26→19:53)
[2019-03-27] MEDS ORDERED: Ipratropium/Albuterol Neb 3 ML IH ONE ×2 (10:36→11:49)
[2019-03-27] MEDS ORDERED: Ipratropium/Albuterol Neb 3 ML IH PRN (16:38)
[2019-03-27] MEDS ORDERED: Albuterol 2.5 MG/3 ML NEBULIZER IH PRN (16:41)
[2019-03-27] MEDS ORDERED: *HR* Warfarin 2.5 MG TABLET PO ONE (18:00)
[2019-03-27] MEDS: Gabapentin 300 MG CAPSULE PO SCH (19:53)
[2019-03-27] MEDS: Melatonin 3 MG TABLET PO SCH (19:53)
[2019-03-27 20:14] VITALS: BP 109/66
[2019-03-27] MEDS: Insulin DETEMIR 100 UNIT/ML X5UNITS SQ SCH (21:21)
== END 2019-03-27 22:42 | disposition short-term general hospital (02) | DRG 441 ==
LOC: 3BNU 16:25 → EMEROOARM 16:25 → 3BNU 19:57 → SUATTDRO 03-21 17:15 → 2NENU 03-23 13:24
PROVIDERS: ADMIT Internal Medicine; ATTEND Internal Medicine